=== PATIENT | female | born 1950 | race Caucasian/White ===

== ENCOUNTER 2018-10-15 16:51 | Emergency (ER) | payer MEDICARE, OTHER ==
[2018-10-15] MEDS ORDERED: ONDANSETRON *ODT* 4 MG TABLET SL ONE (17:08)
--- NOTE | 2018-10-15 17:08 | PDOC ---
Rapid Medical Evaluation Chief Complaint: Cold Symptoms Time Seen by Provider: 10/15/18 17:06 Medical Evaluation: 10/15/18 17:07 I have performed a brief in-person evaluation of this patient. The patient presents with a chief complaint of:nausea, vomiting, fever Pertinent physical exam findings:NAD I have ordered the following:Belly labs, zofran The patient will proceed to the ED for further evaluation. Discharge Disposition - Diagnosis Vomiting - Referrals - Patient Instructions - Post Discharge Activity
[2018-10-15 17:10] VITALS: TEMP 97.9; BMI 34.5
[2018-10-15] MEDS ORDERED: ONDANSETRON *ODT* 4 MG TABLET ONE (17:10)
--- NOTE | 2018-10-15 17:22 | PDOC ---
History of Present Illness - General Chief Complaint: Cold Symptoms Stated Complaint: FEVER/COLD SYMPTOMS Time Seen by Provider: 10/15/18 17:06 - History of Present Illness Initial Comments: 68 yo F with PMH of HTN, HLD, DM, asthma presenting with chest pain. Patient states the chest discomfort is rated 4/10 and described as a "pressure." Endorses diaphoresis, nausea, and vomiting too many times to count which is the main reason she decided to come to the ED. Patient is a lifetime nonsmoker. She denies personal history of AR. Father had an AR at age 65 and her sister had one at age 70. Patient has seen a technical applications scientist in the past but is unsure if she has ever had a stress test or ECHO. Endorses chills. Denies shortness of breath or abdominal pain. Past History - Past Medical History Allergies/Adverse Reactions: Allergies Allergy/AdvReac Type Severity Reaction Status Date / Time No Known Allergies Allergy Verified 10/15/18 17:07 Home Medications: Ambulatory Orders Albuterol Sulfate Inhaler - [Ventolin Hfa Inhaler -] 2 inh PO Q6H 10/15/18 Aspirin 81 mg PO DAILY 10/15/18 Atorvastatin Calcium 40 mg PO DAILY 10/15/18 Chlorthalidone 25 mg PO DAILY 10/15/18 Fenofibrate Nanocrystallized [Fenofibrate] 145 mg PO DAILY 10/15/18 Glipizide Xl [Glucotrol Xl -] 10 mg PO DAILY 10/15/18 Lisinopril [Prinivil -] 40 mg PO DAILY 10/15/18 Montelukast Sodium [Singulair] 10 mg PO DAILY 10/15/18 Sitagliptin Phos/Metformin HCl [Janumet 50-1,000 mg Tablet] 1 each PO BID COPD: No Diabetes: Yes (NIDM) HTN: Yes Hypercholesterolemia: Yes - Immunization History Immunization Up to Date: Yes - Suicide/Smoking/Psychosocial Hx Smoking History: Never smoked Hx Alcohol Use: No Drug/Substance Use Hx: No Review of Systems - Review of Systems Comments:: Constitutional: no fever, +chills HEENT: no throat pain, no dysphagia Cardiovascular: +chest pain, no palpitations Respiratory: no cough, no shortness of breath Gastrointestinal: +nausea, +vomiting Genitourinary: no dysuria, no frequency Musculoskeletal: no myalgia, no arthralgia Skin: no rash, no itching Neurologic: +lethargy, no dizziness *Physical Exam - Vital Signs Last Vital Signs Temp Pulse Resp BP Pulse Ox 97.9 F 81 18 115/59 L 96 10/15/18 17:07 10/15/18 17:07 10/15/18 17:07 10/15/18 17:07 10/15/18 17:07 - Physical Exam Comments: General: Awake, alert, and fully oriented, with mild lethargy Head: No signs of trauma Eyes: EOMI, sclera anicteric ENT: Moist mucus membranes Neck: Normal ROM, supple Lungs: Lungs clear, Normal breath sounds Cardio: Regular rhythm, S1 and S2 present Abdomen: Soft, nontender. No guarding, no rebound, no masses Extremities: Normal range of motion, Distal pulses present SKIN: Warm, Dry, normal turgor Neurologic: Cranial nerves II through XII grossly intact. Normal speech Moderate Sedation - Procedure Monitoring Vital Signs: Procedure Monitoring Vital Signs Temperature 97.9 F 10/15/18 17:07 Pulse Rate 81 10/15/18 17:07 Respiratory Rate 18 10/15/18 17:07 Blood Pressure 115/59 L 10/15/18 17:07 O2 Sat by Pulse Oximetry (%) 96 10/15/18 17:07 ED Treatment Course - LABORATORY CBC & Chemistry Diagram: 10/15/18 17:10 10/15/18 17:22 - Medications Given in the ED: ED Medications Discontinued Medications Generic Name Dose Route Start Last Admin Trade Name Freq PRN Reason Stop Dose Admin Ondansetron HCl 4 mg 10/15/18 17:08 10/15/18 17:12 Zofran Odt - SL 10/15/18 17:09 4 mg ONCE ONE Administration Medical Decision Making - Medical Decision Making 68 yo F with PMH of HTN, HLD, DM, asthma presenting with chest pain. VSS EKG: rate 83, QTc 493, NSR, ST elevations in anterolateral distribution Labs drawn 162mg chewable ASA given Discussed case with [facility] cardiac fellow who recommended a total of 325 ASA , 180 Ticagrelor, 4000 units Heparin Accepted patient for transfer under Dr. Dillon Delgado Meds ordered 10/15/18 17:55 Meds given Patient transferred 10/15/18 18:09 *DC/Admit/Observation/Transfer Diagnosis at time of Disposition: Vomiting, STEMI (ST elevation myocardial infarction) - Discharge Dispostion Disposition: TRANSFER ACUTE CARE/OTHER HOSP Condition at time of disposition: Critical - Referrals - Patient Instructions - Post Discharge Activity
[2018-10-15] MEDS ORDERED: ASPIRIN 81 MG CHEWABLE TABLETS PO ONE ×2 (17:31→17:51)
[2018-10-15] MEDS ORDERED: ASPIRIN 81 MG CHEWABLE TABLETS ONE ×2 (17:34→17:56)
[2018-10-15 17:49] VITALS: BP 135/79
[2018-10-15] MEDS ORDERED: TICAGRELOR 90 MG TABLET PO ONE ×2 (17:50→17:56)
[2018-10-15 17:53] LABS: BASO % 0.7 % (0-2.0); EOS % 0.1 % (0-4.5); HEMATOCRIT 33.9 % (32.4-45.2); HEMOGLOBIN 11.2 GM/dL (10.7-15.3); LYMPH % 10.5 % (8-40); MCH 24.4 pg (25.7-33.7); MCHC 33.1 g/dl (32.0-36.0); MEAN CELL VOLUME 73.6 fl (80-96); MEAN PLT VOLUME 7.2 fl (7.5-11.1); MONO % 1.4 % (3.8-10.2); NEUT % 87.3 % (42.8-82.8); PLATELET COUNT 362 K/MM3 (134-434); RBC 4.61 M/mm3 (3.60-5.2); RDW 15.2 % (11.6-15.6); WHITE BLOOD COUNT 9.7 K/mm3 (4.0-10.0)
[2018-10-15] MEDS ORDERED: HEPARIN NA (PORCINE) 5,000 UNITS/ML 1ML VIAL IVPUSH PRN (17:53)
[2018-10-15] MEDS ORDERED: HEPARIN NA (PORCINE) 5,000 UNITS/ML 1ML VIAL ONE (17:58)
--- NOTE | 2018-10-15 18:04 | PDOC ---
Attending Attestation - Resident Resident Name: Rosaura Ceballos - ED Attending Attestation I have performed the following: I have examined & evaluated the patient, The case was reviewed & discussed with the resident, I agree w/resident's findings & plan - HPI HPI: 10/15/18 18:05 The patient is a 68 year old female, with a significant past medical history of DM, HTN, and HLD, who presents to the emergency department with, nausea, vomiting, and chest discomfort. She describes her chest discomfort as a 4/10 pressure. She denies recent fevers, chills, headache or dizziness. She denies recent diarrhea or constipation. She denies recent dysuria, frequency, urgency or hematuria. Allergies: NKDA Primary Care Physician: Dr. Edwin Sagastume - Physicial Exam PE: 10/15/18 18:05 +GENERAL: Mildly discomfort. Awake, alert, and fully oriented HEAD: No signs of trauma NECK: Normal ROM, supple, no lymphadenopathy, JVD, or masses LUNGS: Breath sounds equal, clear to auscultation bilaterally. No wheezes, and no crackles HEART: Regular rate and rhythm, normal S1 and S2, no murmurs, rubs or gallops ABDOMEN: Soft, nontender, normoactive bowel sounds. No guarding, no rebound. No masses NEUROLOGICAL: ANO x3. Cranial nerves II through XII grossly intact. Normal speech. SKIN: Warm, Dry, normal turgor, no rashes or lesions noted. - Medical Decision Making 10/15/18 Call placed to [facility] for STEMI code red transfer. Resident Dr. Kelli Ceballos discussed case with Dr. Delgado, case was accepted. Transfer team arrival: 5:56PM. <Toan Lentz - Last Filed: 10/15/18 18:05> - Critical Care Time Total Critical Care Time: 30 Critical Care Statement: The care of this patient involved high complexity decision making to prevent further life threatening deterioration of the patient 's condition and/or to evaluate & treat vital organ system(s) failure or risk of failure. - Medical Decision Making 10/17/18 00:57 Pt presents to the ED complaining of substernal chest pain. EKG shows STEMI. Call placed to [facility]--patient accepted for transfer. GIven ASA, brillanta, and heparin. Will transfer to [facility] for STEMI. <Leticia Garcia - Last Filed: 10/17/18 01:00> Attestations - Attestations 10/15/18 18:08 Documentation prepared by Toan Lentz, acting as neuropsychology medical consultant for Leticia Garcia MD. <Toan Lentz - Last Filed: 10/15/18 18:05>
[2018-10-15 18:07] LABS: INR 1.03 (0.83-1.09); PROTHROMBIN TIME (PATIENT) 12.1 SEC (9.7-13.0)
[2018-10-15 18:13] VITALS: PULSE 78
[2018-10-15 18:33] LABS: ALBUMIN 3.8 g/dl (3.4-5.0); ALK PHOS 57 U/L (45-117); ANION GAP 10 MMOL/L (8-16); BILIRUBIN,TOTAL 0.4 mg/dL (0.2-1); BLOOD UREA NITROGEN 34 mg/dL (7-18); CALCIUM 9.3 mg/dL (8.5-10.1); CHLORIDE 100 mmol/L (98-107); CO2 25 mmol/L (21-32); CREATININE 1.3 mg/dL (0.55-1.3); GLUCOSE,RANDOM 292 mg/dL (74-106); LIPASE 49 U/L (73-393); POTASSIUM 5.6 mmol/L (3.5-5.1); SGOT/AST 192 U/L (15-37); SGPT/ALT 38 U/L (13-61); SODIUM 135 mmol/L (136-145); TOT PROT 8.2 g/dl (6.4-8.2)
--- NOTE | 2018-10-18 11:01 | EKG ---
Test Reason : Blood Pressure : / mmHG Vent. Rate : 083 BPM Atrial Rate : 083 BPM P-R Int : 168 ms QRS Dur : 080 ms QT Int : 420 ms P-R-T Axes : 053 024 029 degrees QTc Int : 493 ms NORMAL SINUS RHYTHM ANTERIOR INFARCT (CITED ON OR BEFORE 16-JUL-2011) LATERAL INJURY PATTERN ACUTE LA / STEMI ABNORMAL ECG WHEN COMPARED WITH ECG OF 16-JUL-2011 11:14, ST ELEVATION NOW PRESENT IN ANTEROLATERAL LEADS Confirmed by KAITLYNN GRACIA MD ([id number]) on 10/18/2018 11:01:20 AM Referred By: Confirmed By:KAITLYNN GRACIA MD
== END 2018-10-15 18:14 | disposition short-term general hospital (02) ==
LOC: JER 16:51
PROC: 3E033GC Introduction of Other Therapeutic Substance into Peripheral Vein, Percutaneous Approach (ICD-10-PCS; principal; 2018-10-15)
DX: I21.3 ST elevation (STEMI) myocardial infarction of unspecified site (principal); I10 Essential (primary) hypertension; E78.00 Pure hypercholesterolemia, unspecified; E11.9 Type 2 diabetes mellitus without complications; Z79.84 Long term (current) use of oral hypoglycemic drugs
CPT/HCPCS: 36415; 80053; 82550; 82553; 83690; 84484; 85025; 85610; 85730; 93005; 93010; 99285-25; J1644; Q0162

== ENCOUNTER 2018-11-08 00:37 | Inpatient (IN) | payer OTHER ==
[2018-11-08] MEDS ORDERED: ASPIRIN 81 MG CHEWABLE TABLETS PO ONE ×2 (01:28→01:29)
[2018-11-08] MEDS ORDERED: ASPIRIN 81 MG CHEWABLE TABLETS ONE (01:32)
--- NOTE | 2018-11-08 01:34 | PDOC ---
Attending Attestation - Resident Resident Name: Lalo Briceño - ED Attending Attestation I have performed the following: I have examined & evaluated the patient, The case was reviewed & discussed with the resident, I agree w/resident's findings & plan, Exceptions are as noted - HPI HPI: 11/08/18 02:58 The patient is a 68 year old female, with a significant past medical history of recent cardiac stenting 10/20 at [facility] after STEMI, DM, HTN, HLD, CHF (echo EF 35% on 10/20) who presents to the emergency department with chest pain and shortness of breath. As per patients son at bedside, patient has been experiencing chest pain and shortness of breath with movement since her stent which has since worsened over the past 2 days with associated weakness. He describes her chest pain as epigastric with the sensation that she would like to vomit. He notes given the patient her Singulair, without relief prompting their arrival to the ED. Patient was recently evaluated in the ED 10/15 at which time she was transferred to [facility] for a STEMI and had a cardiac catherization on 10/20. Son reports she has been very weak since the stent and barely able to get around at home. History was obtained via son at bedside and discharge paperwork secondary to patients clinical condition. Allergies: NKDA Past surgical history: Cardiac stenting (10/20/2018). Primary Care Physician: Dr. Edwin Sagastume [place] Caller: Dr. Jackson Power [phone] - Physicial Exam PE: 11/08/18 03:01 agree with resident exam - Medical Decision Making 11/08/18 03:01 68yo F with recent STEMI s/p stent, reduced EF 35% presents to the ED with progressive weakness, CP, SOB. Vitals with borderline hypotension Pt is lethargic, pale appearing DDx includes CHF + hypoperfusion vs anemia vs infection vs metabolic disarray EKG with no EZEQUIEL Labs with CHF [id number], mildly elevated trop 0.2, likely demand in stting of reduced EF Case discussed with Dr. Woods (cards), recommends IV lasix and admission Hospitalist paged for admission 11/08/18 04:[address] Kilpatrick Case discussed in detail with admitting physician including history, physical exam and ancillary studies. Admitting physician has assumed care for the patient, will follow all pending diagnostics and will complete the evaluation and treatment.
[2018-11-08 01:44] LABS: EOS % 2.1 % (0-4.5); HEMATOCRIT 26.5 % (32.4-45.2); HEMOGLOBIN 8.9 GM/dL (10.7-15.3); LYMPH % 18.6 % (8-40); MCH 24.5 pg (25.7-33.7); MCHC 33.6 g/dl (32.0-36.0); MEAN CELL VOLUME 73.1 fl (80-96); MEAN PLT VOLUME 7.2 fl (7.5-11.1); MONO % 5.7 % (3.8-10.2); NEUT % 72.6 % (42.8-82.8); PLATELET COUNT 424 K/MM3 (134-434); RBC 3.63 M/mm3 (3.60-5.2); RDW 15.4 % (11.6-15.6); WHITE BLOOD COUNT 7.5 K/mm3 (4.0-10.0)
[2018-11-08 01:56] LABS: INR 1.17 (0.83-1.09); PROTHROMBIN TIME (PATIENT) 13.8 SEC (9.7-13.0)
[2018-11-08 01:58] LABS: ACTIVATED PTT 34.5 SECONDS (25.2-36.5)
--- NOTE | 2018-11-08 02:00 | PDOC ---
History of Present Illness - General Chief Complaint: Chest Pain Stated Complaint: CHEST PAIN Time Seen by Provider: 11/08/18 01:03 - History of Present Illness Initial Comments: 11/08/18 02:23 68 yo F with a hx of HTN, HLD, DM, CHF (per 10/20 echo; 35% EF), and STEMI on (s/p 1x stent [facility] 10/20/2018 LAD occlusion) current on brillanta presents to the emergency department with chest pain and SOB accompanied by her son. Per the patient, she has been having chest pain that has been ongoing since the STEMI with [facility]. However, she had marked increased in SOB over the past 2 days with worsening weakness. The patient feels they are unable to move as well because of her profound weakness. Endorses the following : nausea. Pain is described as following: epigastric, non radiating, sharp, without improvement with the use of singulair, and no aggravating factors. She is followed by Dr. Power for cardiology. Per the son, she has been compliant with her medications and is on brilinta. Shx: PCI Allergies: NKDA Social: Denies tobacco, alcohol, and substance abuse. Past History - Past Medical History Allergies/Adverse Reactions: Allergies Allergy/AdvReac Type Severity Reaction Status Date / Time No Known Allergies Allergy Verified 11/08/18 02:01 Home Medications: Ambulatory Orders Aspirin 81 mg PO DAILY 10/15/18 Montelukast Sodium [Singulair] 10 mg PO HS 10/15/18 Atorvastatin Ca [Lipitor] 80 mg PO HS 11/08/18 Sitagliptin Phos/Metformin HCl [Janumet 50-1,000 mg Tablet] 1 each PO BID Clopidogrel Bisulfate [Plavix -] 75 mg PO DAILY 30 Days #30 tablet 11/11/18 Ferrous Sulfate [Feosol] 325 mg PO DAILY 30 Days #30 ud 11/11/18 Furosemide [Lasix] 40 mg PO BID 30 Days #60 tablet 11/11/18 Lisinopril [Prinivil] 10 mg PO DAILY 30 Days #30 tablet 11/11/18 Metoprolol Succinate [Toprol XL -] 50 mg PO DAILY 30 Days #30 tab.sr.24h COPD: No Diabetes: Yes (NIDM) HTN: Yes Hypercholesterolemia: Yes - Immunization History Immunization Up to Date: Yes - Suicide/Smoking/Psychosocial Hx Smoking History: Never smoked Hx Alcohol Use: No Drug/Substance Use Hx: No Review of Systems - Review of Systems Able to Perform ROS?: Yes Is the patient limited Italian proficient: No Constitutional: Yes: Weakness. No: Chills, Diaphoresis, Fever HEENTM: No: Eye Pain, Recent change in vision, Ear Pain, Nose Pain, Throat Pain , Mouth Pain Respiratory: Yes: Shortness of Breath, SOB with Exertion, SOB at Rest. No: Cough, Hemoptysis Cardiac (ROS): Yes: Chest Pain. No: Lightheadedness, Palpitations, Syncope ABD/GI: Yes: Nausea, Poor Appetite, Poor Fluid Intake. No: Constipated, Diarrhea, Rectal Bleeding, Vomiting, Tarry Stools : No: Burning, Dysuria, Hematuria, Urgency Musculoskeletal: No: Back Pain, Joint Pain, Neck Pain Integumentary: No: Bruising, Erythema, Rash Neurological: No: Headache, Numbness, Tingling, Tremors, Ataxia Psychiatric: No: Change in Appetite Endocrine: No: Unexplained Weight Gain *Physical Exam - Physical Exam General Appearance: Yes: Nourished, Appropriately Dressed, Obese, Other ( patient looks uncomfortable). No: Apparent Distress, Intoxicated HEENT: positive: EOMI, JEANETTE, Normal Voice, Symmetrical, Pharynx Normal, Hearing Grossly Normal. negative: Pale Conjunctivae, Scleral Icterus (R), Scleral Icterus (L), Muffled/Hoarse voice, Pharyngeal Erythema, Tonsillar Exudate, Tonsillar Erythema, Nasal Congestion, Rhinorrhea, Excessive drooling Neck: positive: Trachea midline, Supple. negative: Tender, Lymphadenopathy (R) , Lymphadenopathy (L), Tender lateral, Tender midline Respiratory/Chest: positive: Decreased Breath Sounds. negative: Chest Tender, Lungs Clear, Normal Breath Sounds, Respiratory Distress, Accessory Muscle Use Cardiovascular: positive: Regular Rhythm, Regular Rate, S1, S2. negative: Systolic Murmur Gastrointestinal/Abdominal: positive: Normal Bowel Sounds, Flat, Soft. negative : Tender, Distended, Guarding, Rebound Lymphatic: negative: Adenopathy Musculoskeletal: positive: Normal Inspection. negative: CVA Tenderness, Vertebral Tenderness Extremity: positive: Normal Capillary Refill, Normal Range of Motion, Swelling ( bilaterally LE mild). negative: Normal Inspection, Tender Integumentary: positive: Normal Color, Dry, Warm. negative: Swelling, Ecchymosis Neurologic: positive: pigs feet finisher II-XII NML intact, Fully Oriented, Alert, Normal Mood/ Affect, Normal Response, Motor Strength 5/5 Heart Score/ECG Review - History History: Slightly suspicious - Electrocardiogram EKG: Non specific repolarization disturbance - Age Age: >/= 65 - Risk Factors Risk Factors Heart Score: Yes Hx Hypercholesterolemia, Yes Hx Hypertension, Yes Hx Diabetes Based on the list above the patient has:: >/=3 risk factors or Hx atherosclerotic disease - Troponin Troponin: 1-3x normal limit - Score Heart Score - Total: 6 - ECG Intrepretation Comment:: ventricular rate: 103 bpm, NC is 160 ms, QRS is 80 ms, QTc is 487 ms. sinus tachycardia without ST elevations or depressions ED Treatment Course - LABORATORY CBC & Chemistry Diagram: 11/12/18 06:00 11/12/18 06:00 - ADDITIONAL ORDERS Additional order review: Laboratory Results 11/08/18 01:38 PT with INR 13.80 H INR 1.17 H PTT (Actin FS) 34.5 11/08/18 01:38 RBC 3.63 MCV 73.1 L MCHC 33.6 RDW 15.4 MPV 7.2 L Neutrophils % 72.6 Lymphocytes % 18.6 D Monocytes % 5.7 D Eosinophils % 2.1 D Basophils % 1.0 - RADIOLOGY Radiology Studies Ordered: Category Date Time Status CHEST X-RAY PORTABLE* [RAD] Stat Radiology 11/08/18 01:29 Ordered - Medications Given in the ED: ED Medications Discontinued Medications Generic Name Dose Route Start Last Admin Trade Name Freq PRN Reason Stop Dose Admin Aspirin 162 mg 11/08/18 01:28 11/08/18 01:37 Asa - PO 11/08/18 01:29 Not Given ONCE ONE Aspirin 324 mg 11/08/18 01:29 11/08/18 01:37 Asa - PO 11/08/18 01:30 324 mg ONCE ONE Administration Medical Decision Making - Medical Decision Making 68 yo F with a hx of HTN, HLD, DM, CHF (per 10/20 echo; 35% EF), and STEMI on (s/p 1x stent [facility] 10/20/2018 LAD occlusion) current on brillanta presents to the emergency department with chest pain and SOB accompanied by her son. Initial vitals: Initial Vital Signs Temp Pulse Resp BP Pulse Ox 98.8 F 99 H 19 105/70 96 11/08/18 00:37 11/08/18 00:37 11/08/18 00:37 11/08/18 00:37 11/08/18 00:37 Work up: ddx: ACS vs ela syndrome vs pericarditis vs PNA vs CHF exacerbation vs pleuritis vs influenza vs URI vs UTI Laboratory Tests 11/08/18 11/08/18 11/08/18 01:38 01:38 01:38 WBC 7.5 RBC 3.63 Hgb 8.9 L Hct 26.5 L D MCV 73.1 L MCH 24.5 L MCHC 33.6 RDW 15.4 Plt Count 424 MPV 7.2 L Absolute Neuts (auto) 5.5 Neutrophils % 72.6 Lymphocytes % 18.6 D Monocytes % 5.7 D Eosinophils % 2.1 D Basophils % 1.0 Nucleated RBC % 0 PT with INR 13.80 H INR 1.17 H PTT (Actin FS) 34.5 Sodium 132 L Potassium 5.2 H Chloride 104 Carbon Dioxide 22 Anion Gap 7 L BUN 35 H Creatinine 0.9 Creat Clearance w eGFR 62.27 Random Glucose 148 H Calcium 8.4 L Total Bilirubin 0.4 AST 18 ALT 19 Alkaline Phosphatase 86 Creatine Kinase 68 Troponin I 0.21 H B-Natriuretic Peptide 37294.2 H Total Protein 6.9 Albumin 2.8 L TSH 2.45 Free T4 1.17 Urine Color Urine Appearance Urine pH Ur Specific [place] Urine Protein Urine Glucose (UA) Urine Ketones Urine Blood Urine Nitrite Urine Bilirubin Urine Urobilinogen Ur Leukocyte Esterase Urine WBC (Auto) Urine RBC (Auto) Urine Casts (Auto) U Pathogenic Cast Auto U Epithel Cells (Auto) Urine Bacteria (Auto) 11/08/18 01:50 WBC RBC Hgb Hct MCV MCH MCHC RDW Plt Count MPV Absolute Neuts (auto) Neutrophils % Lymphocytes % Monocytes % Eosinophils % Basophils % Nucleated RBC % PT with INR INR PTT (Actin FS) Sodium Potassium Chloride Carbon Dioxide Anion Gap BUN Creatinine Creat Clearance w eGFR Random Glucose Calcium Total Bilirubin AST ALT Alkaline Phosphatase Creatine Kinase Troponin I B-Natriuretic Peptide Total Protein Albumin TSH Free T4 Urine Color Yellow Urine Appearance Clear Urine pH 5.0 Ur Specific [place] 1.021 Urine Protein Negative Urine Glucose (UA) Negative Urine Ketones Trace H Urine Blood Negative Urine Nitrite Negative Urine Bilirubin Negative Urine Urobilinogen 1.0 Ur Leukocyte Esterase 2+ Urine WBC (Auto) 16 Urine RBC (Auto) 1 Urine Casts (Auto) 15.81 U Pathogenic Cast Auto No Result Required. U Epithel Cells (Auto) 8.2 Urine Bacteria (Auto) 355.176 Per the patient's records obtained from the son, her echo showed large region of apical akinesis with anterior wall akinesis and anteroseptal hypokinesis with an EF of 35%. She obtained a PCI in the mid LAD after a 99% stenosis was found and has been prescribed brilinta since. Per the patient's son, he has seen a rapid worsening of her weakness and dyspnea over the course of 2 days. Labs show the following: troponin 0.21 (likely downtrending given it was markedly elevated on 10/15 with CK within normal limits), B[place] 26144, potassium 5.2 and UA showing 2+ leuk esterase with 16 WBC with CXR showing congestive changes. On physical exam, she had decreased breath sounds bilaterally with mild edema in her legs bilaterally. Her EKG did not show new ST elevations or depressions. will admit for further ACS rule out. given aspirin. spoke to cardiology and was recommended to give 40 mg of lasix. Dispo: Admit *DC/Admit/Observation/Transfer Diagnosis at time of Disposition: Acute exacerbation of CHF (congestive heart failure) Qualifiers: Heart failure type: systolic Qualified Code(s): I50.23 - Acute on chronic systolic (congestive) heart failure - Discharge Dispostion Disposition: VNS/HOME HEALTH CARE - Referrals - Patient Instructions - Post Discharge Activity
[2018-11-08 02:20] LABS: ALBUMIN 2.8 g/dl (3.4-5.0); ALK PHOS 86 U/L (45-117); ANION GAP 7 MMOL/L (8-16); BILIRUBIN,TOTAL 0.4 mg/dL (0.2-1); BLOOD UREA NITROGEN 35 mg/dL (7-18); CALCIUM 8.4 mg/dL (8.5-10.1); CHLORIDE 104 mmol/L (98-107); CO2 22 mmol/L (21-32); CREATININE 0.9 mg/dL (0.55-1.3); GLUCOSE,RANDOM 148 mg/dL (74-106); N-TERMINAL BNP 13649.2 pg/ml (5-125); POTASSIUM 5.2 mmol/L (3.5-5.1); SGOT/AST 18 U/L (15-37); SGPT/ALT 19 U/L (13-61); SODIUM 132 mmol/L (136-145); TOT PROT 6.9 g/dl (6.4-8.2)
[2018-11-08] MEDS ORDERED: FUROSEMIDE 40 MG/4 ML INJECTABLE VIAL IVPUSH ONE (02:49)
[2018-11-08] MEDS ORDERED: FUROSEMIDE 40 MG/4 ML INJECTABLE VIAL ONE (03:07)
[2018-11-08 05:11] LABS: EPI CELLS 8.2 /HPF (0-5); URINE APPEARANCE CLEAR; URINE BACTERIA 355.176 /hpf (NEGATIVE); URINE BILIRUBIN NEGATIVE (<2.0 mg/dL); URINE COLOR YELLOW; URINE GLUCOSE (UA) NEGATIVE (NEGATIVE); URINE KETONE TRACE (NEGATIVE); URINE LEUK ESTERASE 2+ (NEGATIVE); URINE NITRITE NEGATIVE (NEGATIVE); URINE PROTEIN NEGATIVE (NEGATIVE); URINE RBC 1 /hpf (0-4); URINE WBC 16 /hpf (0-5)
--- NOTE | 2018-11-08 06:08 | HP ---
<Victor HugoÓscar - Last Filed: 11/08/18 07:31> CHIEF COMPLAINT: Shortness of Breath PCP: Dr. Edwin Sagastume HISTORY OF PRESENT ILLNESS: Pt. is a 68 y.o. F presents for shortness of breath that has been worsening since stent placement. Pt. states that she has associated chest pain/tightness and increased lethargy. Pt. endorses increased leg swelling for the last 2 days. Pt. endorses chronic numbness/tingling in feet. Pt. states that she has decreased frequency of urination over the last 3 days. Pt. denies any fevers, chills, nausea, vomiting, diarrhea, constipation, blood in stool or urine. ER course was notable for: (1)EKG, BNP, labs, CXR (2)IV Lasix, ASA (3)Discussed w. Dr Woods Recent Travel: No PAST MEDICAL HISTORY: HTN, HLD, DM, STEMI( s/p PCI x1 stent @ [facility] 10/20/18) PAST SURGICAL HISTORY: Denies Social History: Smoking:Denies Alcohol: Denies Drugs: Denies Family History: Non-contributory Allergies No Known Allergies Allergy (Verified 11/08/18 02:01) HOME MEDICATIONS: Home Medications Medication Instructions Recorded Aspirin 81 mg PO DAILY 10/15/18 Atorvastatin Calcium 40 mg PO DAILY 10/15/18 Montelukast Sodium [Singulair] 10 mg PO DAILY 10/15/18 Metoprolol Tartrate 25 mg PO DAILY 11/08/18 Spironolactone [Aldactone] 25 mg PO DAILY 11/08/18 Ticagrelor [Brilinta] 90 mg PO BID 11/08/18 REVIEW OF SYSTEMS CONSTITUTIONAL: Absent: fever, chills, diaphoresis, generalized weakness, malaise, loss of appetite, weight change HEENT: Absent: rhinorrhea, nasal congestion, throat pain, throat swelling, difficulty swallowing, mouth swelling, ear pain, eye pain, visual changes CARDIOVASCULAR: Absent: chest pain, syncope, palpitations, irregular heart rate, lightheadedness , peripheral edema RESPIRATORY: Absent: cough, shortness of breath, dyspnea with exertion, orthopnea, wheezing, stridor, hemoptysis GASTROINTESTINAL: Absent: abdominal pain, abdominal distension, nausea, vomiting, diarrhea, constipation, melena, hematochezia GENITOURINARY: Absent: dysuria, frequency, urgency, hesitancy, hematuria, flank pain, genital pain MUSCULOSKELETAL: Absent: myalgia, arthralgia, joint swelling, back pain, neck pain SKIN: Absent: rash, itching, pallor HEMATOLOGIC/IMMUNOLOGIC: Absent: easy bleeding, easy bruising, lymphadenopathy, frequent infections ENDOCRINE: Absent: unexplained weight gain, unexplained weight loss, heat intolerance, cold intolerance NEUROLOGIC: Absent: headache, focal weakness or paresthesias, dizziness, unsteady gait, seizure, mental status changes, bladder or bowel incontinence PSYCHIATRIC: Absent: anxiety, depression, suicidal or homicidal ideation, hallucinations. PHYSICAL EXAMINATION Vital Signs - 24 hr 11/08/18 00:37 Temperature 98.8 F Pulse Rate 99 H Respiratory 19 Rate Blood Pressure 105/70 O2 Sat by Pulse 96 Oximetry (%) GENERAL: Awake, alert, and fully oriented, in no acute distress. HEAD: Normal with no signs of trauma. EYES: Pupils equal, round and reactive to light, extraocular movements intact, sclera anicteric, conjunctiva clear. EARS, NOSE, THROAT: Ears normal, nares patent, oropharynx clear without exudates. Moist mucous membranes. NECK: Normal range of motion, supple without lymphadenopathy, JVD, or masses. LUNGS: decreased BS, bibasilar ronchi, No wheezes, and no crackles. No accessory muscle use. HEART: Tachycardic, regular rate and rhythm, normal S1 and S2 without murmur ABDOMEN: Soft, nontender, not distended, normoactive bowel sounds, no guarding, no rebound, no masses. MUSCULOSKELETAL: Normal range of motion at all joints. No bony deformities or tenderness. No CVA tenderness. UPPER EXTREMITIES: 2+ radial pulses, warm, well-perfused. No cyanosis. No clubbing. LOWER EXTREMITIES: 2+ dorsal pedal pulses, warm, well-perfused. No calf tenderness but diffuse tenderness to palpation in lower extremities. 2+ edema. NEUROLOGICAL: Normal speech. PSYCHIATRIC: Cooperative. Good eye contact. Appropriate mood and affect. SKIN: Warm, dry, normal turgor, no rashes or lesions noted, normal capillary refill. Laboratory Results - last 24 hr 11/08/18 11/08/18 11/08/18 01:38 01:38 01:38 WBC 7.5 RBC 3.63 Hgb 8.9 L Hct 26.5 L D MCV 73.1 L MCH 24.5 L MCHC 33.6 RDW 15.4 Plt Count 424 MPV 7.2 L Absolute Neuts (auto) 5.5 Neutrophils % 72.6 Lymphocytes % 18.6 D Monocytes % 5.7 D Eosinophils % 2.1 D Basophils % 1.0 Nucleated RBC % 0 PT with INR 13.80 H INR 1.17 H PTT (Actin FS) 34.5 Sodium 132 L Potassium 5.2 H Chloride 104 Carbon Dioxide 22 Anion Gap 7 L BUN 35 H Creatinine 0.9 Creat Clearance w eGFR 62.27 Random Glucose 148 H Calcium 8.4 L Total Bilirubin 0.4 AST 18 ALT 19 Alkaline Phosphatase 86 Creatine Kinase 68 Troponin I 0.21 H B-Natriuretic Peptide 48172.2 H Total Protein 6.9 Albumin 2.8 L TSH 2.45 Free T4 1.17 Urine Color Urine Appearance Urine pH Ur Specific [place] Urine Protein Urine Glucose (UA) Urine Ketones Urine Blood Urine Nitrite Urine Bilirubin Urine Urobilinogen Ur Leukocyte Esterase Urine WBC (Auto) Urine RBC (Auto) U Epithel Cells (Auto) Urine Bacteria (Auto) 11/08/18 01:50 WBC RBC Hgb Hct MCV MCH MCHC RDW Plt Count MPV Absolute Neuts (auto) Neutrophils % Lymphocytes % Monocytes % Eosinophils % Basophils % Nucleated RBC % PT with INR INR PTT (Actin FS) Sodium Potassium Chloride Carbon Dioxide Anion Gap BUN Creatinine Creat Clearance w eGFR Random Glucose Calcium Total Bilirubin AST ALT Alkaline Phosphatase Creatine Kinase Troponin I B-Natriuretic Peptide Total Protein Albumin TSH Free T4 Urine Color Yellow Urine Appearance Clear Urine pH 5.0 Ur Specific [place] 1.021 Urine Protein Negative Urine Glucose (UA) Negative Urine Ketones Trace H Urine Blood Negative Urine Nitrite Negative Urine Bilirubin Negative Urine Urobilinogen 1.0 Ur Leukocyte Esterase 2+ Urine WBC (Auto) 16 Urine RBC (Auto) 1 U Epithel Cells (Auto) 8.2 Urine Bacteria (Auto) 355.176 ASSESSMENT/PLAN: Pt. is a 68 y.o. F w/ PMHx. of HTN, HLD, DM, STEMI (s/p PCI x1 stent @ [facility] 10/20/18) presents for shortness of breath that has been worsening since stent placement. #Acute on chronic CHF exacerbation Given 40mg IV Lasix in ED c/w IV Lasix BNP: 13,000+ c/w Aldactone and Metoprolol consider Cardiology consult CXR: fluid overload, cephalization Last Echo showed reduced EF: 35% and apical hypokinesis, f/u report from [facility] where it was done this month. #HTN c/w Aldoactone and Metoprolol #HLD c/w Atorvastatin #DM ISS TIDAC BGM TIDAC f/u HgA1c #FEN no IVF, encourage PO intake monitor electrolytes and replete as needed encourage PO intake, Na/diabetic diet #DVT Ppx. C/w ASA and Brillinta consider stopping ASA and staring Hep SQ while inpatient Visit type - Emergency Visit Emergency Visit: Yes ED Registration Date: 11/08/18 Care time: The patient presented to the Emergency Department on the above date and was hospitalized for further evaluation of their emergent condition. - New Patient This patient is new to me today: Yes Date on this admission: 11/08/18 - Critical Care Critical Care patient: No <Lalo Kilpatrick - Last Filed: 12/06/18 21:55> Seen and examined; agree with above aside from what is supplemented in my own documentation. Repeated all lizarraga parts of exam, supervised all vital parts of patient care.
--- NOTE | 2018-11-08 06:27 | PN ---
Teaching Attending Note Name of Resident: Óscar Gay ATTENDING PHYSICIAN STATEMENT I saw and evaluated the patient. I reviewed the resident's note and discussed the case with the resident. I agree with the resident's findings and plan as documented. SUBJECTIVE: Seen and examined; please refer to resident note for further historical information. Briefly, this is a 68 y/o female presenting with shortness of breath and chest pain. She has had the SOB for several days but noticible since the time she had the stent in; the chest pain since yesterday and is waxing and waning, nonradiating. She was recently at [facility] on 10/15 and had stent placement for a STEMI for LAD occlusion (Dr. Power). She tells us that she has had increased tiredness, etc. since then. She was also having chest pain. ER spoke with Dr. Coffman and were told to continue IV lasix and to place the patient on telemetry. Says she was told to DC the monteleukast and has been using albuterol often (she tells me that she was diagnsed with new-onset asthma at [facility]; doesn't appear to have any tx for this on board other than singulair which has already been DCd). Hemodynamics stable. 10 sys ROS done and negative aside from HPI PMH (HTN, HLD, DM, CAD s/p recent PCI), PSH, Family hx, Social hx reviewed Medication list reviewed Home Medications Medication Instructions Recorded Aspirin 81 mg PO DAILY 10/15/18 Atorvastatin Calcium 40 mg PO DAILY 10/15/18 Montelukast Sodium [Singulair] 10 mg PO DAILY 10/15/18 Metoprolol Tartrate 25 mg PO DAILY 11/08/18 Spironolactone [Aldactone] 25 mg PO DAILY 11/08/18 Ticagrelor [Brilinta] 90 mg PO BID 11/08/18 OBJECTIVE: VS, labs, imaging reviewed NAD on RA, AAO, resting comfortably in bed NC AT EOMI PERRLA RRR s1/2 no mgr, sym b/l LE edema NT ND +BS CN2-12 wnl, no fnd Normal mood, appropriate behavior Recent echo at [facility] stated to be reduced at 35% with some apical akinesis EKG reviewed ASSESSMENT AND PLAN: Patient presents to the ER with shortness of breath and chest pain in the setting of recent STEMI 1) Chest Pain with recent STEMI -ER spoke with CV; appreciate expert opinion. We will place the patient on tele and trend troponin. Obtainold records from [facility]. -Gave her PM dose of brilinta down in ER; states she hasn't missed any doses. Q waves evident in expected leads. Continue ASA, Statin, Brilinta, BB. 2) Acute systolic CHF -Continue Lasix 40 IV daily; echo done at OSH noted. -Consider changing BB to Metoprolol succinate and adding on SURAJ/ARB if renal function tolerates (HYPERK noted) but will defer to CV -Monitor strict is and os, QD weights, place on low salt diet. Incentive spirometry. Symptoms sound like they have been developing since she has had the cath. She is not on home lasix but was taking 25 aldactone. 3) Acute Cystitis -1g Ceftriaxone IV daily and followup on culture; DC if negative 4) HTN -Holding aldactone given hyper K; resume if improved in AM. Continue MT. Control with PRNs while inpt. 5) HLD -Continue statin 6) DM -?Dx; cover with SSI if needed. A1c as outpatient FENA -2L fluid restriction -Optimize Mg at 2 and K at 4 -Low sodium -As tolerated
[2018-11-08] MEDS ORDERED: CEFTRIAXONE 1 GM in DEXTROSE 5%-WATER - 50 ML IVPB ONE (06:30)
[2018-11-08] MEDS ORDERED: CEFTRIAXONE 1 GM/50 ML BAG ONE (06:38)
[2018-11-08 08:42] LABS: HYALINE CASTS 15.81 /hpf (0-8)
--- NOTE | 2018-11-08 10:10 | EKG ---
Test Reason : Blood Pressure : / mmHG Vent. Rate : 103 BPM Atrial Rate : 103 BPM P-R Int : 160 ms QRS Dur : 080 ms QT Int : 372 ms P-R-T Axes : 045 035 226 degrees QTc Int : 487 ms SINUS TACHYCARDIA LOW VOLTAGE QRS ANTEROLATERAL INFARCT, EVOLVING ABNORMAL ECG WHEN COMPARED WITH ECG OF 15-OCT-2018 17:20, EVOLVING MYOCARDIAL INFARCTION VENT. RATE HAS INCREASED Confirmed by KAITLYNN GRACIA MD ([id number]) on 11/08/2018 10:09:54 AM Referred By: Confirmed By:KAITLYNN GRACIA MD
[2018-11-08] MEDS ORDERED: ACETAMINOPHEN 325 MG TABLET (FP) PO PRN (11:54)
[2018-11-08] MEDS ORDERED: SPIRONOLACTONE 25 MG TABLET (FP) PO SCH (12:00)
[2018-11-08] MEDS ORDERED: TICAGRELOR 90 MG TABLET PO SCH (12:00)
[2018-11-08] MEDS ORDERED: METOPROLOL TARTRATE 25 MG TABLET (FP) PO SCH (12:00)
[2018-11-08] MEDS: ASPIRIN 81 MG CHEWABLE TABLETS PO SCH (12:23)
--- NOTE | 2018-11-08 14:14 | CON.CARD ---
Consult Consult Specialty:: Cardiology Referred by:: Dr. Kilpatrick Reason for Consultation:: Chest pain with history of CAD and recent stenting - History of Present Illness Chief Complaint: Chest pain and SOB History of Present Illness: 68 year old woman with a PMHx of HTN, DM-II, HLD, asthma, CAD, lateral STEMI, s /p PCI with LOUIS on mid LAD on 10/15/2018, systolic CHF secondary to ICM with EF 35 % from echo on 10/20/2018 presents to ED with chest pain and shortness of breath. The patient was transferred from [facility] to [facility] on 10/15/2018 for lateral STEMI. He underwent urgent cardiac cath on 10/15/2018 which showed 99% stenosis of mid LAD and EF of 20-25% with elevated LVEDP. PCI of mLAD done, but no signs of reflow noted to treated with intracoronary vasodilators. An IABP was placed with improvement in coronary blood flow. She was observed in CCU. Echocardiogram on 10/20/2018 showed LVEF 35%. He was discharge with aspirin, Brilinta/Atorvastatin on 10/22/2018. The patient has been experiencing SOB and chest pain on deep inspiration since her discharge from [facility] on 10/22/2018. Her SOB worsened over the past 2 days with associated weakness. He describes her chest pain as epigastric with the sensation that she would like to vomit. She has been very weak and barely able to get around at home. ECG 11/08/2018 showed: Sinus tachycardia with VPCs. Low voltage. Anterolateral infarct, evolving. Troponin is mildly elevated, likely trending down from recent SC (Troponin was 7.4 on 10/19/2018), BNP is severely elevated. Cardiac tests: Echocardiogram 10/20/2018: Normal left ventricular size. Large region of apical akinesis. Anterior wall akinesis. Severe anteroseptal hypokinesis. Severe anterolateral wall hypokinesis. Other miranda contract normally. Severely decreased left ventricular ejection fraction. LVEF = 35%. Normal RV. Normal LA and RA. No significangt valvular abnormalities. Cardiac cath: Mid LAD (99% stenosis). LCx with mild luminal irregularities. Dominant RCA (proximal 60%), distally with mild to moderate luminal irregularities. LV gram: LVEF 20-25% with severe hypokinesis of the anterior, anterolateral and infero-apical segments. LVEDP 33 mmHg. Intervention: Successful PCI of mid LAD with placement of 1 LOUIS. Course complicated by no reflow, treated with intra-coronary vasodilators. - History Source History Provided By: Patient, Medical Record Limitations to Obtaining History: No Limitations - Past Medical History Cardio/Vascular: Yes: CAD, CHF, HTN, Hyperlipdemia, SC Pulmonary: Yes: Asthma - Alcohol/Substance Use Hx Alcohol Use: No - Smoking History Smoking history: Never smoked Have you smoked in the past 12 months: No Home Medications - Allergies Allergies/Adverse Reactions: Allergies Allergy/AdvReac Type Severity Reaction Status Date / Time No Known Allergies Allergy Verified 11/08/18 02:01 - Home Medications Home Medications: Ambulatory Orders Aspirin 81 mg PO DAILY 10/15/18 Atorvastatin Calcium 40 mg PO DAILY 10/15/18 Montelukast Sodium [Singulair] 10 mg PO HS 10/15/18 Atorvastatin Ca [Lipitor] 80 mg PO HS 11/08/18 Clopidogrel Bisulfate [Plavix] 75 mg PO DAILY 11/08/18 Lisinopril [Prinivil -] 40 mg PO DAILY 11/08/18 Metoprolol Tartrate 25 mg PO DAILY 11/08/18 Sitagliptin Phos/Metformin HCl [Janumet 50-1,000 mg Tablet] 1 each PO BID Spironolactone [Aldactone] 25 mg PO DAILY 11/08/18 Ticagrelor [Brilinta] 90 mg PO BID 11/08/18 Review of Systems - Review of Systems Constitutional: reports: Malaise, Weakness Eyes: reports: No Symptoms HENT: reports: No Symptoms Neck: reports: No Symptoms Cardiovascular: reports: Chest Pain, Edema, Shortness of Breath Respiratory: reports: Exercise Intolerance, SOB, SOB on Exertion Gastrointestinal: reports: Abdominal Pain Genitourinary: reports: No Symptoms Musculoskeletal: reports: No Symptoms Integumentary: reports: No Symptoms Neurological: reports: No Symptoms Endocrine: reports: No Symptoms Hematology/Lymphatic: reports: No Symptoms Psychiatric: reports: No Symptoms Vital Signs: Vital Signs Temperature 98.5 F 11/08/18 07:16 Pulse Rate 88 11/08/18 07:16 Respiratory Rate 19 11/08/18 07:16 Blood Pressure 110/87 11/08/18 07:16 O2 Sat by Pulse Oximetry (%) 98 11/08/18 07:16 General: Well developed. Chronic ill. No acute distress. Head: Normocephalic. Atraumatic, Eyes: PERRLA, EOMI. Sclerae anicteric. Conjunctivae clear. Neck: Supple. No JVD. No bruits. Heart: Normal S1, S2: Regular rhythm and rate. No murmur. No gallop or rub. Lungs: Symmetrical poor air entry with prolonged expiration. Bibasilar crackles. No wheezing or rhonchi. Abdomen: Soft. Bowel sound positive. Non tender. No masses. Extremities: 1+ edema. No clubbing or cyanosis. PD 2+, equal bilaterally. Neuro: Intact, no focal findings. AAO X3. - Other Data Labs, Other Data: CBC, BMP 11/08/18 01:38 11/08/18 01:38 INR, PTT INR 1.17 (0.83-1.09) H 11/08/18 01:38 Troponin, BNP 11/08/18 01:38 Troponin I 0.21 H B-Natriuretic Peptide 31645.2 H Troponin, BNP 11/08/18 01:38 Troponin I 0.21 H B-Natriuretic Peptide 61976.2 H Assessment/Plan 68 year old woman with a PMHx of HTN, DM-II, HLD, asthma, CAD, lateral STEMI, s/ p PCI with LOUIS on mid LAD on 10/15/2018, systolic CHF secondary to ICM with EF 35 % from echo on 10/20/2018 presents to ED with chest pain and shortness of breath. The patient was transferred from [facility] to [facility] on 10/15/2018 for lateral STEMI. He underwent urgent cardiac cath on 10/15/2018 which showed 99% stenosis of mid LAD and EF of 20-25% with elevated LVEDP. PCI of mLAD done, but no signs of reflow noted to treated with intracoronary vasodilators. An IABP was placed with improvement in coronary blood flow. She was observed in CCU. Echocardiogram on 10/20/2018 showed LVEF 35%. He was discharge with aspirin, Brilinta/Atorvastatin on 10/22/2018. The patient has been experiencing SOB, weakness and atypical chest pain since discharge from [facility] on 10/22/2018. ECG 11/08/2018 showed: Sinus tachycardia with VPCs. Low voltage. Anterolateral infarct, evolving. Troponin is mildly elevated, likely trending down from recent SC (Troponin was 7.4 on 10/19/2018), BNP is severely elevated. Cardiac tests: Echocardiogram 10/20/2018: Normal left ventricular size. Large region of apical akinesis. Anterior wall akinesis. Severe anteroseptal hypokinesis. Severe anterolateral wall hypokinesis. Other miranda contract normally. Severely decreased left ventricular ejection fraction. LVEF = 35%. Normal RV. Normal LA and RA. No significangt valvular abnormalities. Cardiac cath: Mid LAD (99% stenosis). LCx with mild luminal irregularities. Dominant RCA (proximal 60%), distally with mild to moderate luminal irregularities. LV gram: LVEF 20-25% with severe hypokinesis of the anterior, anterolateral and infero-apical segments. LVEDP 33 mmHg. Intervention: Successful PCI of mid LAD with placement of 1 LOUIS. Course complicated by no reflow, treated with intra-coronary vasodilators. 1) Systolic CHF secondary to ICM with physical signs of fluid overload. The side effect of Brilita may also contribute to her dyspnea. Start IV Lasix 40 mg BID to keep Os> Is. Monitor daily weight, Is, Os, eletrolytes and renal function. Change and increase metoprolol tartrate to metoprolol succinate 50 mg daily. Decrease Lisinopril to 20 mg daily. Change Brilita to Plavix. Continue Aldactone. 2) Chest pain: recently PCI/LOUIS to mid LAD. Chest pain is atypical, likely non-cardiac. Not ACS. Continue aspirin, plavix, metoprolol and atorvastatin. We will follow.
[2018-11-08] MEDS: FUROSEMIDE 40 MG/4 ML INJECTABLE VIAL IVPUSH SCH (14:34)
[2018-11-08] MEDS ORDERED: ALBUTEROL SO4 2.5/IPRATROPIUM 0.5 INH SOL 3 ML VIAL.NEB. NEB ONE ×2 (18:21→18:27)
--- NOTE | 2018-11-08 18:33 | PN ---
Teaching Attending Note Name of Resident: Norma Smart ATTENDING PHYSICIAN STATEMENT I saw and evaluated the patient. I reviewed the resident's note and discussed the case with the resident. I agree with the resident's findings and plan as documented. SUBJECTIVE: Ms Silverman says she is feeling better currently. Says her breathing is much improved. No cp, sob, n/v. OBJECTIVE: Last Vital Signs Temp Pulse Resp BP Pulse Ox 36.9 C 78 17 97/64 100 11/08/18 07:16 11/08/18 14:15 11/08/18 14:15 11/08/18 14:15 11/08/18 14:15 Gen: nad, obese Pulm: ctab w/o w/r/r CV: rrr w/o m/r/g Abd: +bs, s/nt/nd Ext: no c/c/e CBC, BMP 11/08/18 01:38 11/08/18 01:38 ASSESSMENT AND PLAN: Problem List - Problems (1) Acute exacerbation of CHF (congestive heart failure) Assessment/Plan: -appreciate cardiology assistance -diurese with IV lasix -monitor for improvement Code(s): I50.9 - HEART FAILURE, UNSPECIFIED Qualifiers: Heart failure type: systolic Qualified Code(s): I50.23 - Acute on chronic systolic (congestive) heart failure (2) CAD (coronary artery disease) Assessment/Plan: -change brilinta to plavix -continue lisinopril but decrease to 20mg -continue toprol xl, asa, and lipitor Code(s): I25.10 - ATHSCL HEART DISEASE OF [place] CORONARY ARTERY W/O ANG PCTRS (3) HTN (hypertension) Assessment/Plan: -continue toprol xl and lisinopril Code(s): I10 - ESSENTIAL (PRIMARY) HYPERTENSION (4) HLD (hyperlipidemia) Assessment/Plan: -continue lipitor Code(s): E78.5 - HYPERLIPIDEMIA, UNSPECIFIED
--- NOTE | 2018-11-08 18:57 | PN ---
Physical Exam: SUBJECTIVE: Patient seen and examined; chest pain improved; OBJECTIVE: Vital Signs Period Temp Pulse Resp BP Sys/Rae Pulse Ox Last 24 Hr 98.5 F-98.8 F 78-99 17-19 97-110/64-87 96-100 GENERAL: The patient is awake, alert, and fully oriented, in no acute distress. LUNGS: Breath sounds equal, clear to auscultation bilaterally, no wheezes, no crackles, no accessory muscle use. HEART: Regular rate and rhythm, S1, S2 without murmur, rub or gallop. ABDOMEN: Soft, nontender, nondistended, normoactive bowel sounds, no guarding, no rebound, no hepatosplenomegaly, no masses. EXTREMITIES: 2+ pulses, warm, well-perfused, +edema b/l NEUROLOGICAL: Cranial nerves II through XII grossly intact. Normal speech, gait not observed. PSYCH: Normal mood, normal affect. SKIN: Warm, dry, normal turgor, no rashes or lesions noted Laboratory Results - last 24 hr 11/08/18 11/08/18 11/08/18 01:38 01:38 01:38 WBC 7.5 RBC 3.63 Hgb 8.9 L Hct 26.5 L D MCV 73.1 L MCH 24.5 L MCHC 33.6 RDW 15.4 Plt Count 424 MPV 7.2 L Absolute Neuts (auto) 5.5 Neutrophils % 72.6 Lymphocytes % 18.6 D Monocytes % 5.7 D Eosinophils % 2.1 D Basophils % 1.0 Nucleated RBC % 0 PT with INR 13.80 H INR 1.17 H PTT (Actin FS) 34.5 Sodium 132 L Potassium 5.2 H Chloride 104 Carbon Dioxide 22 Anion Gap 7 L BUN 35 H Creatinine 0.9 Creat Clearance w eGFR 62.27 POC Glucometer Random Glucose 148 H Calcium 8.4 L Total Bilirubin 0.4 AST 18 ALT 19 Alkaline Phosphatase 86 Creatine Kinase 68 Troponin I 0.21 H B-Natriuretic Peptide 06844.2 H Total Protein 6.9 Albumin 2.8 L TSH 2.45 Free T4 1.17 Urine Color Urine Appearance Urine pH Ur Specific [place] Urine Protein Urine Glucose (UA) Urine Ketones Urine Blood Urine Nitrite Urine Bilirubin Urine Urobilinogen Ur Leukocyte Esterase Urine WBC (Auto) Urine RBC (Auto) Urine Casts (Auto) U Pathogenic Cast Auto U Epithel Cells (Auto) Urine Bacteria (Auto) 11/08/18 11/08/18 11/08/18 01:50 07:38 13:51 WBC RBC Hgb Hct MCV MCH MCHC RDW Plt Count MPV Absolute Neuts (auto) Neutrophils % Lymphocytes % Monocytes % Eosinophils % Basophils % Nucleated RBC % PT with INR INR PTT (Actin FS) Sodium Potassium Chloride Carbon Dioxide Anion Gap BUN Creatinine Creat Clearance w eGFR POC Glucometer 111 103 Random Glucose Calcium Total Bilirubin AST ALT Alkaline Phosphatase Creatine Kinase Troponin I B-Natriuretic Peptide Total Protein Albumin TSH Free T4 Urine Color Yellow Urine Appearance Clear Urine pH 5.0 Ur Specific [place] 1.021 Urine Protein Negative Urine Glucose (UA) Negative Urine Ketones Trace H Urine Blood Negative Urine Nitrite Negative Urine Bilirubin Negative Urine Urobilinogen 1.0 Ur Leukocyte Esterase 2+ Urine WBC (Auto) 16 Urine RBC (Auto) 1 Urine Casts (Auto) 15.81 U Pathogenic Cast Auto No Result Required. U Epithel Cells (Auto) 8.2 Urine Bacteria (Auto) 355.176 11/08/18 14:32 WBC RBC Hgb Hct MCV MCH MCHC RDW Plt Count MPV Absolute Neuts (auto) Neutrophils % Lymphocytes % Monocytes % Eosinophils % Basophils % Nucleated RBC % PT with INR INR PTT (Actin FS) Sodium Potassium Chloride Carbon Dioxide Anion Gap BUN Creatinine Creat Clearance w eGFR POC Glucometer Random Glucose Calcium Total Bilirubin AST ALT Alkaline Phosphatase Creatine Kinase 60 Troponin I 0.26 H B-Natriuretic Peptide Total Protein Albumin TSH Free T4 Urine Color Urine Appearance Urine pH Ur Specific [place] Urine Protein Urine Glucose (UA) Urine Ketones Urine Blood Urine Nitrite Urine Bilirubin Urine Urobilinogen Ur Leukocyte Esterase Urine WBC (Auto) Urine RBC (Auto) Urine Casts (Auto) U Pathogenic Cast Auto U Epithel Cells (Auto) Urine Bacteria (Auto) Active Medications Generic Name Dose Route Start Last Admin Trade Name Freq PRN Reason Stop Dose Admin Acetaminophen 650 mg 11/08/18 11:54 Tylenol - PO Q4H PRN FEVER Aspirin 81 mg 11/08/18 12:00 11/08/18 12:23 Asa - PO 81 mg DAILY KEYSHA Administration Atorvastatin Calcium 80 mg 11/08/18 22:00 Lipitor - PO HS KEYSHA Clopidogrel Bisulfate 75 mg 11/09/18 10:00 Plavix - PO DAILY KEYSHA Furosemide 40 mg 11/08/18 14:00 11/08/18 14:34 Lasix Injection - IVPUSH Not Given BID@0600,1400 [facility] Lisinopril 20 mg 11/09/18 10:00 Prinivil PO DAILY [facility] Metoprolol Succinate 50 mg 11/09/18 10:00 Toprol Xl - PO DAILY [facility] Montelukast Sodium 10 mg 11/09/18 10:00 Singulair - PO DAILY [facility] ASSESSMENT/PLAN: 68 year old woman with a PMHx of HTN, DM-II, HLD, asthma, CAD, lateral STEMI, s /p PCI with LOUIS on mid LAD on 10/15/2018, systolic CHF secondary to ICM with EF 35 % from echo on 10/20/2018 presents with chest pain and shortness of breath. #chest pain; r/o acs; s/p stent placment LAD 10/15/18 -o acute ecg finding s -trend trop -carmelo cardio recs; -> metoprolol suc 50mg po daily; decrease lisinopril to 20po daily, d/c brillinata; switch to plavix and asa; #acute on chronic exacerbation of systolic heart failure -BB, SURAJ, lasix 40mg bid IV -carmelo cardio #HTN; controlled #CAD VTE: heparinsq Disposition: tele Visit type - Emergency Visit Emergency Visit: Yes ED Registration Date: 11/08/18 Care time: The patient presented to the Emergency Department on the above date and was hospitalized for further evaluation of their emergent condition. - New Patient This patient is new to me today: Yes Date on this admission: 11/08/18 - Critical Care Critical Care patient: No
[2018-11-08] MEDS ORDERED: ATORVASTATIN CA 40 MG TABLET (FP) PO SCH (22:00)
[2018-11-08] MEDS ORDERED: HEPARIN NA (PORCINE) 5,000 UNITS/ML 1ML VIAL ONE (23:02)
[2018-11-08] MEDS: HEPARIN NA (PORCINE) 5,000 UNITS/ML 1ML VIAL SQ SCH (23:30)
[2018-11-08] MEDS: ATORVASTATIN CA 80 MG TABLET (FP) PO SCH (23:30)
[2018-11-09] MEDS ORDERED: HEPARIN NA (PORCINE) 5,000 UNITS/ML 1ML VIAL ONE (04:54)
[2018-11-09] MEDS ORDERED: FUROSEMIDE 40 MG/4 ML INJECTABLE VIAL ONE (04:54)
[2018-11-09] MEDS: FUROSEMIDE 40 MG/4 ML INJECTABLE VIAL IVPUSH SCH ×2 (06:45→14:57)
[2018-11-09] MEDS: HEPARIN NA (PORCINE) 5,000 UNITS/ML 1ML VIAL SQ SCH ×3 (06:45→21:13)
[2018-11-09 06:52] LABS: BASO % 1.1 % (0-2.0); EOS % 2.6 % (0-4.5); HEMATOCRIT 23.3 % (32.4-45.2); HEMOGLOBIN 7.9 GM/dL (10.7-15.3); LYMPH % 24.5 % (8-40); MCH 24.3 pg (25.7-33.7); MCHC 33.8 g/dl (32.0-36.0); MONO % 6.4 % (3.8-10.2); NEUT % 65.4 % (42.8-82.8); PLATELET COUNT 364 K/MM3 (134-434); RBC 3.24 M/mm3 (3.60-5.2); RDW 15.3 % (11.6-15.6); WHITE BLOOD COUNT 7.3 K/mm3 (4.0-10.0)
[2018-11-09 07:28] LABS: ANION GAP 7 MMOL/L (8-16); BLOOD UREA NITROGEN 31 mg/dL (7-18); CALCIUM 8.3 mg/dL (8.5-10.1); CHLORIDE 107 mmol/L (98-107); CO2 23 mmol/L (21-32); CREATININE 0.9 mg/dL (0.55-1.3); GLUCOSE,RANDOM 112 mg/dL (74-106); MAGNESIUM 1.6 mg/dL (1.8-2.4); PHOSPHOROUS 4.4 mg/dL (2.5-4.9); POTASSIUM 4.9 mmol/L (3.5-5.1); SODIUM 136 mmol/L (136-145)
[2018-11-09] MEDS ORDERED: MAGNESIUM OXIDE 400 MG TABLET (FP) PO ONE (08:30)
[2018-11-09] MEDS ORDERED: LISINOPRIL 20 MG TABLET (FP) ONE (09:37)
[2018-11-09] MEDS: ASPIRIN 81 MG CHEWABLE TABLETS PO SCH (09:45)
[2018-11-09] MEDS: LISINOPRIL 20 MG TABLET (FP) PO SCH (09:45)
[2018-11-09] MEDS: MONTELUKAST NA 10 MG TABLET PO SCH (09:45)
[2018-11-09] MEDS: CLOPIDOGREL BISULFATE 75 MG TABLET (FP) PO SCH (09:45)
[2018-11-09] MEDS ORDERED: LISINOPRIL 20 MG TABLET (FP) PO SCH (10:00)
--- NOTE | 2018-11-09 11:29 | PN ---
Progress Note, Physician History of Present Illness: seen and examined today in nad. daughter in law at bedside. pt states she is feeling better today, sob improving. - Current Medication List Current Medications: Active Medications Acetaminophen (Tylenol -) 650 mg PO Q4H PRN PRN Reason: FEVER Aspirin (Asa -) 81 mg PO DAILY [facility] Last Admin: 11/09/18 09:45 Dose: 81 mg Atorvastatin Calcium (Lipitor -) 80 mg PO HS [facility] Last Admin: 11/08/18 23:30 Dose: 80 mg Clopidogrel Bisulfate (Plavix -) 75 mg PO DAILY [facility] Last Admin: 11/09/18 09:45 Dose: 75 mg Furosemide (Lasix Injection -) 40 mg IVPUSH BID@0600,1400 [facility] Last Admin: 11/09/18 06:45 Dose: 40 mg Heparin Sodium (Porcine) (Heparin -) 5,000 unit SQ TID [facility] Last Admin: 11/09/18 06:45 Dose: 5,000 unit Lisinopril (Prinivil) 20 mg PO DAILY [facility] Last Admin: 11/09/18 09:45 Dose: 20 mg Metoprolol Succinate (Toprol Xl -) 50 mg PO DAILY [facility] Last Admin: 11/09/18 09:45 Dose: 50 mg Montelukast Sodium (Singulair -) 10 mg PO DAILY [facility] Last Admin: 11/09/18 09:45 Dose: 10 mg - Objective Vital Signs: Vital Signs Temperature 97.6 F 11/09/18 08:29 Pulse Rate 99 H 11/09/18 08:29 Respiratory Rate 22 H 11/09/18 08:29 Blood Pressure 117/73 11/09/18 08:29 O2 Sat by Pulse Oximetry (%) 100 11/09/18 08:29 Constitutional: Yes: No Distress, Calm Eyes: Yes: Conjunctiva Clear, EOM Intact HENT: Yes: Atraumatic, Normocephalic Neck: Yes: Supple, Trachea Midline Cardiovascular: Yes: Regular Rate and Rhythm, S1, S2. No: Bradycardia, Tachycardia, Pulse Irregular, Bruit, JVD, Gallop, Murmur, Rub, S3, S4, Varicosities Respiratory: Yes: Regular, Diminished, On Nasal O2, Rales. No: Rhonchi, SOB, Wheezes Gastrointestinal: Yes: Normal Bowel Sounds, Soft. No: Distention, Tenderness Musculoskeletal: Yes: WNL Extremities: Yes: WNL Edema: Yes Edema: LLE: 1+, RLE: 1+ Peripheral Pulses WNL: Yes Peripheral Pulses: Left Doralis Pedis: 2+, Right Dorsalis Pedis: 2+ Neurological: Yes: Alert, Oriented Psychiatric: Yes: Alert, Oriented Labs: CBC, BMP 11/09/18 06:10 11/09/18 06:10 INR, PTT INR 1.17 (0.83-1.09) H 11/08/18 01:38 - ....Imaging Chest X-ray: Report Reviewed, Image Reviewed EKG: Report Reviewed, Image Reviewed Other: Report Reviewed, Image Reviewed Assessment/Plan 68 year old woman with a PMHx of HTN, DM-II, HLD, asthma, CAD, lateral STEMI, s/ p PCI with LOUIS on mid LAD on 10/15/2018, systolic CHF secondary to ICM with EF 35 % from echo on 10/20/2018 presents to ED with chest pain and shortness of breath. The patient was transferred from [facility] to [facility] on 10/15/2018 for lateral STEMI. He underwent urgent cardiac cath on 10/15/2018 which showed 99% stenosis of mid LAD and EF of 20-25% with elevated LVEDP. PCI of mLAD done, but no signs of reflow noted to treated with intracoronary vasodilators. An IABP was placed with improvement in coronary blood flow. She was observed in CCU. Echocardiogram on 10/20/2018 showed LVEF 35%. He was discharge with aspirin, Brilinta/Atorvastatin on 10/22/2018. The patient has been experiencing SOB, weakness and atypical chest pain since discharge from [facility] on 10/22/2018. ECG 11/08/2018 showed: Sinus tachycardia with VPCs. Low voltage. Anterolateral infarct, evolving. Troponin is mildly elevated, likely trending down from recent NC (Troponin was 7.4 on 10/19/2018), BNP is severely elevated. Cardiac tests: Echocardiogram 10/20/2018: Normal left ventricular size. Large region of apical akinesis. Anterior wall akinesis. Severe anteroseptal hypokinesis. Severe anterolateral wall hypokinesis. Other miranda contract normally. Severely decreased left ventricular ejection fraction. LVEF = 35%. Normal RV. Normal LA and RA. No significangt valvular abnormalities. Cardiac cath: Mid LAD (99% stenosis). LCx with mild luminal irregularities. Dominant RCA (proximal 60%), distally with mild to moderate luminal irregularities. LV gram: LVEF 20-25% with severe hypokinesis of the anterior, anterolateral and infero-apical segments. LVEDP 33 mmHg. Intervention: Successful PCI of mid LAD with placement of 1 LOUIS. Course complicated by no reflow, treated with intra-coronary vasodilators. 1) Acute on chronic Systolic CHF secondary to ICM with physical signs of fluid overload. The side effect of Brilinta may also contribute to her dyspnea. -symptoms and volume status improving -Con IV Lasix 40 mg BID to keep Os> Is. -Monitor daily weight, Is, Os, eletrolytes and renal function. -cont metoprolol succinate 50 mg daily. -cont Lisinopril 20 mg daily. -Changed Brilita to Plavix. -Continue Aldactone. 2) Chest pain: recently PCI/LOUIS to mid LAD. -Chest pain unlikelly ACS. -Continue aspirin, plavix, metoprolol and atorvastatin and diuresis plan We will follow.
[2018-11-09 14:54] VITALS: BMI 35.6
--- NOTE | 2018-11-09 15:09 | PN ---
Teaching Attending Note Name of Resident: Norma Smart ATTENDING PHYSICIAN STATEMENT I saw and evaluated the patient. I reviewed the resident's note and discussed the case with the resident. I agree with the resident's findings and plan as documented. SUBJECTIVE: Ms Silverman says she is feeling better today. Still with some shortness of breath but feels better. Denies cp, sob, n/v. OBJECTIVE: Last Vital Signs Temp Pulse Resp BP Pulse Ox 36.6 C 102 H 18 108/85 100 11/09/18 13:35 11/09/18 13:35 11/09/18 13:35 11/09/18 13:35 11/09/18 08:29 Gen: nad Pulm: diffuse ronchi bilaterally, on oxygen. No wheezes or rales CV:tachycardic w/o m/r/g Abd: +bs, s/nt/nd Ext: 1+ BLE edema CBC, BMP 11/09/18 06:10 ASSESSMENT AND PLAN: (1) Acute exacerbation of CHF (congestive heart failure) Assessment/Plan: -improving but still with acute hypoxic respiratory failure requiring oxygen supplementation -cardiology following -continue telemetry -continue IV lasix -continue toprol xl and lisinopril Code(s): I50.9 - HEART FAILURE, UNSPECIFIED Qualifiers: Heart failure type: systolic Qualified Code(s): I50.23 - Acute on chronic systolic (congestive) heart failure (2) CAD (coronary artery disease) Assessment/Plan: -brilinta changed to plavix this admission -lisinopril decreased to 20mg -continue toprol xl, asa, and lipitor Code(s): I25.10 - ATHSCL HEART DISEASE OF [place] CORONARY ARTERY W/O ANG PCTRS (3) HTN (hypertension) Assessment/Plan: -continue toprol xl and lisinopril Code(s): I10 - ESSENTIAL (PRIMARY) HYPERTENSION (4) HLD (hyperlipidemia) Assessment/Plan: -continue lipitor Code(s): E78.5 - HYPERLIPIDEMIA, UNSPECIFIED Problem List - Problems (1) Acute exacerbation of CHF (congestive heart failure) Code(s): I50.9 - HEART FAILURE, UNSPECIFIED Qualifiers: Heart failure type: systolic Qualified Code(s): I50.23 - Acute on chronic systolic (congestive) heart failure (2) Acute respiratory failure with hypoxia Code(s): J96.01 - ACUTE RESPIRATORY FAILURE WITH HYPOXIA (3) CAD (coronary artery disease) Code(s): I25.10 - ATHSCL HEART DISEASE OF [place] CORONARY ARTERY W/O ANG PCTRS (4) HTN (hypertension) Code(s): I10 - ESSENTIAL (PRIMARY) HYPERTENSION (5) HLD (hyperlipidemia) Code(s): E78.5 - HYPERLIPIDEMIA, UNSPECIFIED
--- NOTE | 2018-11-09 17:26 | PN ---
Physical Exam: SUBJECTIVE: Patient seen and examined; sitting up with NC ; work of breathing increased with talking; denies chest pain OBJECTIVE: Vital Signs Period Temp Pulse Resp BP Sys/Rae Pulse Ox Last 24 Hr 97.6 F-98.4 F 92-102 18-22 100-141/54-127 99-100 GENERAL: The patient is awake, alert, and fully oriented, in no acute distress. LUNGS: bilateral crackles; HEART: tachy rate and rhythm, S1, S2 without murmur, rub or gallop. ABDOMEN: Soft, nontender, nondistended, normoactive bowel sounds, no guarding, no rebound, no hepatosplenomegaly, no masses. EXTREMITIES: 2+ pulses, warm, well-perfused, + edema. NEUROLOGICAL: Cranial nerves II through XII grossly intact. Normal speech, gait not observed. PSYCH: Normal mood, normal affect. SKIN: Warm, dry, normal turgor, no rashes or lesions noted Laboratory Results - last 24 hr 11/09/18 11/09/18 11/09/18 06:10 06:10 13:45 WBC 7.3 RBC 3.24 L Hgb 7.9 L Hct 23.3 L MCV 72.0 L MCH 24.3 L MCHC 33.8 RDW 15.3 Plt Count 364 MPV 7.0 L Absolute Neuts (auto) 4.8 Neutrophils % 65.4 Lymphocytes % 24.5 D Monocytes % 6.4 Eosinophils % 2.6 Basophils % 1.1 Nucleated RBC % 0 Sodium 136 Potassium 4.9 Chloride 107 Carbon Dioxide 23 Anion Gap 7 L BUN 31 H Creatinine 0.9 Creat Clearance w eGFR 62.27 Random Glucose 112 H Calcium 8.3 L Phosphorus 4.4 Magnesium 1.6 L Ferritin Cancelled 234.6 Troponin I 0.19 H Vitamin B12 Cancelled 544 Active Medications Generic Name Dose Route Start Last Admin Trade Name Freq PRN Reason Stop Dose Admin Acetaminophen 650 mg 11/08/18 11:54 Tylenol - PO Q4H PRN FEVER Aspirin 81 mg 11/08/18 12:00 11/09/18 09:45 Asa - PO 81 mg DAILY KEYSHA Administration Atorvastatin Calcium 80 mg 11/08/18 22:00 11/08/18 23:30 Lipitor - PO 80 mg HS KEYSHA Administration Clopidogrel Bisulfate 75 mg 11/09/18 10:00 11/09/18 09:45 Plavix - PO 75 mg DAILY KEYSHA Administration Furosemide 40 mg 11/08/18 14:00 11/09/18 14:57 Lasix Injection - IVPUSH 40 mg BID@0600,1400 KEYSHA Administration Heparin Sodium (Porcine) 5,000 unit 11/08/18 22:00 11/09/18 14:57 Heparin - SQ 5,000 unit TID KEYSHA Administration Lisinopril 20 mg 11/09/18 10:00 11/09/18 09:45 Prinivil PO 20 mg DAILY KEYSHA Administration Metoprolol Succinate 50 mg 11/09/18 10:00 11/09/18 09:45 Toprol Xl - PO 50 mg DAILY KEYSHA Administration Montelukast Sodium 10 mg 11/09/18 10:00 11/09/18 09:45 Singulair - PO 10 mg DAILY KEYSHA Administration ASSESSMENT/PLAN: 68 year old woman with a PMHx of HTN, DM-II, HLD, asthma, CAD, lateral STEMI, s/ p PCI with LOUIS on mid LAD on 10/15/2018, systolic CHF secondary to ICM with EF 35 % from echo on 10/20/2018 presents with chest pain and shortness of breath. #chest pain; r/o acs; s/p stent placment LAD 10/15/18 -no acute ecg finding s -trend trop; flattened -carmelo cardio recs; -> metoprolol suc 50mg po daily; decrease lisinopril to 20po daily, d/c brillinata; switch to plavix and asa; #acute on chronic exacerbation of systolic heart failure -BB, SURAJ, lasix 40mg bid IV -carmelo cardio #microcytic anemia; -r/o acute vs chronic bleed; iron def; -iron studies, b12, folate, tsh, stool for occult blood -monitor h/h -due to recent overload; will hold off on PRBC; if falls below 7 will transfuse with lasix #hypomagnesemia; replace #HTN; controlled #CAD VTE: heparinsq Disposition: tele Visit type - Emergency Visit Emergency Visit: Yes ED Registration Date: 11/08/18 Care time: The patient presented to the Emergency Department on the above date and was hospitalized for further evaluation of their emergent condition. - New Patient This patient is new to me today: No - Critical Care Critical Care patient: No
[2018-11-09] MEDS ORDERED: PNEUMOC 13-VAL CONJ-DIP CRM/PF 0.5 ML DISP.SYRIN IM ONE (19:15)
[2018-11-09] MEDS: ATORVASTATIN CA 80 MG TABLET (FP) PO SCH (21:13)
[2018-11-10] MEDS: HEPARIN NA (PORCINE) 5,000 UNITS/ML 1ML VIAL SQ SCH ×3 (05:35→21:12)
[2018-11-10] MEDS: FUROSEMIDE 40 MG/4 ML INJECTABLE VIAL IVPUSH SCH ×3 (05:35→14:10)
[2018-11-10 06:24] LABS: BASO % 1.2 % (0-2.0); EOS % 3.8 % (0-4.5); HEMATOCRIT 22.9 % (32.4-45.2); HEMOGLOBIN 7.7 GM/dL (10.7-15.3); LYMPH % 27.4 % (8-40); MCHC 33.4 g/dl (32.0-36.0); MEAN CELL VOLUME 71.9 fl (80-96); MEAN PLT VOLUME 7.1 fl (7.5-11.1); MONO % 6.9 % (3.8-10.2); NEUT % 60.7 % (42.8-82.8); PLATELET COUNT 349 K/MM3 (134-434); RBC 3.19 M/mm3 (3.60-5.2); RDW 15.1 % (11.6-15.6); WHITE BLOOD COUNT 6.4 K/mm3 (4.0-10.0)
[2018-11-10 06:45] LABS: ANION GAP 5 MMOL/L (8-16); BLOOD UREA NITROGEN 37 mg/dL (7-18); CALCIUM 8.2 mg/dL (8.5-10.1); CHLORIDE 106 mmol/L (98-107); CO2 25 mmol/L (21-32); GLUCOSE,RANDOM 140 mg/dL (74-106); MAGNESIUM 1.9 mg/dL (1.8-2.4); PHOSPHOROUS 4.9 mg/dL (2.5-4.9); SODIUM 137 mmol/L (136-145)
[2018-11-10] MEDS: ASPIRIN 81 MG CHEWABLE TABLETS PO SCH (09:29)
[2018-11-10] MEDS: MONTELUKAST NA 10 MG TABLET PO SCH (09:29)
[2018-11-10] MEDS: CLOPIDOGREL BISULFATE 75 MG TABLET (FP) PO SCH (09:29)
--- NOTE | 2018-11-10 12:11 | PN ---
Teaching Attending Note Name of Resident: Norma Smart ATTENDING PHYSICIAN STATEMENT I saw and evaluated the patient. I reviewed the resident's note and discussed the case with the resident. I agree with the resident's findings and plan as documented with exceptions below. SUBJECTIVE: Patient seen and examined. Breathing improved. Denies any chest pain or dizziness. OBJECTIVE: Vital Signs Period Temp Pulse Resp BP Sys/Rae Pulse Ox Last 24 Hr 97.8 F-99.3 F 86-102 18-20 89-108/51-85 97 Intake & Output 11/07/18 11/08/18 11/09/18 11/10/18 23:59 23:59 23:59 23:59 Intake Total 500 370 Balance 500 370 Weight 195 lb 195 lb General: mildly tachypneic in bed, able to speak in full sentences Neck: limited given habitus, neck vein distention Chest: good air entry, no rales or wheezing appreciated Abdomen:Soft, obese, NT Extremities:1+ pitting pedal edema Home Medications Medication Instructions Recorded Aspirin 81 mg PO DAILY 10/15/18 Atorvastatin Calcium 40 mg PO DAILY 10/15/18 Montelukast Sodium [Singulair] 10 mg PO HS 10/15/18 Atorvastatin Ca [Lipitor] 80 mg PO HS 11/08/18 Clopidogrel Bisulfate [Plavix] 75 mg PO DAILY 11/08/18 Lisinopril [Prinivil -] 40 mg PO DAILY 11/08/18 Metoprolol Tartrate 25 mg PO DAILY 11/08/18 Sitagliptin Phos/Metformin HCl 1 each PO BID 11/08/18 [Janumet 50-1,000 mg Tablet] Spironolactone [Aldactone] 25 mg PO DAILY 11/08/18 Ticagrelor [Brilinta] 90 mg PO BID 11/08/18 Active Medications Acetaminophen (Tylenol -) 650 mg PO Q4H PRN PRN Reason: FEVER Aspirin (Asa -) 81 mg PO DAILY [facility] Last Admin: 11/10/18 09:29 Dose: 81 mg Atorvastatin Calcium (Lipitor -) 80 mg PO HS [facility] Last Admin: 11/09/18 21:13 Dose: 80 mg Clopidogrel Bisulfate (Plavix -) 75 mg PO DAILY [facility] Last Admin: 11/10/18 09:29 Dose: 75 mg Furosemide (Lasix Injection -) 40 mg IVPUSH BID@0600,1400 [facility] Last Admin: 11/10/18 09:29 Dose: 40 mg Furosemide (Lasix Injection -) 40 mg IVPUSH ASDIR ONE Stop: 11/10/18 15:01 Heparin Sodium (Porcine) (Heparin -) 5,000 unit SQ TID [facility] Last Admin: 11/10/18 05:35 Dose: 5,000 unit Lisinopril (Prinivil) 20 mg PO DAILY [facility] Last Admin: 11/09/18 09:45 Dose: 20 mg Metoprolol Succinate (Toprol Xl -) 50 mg PO DAILY [facility] Last Admin: 11/09/18 09:45 Dose: 50 mg Montelukast Sodium (Singulair -) 10 mg PO DAILY [facility] Last Admin: 11/10/18 09:29 Dose: 10 mg Laboratory Results - last 24 hr 11/09/18 11/09/18 11/09/18 06:10 13:45 13:45 WBC RBC Hgb Hct MCV MCH MCHC RDW Plt Count MPV Absolute Neuts (auto) Neutrophils % Lymphocytes % Monocytes % Eosinophils % Basophils % Nucleated RBC % Sodium 136 Potassium 4.9 Chloride 107 Carbon Dioxide 23 Anion Gap 7 L BUN 31 H Creatinine 0.9 Creat Clearance w eGFR 62.27 Random Glucose 112 H Calcium 8.3 L Phosphorus 4.4 Magnesium 1.6 L Iron 29 TIBC 271 Iron Saturation 11 L Ferritin Cancelled 234.6 Troponin I 0.19 H Vitamin B12 Cancelled 544 11/10/18 11/10/18 06:00 06:00 WBC 6.4 RBC 3.19 L Hgb 7.7 L Hct 22.9 L MCV 71.9 L MCH 24.0 L MCHC 33.4 RDW 15.1 Plt Count 349 MPV 7.1 L Absolute Neuts (auto) 3.9 Neutrophils % 60.7 Lymphocytes % 27.4 Monocytes % 6.9 Eosinophils % 3.8 Basophils % 1.2 Nucleated RBC % 0 Sodium 137 Potassium 5.0 Chloride 106 Carbon Dioxide 25 Anion Gap 5 L BUN 37 H Creatinine 1.0 Creat Clearance w eGFR 55.14 Random Glucose 140 H Calcium 8.2 L Phosphorus 4.9 Magnesium 1.9 Iron TIBC Iron Saturation Ferritin Troponin I Vitamin B12 ASSESSMENT AND PLAN: 68 yof with PMHx of HTN, DM-II, HLD, asthma, CAD, lateral STEMI, s/p PCI with LOUIS on mid LAD on 10/15/2018, systolic CHF secondary to ICM with EF 35% from echo on 10/20/2018 presents to ED with chest pain and shortness of breath. -Acute on chronic systolic heart failure exacerbation secondary to ischemic cardiomyopathy (Last EF 35% on 10/20/2018) -Lateral STEMI 10/15/2018 s/p mid LAD LOUIS PCI -Asymptomaic Hypotension, suspect multifactorial from diuresis/low EF -Acute on chronic iron deficiency anemia, ?etiology (r/o occult bleed given recently stated on anti-platelets) -Elevated troponin, suspect from recent CO rather than ACS -NIDDM -HTN -Asthma Plan: Continue lasix IV BID (To be held for SBP <85-90 or if symptomatic hypotension) Continue ASA/plavix/statin. Metoprolol/ACEi as BP tolerate Worsening anemia this admission, will transfuse 1 unit PRBC with additional lasix 40 mg IV x1 (Discussed with Dr. Boogie) Iron panel noted, start PO Fe suppl. FOllow up FOBT. Will need additional w/u for anemia once volume status improves and acute concerns resolve Start ISS and BGM. Diabetic diet. DVTPPX heparin with monitoring of anemia DIspo pending clinical improvement. Plan discussed with patient and family at bedside and nursing in detail, all questions answered.
[2018-11-10] MEDS: FERROUS SO4 325 MG TABLET (FP) PO SCH (13:56)
[2018-11-10] MEDS: LISINOPRIL 20 MG TABLET (FP) PO SCH (14:10)
[2018-11-10] MEDS ORDERED: FUROSEMIDE 40 MG/4 ML INJECTABLE VIAL IVPUSH ONE (15:00)
--- NOTE | 2018-11-10 15:00 | PN ---
Progress Note, Physician Chief Complaint: Patient feels better with much improved SOB. She has no chest pain or SOB. Tele shows sinus rhyth in mid 90s with rare VPCs. History of Present Illness: 68 year old woman with a PMHx of HTN, DM-II, HLD, asthma, CAD, lateral STEMI, s /p PCI with LOUIS on mid LAD on 10/15/2018, systolic CHF secondary to ICM with EF 35 % from echo on 10/20/2018 presents to ED with chest pain and shortness of breath. The patient was transferred from [facility] to [facility] on 10/15/2018 for lateral STEMI. He underwent urgent cardiac cath on 10/15/2018 which showed 99% stenosis of mid LAD and EF of 20-25% with elevated LVEDP. PCI of mLAD done, but no signs of reflow noted to treated with intracoronary vasodilators. An IABP was placed with improvement in coronary blood flow. She was observed in CCU. Echocardiogram on 10/20/2018 showed LVEF 35%. He was discharge with aspirin, Brilinta/Atorvastatin on 10/22/2018. ECG 11/08/2018 showed: Sinus tachycardia with VPCs. Low voltage. Anterolateral infarct, evolving. Troponin is mildly elevated, likely trending down from recent [place] (Troponin was 7.4 on 10/19/2018), BNP is severely elevated. Cardiac tests: Echocardiogram 10/20/2018: Normal left ventricular size. Large region of apical akinesis. Anterior wall akinesis. Severe anteroseptal hypokinesis. Severe anterolateral wall hypokinesis. Other miranda contract normally. Severely decreased left ventricular ejection fraction. LVEF = 35%. Normal RV. Normal LA and RA. No significangt valvular abnormalities. Cardiac cath: Mid LAD (99% stenosis). LCx with mild luminal irregularities. Dominant RCA (proximal 60%), distally with mild to moderate luminal irregularities. LV gram: LVEF 20-25% with severe hypokinesis of the anterior, anterolateral and infero-apical segments. LVEDP 33 mmHg. Intervention: Successful PCI of mid LAD with placement of 1 LOUIS. Course complicated by no reflow, treated with intra-coronary vasodilators. - Current Medication List Current Medications: Active Medications Acetaminophen (Tylenol -) 650 mg PO Q4H PRN PRN Reason: FEVER Aspirin (Asa -) 81 mg PO DAILY KEYSHA Last Admin: 03/27/19 09:29 Dose: 81 mg Atorvastatin Calcium (Lipitor -) 80 mg PO HS [facility] Last Admin: 11/09/18 21:13 Dose: 80 mg Clopidogrel Bisulfate (Plavix -) 75 mg PO DAILY [facility] Last Admin: 11/10/18 09:29 Dose: 75 mg Ferrous Sulfate (Feosol -) 325 mg PO DAILY [facility] Last Admin: 11/10/18 13:56 Dose: 325 mg Furosemide (Lasix Injection -) 40 mg IVPUSH BID@0600,1400 [facility] Last Admin: 11/10/18 14:10 Dose: Not Given Furosemide (Lasix Injection -) 40 mg IVPUSH ASDIR ONE Stop: 11/10/18 15:01 Heparin Sodium (Porcine) (Heparin -) 5,000 unit SQ TID [facility] Last Admin: 11/10/18 13:56 Dose: 5,000 unit Insulin Aspart (Novolog Vial Sliding Scale -) 1 vial SQ ACHS [facility]; Protocol Lisinopril (Prinivil) 20 mg PO DAILY [facility] Last Admin: 11/10/18 14:10 Dose: 20 mg Metoprolol Succinate (Toprol Xl -) 50 mg PO DAILY [facility] Last Admin: 11/10/18 14:09 Dose: 50 mg Montelukast Sodium (Singulair -) 10 mg PO DAILY [facility] Last Admin: 11/10/18 09:29 Dose: 10 mg - Objective Vital Signs: Vital Signs Temperature 98.2 F 11/10/18 12:18 Pulse Rate 94 H 11/10/18 12:18 Respiratory Rate 18 11/10/18 12:18 Blood Pressure 95/70 11/10/18 12:18 O2 Sat by Pulse Oximetry (%) 97 11/09/18 21:00 General: Well developed. Well nourished. No acute distress. Head: Normocephalic. Atraumatic, Eyes: PERRLA, EOMI. Sclerae anicteric. Conjunctivae clear. Neck: Supple. No JVD. No bruits. Heart: Normal S1, S2: Regular rhythm and rate. No murmur. No gallop or rub. Lungs: Symmetrical air entry. Minimal bibasilar crackles. No wheezing or rhonchi. Abdomen: Soft. Bowel sound positive. Non tender. No masses. Extremities: Trace edema. No clubbing or cyanosis. PD 2+, equal bilaterally. Neuro: Intact, no focal findings. AAO X3. Labs: CBC, BMP 11/10/18 06:00 11/10/18 06:00 INR, PTT INR 1.17 (0.83-1.09) H 11/08/18 01:38 Assessment/Plan 68 year old woman with a PMHx of HTN, DM-II, HLD, asthma, CAD, lateral STEMI, s/ p PCI with LOUIS on mid LAD on 10/15/2018, systolic CHF secondary to ICM with EF 35 % from echo on 10/20/2018 presents to ED with chest pain and shortness of breath. The patient was transferred from [facility] to [facility] on 10/15/2018 for lateral STEMI. He underwent urgent cardiac cath on 10/15/2018 which showed 99% stenosis of mid LAD and EF of 20-25% with elevated LVEDP. PCI of mLAD done, but no signs of reflow noted to treated with intracoronary vasodilators. An IABP was placed with improvement in coronary blood flow. She was observed in CCU. Echocardiogram on 10/20/2018 showed LVEF 35%. He was discharge with aspirin, Brilinta/Atorvastatin on 10/22/2018. The patient has been experiencing SOB, weakness and atypical chest pain since discharge from [facility] on 10/22/2018. ECG 11/08/2018 showed: Sinus tachycardia with VPCs. Low voltage. Anterolateral infarct, evolving. Troponin is mildly elevated, likely trending down from recent [place] (Troponin was 7.4 on 10/19/2018), BNP is severely elevated. Cardiac tests: Echocardiogram 10/20/2018: Normal left ventricular size. Large region of apical akinesis. Anterior wall akinesis. Severe anteroseptal hypokinesis. Severe anterolateral wall hypokinesis. Other miranda contract normally. Severely decreased left ventricular ejection fraction. LVEF = 35%. Normal RV. Normal LA and RA. No significangt valvular abnormalities. Cardiac cath: Mid LAD (99% stenosis). LCx with mild luminal irregularities. Dominant RCA (proximal 60%), distally with mild to moderate luminal irregularities. LV gram: LVEF 20-25% with severe hypokinesis of the anterior, anterolateral and infero-apical segments. LVEDP 33 mmHg. Intervention: Successful PCI of mid LAD with placement of 1 LOUIS. Course complicated by no reflow, treated with intra-coronary vasodilators. 1) Acute on chronic systolic CHF secondary to ICM with physical signs of fluid overload. The side effect of Brilinta may also contribute to her dyspnea. -symptoms and volume status improving -Change IV Lasix to PO 40 mg BID. -Continue metoprolol succinate 50 mg daily. Metoprolol was on hold due to low BP. Please do not hold metoprolol. -Decrease Lisinopril to 10 mg daily. -Continue aspirin and Plavix. -Continue Aldactone. 2) Chest pain: recently PCI/LOUIS to mid LAD. -Chest pain unlikelly ACS. -Continue aspirin, plavix, metoprolol and atorvastatin and diuresis plan We will follow.
--- NOTE | 2018-11-10 17:03 | PN ---
Physical Exam: SUBJECTIVE: Patient seen and examined; doing well no complaints; still on NC; still with IRAHETA; edema improved. OBJECTIVE: Vital Signs Period Temp Pulse Resp BP Sys/Rae Pulse Ox Last 24 Hr 97.8 F-99.3 F 86-98 16-20 89-100/51-70 97 GENERAL: The patient is awake, alert, and fully oriented, in no acute distress. LUNGS:bilateral crackles HEART: Regular rate and rhythm, S1, S2 without murmur, rub or gallop. ABDOMEN: Soft, nontender, nondistended, normoactive bowel sounds, no guarding, no rebound, no hepatosplenomegaly, no masses. EXTREMITIES: 2+ pulses, warm, well-perfused, trace edema. tenderness to legs b/l NEUROLOGICAL: Cranial nerves II through XII grossly intact. Normal speech, gait not observed. PSYCH: Normal mood, normal affect. SKIN: Warm, dry, normal turgor, no rashes or lesions noted Laboratory Results - last 24 hr 11/09/18 11/10/18 11/10/18 13:45 06:00 06:00 WBC 6.4 RBC 3.19 L Hgb 7.7 L Hct 22.9 L MCV 71.9 L MCH 24.0 L MCHC 33.4 RDW 15.1 Plt Count 349 MPV 7.1 L Absolute Neuts (auto) 3.9 Neutrophils % 60.7 Lymphocytes % 27.4 Monocytes % 6.9 Eosinophils % 3.8 Basophils % 1.2 Nucleated RBC % 0 Sodium 137 Potassium 5.0 Chloride 106 Carbon Dioxide 25 Anion Gap 5 L BUN 37 H Creatinine 1.0 Creat Clearance w eGFR 55.14 Random Glucose 140 H Calcium 8.2 L Phosphorus 4.9 Magnesium 1.9 Iron 29 TIBC 271 Iron Saturation 11 L Blood Type Antibody Screen Crossmatch 11/10/18 11/10/18 06:00 12:00 WBC RBC Hgb Hct MCV MCH MCHC RDW Plt Count MPV Absolute Neuts (auto) Neutrophils % Lymphocytes % Monocytes % Eosinophils % Basophils % Nucleated RBC % Sodium Potassium Chloride Carbon Dioxide Anion Gap BUN Creatinine Creat Clearance w eGFR Random Glucose Calcium Phosphorus Magnesium Iron TIBC Iron Saturation Blood Type O POSITIVE O POSITIVE Antibody Screen Negative Crossmatch See Detail Active Medications Generic Name Dose Route Start Last Admin Trade Name Freq PRN Reason Stop Dose Admin Acetaminophen 650 mg 11/08/18 11:54 Tylenol - PO Q4H PRN FEVER Aspirin 81 mg 11/08/18 12:00 11/10/18 09:29 Asa - PO 81 mg DAILY KEYSHA Administration Atorvastatin Calcium 80 mg 11/08/18 22:00 11/09/18 21:13 Lipitor - PO 80 mg HS KEYSHA Administration Clopidogrel Bisulfate 75 mg 11/09/18 10:00 11/10/18 09:29 Plavix - PO 75 mg DAILY KEYSHA Administration Ferrous Sulfate 325 mg 11/10/18 12:30 11/10/18 13:56 Feosol - PO 325 mg DAILY KEYSHA Administration Furosemide 40 mg 11/11/18 06:00 Lasix - PO BID@0600,1400 [facility] Heparin Sodium (Porcine) 5,000 unit 11/08/18 22:00 11/10/18 13:56 Heparin - SQ 5,000 unit TID KEYSHA Administration Insulin Aspart 1 vial 11/10/18 16:30 Novolog Vial Sliding Scale - SQ ACHS [facility] Protocol Lisinopril 10 mg 11/10/18 15:24 Prinivil PO DAILY [facility] Metoprolol Succinate 50 mg 11/09/18 10:00 11/10/18 14:09 Toprol Xl - PO 50 mg DAILY [facility] Administration Montelukast Sodium 10 mg 11/09/18 10:00 11/10/18 09:29 Singulair - PO 10 mg DAILY [facility] Administration ASSESSMENT/PLAN: 68 year old woman with a PMHx of HTN, DM-II, HLD, asthma, CAD, lateral STEMI, s/ p PCI with LOUIS on mid LAD on 10/15/2018, systolic CHF secondary to ICM with EF 35 % from echo on 10/20/2018 presents with chest pain and shortness of breath. #chest pain;s/p stent placment LAD 10/15/18 -no acute ecg finding s -trend trop; flattened -cardio recs -> metoprolol suc 50mg po daily; decrease lisinopril to 10po daily, d/c brillinata; switch to plavix and asa; #acute on chronic exacerbation of systolic heart failure -BB, SURAJ, lasix 40mg bid po -carmelo cardio #microcytic anemia; -r/o acute vs chronic bleed; iron def; -ordered 1UPRBC -monitor H/H -need to check stool for occult blood #hypomagnesemia; replace #HTN; controlled #CAD VTE: heparinsq Disposition: tele Visit type - Emergency Visit Emergency Visit: Yes ED Registration Date: 11/08/18 Care time: The patient presented to the Emergency Department on the above date and was hospitalized for further evaluation of their emergent condition. - New Patient This patient is new to me today: No - Critical Care Critical Care patient: No
[2018-11-10] MEDS: INSULIN SLIDING SCALE (NOVOLOG) 1 VIAL SQ SCH ×2 (17:17→21:13)
[2018-11-10] MEDS: ATORVASTATIN CA 80 MG TABLET (FP) PO SCH (21:13)
[2018-11-11] MEDS: INSULIN SLIDING SCALE (NOVOLOG) 1 VIAL SQ SCH ×4 (06:08→21:16)
[2018-11-11] MEDS: HEPARIN NA (PORCINE) 5,000 UNITS/ML 1ML VIAL SQ SCH ×3 (06:20→21:15)
[2018-11-11] MEDS: FUROSEMIDE 40 MG TABLET (FP) PO SCH ×2 (06:20→13:56)
[2018-11-11 07:02] LABS: BASO % 1.2 % (0-2.0); EOS % 3.2 % (0-4.5); HEMATOCRIT 26.1 % (32.4-45.2); HEMOGLOBIN 8.5 GM/dL (10.7-15.3); LYMPH % 24.1 % (8-40); MCH 24.2 pg (25.7-33.7); MCHC 32.6 g/dl (32.0-36.0); MEAN CELL VOLUME 74.3 fl (80-96); MEAN PLT VOLUME 7.4 fl (7.5-11.1); MONO % 7.4 % (3.8-10.2); NEUT % 64.1 % (42.8-82.8); PLATELET COUNT 349 K/MM3 (134-434); RBC 3.51 M/mm3 (3.60-5.2); RDW 16.5 % (11.6-15.6); WHITE BLOOD COUNT 7.2 K/mm3 (4.0-10.0)
[2018-11-11 07:21] LABS: ANION GAP 8 MMOL/L (8-16); BLOOD UREA NITROGEN 38 mg/dL (7-18); CALCIUM 8.3 mg/dL (8.5-10.1); CHLORIDE 103 mmol/L (98-107); CO2 25 mmol/L (21-32); CREATININE 1.1 mg/dL (0.55-1.3); GLUCOSE,RANDOM 140 mg/dL (74-106); MAGNESIUM 1.7 mg/dL (1.8-2.4); POTASSIUM 4.7 mmol/L (3.5-5.1); SODIUM 136 mmol/L (136-145)
[2018-11-11] MEDS ORDERED: MAGNESIUM OXIDE 400 MG TABLET (FP) PO ONE (07:54)
--- NOTE | 2018-11-11 07:56 | PN ---
Physical Exam: SUBJECTIVE: Patient seen and examined; feeling the same as per patient; legs less tender; still on NC @L OBJECTIVE: Vital Signs Period Temp Pulse Resp BP Sys/Rae Pulse Ox Last 24 Hr 97.4 F-99.3 F 86-98 16-20 90-111/51-76 97-97 GENERAL: The patient is awake, alert, and fully oriented, in no acute distress. LUNGS: bilateral crackles throughout lung pérez; but improved HEART: Regular rate and rhythm, S1, S2 without murmur, rub or gallop. ABDOMEN: Soft, nontender, nondistended, normoactive bowel sounds, no guarding, no rebound, no hepatosplenomegaly, no masses. EXTREMITIES: 2+ pulses, warm, well-perfused, no edema. NEUROLOGICAL: Cranial nerves II through XII grossly intact. Normal speech, gait not observed. PSYCH: Normal mood, normal affect. SKIN: Warm, dry, normal turgor, no rashes or lesions noted Laboratory Results - last 24 hr 11/09/18 11/10/18 11/10/18 13:45 06:00 12:00 WBC RBC Hgb Hct 26.0 L MCV MCH MCHC RDW Plt Count MPV Absolute Neuts (auto) Neutrophils % Lymphocytes % Monocytes % Eosinophils % Basophils % Nucleated RBC % Sodium Potassium Chloride Carbon Dioxide Anion Gap BUN Creatinine Creat Clearance w eGFR POC Glucometer Random Glucose Calcium Magnesium Folate 1522 Folate Hemolysate 395.6 Blood Type O POSITIVE O POSITIVE Antibody Screen Negative Crossmatch See Detail 11/10/18 11/10/18 11/11/18 17:09 20:30 05:45 WBC RBC Hgb Hct MCV MCH MCHC RDW Plt Count MPV Absolute Neuts (auto) Neutrophils % Lymphocytes % Monocytes % Eosinophils % Basophils % Nucleated RBC % Sodium Potassium Chloride Carbon Dioxide Anion Gap BUN Creatinine Creat Clearance w eGFR POC Glucometer 144 193 147 Random Glucose Calcium Magnesium Folate Folate Hemolysate Blood Type Antibody Screen Crossmatch 11/11/18 11/11/18 06:00 06:00 WBC 7.2 RBC 3.51 L Hgb 8.5 L Hct 26.1 L MCV 74.3 L MCH 24.2 L MCHC 32.6 RDW 16.5 H Plt Count 349 MPV 7.4 L Absolute Neuts (auto) 4.6 Neutrophils % 64.1 Lymphocytes % 24.1 Monocytes % 7.4 Eosinophils % 3.2 Basophils % 1.2 Nucleated RBC % 0 Sodium 136 Potassium 4.7 Chloride 103 Carbon Dioxide 25 Anion Gap 8 BUN 38 H Creatinine 1.1 Creat Clearance w eGFR 49.39 POC Glucometer Random Glucose 140 H Calcium 8.3 L Magnesium 1.7 L Folate Folate Hemolysate Blood Type Antibody Screen Crossmatch Active Medications Generic Name Dose Route Start Last Admin Trade Name Freq PRN Reason Stop Dose Admin Acetaminophen 650 mg 11/08/18 11:54 Tylenol - PO Q4H PRN FEVER Aspirin 81 mg 11/08/18 12:00 11/10/18 09:29 Asa - PO 81 mg DAILY KEYSHA Administration Atorvastatin Calcium 80 mg 11/08/18 22:00 11/10/18 21:13 Lipitor - PO 80 mg HS KEYSHA Administration Clopidogrel Bisulfate 75 mg 11/09/18 10:00 11/10/18 09:29 Plavix - PO 75 mg DAILY KEYSHA Administration Ferrous Sulfate 325 mg 11/10/18 12:30 11/10/18 13:56 Feosol - PO 325 mg DAILY [facility] Administration Furosemide 40 mg 11/11/18 06:00 11/11/18 06:20 Lasix - PO 40 mg BID@0600,1400 KEYSHA Administration Heparin Sodium (Porcine) 5,000 unit 11/08/18 22:00 11/11/18 06:20 Heparin - SQ 5,000 unit TID [facility] Administration Insulin Aspart 1 vial 11/10/18 16:30 11/11/18 06:08 Novolog Vial Sliding Scale - SQ Not Given ACHS [facility] Protocol Lisinopril 10 mg 11/10/18 15:24 Prinivil PO DAILY [facility] Magnesium Oxide 800 mg 11/11/18 07:54 Mag-Ox - PO 11/11/18 07:55 ONCE ONE Metoprolol Succinate 50 mg 11/09/18 10:00 11/10/18 14:09 Toprol Xl - PO 50 mg DAILY [facility] Administration Montelukast Sodium 10 mg 11/09/18 10:00 11/10/18 09:29 Singulair - PO 10 mg DAILY [facility] Administration ASSESSMENT/PLAN: 68 year old woman with a PMHx of HTN, DM-II, HLD, asthma, CAD, lateral STEMI, s/ p PCI with LOUIS on mid LAD on 10/15/2018, systolic CHF secondary to ICM with EF 35 % from echo on 10/20/2018 presents with chest pain and shortness of breath. #chest pain;s/p stent placment LAD 10/15/18; -no acute ecg finding s -trend trop; flattened -appcardio recs: -> metoprolol suc 50mg po daily; decrease lisinopril to 10po daily, d/c brillinata; switch to plavix and asa; #acute on chronic exacerbation of systolic heart failure -BB, SURAJ, lasix 40mg bid po -strict I/O -daily weights -carmelo cardio #microcytic anemia;; s/p 1U PRBC -r/o acute vs chronic bleed; iron def; -adequate rise -monitor H/H -iron supplementation -need to check stool for occult blood #hypomagnesemia; replace #HTN; controlled #CAD VTE: heparinsq Incentive spirometer PRe and post oxygen today Disposition: tele Visit type - Emergency Visit Emergency Visit: Yes ED Registration Date: 11/08/18 Care time: The patient presented to the Emergency Department on the above date and was hospitalized for further evaluation of their emergent condition. - New Patient This patient is new to me today: No - Critical Care Critical Care patient: No
[2018-11-11] MEDS ORDERED: SPIRONOLACTONE 25 MG TABLET (FP) PO SCH (10:00)
[2018-11-11] MEDS: FERROUS SO4 325 MG TABLET (FP) PO SCH (10:25)
[2018-11-11] MEDS: ASPIRIN 81 MG CHEWABLE TABLETS PO SCH (10:25)
[2018-11-11] MEDS: CLOPIDOGREL BISULFATE 75 MG TABLET (FP) PO SCH (10:25)
[2018-11-11] MEDS: MONTELUKAST NA 10 MG TABLET PO SCH (10:25)
[2018-11-11] MEDS: LISINOPRIL 10 MG TABLET (FP) PO SCH (10:30)
--- NOTE | 2018-11-11 11:33 | PN ---
Teaching Attending Note Name of Resident: Norma Smart ATTENDING PHYSICIAN STATEMENT I saw and evaluated the patient. I reviewed the resident's note and discussed the case with the resident. I agree with the resident's findings and plan as documented with exceptions below. SUBJECTIVE: Patient seen and examined. Breathing improved, no dizziness or complaints, otherwise. OBJECTIVE: Vital Signs Period Temp Pulse Resp BP Sys/Rae Pulse Ox Last 24 Hr 97.4 F-99.2 F 86-112 16-20 90-111/51-76 95-97 Intake & Output 11/08/18 11/09/18 11/10/18 11/11/18 23:59 23:59 23:59 23:59 Intake Total 500 1190 Balance 500 1190 Weight 195 lb 195 lb 195 lb 190 lb General: sitting in chair in no acute distress Chest: improved air entry, decreased breath sounds at bases Abdomen;Soft, obese, NT Extremities: improved pedal edema Home Medications Medication Instructions Recorded Aspirin 81 mg PO DAILY 10/15/18 Atorvastatin Calcium 40 mg PO DAILY 10/15/18 Montelukast Sodium [Singulair] 10 mg PO HS 10/15/18 Atorvastatin Ca [Lipitor] 80 mg PO HS 11/08/18 Clopidogrel Bisulfate [Plavix] 75 mg PO DAILY 11/08/18 Lisinopril [Prinivil -] 40 mg PO DAILY 11/08/18 Metoprolol Tartrate 25 mg PO DAILY 11/08/18 Sitagliptin Phos/Metformin HCl 1 each PO BID 11/08/18 [Janumet 50-1,000 mg Tablet] Spironolactone [Aldactone] 25 mg PO DAILY 11/08/18 Ticagrelor [Brilinta] 90 mg PO BID 11/08/18 Active Medications Acetaminophen (Tylenol -) 650 mg PO Q4H PRN PRN Reason: FEVER Aspirin (Asa -) 81 mg PO DAILY [facility] Last Admin: 11/11/18 10:25 Dose: 81 mg Atorvastatin Calcium (Lipitor -) 80 mg PO HS [facility] Last Admin: 11/10/18 21:13 Dose: 80 mg Clopidogrel Bisulfate (Plavix -) 75 mg PO DAILY [facility] Last Admin: 11/11/18 10:25 Dose: 75 mg Ferrous Sulfate (Feosol -) 325 mg PO DAILY [facility] Last Admin: 11/11/18 10:25 Dose: 325 mg Furosemide (Lasix -) 40 mg PO BID@0600,1400 [facility] Last Admin: 11/11/18 06:20 Dose: 40 mg Heparin Sodium (Porcine) (Heparin -) 5,000 unit SQ TID [facility] Last Admin: 11/11/18 06:20 Dose: 5,000 unit Insulin Aspart (Novolog Vial Sliding Scale -) 1 vial SQ ACHS [facility]; Protocol Last Admin: 11/11/18 06:08 Dose: Not Given Lisinopril (Prinivil) 10 mg PO DAILY [facility] Last Admin: 11/11/18 10:30 Dose: Not Given Metoprolol Succinate (Toprol Xl -) 50 mg PO DAILY [facility] Last Admin: 11/11/18 10:30 Dose: Not Given Montelukast Sodium (Singulair -) 10 mg PO DAILY [facility] Last Admin: 11/11/18 10:25 Dose: 10 mg Laboratory Results - last 24 hr 11/09/18 11/10/18 11/10/18 13:45 06:00 12:00 WBC RBC Hgb Hct 26.0 L MCV MCH MCHC RDW Plt Count MPV Absolute Neuts (auto) Neutrophils % Lymphocytes % Monocytes % Eosinophils % Basophils % Nucleated RBC % Sodium Potassium Chloride Carbon Dioxide Anion Gap BUN Creatinine Creat Clearance w eGFR POC Glucometer Random Glucose Calcium Magnesium Folate 1522 Folate Hemolysate 395.6 Blood Type O POSITIVE O POSITIVE Antibody Screen Negative Crossmatch See Detail 11/10/18 11/10/18 11/11/18 17:09 20:30 05:45 WBC RBC Hgb Hct MCV MCH MCHC RDW Plt Count MPV Absolute Neuts (auto) Neutrophils % Lymphocytes % Monocytes % Eosinophils % Basophils % Nucleated RBC % Sodium Potassium Chloride Carbon Dioxide Anion Gap BUN Creatinine Creat Clearance w eGFR POC Glucometer 144 193 147 Random Glucose Calcium Magnesium Folate Folate Hemolysate Blood Type Antibody Screen Crossmatch 11/11/18 11/11/18 11/11/18 06:00 06:00 11:17 WBC 7.2 RBC 3.51 L Hgb 8.5 L Hct 26.1 L MCV 74.3 L MCH 24.2 L MCHC 32.6 RDW 16.5 H Plt Count 349 MPV 7.4 L Absolute Neuts (auto) 4.6 Neutrophils % 64.1 Lymphocytes % 24.1 Monocytes % 7.4 Eosinophils % 3.2 Basophils % 1.2 Nucleated RBC % 0 Sodium 136 Potassium 4.7 Chloride 103 Carbon Dioxide 25 Anion Gap 8 BUN 38 H Creatinine 1.1 Creat Clearance w eGFR 49.39 POC Glucometer 215 Random Glucose 140 H Calcium 8.3 L Magnesium 1.7 L Folate Folate Hemolysate Blood Type Antibody Screen Crossmatch ASSESSMENT AND PLAN: 68 yof with PMHx of HTN, DM-II, HLD, asthma, CAD, lateral STEMI, s/p PCI with LOUIS on mid LAD on 10/15/2018, systolic CHF secondary to ICM with EF 35% from echo on 10/20/2018 presents to ED with chest pain and shortness of breath. -Acute on chronic systolic heart failure exacerbation secondary to ischemic cardiomyopathy (Last EF 35% on 10/20/2018) -Lateral STEMI 10/15/2018 s/p mid LAD LOUIS PCI -Asymptomaic Hypotension, suspect multifactorial from diuresis/low EF -Acute on chronic iron deficiency anemia, ?etiology (r/o occult bleed given recently stated on anti-platelets) -Elevated troponin, suspect from recent [place] rather than ACS -NIDDM -HTN -Asthma Plan: Doing well, no home oxygen needs. Volume status improved. Discussed with Dr. Krishnamurthy, will change to lasix 40 mg daily. Given asymptomatic hypotension, likely from low EF. Lisinopril decreased to 10 mg daily. toprol [address]iscuss[address] with Dr. Krishnamurthy, hold aldactone on dc. Continue ASA/plavix/statin Appropriate response to PRBC. PO Fe suppl, outpatient anemia monitoring and GI work up. no gross evidence of bleed or hemodynamic instability. Resume oral DM meds on dc. Dispo PT eval. Plan for d/c home +/- services today pending PT eval Plan discussed with patient nursing, care co-ordinated with cardiology.
--- NOTE | 2018-11-11 15:34 | PN ---
Progress Note, Physician Chief Complaint: Patient feels better with much improved SOB. She has no chest pain or SOB. Tele shows sinus rhyth in mid 80-90s with rare VPCs. History of Present Illness: 68 year old woman with a PMHx of HTN, DM-II, HLD, asthma, CAD, lateral STEMI, s /p PCI with LOUIS on mid LAD on 10/15/2018, systolic CHF secondary to ICM with EF 35 % from echo on 10/20/2018 presents to ED with chest pain and shortness of breath. The patient was transferred from [facility] to [facility] on 10/15/2018 for lateral STEMI. He underwent urgent cardiac cath on 10/15/2018 which showed 99% stenosis of mid LAD and EF of 20-25% with elevated LVEDP. PCI of mLAD done, but no signs of reflow noted to treated with intracoronary vasodilators. An IABP was placed with improvement in coronary blood flow. She was observed in CCU. Echocardiogram on 10/20/2018 showed LVEF 35%. He was discharge with aspirin, Brilinta/Atorvastatin on 10/22/2018. ECG 11/08/2018 showed: Sinus tachycardia with VPCs. Low voltage. Anterolateral infarct, evolving. Troponin is mildly elevated, likely trending down from recent PA (Troponin was 7.4 on 10/19/2018), BNP is severely elevated. Cardiac tests: Echocardiogram 10/20/2018: Normal left ventricular size. Large region of apical akinesis. Anterior wall akinesis. Severe anteroseptal hypokinesis. Severe anterolateral wall hypokinesis. Other miranda contract normally. Severely decreased left ventricular ejection fraction. LVEF = 35%. Normal RV. Normal LA and RA. No significangt valvular abnormalities. Cardiac cath: Mid LAD (99% stenosis). LCx with mild luminal irregularities. Dominant RCA (proximal 60%), distally with mild to moderate luminal irregularities. LV gram: LVEF 20-25% with severe hypokinesis of the anterior, anterolateral and infero-apical segments. LVEDP 33 mmHg. Intervention: Successful PCI of mid LAD with placement of 1 LOUIS. Course complicated by no reflow, treated with intra-coronary vasodilators. - Current Medication List Current Medications: Active Medications Acetaminophen (Tylenol -) 650 mg PO Q4H PRN PRN Reason: FEVER Aspirin (Asa -) 81 mg PO DAILY [facility] Last Admin: 11/11/18 10:25 Dose: 81 mg Atorvastatin Calcium (Lipitor -) 80 mg PO HS [facility] Last Admin: 11/10/18 21:13 Dose: 80 mg Clopidogrel Bisulfate (Plavix -) 75 mg PO DAILY [facility] Last Admin: 11/11/18 10:25 Dose: 75 mg Ferrous Sulfate (Feosol -) 325 mg PO DAILY [facility] Last Admin: 11/11/18 10:25 Dose: 325 mg Furosemide (Lasix -) 40 mg PO BID@0600,1400 [facility] Last Admin: 11/11/18 13:56 Dose: 40 mg Heparin Sodium (Porcine) (Heparin -) 5,000 unit SQ TID [facility] Last Admin: 11/11/18 13:56 Dose: 5,000 unit Insulin Aspart (Novolog Vial Sliding Scale -) 1 vial SQ ACHS [facility]; Protocol Last Admin: 11/11/18 11:37 Dose: 4 units Lisinopril (Prinivil) 10 mg PO DAILY [facility] Last Admin: 11/11/18 10:30 Dose: Not Given Metoprolol Succinate (Toprol Xl -) 50 mg PO DAILY [facility] Last Admin: 11/11/18 10:30 Dose: Not Given Montelukast Sodium (Singulair -) 10 mg PO DAILY [facility] Last Admin: 11/11/18 10:25 Dose: 10 mg - Objective Vital Signs: Vital Signs Temperature 98.3 F 11/11/18 13:38 Pulse Rate 94 H 11/11/18 13:38 Respiratory Rate 16 11/11/18 13:38 Blood Pressure 95/53 L 11/11/18 13:38 O2 Sat by Pulse Oximetry (%) 95 11/11/18 09:41 General: Well developed. Well nourished. No acute distress. Head: Normocephalic. Atraumatic, Eyes: PERRLA, EOMI. Sclerae anicteric. Conjunctivae clear. Neck: Supple. No JVD. No bruits. Heart: Normal S1, S2: Regular rhythm and rate. No murmur. No gallop or rub. Lungs: Symmetrical air entry. Minimal bibasilar crackles. No wheezing or rhonchi. Abdomen: Soft. Bowel sound positive. Non tender. No masses. Extremities: No edema. No clubbing or cyanosis. PD 2+, equal bilaterally. Neuro: Intact, no focal findings. AAO X3. Labs: Labs: CBC, BMP 11/11/18 06:00 11/11/18 06:00 INR, PTT INR 1.17 (0.83-1.09) H 11/08/18 01:38 Assessment/Plan 68 year old woman with a PMHx of HTN, DM-II, HLD, asthma, CAD, lateral STEMI, s/ p PCI with LOUIS on mid LAD on 10/15/2018, systolic CHF secondary to ICM with EF 35 % from echo on 10/20/2018 presents to ED with chest pain and shortness of breath. The patient was transferred from [facility] to [facility] on 10/15/2018 for lateral STEMI. He underwent urgent cardiac cath on 10/15/2018 which showed 99% stenosis of mid LAD and EF of 20-25% with elevated LVEDP. PCI of mLAD done, but no signs of reflow noted to treated with intracoronary vasodilators. An IABP was placed with improvement in coronary blood flow. She was observed in CCU. Echocardiogram on 10/20/2018 showed LVEF 35%. He was discharge with aspirin, Brilinta/Atorvastatin on 10/22/2018. The patient has been experiencing SOB, weakness and atypical chest pain since discharge from [facility] on 10/22/2018. ECG 11/08/2018 showed: Sinus tachycardia with VPCs. Low voltage. Anterolateral infarct, evolving. Troponin is mildly elevated, likely trending down from recent PA (Troponin was 7.4 on 10/19/2018), BNP is severely elevated. Cardiac tests: Echocardiogram 10/20/2018: Normal left ventricular size. Large region of apical akinesis. Anterior wall akinesis. Severe anteroseptal hypokinesis. Severe anterolateral wall hypokinesis. Other miranda contract normally. Severely decreased left ventricular ejection fraction. LVEF = 35%. Normal RV. Normal LA and RA. No significangt valvular abnormalities. Cardiac cath: Mid LAD (99% stenosis). LCx with mild luminal irregularities. Dominant RCA (proximal 60%), distally with mild to moderate luminal irregularities. LV gram: LVEF 20-25% with severe hypokinesis of the anterior, anterolateral and infero-apical segments. LVEDP 33 mmHg. Intervention: Successful PCI of mid LAD with placement of 1 LOUIS. Course complicated by no reflow, treated with intra-coronary vasodilators. 1) Acute on chronic systolic CHF secondary to ICM with improved physical signs of fluid overload. The side effect of Brilinta may also contribute to her dyspnea. -symptoms and volume status improving -Continue Lasix PO 40 mg BID on discharge. -Continue metoprolol succinate 50 mg daily. -Continue Lisinopril to 10 mg daily. -Continue aspirin and Plavix. -Resume Aldactone as out patient with close potassium monitor. 2) Chest pain: recently PCI/LOUIS to mid LAD. -Chest pain unlikelly ACS. -Continue aspirin, plavix, metoprolol and atorvastatin and diuresis plan The patient can be discharged with out-pt cardiac follow up with Dr. Power. Please call us for reconsult as needed.
[2018-11-11] MEDS: ATORVASTATIN CA 80 MG TABLET (FP) PO SCH (21:16)
[2018-11-12] MEDS: HEPARIN NA (PORCINE) 5,000 UNITS/ML 1ML VIAL SQ SCH ×2 (05:40→13:38)
[2018-11-12] MEDS: FUROSEMIDE 40 MG TABLET (FP) PO SCH ×2 (05:40→13:37)
[2018-11-12] MEDS: INSULIN SLIDING SCALE (NOVOLOG) 1 VIAL SQ SCH ×2 (06:24→11:27)
[2018-11-12 07:04] LABS: BASO % 0.9 % (0-2.0); EOS % 2.9 % (0-4.5); HEMATOCRIT 27.5 % (32.4-45.2); LYMPH % 24.9 % (8-40); MCHC 32.7 g/dl (32.0-36.0); MEAN CELL VOLUME 73.2 fl (80-96); MEAN PLT VOLUME 7.2 fl (7.5-11.1); MONO % 6.3 % (3.8-10.2); PLATELET COUNT 331 K/MM3 (134-434); RBC 3.75 M/mm3 (3.60-5.2); RDW 16.4 % (11.6-15.6); WHITE BLOOD COUNT 6.3 K/mm3 (4.0-10.0)
[2018-11-12 07:29] LABS: ANION GAP 9 MMOL/L (8-16); BLOOD UREA NITROGEN 38 mg/dL (7-18); CALCIUM 8.2 mg/dL (8.5-10.1); CHLORIDE 102 mmol/L (98-107); CO2 24 mmol/L (21-32); CREATININE 0.9 mg/dL (0.55-1.3); GLUCOSE,RANDOM 152 mg/dL (74-106); MAGNESIUM 1.9 mg/dL (1.8-2.4); POTASSIUM 4.5 mmol/L (3.5-5.1); SODIUM 136 mmol/L (136-145)
[2018-11-12] MEDS: ASPIRIN 81 MG CHEWABLE TABLETS PO SCH (09:41)
[2018-11-12] MEDS: MONTELUKAST NA 10 MG TABLET PO SCH (09:41)
[2018-11-12] MEDS: FERROUS SO4 325 MG TABLET (FP) PO SCH (09:41)
[2018-11-12] MEDS: CLOPIDOGREL BISULFATE 75 MG TABLET (FP) PO SCH (09:41)
[2018-11-12] MEDS: LISINOPRIL 10 MG TABLET (FP) PO SCH (09:41)
--- NOTE | 2018-11-12 10:10 | DS ---
Physical Exam: SUBJECTIVE: Patient seen and examined; states she is feeling better and ready to go home. Shortness of breath greatly improved. Rod chest pain OBJECTIVE: Vital Signs Period Temp Pulse Resp BP Sys/Rae Pulse Ox Last 24 Hr 98.1 F-98.9 F 94-104 16-20 95-110/53-68 95 PHYSICAL EXAM GENERAL: The patient is awake, alert, and fully oriented, in no acute distress. HEAD: Normal with no signs of trauma. LUNGS: very mild crackle at bases HEART: Regular rate and rhythm, S1, S2 without murmur, rub or gallop. ABDOMEN: Soft, nontender, nondistended, normoactive bowel sounds, no guarding, no rebound, no hepatosplenomegaly, no masses. EXTREMITIES: 2+ pulses, warm, well-perfused, no edema. NEUROLOGICAL: Cranial nerves II through XII grossly intact. Normal speech, gait not observed. LABS Laboratory Results - last 24 hr 11/11/18 11/11/18 11/11/18 11:17 16:43 21:02 WBC RBC Hgb Hct MCV MCH MCHC RDW Plt Count MPV Absolute Neuts (auto) Neutrophils % Lymphocytes % Monocytes % Eosinophils % Basophils % Nucleated RBC % Sodium Potassium Chloride Carbon Dioxide Anion Gap BUN Creatinine Creat Clearance w eGFR POC Glucometer 215 148 167 Random Glucose Calcium Magnesium 11/12/18 11/12/18 11/12/18 05:37 06:00 06:00 WBC 6.3 RBC 3.75 Hgb 9.0 L Hct 27.5 L MCV 73.2 L MCH 24.0 L MCHC 32.7 RDW 16.4 H Plt Count 331 MPV 7.2 L Absolute Neuts (auto) 4.1 Neutrophils % 65.0 Lymphocytes % 24.9 Monocytes % 6.3 Eosinophils % 2.9 Basophils % 0.9 Nucleated RBC % 0 Sodium 136 Potassium 4.5 Chloride 102 Carbon Dioxide 24 Anion Gap 9 BUN 38 H Creatinine 0.9 Creat Clearance w eGFR 62.27 POC Glucometer 152 Random Glucose 152 H Calcium 8.2 L Magnesium 1.9 Previous history: The patient was transferred from [facility] to [facility] on 10/15/2018 for lateral STEMI. He underwent urgent cardiac cath on 10/15/2018 which showed 99% stenosis of mid LAD and EF of 20-25% with elevated LVEDP. PCI of mLAD done, but no signs of reflow noted to treated with intracoronary vasodilators. An IABP was placed with improvement in coronary blood flow. She was observed in CCU. Echocardiogram on 10/20/2018 showed LVEF 35%. He was discharge with aspirin, Brilinta/Atorvastatin on 10/22/2018. ECG 11/08/2018 showed: Sinus tachycardia with VPCs. Low voltage. Anterolateral infarct, evolving. ous hospitalization: HOSPITAL COURSE: Date of Admission:11/08/18 Date of Discharge: 11/12/18 68 year old woman with a PMHx of HTN, DM-II, HLD, asthma, CAD, lateral STEMI, s/ p PCI with LOUIS on mid LAD on 10/15/2018, systolic CHF secondary to ICM with EF 35 % presents with chest pain and shortness of breath, found to be in acute exacerbation of congestive heart failure. Patient evaluated by cardiology. She was started on lasix 40mg bid. Her Brillinta was dc/d and she was started on aspirin and plavix. Metoprolol succinate 50mg po daily and lisinopril decreased to 10mg daily. Patient was also found to be anemic, she was given 1 UPRBC. Heme work up indicated iron deficiency anemia. She was started on iron supplement and advised to get evaluated by gastroenterology. Stool for occult blood was negative. Minutes to complete discharge: 40 Discharge Summary Reason For Visit: HEART FAILURE Current Active Problems Acute exacerbation of CHF (congestive heart failure) (Acute) Acute respiratory failure with hypoxia (Acute) CAD (coronary artery disease) (Acute) HLD (hyperlipidemia) (Acute) HTN (hypertension) (Acute) Condition: Stable - Instructions Diet, Activity, Other Instructions: MEDICATIONS: Start below new medications: Lasix 40 mg twice daily Plavix 75 mg daily Lisinopril 10 mg daily (dose has been decreased from 40 mg) Toprol XL 50 mg daily. (dose has been increased) Ferrous Sulphate 325 mg daily STOP these medications: Brillinta Lisinopril 40 mg strength Spironolactone Metoprolol tartarate 25 mg strength Continue home diabetes medications Weigh yourself daily and notify doctor if weight gain > 3lbs in 2 days. You are started on oral iron supplementation, it can cause stomach upset and constipation. Please maintain good bowel regimen and notify your doctor if stomach upset noted. Your blood counts (CBC) showed low hemoglobin. You received 1 unit of blood However you will need to have your blood counts closely monitored with your doctor and discuss to see outpatient milk truck driver for EGD, colonoscopy and additional testing as indicated. FOLLOW UP: with PCP in 1 week With rip and groove machine operator in 1 week Blood count CBC (Complete Blood count) in 1 week with your doctor Outpatient Dental Technology Advisor referral If you notice any new chest pain or pressure, trouble breathing, dizziness, dark or bloody stools or any new concerns, please call 911 or come to the ED. Referrals: Edwin Sagastume MD [Primary Care Provider] - Juvenal Boogie MD [Staff Physician] - Disposition: VNS/HOME HEALTH CARE - Home Medications Comprehensive Discharge Medication List: Ambulatory Orders Aspirin 81 mg PO DAILY 10/15/18 Montelukast Sodium [Singulair] 10 mg PO HS 10/15/18 Atorvastatin Ca [Lipitor] 80 mg PO HS 11/08/18 Sitagliptin Phos/Metformin HCl [Janumet 50-1,000 mg Tablet] 1 each PO BID Clopidogrel Bisulfate [Plavix -] 75 mg PO DAILY 30 Days #30 tablet 11/11/18 Ferrous Sulfate [Feosol] 325 mg PO DAILY 30 Days #30 ud 11/11/18 Furosemide [Lasix] 40 mg PO BID 30 Days #60 tablet 11/11/18 Lisinopril [Prinivil] 10 mg PO DAILY 30 Days #30 tablet 11/11/18 Metoprolol Succinate [Toprol XL -] 50 mg PO DAILY 30 Days #30 tab.sr.24h This patient is new to me today: Yes Date on this admission: 11/12/18 Emergency Visit: Yes ED Registration Date: 11/08/18 Care time: The patient presented to the Emergency Department on the above date and was hospitalized for further evaluation of their emergent condition. Critical Care patient: No - Discharge Referral Referred to [facility] No
--- NOTE | 2018-11-12 10:49 | PN ---
Teaching Attending Note Name of Resident: Norma Smart ATTENDING PHYSICIAN STATEMENT I saw and evaluated the patient. I reviewed the resident's note and discussed the case with the resident. I agree with the resident's findings and plan as documented with exceptions below. SUBJECTIVE: Patient seen and examined, no dyspnea or chest pain. Feels well, agrees to dc OBJECTIVE: Vital Signs Period Temp Pulse Resp BP Sys/Rae Pulse Ox Last 24 Hr 98.1 F-98.9 F 94-104 16-20 95-110/53-68 95 Intake & Output 11/09/18 11/10/18 11/11/18 11/12/18 23:59 23:59 23:59 23:59 Intake Total 500 1190 950 170 Balance 500 1190 950 170 Weight 195 lb 195 lb 190 lb 193 lb general: sitting in bed in no acute distress Neck: soft, supple, no JVD Abdomen:Soft, obese, NT Chest: CTAB, no rales or wheezing Extremities: trace pedal edema Home Medications Medication Instructions Recorded Aspirin 81 mg PO DAILY 10/15/18 Montelukast Sodium [Singulair] 10 mg PO HS 10/15/18 Atorvastatin Ca [Lipitor] 80 mg PO HS 11/08/18 Sitagliptin Phos/Metformin HCl 1 each PO BID 11/08/18 [Janumet 50-1,000 mg Tablet] Clopidogrel Bisulfate [Plavix -] 75 mg PO DAILY 30 Days #30 tablet 11/11/18 Ferrous Sulfate [Feosol] 325 mg PO DAILY 30 Days #30 ud 11/11/18 Furosemide [Lasix] 40 mg PO BID 30 Days #60 tablet 11/11/18 Lisinopril [Prinivil] 10 mg PO DAILY 30 Days #30 tablet 11/11/18 Metoprolol Succinate [Toprol XL -] 50 mg PO DAILY 30 Days #30 11/11/18 tab.sr.24h Laboratory Results - last 24 hr 11/11/18 11/11/18 11/11/18 11:17 16:43 21:02 WBC RBC Hgb Hct MCV MCH MCHC RDW Plt Count MPV Absolute Neuts (auto) Neutrophils % Lymphocytes % Monocytes % Eosinophils % Basophils % Nucleated RBC % Sodium Potassium Chloride Carbon Dioxide Anion Gap BUN Creatinine Creat Clearance w eGFR POC Glucometer 215 148 167 Random Glucose Calcium Magnesium 11/12/18 11/12/18 11/12/18 05:37 06:00 06:00 WBC 6.3 RBC 3.75 Hgb 9.0 L Hct 27.5 L MCV 73.2 L MCH 24.0 L MCHC 32.7 RDW 16.4 H Plt Count 331 MPV 7.2 L Absolute Neuts (auto) 4.1 Neutrophils % 65.0 Lymphocytes % 24.9 Monocytes % 6.3 Eosinophils % 2.9 Basophils % 0.9 Nucleated RBC % 0 Sodium 136 Potassium 4.5 Chloride 102 Carbon Dioxide 24 Anion Gap 9 BUN 38 H Creatinine 0.9 Creat Clearance w eGFR 62.27 POC Glucometer 152 Random Glucose 152 H Calcium 8.2 L Magnesium 1.9 ASSESSMENT AND PLAN: 68 yof with PMHx of HTN, DM-II, HLD, asthma, CAD, lateral STEMI, s/p PCI with LOUIS on mid LAD on 10/15/2018, systolic CHF secondary to ICM with EF 35% from echo on 10/20/2018 presents to ED with chest pain and shortness of breath. -Acute on chronic systolic heart failure exacerbation secondary to ischemic cardiomyopathy (Last EF 35% on 10/20/2018) -Lateral STEMI 10/15/2018 s/p mid LAD LOUIS PCI -Asymptomaic Hypotension, suspect multifactorial from diuresis/low EF -Acute on chronic iron deficiency anemia, ?etiology (r/o occult bleed given recently stated on anti-platelets) -Elevated troponin, suspect from recent SD rather than ACS -NIDDM -HTN -Asthma Plan: Doing well, no home oxygen needs. Volume status improved. Discussed with Dr. Krishnamurthy, will change to lasix 40 mg BID. Asymptomatic hypotension, likely from low EF and aggressive diuresis, resolved now. Lisinopril decreased to 10 mg daily. toprol 50 mg daily. Discuss[address] with Dr. Krishnamurthy, hold aldactone on dc. Continue ASA/plavix/statin Appropriate response to PRBC. PO Fe suppl, outpatient anemia monitoring and GI work up. no gross evidence of bleed or hemodynamic instability. Resume oral DM meds on dc. Dispo PT eval noted Plan for d/c home with services today Plan discussed with patient and nursing, all questions answered.
[2018-11-12 11:20] VITALS: BP 109/68; PULSE 96; TEMP 98.1
== END 2018-11-12 16:26 | disposition home health service (06) | DRG 280 ==
LOC: JER 00:37 → JERBED 02:57 → J4S 11-09 13:05
PROVIDERS: ADMIT Internal Medicine; ATTEND Hospitalist
PROC: 30233N1 Transfusion of Nonautologous Red Blood Cells into Peripheral Vein, Percutaneous Approach (ICD-10-PCS; principal; 2018-11-09)
DX: I25.5 Ischemic cardiomyopathy (principal); I50.23 Acute on chronic systolic (congestive) heart failure; I21.29 ST elevation (STEMI) myocardial infarction involving other sites; J96.01 Acute respiratory failure with hypoxia; N30.00 Acute cystitis without hematuria; E83.42 Hypomagnesemia; I11.0 Hypertensive heart disease with heart failure; I95.9 Hypotension, unspecified; D50.9 Iron deficiency anemia, unspecified; E11.9 Type 2 diabetes mellitus without complications; R07.89 Other chest pain; I25.10 Atherosclerotic heart disease of native coronary artery without angina pectoris; Z95.5 Presence of coronary angioplasty implant and graft; E78.5 Hyperlipidemia, unspecified; J45.909 Unspecified asthma, uncomplicated; Z79.84 Long term (current) use of oral hypoglycemic drugs
CPT/HCPCS: 36415; 36430; 71045-TC-FY; 80048; 80053; 81003; 82550; 82607; 82728; 82747; 82962; 83540; 83550; 83735; 83880; 84100; 84439; 84443; 84484; 85014; 85025; 85610; 85730; 86850; 86900; 86901; 86922; 87086; 90670; 93005; 93010; 94010; 94761; 97116-GP; 97161-GP; 99285-25; J1644; P9038; P9058

== ENCOUNTER 2018-12-24 19:36 | Inpatient (IN) | payer OTHER ==
--- NOTE | 2018-12-24 20:03 | PDOC ---
Rapid Medical Evaluation Medical Evaluation: Allergies Allergy/AdvReac Type Severity Reaction Status Date / Time No Known Allergies Allergy Verified 11/08/18 02:01 I have performed a brief in-person evaluation of this patient. The patient presents with a chief complaint of: Hx of [place] 1.5 months ago; saw appliance sales associate and told to come to ED as her potassium was high; denies CP; is on Lasix which she took today Pertinent physical exam findings: In NAD I have ordered the following: EKG, labs The patient will proceed to the ED for further evaluation. 12/24/18 20:01 Discharge Disposition - Referrals Referrals: Edwin Sagastume MD [Primary Care Provider] - - Patient Instructions - Post Discharge Activity
--- NOTE | 2018-12-24 20:30 | PDOC ---
History of Present Illness - General Chief Complaint: Abnormal Lab Results (Outside) Stated Complaint: REF. BY DOCTORS Time Seen by Provider: 12/24/18 20:04 History Source: Patient, Family Exam Limitations: No Limitations - History of Present Illness Initial Comments: 12/24/18 20:27 68 year old female with PMH HTN, HLD, IDDM, [place] x1.5 months ago s/p stent on Plavix sent to ED by Condominium Manager for elevated potassium. Pt stated she had a check up appointment today, then was called later in the day and told to come to the ED for evaluation of elevated potassium Pt denied recent medication changes, hx CKD, or any symptoms including chest pain, shortness of breath, lightheadedness. Allergies: NKDA Past History - Past Medical History Allergies/Adverse Reactions: Allergies Allergy/AdvReac Type Severity Reaction Status Date / Time No Known Allergies Allergy Verified 12/24/18 20:05 Home Medications: Ambulatory Orders Aspirin 81 mg PO DAILY 10/15/18 Atorvastatin Ca [Lipitor] 80 mg PO HS 11/08/18 Sitagliptin Phos/Metformin HCl [Janumet 50-1,000 mg Tablet] 1 each PO BID Clopidogrel Bisulfate [Plavix -] 75 mg PO DAILY 30 Days #30 tablet 11/11/18 Ferrous Sulfate [Feosol] 325 mg PO DAILY 30 Days #30 ud 11/11/18 Furosemide [Lasix] 40 mg PO BID 30 Days #60 tablet 11/11/18 Lisinopril [Prinivil] 10 mg PO DAILY 30 Days #30 tablet 11/11/18 Metoprolol Succinate [Toprol XL -] 50 mg PO DAILY 30 Days #30 tab.sr.24h Spironolactone 25 mg PO DAILY 12/24/18 Anemia: No Asthma: Yes Cancer: No Cardiac Disorders: Yes (SOB/ Heart attack 3 weeks ago) CVA: No COPD: No CHF: Yes Dementia: No Diabetes: Yes GI Disorders: No Disorders: No HTN: Yes Hypercholesterolemia: Yes Liver Disease: No Seizures: No Thyroid Disease: No - Surgical History Abdominal Surgery: No Appendectomy: No Cardiac Surgery: No Cholecystectomy: No Lung Surgery: No Neurologic Surgery: No Orthopedic Surgery: No - Immunization History Immunization Up to Date: Yes - Suicide/Smoking/Psychosocial Hx Smoking History: Never smoked Have you smoked in the past 12 months: No Information on smoking cessation initiated: No Hx Alcohol Use: No Drug/Substance Use Hx: No Hx Substance Use Treatment: No Review of Systems - Review of Systems Able to Perform ROS?: Yes Comments:: 12/24/18 20:28 General: denied fever, chills, generalized weakness. HEENT: denied sore throat, rhinorrhea, ear pain. Heart: denied chest pain, palpitations, syncope, diaphoresis. Respiratory: denied shortness of breath, cough, sputum production, hemoptysis. Abdomen: denied abdominal pain, nausea, vomiting, diarrhea, constipation, blood in stool. : denied dysuria, increased urinary frequency, hematuria, urinary incontinence , flank pain. Back: denied back pain. Musculoskeletal: denied joint pain, muscle pain, joint swelling. Neurological: denied headache, dizziness, numbness, tingling, weakness. Skin: denied rash, laceration, abrasion. *Physical Exam - Vital Signs Last Vital Signs Temp Pulse Resp BP Pulse Ox 98.4 F 86 18 90/48 L 98 12/24/18 20:03 12/24/18 20:03 12/24/18 20:03 12/24/18 20:03 12/24/18 20:03 - Physical Exam Comments: 12/24/18 20:28 Constitutional: Well-nourished, Well-developed, appearing stated age. HEENT: head is normocephalic, atraumatic. EOMI. PERRLA. Neck: supple. Full ROM. Heart: regular rhythm. no murmurs, rubs or gallops. Lungs: clear to auscultation bilaterally. no crackles, rhonchi or wheezing. no stridor. Abdomen: soft, nontender. normal bowel sounds. no rebound, guarding, masses. Extremities: peripheral pulses intact. no lower extremity edema. Neurological: CN 2-12 grossly intact. moves all four extremities. Psych: awake, alert, oriented x3. follows commands. answers questions appropriately. ED Treatment Course - LABORATORY CBC & Chemistry Diagram: 12/26/18 05:30 12/27/18 05:30 Medical Decision Making - Medical Decision Making 12/24/18 20:28 68 year old female with above PMH sent to ED by parking assistant for elevated potassium. Pt is on Spironolactone, Lisinopril. Initial Vital Signs Temp Pulse Resp BP Pulse Ox 98.4 F 86 18 90/48 L 98 12/24/18 20:03 12/24/18 20:03 12/24/18 20:03 12/24/18 20:03 12/24/18 20:03 Afebrile. No tachycardia. No tachypnea. Hypotensive. No hypoxia on room air. Labs ordered: CBC, CMP, Mag Imaging ordered: none Medications ordered: normal saline 500 cc bolus EKG performed at 2024: rate 79, regular rhythm, left axis, normal intervals, flipped T in V4/V5/V6/I/aVL. No peaked T waves. Similar to prior EKG comparison 11/08/18 12/24/18 20:48 CBC WBC 8.0 K/mm3 (4.0-10.0) 12/24/18 20: RBC 4.29 M/mm3 (3.60-5.2) 12/24/18 20: Hgb 10.0 GM/dL (10.7-15.3) L 12/24/18 20: Hct 31.3 % (32.4-45.2) L 12/24/18 20:19 MCV 72.9 fl (80-96) L 12/24/18 20: MCH 23.2 pg (25.7-33.7) L 12/24/18 20: MCHC 31.9 g/dl (32.0-36.0) L 12/24/18 20:19 RDW 16.8 % (11.6-15.6) H 12/24/18 20: Plt Count 301 K/MM3 (134-434) 12/24/18 20: MPV 7.6 fl (7.5-11.1) 12/24/18 20: Absolute Neuts (auto) 4.7 K/mm3 (1.5-8.0) 12/24/18 20: Neutrophils % 58.9 % (42.8-82.8) 12/24/18 20: Lymphocytes % 30.5 % (8-40) D 12/24/18 20: Monocytes % 6.6 % (3.8-10.2) 12/24/18 20: Eosinophils % 3.7 % (0-4.5) 12/24/18 20:19 Basophils % 0.3 % (0-2.0) 12/24/18 20:19 Nucleated RBC % 0 % (0-0) 12/24/18 20:19 No leukocytosis. Microcytic anemia. -Higher than baseline per prior lab values 12/24/18 21:20 CMP Sodium 133 mmol/L (136-145) L 12/24/18 20:24 Potassium 5.7 mmol/L (3.5-5.1) H 12/24/18 20:24 Chloride 99 mmol/L (98-107) 12/24/18 20:24 Carbon Dioxide 27 mmol/L (21-32) 12/24/18 20:24 Anion Gap 8 MMOL/L (8-16) 12/24/18 20:24 BUN 55 mg/dL (7-18) H 12/24/18 20:24 Creatinine 1.8 mg/dL (0.55-1.3) H 12/24/18 20:24 Est GFR (CKD-EPI)AfAm 32.94 12/24/18 20:24 Est GFR (CKD-EPI)NonAf 28.42 12/24/18 20:24 Random Glucose 141 mg/dL (74-106) H 12/24/18 20:24 Calcium 9.4 mg/dL (8.5-10.1) 12/24/18 20:24 Magnesium 1.8 mg/dL (1.8-2.4) 12/24/18 20:24 Total Bilirubin 0.6 mg/dL (0.2-1) 12/24/18 20:24 AST 23 U/L (15-37) 12/24/18 20:24 ALT 27 U/L (13-61) 12/24/18 20:24 Alkaline Phosphatase 75 U/L (45-117) 12/24/18 20:24 Total Protein 7.9 g/dl (6.4-8.2) 12/24/18 20:24 Albumin 3.6 g/dl (3.4-5.0) 12/24/18 20:24 Hyponatremia. Hyperkalemia. MARCELLA. -Baseline Cr 1.0 No transaminitis. Mediations ordered: Regular Insulin 10 units, 1 amp D50 Labs ordered: UA, urine sodium No EKG changes - no calcium or bicarb given. Urine Test Results Urine Color Yellow 12/24/18 21: Urine Appearance Clear 12/24/18: Urine pH 5.0 (5.0-8.0) 12/24/18: Ur Specific [place] 1.011 (1.010-1.035) 12/24/18 21: Urine Protein Negative (NEGATIVE) 12/24/18 21: Urine Glucose (UA) Trace (NEGATIVE) 12/24/18: Urine Ketones Negative (NEGATIVE) 12/24/18: Urine Blood Negative (NEGATIVE) 12/24/18 21: Urine Nitrite Negative (NEGATIVE) 12/24/18 21: Urine Bilirubin Negative (NEGATIVE) 12/24/18: Ur Leukocyte Esterase Trace (NEGATIVE) 12/24/18: Urine sodium within normal limits. WBC<5 No UTI. Disposition: Admission for MARCELLA, hyperkalemia. *DC/Admit/Observation/Transfer Diagnosis at time of Disposition: MARCELLA (acute kidney injury), Hyperkalemia, Hyponatremia - Discharge Dispostion Condition at time of disposition: Stable Decision to Admit order: Yes - Referrals - Patient Instructions - Post Discharge Activity
[2018-12-24] MEDS ORDERED: SODIUM CHLORIDE 500 ML IV STA (20:31)
[2018-12-24 20:38] LABS: BASO % 0.3 % (0-2.0); EOS % 3.7 % (0-4.5); HEMATOCRIT 31.3 % (32.4-45.2); LYMPH % 30.5 % (8-40); MCH 23.2 pg (25.7-33.7); MCHC 31.9 g/dl (32.0-36.0); MEAN CELL VOLUME 72.9 fl (80-96); MEAN PLT VOLUME 7.6 fl (7.5-11.1); MONO % 6.6 % (3.8-10.2); NEUT % 58.9 % (42.8-82.8); PLATELET COUNT 301 K/MM3 (134-434); RBC 4.29 M/mm3 (3.60-5.2); RDW 16.8 % (11.6-15.6)
[2018-12-24 21:16] LABS: ALBUMIN 3.6 g/dl (3.4-5.0); BILIRUBIN,TOTAL 0.6 mg/dL (0.2-1); CALCIUM 9.4 mg/dL (8.5-10.1); CREATININE 1.8 mg/dL (0.55-1.3); MAGNESIUM 1.8 mg/dL (1.8-2.4); POTASSIUM 5.7 mmol/L (3.5-5.1); TOT PROT 7.9 g/dl (6.4-8.2)
[2018-12-24] MEDS ORDERED: DEXTROSE 50%-WATER - 25 GM/50 ML VIAL IVPUSH ONE (21:20)
[2018-12-24] MEDS ORDERED: INSULIN REGULAR HUMAN 100 UNITS/ML *VIAL IVPUSH ONE (21:20)
[2018-12-24] MEDS ORDERED: DEXTROSE 50%-WATER 25 GM/50 ML DISP.SYRIN ONE (21:28)
[2018-12-24] MEDS ORDERED: INSULIN REGULAR HUMAN 100 UNITS/ML *VIAL ONE (21:29)
--- NOTE | 2018-12-24 22:04 | PN ---
Teaching Attending Note Name of Resident: Serge Fam ATTENDING PHYSICIAN STATEMENT I saw and evaluated the patient. I reviewed the resident's note and discussed the case with the resident. I agree with the resident's findings and plan as documented. SUBJECTIVE: Patient is a 68 year old woman with a PMH of HTN, HLD, NIDDM, [place] x1.5 months ago s/p stent on Plavix sent to ER by Commercial Fisherman for elevated potassium. Patient stated she had a check up appointment today, then was called later in the day and told to come to the ER for evaluation of elevated potassium. Patient denies recent medication changes, history of CKD, or any symptoms including chest pain, shortness of breath or lightheadedness. OBJECTIVE: Alert and not orthostatic Vital Signs Period Temp Pulse Resp BP Sys/Rae Pulse Ox Last 24 Hr 98.4 F 86 18 90/48 98 HEENT: No Jaundice, eye redness or discharge, PERRLA, EOMI. Normocephalic, atraumatic. External ears are normal and hearing is grossly intact. No nasal discharge. Neck: Supple, nontender. No palpable adenopathy or thyromegaly. No JVD Chest: Good effort. Clear to auscultation and percussion. Heart: Regular. No S3, rub or murmur Abdomen: Not distended, soft, nontender and no HSM. No rebound or guarding. Normal bowel sounds. Ext: Peripheral pulses intact. No leg edema. Skin: Warm and dry. No petechiae, rash or ecchymosis. Neuro: Alert. Oriented x3. CN 2-12 grossly intact. Sensation grossly intact in all four extremities and DTR are symmetric. Psych: Appropriate mood and affect. Good insight. Home Medications Medication Instructions Recorded Aspirin 81 mg PO DAILY 10/15/18 Atorvastatin Ca [Lipitor] 80 mg PO HS 11/08/18 Sitagliptin Phos/Metformin HCl 1 each PO BID 11/08/18 [Janumet 50-1,000 mg Tablet] Clopidogrel Bisulfate [Plavix -] 75 mg PO DAILY 30 Days #30 tablet 11/11/18 Ferrous Sulfate [Feosol] 325 mg PO DAILY 30 Days #30 ud 11/11/18 Furosemide [Lasix] 40 mg PO BID 30 Days #60 tablet 11/11/18 Lisinopril [Prinivil] 10 mg PO DAILY 30 Days #30 tablet 11/11/18 Metoprolol Succinate [Toprol XL -] 50 mg PO DAILY 30 Days #30 11/11/18 tab.sr.24h Spironolactone 25 mg PO DAILY 12/24/18 Abnormal Lab Results 12/24/18 12/24/18 20:19 20:24 Hgb 10.0 L Hct 31.3 L MCV 72.9 L MCH 23.2 L MCHC 31.9 L RDW 16.8 H Sodium 133 L Potassium 5.7 H BUN 55 H Creatinine 1.8 H Random Glucose 141 H ASSESSMENT AND PLAN: 1. 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 Patient got 500 ml of IV NS in the ER. ECHO from 10/20/18 showed EF of 35% - will hold diuretics and encourage liberal oral fluid intake to correct dehydration. Got insulin and D50W in the ER to treat hyperkalemia. Repeat K pending - if still high will give kayexalate. Will get kidney sonogram, monitor urine output, consult nephrology and avoid nephrotoxic agents such as NSAIDS, aminoglycosides , contrast dyes and certain Alternative medicine products. CXR shows cardiomegaly and increased interstitial markings. EKG is NSR with diffuse T wave inversions, low voltage QRS and prolonged QTc. Will repeat EKG and get ECHO to rule out pericardial effusion. 2. DM For now, we will hold the home diabetes drugs and implement sliding scale insulin regimen. Provide comprehensive diabetes care with patient teaching and counseling about the importance of adherence to prescribed diabetes regimen, euglycemia, eye care and foot care. 3. Low MCV Anemia - Do basic anemia work up including serial stool guaiacs, reticulocyte count and iron studies. Would benefit from IV iron therapy if iron deficiency is confirmed. 4. Obesity Counseled on the risks associated with obesity. Will provide patient all the necessary assistance, counseling and positive reinforcement to facilitate weight loss. Consult due diligence coordinator. 5. Hypertension - Restart outpatient antihypertensive drugs when clinically appropriate. Nonpharmacologic measures to control hypertension like weight loss , salt restriction and exercise discussed. 6. DVT prophylaxis - Heparin 5000u sq tid. 7. Advance directives - Full code
[2018-12-24 22:11] LABS: EPI CELLS 1.7 /HPF (0-5/HPF); URINE APPEARANCE CLEAR; URINE BACTERIA 5.6 /hpf (NEGATIVE); URINE BILIRUBIN NEGATIVE (NEGATIVE); URINE CASTS 15 /lpf (0-8); URINE COLOR YELLOW; URINE GLUCOSE (UA) TRACE (NEGATIVE); URINE KETONE NEGATIVE (NEGATIVE); URINE LEUK ESTERASE TRACE (NEGATIVE); URINE NITRITE NEGATIVE (NEGATIVE); URINE PROTEIN NEGATIVE (NEGATIVE); URINE RBC 1 /hpf (0-4); URINE UROBILINOGEN 0.2 mg/dL (0.2-1.0); URINE WBC 3 /hpf (0-5)
--- NOTE | 2018-12-24 23:00 | PDOC ---
Documentation entered by Erin Cavazos SCRIBE, acting as scribe for Leticia Garcia MD. Leticia Garcia MD: This documentation has been prepared by the Dirk manley Adrianna, SCRIBE, under my direction and personally reviewed by me in its entirety. I confirm that the documentation accurately reflects all work, treatment, procedures, and medical decision making performed by me. Attending Attestation - Resident Resident Name: Cierra Jeffers - [facility] HPI: The patient is a 68 year old female, with a significant PMH of hypertension, hyperlipidemia, insulin-dependent diabetes, and myocardial infarction (1.5 month ago, s/p stent & on Plavix), who presents to the emergency department for elevated potassium. Patient had a routine appointment with her Shroud Line Tier today, who informed her later in the day that she had elevated potassium and advised she go to the ED for treatment. She denies any changes in medication, and is asymptomatic while in the ED. The patient denies chest pain, shortness of breath, headache and dizziness. Denies fever, chills, nausea, vomit, diarrhea and constipation. Denies dysuria, frequency, urgency and hematuria. Allergies: NKA Past surgical history: None reported Social history: No reported PCP: Dr. Edwin Sagastume 12/24/18 22:11 - Physicial Exam PE: GENERAL: Awake, alert, and fully oriented, in no acute distress HEAD: No signs of trauma EYES: PERRLA, EOMI, sclera anicteric, conjunctiva clear ENT: Auricles normal inspection, hearing grossly normal, nares patent, oropharynx clear without exudates. Moist mucosa NECK: Normal ROM, supple, no lymphadenopathy, JVD, or masses LUNGS: Breath sounds equal, clear to auscultation bilaterally. No wheezes, and no crackles HEART: Regular rate and rhythm, normal S1 and S2, no murmurs, rubs or gallops ABDOMEN: Soft, nontender, normoactive bowel sounds. No guarding, no rebound. No masses EXTREMITIES: Normal range of motion, no edema. No clubbing or cyanosis. No cords, erythema, or tenderness NEUROLOGICAL: Cranial nerves II through XII grossly intact. Normal speech, normal gait SKIN: Warm, Dry, normal turgor, no rashes or lesions noted. 12/24/18 22:40 - Medical Decision Making EXAM#: TYPE/EXAM: RESULT: [id number] RAD/CHEST X-RAY PORTABLE* Evaluate for weakness Impression: Moderate enlargement of the cardiac silhouette for which further evaluation is needed to rule out pericardial effusion. No acute lung disease is present Reported By: Mecca Barreto MD 12/24/18 23:33 12/24/18 22:46 Pt presents to the ED after sent in by PMD for elevated K and elevated Cr. Denies complaints. No EKG changes. BUN is also elevated, so may be dehydration. Will to IV hydration and admit to medicine for acute renal failure.
--- NOTE | 2018-12-24 23:48 | HP ---
CHIEF COMPLAINT: sent by cw operator for High potassium PCP: Dr. Edwin Sagastume HISTORY OF PRESENT ILLNESS: 68 yo female with PMH VT 6 weeks ago s/p PCI with stent placement (on plavix), NIDDM, HTN, HLD, Systolic CHF with recent EF 35 % presented after being sent by her cw operator who noted her potassium to be elevated. She denies any complaints and states that she had told him as well that she was feeling very well and felt much better. She was recently admitted for acute systolic CHF exacerbation of which she states has completely resolved. She denies any chest pain, SOB, dizziness, fevers, chills, abdominal pain, urinary complaints, peripheral edema or pain. ER course was notable for: (1) BUN/Cr 55/1.8 elevated from baseline 0.8 (2) K 5.7, given Insulin and D50 (3) UA pending Recent Travel: denies PAST MEDICAL HISTORY: [place] 6 weeks ago s/p PCI with stent placement (on plavix), NIDDM, HTN, HLD, Systolic CHF with recent EF 35 % PAST SURGICAL HISTORY: PCI with stent 6 wks ago Social History: Smoking: denies Alcohol: denies Drugs: denies Family History: Allergies No Known Allergies Allergy (Verified 12/24/18 20:05) HOME MEDICATIONS: Home Medications Medication Instructions Recorded Aspirin 81 mg PO DAILY 10/15/18 Atorvastatin Ca [Lipitor] 80 mg PO HS 11/08/18 Sitagliptin Phos/Metformin HCl 1 each PO BID 11/08/18 [Janumet 50-1,000 mg Tablet] Clopidogrel Bisulfate [Plavix -] 75 mg PO DAILY 30 Days #30 tablet 11/11/18 Ferrous Sulfate [Feosol] 325 mg PO DAILY 30 Days #30 ud 11/11/18 Furosemide [Lasix] 40 mg PO BID 30 Days #60 tablet 11/11/18 Lisinopril [Prinivil] 10 mg PO DAILY 30 Days #30 tablet 11/11/18 Metoprolol Succinate [Toprol XL -] 50 mg PO DAILY 30 Days #30 11/11/18 tab.sr.24h Spironolactone 25 mg PO DAILY 12/24/18 REVIEW OF SYSTEMS CONSTITUTIONAL: Absent: fever, chills, diaphoresis, generalized weakness, malaise, loss of appetite, weight change HEENT: Absent: rhinorrhea, nasal congestion, throat pain, throat swelling, difficulty swallowing, mouth swelling, ear pain, eye pain, visual changes CARDIOVASCULAR: Absent: chest pain, syncope, palpitations, irregular heart rate, lightheadedness , peripheral edema RESPIRATORY: Absent: cough, shortness of breath, dyspnea with exertion, orthopnea, wheezing, stridor, hemoptysis GASTROINTESTINAL: Absent: abdominal pain, abdominal distension, nausea, vomiting, diarrhea, constipation, melena, hematochezia GENITOURINARY: Absent: dysuria, frequency, urgency, hesitancy, hematuria, flank pain, genital pain MUSCULOSKELETAL: Absent: myalgia, arthralgia, joint swelling, back pain, neck pain SKIN: Absent: rash, itching, pallor HEMATOLOGIC/IMMUNOLOGIC: Absent: easy bleeding, easy bruising, lymphadenopathy, frequent infections ENDOCRINE: Absent: unexplained weight gain, unexplained weight loss, heat intolerance, cold intolerance NEUROLOGIC: Absent: headache, focal weakness or paresthesias, dizziness, unsteady gait, seizure, mental status changes, bladder or bowel incontinence PSYCHIATRIC: Absent: anxiety, depression, suicidal or homicidal ideation, hallucinations. PHYSICAL EXAMINATION Vital Signs - 24 hr 12/24/18 12/24/18 12/24/18 20:03 22:24 22:49 Temperature 98.4 F Pulse Rate 86 Pulse Rate [ 80 Apical] Respiratory 18 16 Rate Blood Pressure 90/48 L Blood Pressure 90/61 [Left Arm] O2 Sat by Pulse 98 99 99 Oximetry (%) 12/24/18 22:54 Temperature Pulse Rate Pulse Rate [ 79 Apical] Respiratory 23 H Rate Blood Pressure Blood Pressure 91/56 L [Left Arm] O2 Sat by Pulse 100 Oximetry (%) GEN: A&O X3, No acute distress, obese female HEENT: PERRL, EOMI, Moist mucus membranes HEART: RRR, no murmurs noted LUNGS: CTA b/l, no wheezes or rhonchi noted ABDOMEN: Soft, minimal diffuse tenderness to palpation worst in the upper abdomen, normoactive bowel sounds, no guarding EXTREMITIES: no peripheral edema or calf tenderness NEURO: CN II-XII in tact, no gross deficits, 5/5 strength throughout, no sensation deficits Laboratory Results - last 24 hr 12/24/18 12/24/18 12/24/18 20:19 20:24 21:31 WBC 8.0 RBC 4.29 Hgb 10.0 L Hct 31.3 L MCV 72.9 L MCH 23.2 L MCHC 31.9 L RDW 16.8 H Plt Count 301 MPV 7.6 Absolute Neuts (auto) 4.7 Neutrophils % 58.9 Lymphocytes % 30.5 D Monocytes % 6.6 Eosinophils % 3.7 Basophils % 0.3 Nucleated RBC % 0 Sodium 133 L Potassium 5.7 H Chloride 99 Carbon Dioxide 27 Anion Gap 8 BUN 55 H Creatinine 1.8 H Est GFR (CKD-EPI)AfAm 32.94 Est GFR (CKD-EPI)NonAf 28.42 POC Glucometer Random Glucose 141 H Calcium 9.4 Magnesium 1.8 Total Bilirubin 0.6 AST 23 ALT 27 Alkaline Phosphatase 75 Total Protein 7.9 Albumin 3.6 Urine Color Yellow Urine Appearance Clear Urine pH 5.0 Ur Specific [place] 1.011 Urine Protein Negative Urine Glucose (UA) Trace Urine Ketones Negative Urine Blood Negative Urine Nitrite Negative Urine Bilirubin Negative Urine Urobilinogen 0.2 Ur Leukocyte Esterase Trace Urine WBC (Auto) 3 Urine RBC (Auto) 1 Urine Casts (Auto) 15 U Pathogenic Cast Auto None U Epithel Cells (Auto) 1.7 Urine Bacteria (Auto) 5.6 12/24/18 22:25 WBC RBC Hgb Hct MCV MCH MCHC RDW Plt Count MPV Absolute Neuts (auto) Neutrophils % Lymphocytes % Monocytes % Eosinophils % Basophils % Nucleated RBC % Sodium Potassium Chloride Carbon Dioxide Anion Gap BUN Creatinine Est GFR (CKD-EPI)AfAm Est GFR (CKD-EPI)NonAf POC Glucometer 139 Random Glucose Calcium Magnesium Total Bilirubin AST ALT Alkaline Phosphatase Total Protein Albumin Urine Color Urine Appearance Urine pH Ur Specific [place] Urine Protein Urine Glucose (UA) Urine Ketones Urine Blood Urine Nitrite Urine Bilirubin Urine Urobilinogen Ur Leukocyte Esterase Urine WBC (Auto) Urine RBC (Auto) Urine Casts (Auto) U Pathogenic Cast Auto U Epithel Cells (Auto) Urine Bacteria (Auto) ASSESSMENT/PLAN: 68 yo female with PMH VT 6 weeks ago s/p PCI with stent placement (on plavix), NIDDM, HTN, HLD, Systolic CHF with recent EF 35 % presented after being sent by her cw operator who noted her potassium to be elevated, found to be in MARCELLA in ED. HyperKalemia -Likely induced by spironolactone and Lisinopril with inadequate lasix dose to counteract K retention -EKG without any concerning changes, repeat EKG pending -Insulin and D50 given in ED along with 500 cc bolus -Repeat BMP stat and reassess -Trend and replete as needed -Hold diuretics, hold lisinopril MARCELLA -Very likely prerenal in nature due to overdiuresis, however must consider possibility of obstruction or diabetic nephropathy -Hold Diuretics for now -Avoid Nephrotoxins -500 cc bolus given in ED, hold fluids for now with CHF hx, encourage PO intake and trend BMP -Renal US pending -FeUrea pending UA results NIDDM -Hold hold Sitagliptin/Metformin combination pill -BGMs ACHS -ISS for glycemic control Chronic Systolic Heart Failure -Currently euvolemic with no signs of fluid overload -Diuretics/Lisinopril held for MARCELLA/HyperKalemia -Continue Toprol XL 50 mg Daily as HR and BP allow CAD s/p Stent -currently stable without any chest pain -ASA 81 mg PO Daily -Plavix 75 mg PO Daily Iron Deficiency Anemia -H/H improved from prior admission -Continue daily Feosol supplementation FEN -hold, encourage PO intake though -HyperKalemia as above, otherwise monitor and replete -Diabetic/Na controlled diet, encourage PO fluid intake for MARCELLA DVT Prophylaxis -Heparin 5000 units SQ TID Disposition Telemetry monitoring until resolution of MARCELLA, especially considering recent cardiac hx and CHF Visit type - Emergency Visit Emergency Visit: Yes ED Registration Date: 12/24/18 Care time: The patient presented to the Emergency Department on the above date and was hospitalized for further evaluation of their emergent condition. - New Patient This patient is new to me today: Yes Date on this admission: 12/24/18 - Critical Care Critical Care patient: No
[2018-12-25 01:21] LABS: CALCIUM 8.9 mg/dL (8.5-10.1); CREATININE 1.4 mg/dL (0.55-1.3); POTASSIUM 5.2 mmol/L (3.5-5.1)
[2018-12-25 04:02] VITALS: BMI 29.9
[2018-12-25] MEDS: INSULIN SLIDING SCALE (NOVOLOG) 1 VIAL SQ SCH ×4 (06:32→21:47)
[2018-12-25] MEDS: HEPARIN NA (PORCINE) 5,000 UNITS/ML 1ML VIAL SQ SCH ×3 (06:58→21:42)
[2018-12-25 07:51] LABS: HEMATOCRIT 29.3 % (32.4-45.2); HEMOGLOBIN 9.4 GM/dL (10.7-15.3); MCH 23.5 pg (25.7-33.7); MEAN CELL VOLUME 73.3 fl (80-96); MEAN PLT VOLUME 7.6 fl (7.5-11.1); PLATELET COUNT 267 K/MM3 (134-434); RBC 3.99 M/mm3 (3.60-5.2); RDW 16.8 % (11.6-15.6); WHITE BLOOD COUNT 7.6 K/mm3 (4.0-10.0)
[2018-12-25 08:25] LABS: CALCIUM 8.8 mg/dL (8.5-10.1); CREATININE 1.2 mg/dL (0.55-1.3); PHOSPHOROUS 4.4 mg/dL (2.5-4.9); POTASSIUM 5.5 mmol/L (3.5-5.1)
[2018-12-25] MEDS: ASPIRIN 81 MG CHEWABLE TABLETS PO SCH (09:25)
[2018-12-25] MEDS: CLOPIDOGREL BISULFATE 75 MG TABLET (FP) PO SCH (09:25)
[2018-12-25] MEDS: FERROUS SO4 325 MG TABLET (FP) PO SCH (09:25)
[2018-12-25] MEDS ORDERED: metoPROLOL SUCCINATE 25 MG TAB.SR.24H (FP) PO SCH (10:00)
[2018-12-25] MEDS ORDERED: SODIUM POLYSTYRENE SULFONATE 15 GM/60 ML BOTTLE PO ONE ×2 (10:37→17:08)
--- NOTE | 2018-12-25 11:02 | PN ---
Teaching Attending Note Name of Resident: Marry Paul ATTENDING PHYSICIAN STATEMENT I saw and evaluated the patient. I reviewed the resident's note and discussed the case with the resident. I agree with the resident's findings and plan as documented. SUBJECTIVE: OBJECTIVE: AAOX3 no edema s1 and s2 rrr lungs CTA good air entry abdomen soft non-tender PERRAL ASSESSMENT AND PLAN: 68 yo female with PMH [place] 6 weeks ago s/p PCI with stent placement (on clopidogrel), NIDDM, HTN, HLD, Systolic CHF with recent EF 35 % admitted for hyperkalemia with MARCELLA HyperKalemia 2/2 spironolactone and lisinopril with an MARCELLA - will d/c spironolactone - will hold the lisinopril - give stat kayexylate - decrease the dose of lisinipril or change to enalapril 2.5mg daily or ramipril 1.25mg daily, patient with an acute LA s/p stent might benefit from being on an SURAJ or ARB to prevent remodeling - cardiology evaluation for optimization of medical therapy MARCELLA - 2/2 diuretics - will d/c diuretics and monitor NIDDM -Hold Sitagliptin/Metformin combination pill -BGMs ACHS -ISS for glycemic control Chronic Systolic Heart Failure -Currently euvolemic with no signs of fluid overload -Diuretics/Lisinopril held for MARCELLA/HyperKalemia - will restart ACI after the patient recovers - cardiology evaluation -increase metoprolol succinate to 75mg Daily as HR and BP allow CAD s/p Stent -currently stable without any chest pain -ASA 81 mg PO Daily -clopidogrel 75 mg PO Daily - metoprolol succinate xl 75mg daily Iron Deficiency Anemia -H/H improved from prior admission -Continue daily Feosol supplementation FEN -hold, encourage PO intake though -HyperKalemia as above, otherwise monitor and replete -Diabetic/Na controlled diet, encourage PO fluid intake for MARCELLA DVT Prophylaxis -Heparin 5000 units SQ TID
[2018-12-25] MEDS ORDERED: ACETAMINOPHEN 500 MG TABLET (FP) PO ONE (11:32)
--- NOTE | 2018-12-25 11:40 | EKG ---
Test Reason : Blood Pressure : / mmHG Vent. Rate : 079 BPM Atrial Rate : 079 BPM P-R Int : 184 ms QRS Dur : 088 ms QT Int : 422 ms P-R-T Axes : 044 -24 115 degrees QTc Int : 483 ms NORMAL SINUS RHYTHM POSSIBLE LEFT ATRIAL ENLARGEMENT LOW VOLTAGE QRS POSSIBLE ANTEROLATERAL INFARCT (CITED ON OR BEFORE 24-DEC-2018) ABNORMAL ECG WHEN COMPARED WITH ECG OF 24-DEC-2018 20:25, NO SIGNIFICANT CHANGE WAS FOUND Confirmed by VERONICA RAMOS MD ([id number]) on 12/25/2018 11:40:32 AM Referred By: Confirmed By:VERONICA RAMOS MD
--- NOTE | 2018-12-25 11:43 | EKG ---
Test Reason : Blood Pressure : / mmHG Vent. Rate : 084 BPM Atrial Rate : 084 BPM P-R Int : 178 ms QRS Dur : 084 ms QT Int : 384 ms P-R-T Axes : 058 -38 120 degrees QTc Int : 453 ms NORMAL SINUS RHYTHM POSSIBLE LEFT ATRIAL ENLARGEMENT LEFT AXIS DEVIATION ANTEROLATERAL INFARCT (CITED ON OR BEFORE 24-DEC-2018) ABNORMAL ECG WHEN COMPARED WITH ECG OF 08-NOV-2018 00:59, QRS AXIS SHIFTED LEFT SERIAL CHANGES OF ANTERIOR INFARCT PRESENT Confirmed by VERONICA RAMOS MD ([id number]) on 12/25/2018 11:42:43 AM Referred By: Confirmed By:VERONICA RAMOS MD
--- NOTE | 2018-12-25 12:07 | PN ---
Physical Exam: SUBJECTIVE: Patient seen and examined at bedside. Resting comfortably. Without complaint. OBJECTIVE: Vital Signs Period Temp Pulse Resp BP Sys/Rae Pulse Ox Last 24 Hr 98.0 F-98.4 F 74-86 16-23 90-94/48-63 98-100 GENERAL: The patient is awake, alert, and fully oriented, in no acute distress. HEAD: Normal with no signs of trauma. EYES: PERRL, extraocular movements intact, sclera anicteric, conjunctiva clear. No ptosis. ENT: Ears normal, nares patent, oropharynx clear without exudates, moist mucous membranes. NECK: Trachea midline, supple. LUNGS: Breath sounds equal, clear to auscultation bilaterally, no wheezes, no crackles, no accessory muscle use. HEART: Regular rate and rhythm, S1, S2 without murmur, rub or gallop. ABDOMEN: Soft, obese, nontender, nondistended, normoactive bowel sounds, no guarding, no rebound EXTREMITIES: 2+ pt pulses, warm, well-perfused, no edema. +diffusely TTP ( chronic) NEUROLOGICAL: Cranial nerves II through XII grossly intact. Normal speech. 5/5 motor strength UE, LE. PSYCH: Normal mood, normal affect. SKIN: Warm, dry, normal turgor Laboratory Tests 12/25/18 12/25/18 12/25/18 05:49 06:00 06:00 WBC 7.6 Hgb 9.4 L Hct 29.3 L Plt Count 267 Sodium 133 L Potassium 5.5 H Chloride 100 Carbon Dioxide 26 BUN 48 H Creatinine 1.2 POC Glucometer 102 Active Medications Generic Name Dose Route Start Last Admin Trade Name Raulq PRN Reason Stop Dose Admin Aspirin 81 mg 12/25/18 10:00 12/25/18 09:25 Asa - PO 81 mg DAILY KEYSHA Administration Atorvastatin Calcium 80 mg 12/25/18 22:00 Lipitor - PO HS KEYSHA Clopidogrel Bisulfate 75 mg 12/25/18 10:00 12/25/18 09:25 Plavix - PO 75 mg DAILY KEYSHA Administration Ferrous Sulfate 325 mg 12/25/18 10:00 12/25/18 09:25 Feosol - PO 325 mg DAILY KEYSHA Administration Heparin Sodium (Porcine) 5,000 unit 12/25/18 06:00 12/25/18 06:58 Heparin - SQ 5,000 unit TID KEYSHA Administration Insulin Aspart 1 vial 12/25/18 07:00 12/25/18 11:27 Novolog Vial Sliding Scale - SQ Not Given ACHS [facility] Protocol Metoprolol Succinate 75 mg 12/25/18 10:00 12/25/18 09:25 Toprol Xl - PO 75 mg DAILY KEYSHA Administration ASSESSMENT/PLAN: 68 y/o F with PMH RI 6 weeks ago s/p PCI with stent placement (on plavix), NIDDM , HTN, HLD, Systolic CHF with recent EF 35 % presented after being sent by her digital media sales consultant who noted her potassium to be elevated, found to be in MARCELLA in ED. #Hyperkalemia -likely induced by spirinolactone, lisinopril. cont to hold meds until MARCELLA resolves -will give kayexelate x 1 . f/u repeat BMP to check K -tele monitoring #MARCELLA likely 2/2 diuretics, hypoperfusion -cont to follow; has been improving #systolic CHF w/ recent EF 35% -appears euvolemic, no sign overload -cont to hold spirinolactone, lisinopril for now -c/w metoprolol. dose has been changed to 75mg to optimize will need to decrease dose of lisinopril when it is restarted. -expect low BP as with low EF -Cardio consult : Dr. Monroy. for med optimization #HTN -c/w metoprolol #NIDDM -hold oral agents -ISS, BGM ACHS #CAD s/p stent -c/w asa, plavix #F/E/N encourage PO intake cont to follow K diabetic/na controlled diet #PPX hep 5k TID #Dispo cont to follow on tele Visit type - Emergency Visit Emergency Visit: Yes ED Registration Date: 12/24/18 Care time: The patient presented to the Emergency Department on the above date and was hospitalized for further evaluation of their emergent condition. - New Patient This patient is new to me today: Yes Date on this admission: 12/25/18 - Critical Care Critical Care patient: No
--- NOTE | 2018-12-25 13:16 | CON.CARD ---
Consult Consult Specialty:: cardiology Reason for Consultation:: hyperkalemia; HTN; peroids of low BP - History of Present Illness Chief Complaint: No chest pain or palpitations; had a headache earler that has been relieved now with Tylenol History of Present Illness: The patient is a 68 year old female, with a significant PMH of [place] 10/2018--> coronary stent, hypertension, hyperlipidemia, diabetes, who presents to the emergency department for elevated potassium. Patient had a routine appointment with her industry consultant today, (?Dr. Velazquez), who informed her later in the day that she had elevated potassium and advised she go to the ED for treatment. She denies any changes in medication, and is asymptomatic while in the ED. - History Source History Provided By: Patient, Medical Record Limitations to Obtaining History: No Limitations - Past Medical History Cardio/Vascular: Yes: CAD, CHF, HTN, Hyperlipdemia, [place], Other (DM) Pulmonary: Yes: Asthma Reproductive: Yes: Postmenopausal ...: No Heme/Onc: Yes: Anemia Psych: No: Addictions - Past Surgical History Past Surgical History: Yes: Stent (coronary) - Alcohol/Substance Use Hx Alcohol Use: No - Smoking History Smoking history: Never smoked Have you smoked in the past 12 months: No Home Medications - Allergies Allergies/Adverse Reactions: Allergies Allergy/AdvReac Type Severity Reaction Status Date / Time No Known Allergies Allergy Verified 12/24/18 20:05 - Home Medications Home Medications: Ambulatory Orders Aspirin 81 mg PO DAILY 10/15/18 Atorvastatin Ca [Lipitor] 80 mg PO HS 11/08/18 Sitagliptin Phos/Metformin HCl [Janumet 50-1,000 mg Tablet] 1 each PO BID Clopidogrel Bisulfate [Plavix -] 75 mg PO DAILY 30 Days #30 tablet 11/11/18 Ferrous Sulfate [Feosol] 325 mg PO DAILY 30 Days #30 ud 11/11/18 Furosemide [Lasix] 40 mg PO BID 30 Days #60 tablet 11/11/18 Lisinopril [Prinivil] 10 mg PO DAILY 30 Days #30 tablet 11/11/18 Metoprolol Succinate [Toprol XL -] 50 mg PO DAILY 30 Days #30 tab.sr.24h Spironolactone 25 mg PO DAILY 12/24/18 Family Disease History - Family Disease History Family History: Denies Review of Systems - Review of Systems Constitutional: reports: No Symptoms Eyes: reports: No Symptoms HENT: reports: No Symptoms Neck: reports: No Symptoms Cardiovascular: reports: No Symptoms Respiratory: reports: No Symptoms Gastrointestinal: reports: No Symptoms Genitourinary: reports: No Symptoms Breasts: reports: No Symptoms Reported Musculoskeletal: reports: No Symptoms Integumentary: reports: No Symptoms Neurological: reports: No Symptoms Endocrine: reports: No Symptoms Hematology/Lymphatic: reports: No Symptoms Psychiatric: reports: No Symptoms - Risk Factors Known Risk Factors: Yes: Age, Diabetes Mellitus, Hypercholesterolemia, Hypertension, Physical Inactivity, Prior [place] /Emb Stroke Vital Signs: Vital Signs Temperature 98.2 F 12/25/18 11:00 Pulse Rate 78 12/25/18 11:00 Respiratory Rate 16 12/25/18 11:00 Blood Pressure 90/59 L 12/25/18 11:00 O2 Sat by Pulse Oximetry (%) 98 12/25/18 08:22 Constitutional: Yes: Well Nourished Eyes: Yes: WNL HENT: Yes: WNL Neck: Yes: WNL Respiratory: Yes: WNL Gastrointestinal: Yes: WNL Renal/: Yes: WNL Cardiovascular: Yes: WNL JVD: No Carotid Bruit: No PMI: Non-Displaced Heart Sounds: Yes: S1, S2 Musculoskeletal: Yes: WNL Extremities: Yes: WNL Edema: No Peripheral Pulses WNL: Yes Integumentary: Yes: WNL Neurological: Yes: WNL ...Motor Strength: WNL Psychiatric: Yes: WNL - Other Data Labs, Other Data: CBC, BMP 12/25/18 06:00 12/25/18 06:00 Abnormal Lab Results 12/27/18 05:30 Sodium 135 L Anion Gap 5 L BUN 35 H Random Glucose 141 H Calcium 8.3 L Albumin 2.9 L Imaging - Results Chest X-ray: Image Reviewed EKG: Image Reviewed (NSR; possible old anterolateral infarct; LAD) Problem List - Problems (1) Status post myocardial infarction Assessment/Plan: 10/2018 [place]-->coronary stentat [facility]. Obtain records. On Plavix and ASA. Decresae dose of metoprolol E to 25 mg and f/u BP and HR. Pt was on lisinopril; stopped after OK. Code(s): I25.2 - OLD MYOCARDIAL INFARCTION (2) MARCELLA (acute kidney injury) Assessment/Plan: Stop furosemide (last dose yesterday at home). F/u BUn/Cr. F?u electolytes. Code(s): N17.9 - ACUTE KIDNEY FAILURE, UNSPECIFIED (3) Hyperkalemia Assessment/Plan: ?etiology : pt was on lisinopril, but reportedly stopped after [place]. Was on furosemide untili yesterday. EKG: V pacin; no acute STT changes. Code(s): E87.5 - HYPERKALEMIA (4) CAD (coronary artery disease) Code(s): I25.10 - ATHSCL HEART DISEASE OF [place] CORONARY ARTERY W/O ANG PCTRS (5) HLD (hyperlipidemia) Assessment/Plan: on atorvastatin; keep LDL cholesterol < 70 mg/dl. Code(s): E78.5 - HYPERLIPIDEMIA, UNSPECIFIED (6) HTN (hypertension) Assessment/Plan: BP is presently on the low side. Will decrease metoprolol ER to 25 mg daily; f/u HR and BP. F/u ECHo for LVEF, wall motion. Code(s): I10 - ESSENTIAL (PRIMARY) HYPERTENSION
[2018-12-25 16:35] LABS: CALCIUM 8.9 mg/dL (8.5-10.1); CREATININE 1.2 mg/dL (0.55-1.3); POTASSIUM 5.5 mmol/L (3.5-5.1)
[2018-12-25] MEDS ORDERED: INSULIN REGULAR HUMAN 100 UNITS/ML *VIAL IVPUSH ONE (16:44)
[2018-12-25] MEDS ORDERED: DEXTROSE 50%-WATER - 25 GM/50 ML VIAL IVPUSH ONE (16:45)
[2018-12-25] MEDS: ALBUTEROL SO4 0.083% IH SOL 2.5 MG/3 ML VIAL.NEB. NEB SCH ×8 (16:45→21:22)
[2018-12-25] MEDS: ATORVASTATIN CA 80 MG TABLET (FP) PO SCH (21:42)
[2018-12-25 23:05] LABS: CALCIUM 8.8 mg/dL (8.5-10.1); CREATININE 1.4 mg/dL (0.55-1.3); POTASSIUM 4.4 mmol/L (3.5-5.1)
[2018-12-26] MEDS: HEPARIN NA (PORCINE) 5,000 UNITS/ML 1ML VIAL SQ SCH ×3 (06:01→22:03)
[2018-12-26] MEDS: INSULIN SLIDING SCALE (NOVOLOG) 1 VIAL SQ SCH ×4 (06:01→22:03)
[2018-12-26] MEDS ORDERED: PT OWN MED DRAWER 7, Y5N ONE (06:31)
[2018-12-26 07:33] LABS: BASO % 1.2 % (0-2.0); EOS % 2.4 % (0-4.5); HEMOGLOBIN 8.8 GM/dL (10.7-15.3); LYMPH % 32.4 % (8-40); MCH 23.6 pg (25.7-33.7); MCHC 32.6 g/dl (32.0-36.0); MEAN CELL VOLUME 72.4 fl (80-96); MEAN PLT VOLUME 7.7 fl (7.5-11.1); MONO % 8.1 % (3.8-10.2); NEUT % 55.9 % (42.8-82.8); PLATELET COUNT 252 K/MM3 (134-434); RBC 3.73 M/mm3 (3.60-5.2); RDW 16.7 % (11.6-15.6)
--- NOTE | 2018-12-26 07:41 | PN ---
Progress Note, Physician - Current Medication List Current Medications: Active Medications Aspirin (Asa -) 81 mg PO DAILY [facility] Last Admin: 12/25/18 09:25 Dose: 81 mg Atorvastatin Calcium (Lipitor -) 80 mg PO HS [facility] Last Admin: 12/25/18 21:42 Dose: 80 mg Clopidogrel Bisulfate (Plavix -) 75 mg PO DAILY [facility] Last Admin: 12/25/18 09:25 Dose: 75 mg Ferrous Sulfate (Feosol -) 325 mg PO DAILY [facility] Last Admin: 12/25/18 09:25 Dose: 325 mg Heparin Sodium (Porcine) (Heparin -) 5,000 unit SQ TID [facility] Last Admin: 12/26/18 06:01 Dose: 5,000 unit Insulin Aspart (Novolog Vial Sliding Scale -) 1 vial SQ ACHS [facility]; Protocol Last Admin: 12/26/18 06:01 Dose: Not Given Metoprolol Succinate (Toprol Xl -) 25 mg PO DAILY [facility] - Objective Vital Signs: Vital Signs Temperature 97.6 F 12/26/18 06:00 Pulse Rate 90 12/26/18 06:00 Respiratory Rate 17 12/26/18 06:00 Blood Pressure 105/62 12/26/18 06:00 O2 Sat by Pulse Oximetry (%) 98 12/25/18 21:00 Constitutional: Yes: Well Nourished, No Distress, Calm Eyes: Yes: WNL, Conjunctiva Clear, EOM Intact HENT: Yes: WNL, Atraumatic, Normocephalic Neck: Yes: WNL, Supple, Trachea Midline Cardiovascular: Yes: WNL, Regular Rate and Rhythm Respiratory: Yes: WNL, Regular, CTA Bilaterally Gastrointestinal: Yes: WNL, Normal Bowel Sounds, Soft Musculoskeletal: Yes: WNL Extremities: Yes: WNL Edema: No Peripheral Pulses WNL: Yes Integumentary: Yes: WNL Neurological: Yes: WNL, Alert, Oriented ...Motor Strength: WNL Psychiatric: Yes: WNL, Alert, Oriented Problem List - Problems (1) MARCELLA (acute kidney injury) Code(s): N17.9 - ACUTE KIDNEY FAILURE, UNSPECIFIED (2) Hyperkalemia Code(s): E87.5 - HYPERKALEMIA (3) Status post myocardial infarction Code(s): I25.2 - OLD MYOCARDIAL INFARCTION (4) HLD (hyperlipidemia) Code(s): E78.5 - HYPERLIPIDEMIA, UNSPECIFIED Assessment/Plan 68 yo female with PMH CO 6 weeks ago s/p PCI with stent placement (on clopidogrel), NIDDM, HTN, HLD, Systolic CHF with recent EF 35 % admitted for hyperkalemia with MARCELLA HyperKalemia 2/2 spironolactone and lisinopril with an MARCELLA - will d/c spironolactone - will hold the lisinopril - give stat kayexylate - decrease the dose of lisinipril or change to enalapril 2.5mg daily or ramipril 1.25mg daily, patient with an acute CO s/p stent might benefit from being on an SURAJ or ARB to prevent remodeling - cardiology evaluation for optimization of medical therapy MARCELLA - 2/2 diuretics - will d/c diuretics and monitor NIDDM -Hold Sitagliptin/Metformin combination pill -BGMs ACHS -ISS for glycemic control Chronic Systolic Heart Failure -Currently euvolemic with no signs of fluid overload -Diuretics/Lisinopril held for MARCELLA/HyperKalemia - will restart ACI after the patient recovers - cardiology evaluation - Cardiology recommended to decrease the dose of metoprolol succinate to 25mg Daily CAD s/p Stent -currently stable without any chest pain -ASA 81 mg PO Daily -clopidogrel 75 mg PO Daily - metoprolol succinate xl 75mg daily Iron Deficiency Anemia -H/H improved from prior admission -Continue daily Feosol supplementation FEN -hold, encourage PO intake though -HyperKalemia as above, otherwise monitor and replete -Diabetic/Na controlled diet, encourage PO fluid intake for MARCELLA DVT Prophylaxis -Heparin 5000 units SQ TID
[2018-12-26 07:46] LABS: CALCIUM 8.3 mg/dL (8.5-10.1); CREATININE 1.2 mg/dL (0.55-1.3); MAGNESIUM 1.8 mg/dL (1.8-2.4); PHOSPHOROUS 4.4 mg/dL (2.5-4.9); POTASSIUM 4.2 mmol/L (3.5-5.1)
[2018-12-26] MEDS: metoPROLOL SUCCINATE 25 MG TAB.SR.24H (FP) PO SCH (09:57)
[2018-12-26] MEDS: FERROUS SO4 325 MG TABLET (FP) PO SCH (09:57)
[2018-12-26] MEDS: ASPIRIN 81 MG CHEWABLE TABLETS PO SCH (09:57)
[2018-12-26] MEDS: CLOPIDOGREL BISULFATE 75 MG TABLET (FP) PO SCH (09:57)
--- NOTE | 2018-12-26 12:51 | PN ---
Progress Note, Physician Chief Complaint: Pt A&Ox3; sitting up at bedside; no compaints. History of Present Illness: The patient is a 68 year old female, with a significant PMH of [place] 10/2018--> coronary stent, hypertension, hyperlipidemia, diabetes, who presents to the emergency department for elevated potassium. Patient had a routine appointment with her Ad Clerk today, who informed her later in the day that she had elevated potassium and advised she go to the ED for treatment. She denies any changes in medication, and is asymptomatic while in the ED. - Current Medication List Current Medications: Active Medications Aspirin (Asa -) 81 mg PO DAILY [facility] Last Admin: 12/26/18 09:57 Dose: 81 mg Atorvastatin Calcium (Lipitor -) 80 mg PO HS [facility] Last Admin: 12/25/18 21:42 Dose: 80 mg Clopidogrel Bisulfate (Plavix -) 75 mg PO DAILY [facility] Last Admin: 12/26/18 09:57 Dose: 75 mg Ferrous Sulfate (Feosol -) 325 mg PO DAILY [facility] Last Admin: 12/26/18 09:57 Dose: 325 mg Heparin Sodium (Porcine) (Heparin -) 5,000 unit SQ TID [facility] Last Admin: 12/26/18 06:01 Dose: 5,000 unit Insulin Aspart (Novolog Vial Sliding Scale -) 1 vial SQ ACHS [facility]; Protocol Last Admin: 12/26/18 12:23 Dose: Not Given Metoprolol Succinate (Toprol Xl -) 25 mg PO DAILY [facility] Last Admin: 12/26/18 09:57 Dose: 25 mg - Objective Vital Signs: Vital Signs Temperature 98.6 F 12/26/18 08:53 Pulse Rate 86 12/26/18 08:53 Respiratory Rate 17 12/26/18 08:53 Blood Pressure 99/54 L 12/26/18 08:53 O2 Sat by Pulse Oximetry (%) 99 12/26/18 08:52 Constitutional: Yes: No Distress Eyes: Yes: WNL HENT: Yes: WNL Neck: Yes: WNL Cardiovascular: Yes: WNL, S1, S2 Respiratory: Yes: WNL Gastrointestinal: Yes: WNL ...Rectal Exam: Yes: WNL Genitourinary: No: Anuria Breast(s): Yes: WNL Musculoskeletal: Yes: WNL Extremities: Yes: WNL Edema: No Peripheral Pulses WNL: Yes Integumentary: Yes: WNL Neurological: Yes: WNL Psychiatric: Yes: WNL Labs: CBC, BMP 12/26/18 05:30 12/26/18 05:30 Abnormal Lab Results 12/27/18 05:30 Sodium 135 L Anion Gap 5 L BUN 35 H Random Glucose 141 H Calcium 8.3 L Albumin 2.9 L - ....Imaging Other: Image Reviewed (telemtry: NSR; no arrhythmias or STT changes) Problem List - Problems (1) Status post myocardial infarction Assessment/Plan: 10/2018 [place]-->coronary stent at [facility]. Obtain records. On Plavix and ASA. Decresaed dose of metoprolol E to 25 mg; stable BP and HR. Pt was on lisinopril; stopped after MN.Consider restarting , once BP and renal function are stable. (This, however, would require close monitoring of K+, as Aldactone was the likely reason for development of hyperekalemia now). Code(s): I25.2 - OLD MYOCARDIAL INFARCTION (2) MARCELLA (acute kidney injury) Assessment/Plan: Stopped furosemide. F/u BUn/Cr. F/u electolytes. Code(s): N17.9 - ACUTE KIDNEY FAILURE, UNSPECIFIED (3) Hyperkalemia Assessment/Plan: K+ now 4.2 after 2 doses of Kayexalate yesterday. Apparently , pt was on spironolactone. Code(s): E87.5 - HYPERKALEMIA (4) CAD (coronary artery disease) Code(s): I25.10 - ATHSCL HEART DISEASE OF [place] CORONARY ARTERY W/O ANG PCTRS (5) HLD (hyperlipidemia) Assessment/Plan: on atorvastatin; keep LDL cholesterol < 70 mg/dl.F/u lipid panel. Code(s): E78.5 - HYPERLIPIDEMIA, UNSPECIFIED (6) HTN (hypertension) Assessment/Plan: BP is presently on the low side. Decreased metoprolol ER to 25 mg daily; f/u HR and BP. F/u ECHo for LVEF, wall motion. Code(s): I10 - ESSENTIAL (PRIMARY) HYPERTENSION
[2018-12-26] MEDS: ATORVASTATIN CA 80 MG TABLET (FP) PO SCH (22:03)
[2018-12-27] MEDS: INSULIN SLIDING SCALE (NOVOLOG) 1 VIAL SQ SCH ×3 (06:16→16:32)
[2018-12-27] MEDS: HEPARIN NA (PORCINE) 5,000 UNITS/ML 1ML VIAL SQ SCH ×2 (06:16→14:17)
[2018-12-27 07:26] LABS: ALBUMIN 2.9 g/dl (3.4-5.0); BILIRUBIN,TOTAL 0.6 mg/dL (0.2-1); CALCIUM 8.3 mg/dL (8.5-10.1); POTASSIUM 4.3 mmol/L (3.5-5.1); TOT PROT 6.4 g/dl (6.4-8.2)
--- NOTE | 2018-12-27 08:02 | PN ---
Teaching Attending Note Name of Resident: Isabel Bond ATTENDING PHYSICIAN STATEMENT I saw and evaluated the patient. I reviewed the resident's note and discussed the case with the resident. I agree with the resident's findings and plan as documented. 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:AOX3 non focal CBC, BMP 12/26/18 05:30 12/27/18 05:30 ASSESSMENT AND PLAN:68 year old woman with a PMH of HTN, HLD, T2DM, CAD s/p OH underwent PCI on Plavix HFrEF on aldactone and ACEI sent to ER by [employer] for elevated potassium, admitted with MARCELLA and Hyperkaemia, improved now Problem List - Problems (1) MARCELLA (acute kidney injury) Assessment/Plan: Patient was put on PO Lasix 60 mg and Aldactone 3 wks ago after PCI as she developed volume overload after [place] at present patient is Euvolum[employer] no c/o PND or orthopnea, preset with MARCELLA that improve Creat 1.0 today,, most likely volume depletion Hold Lasix resume Lisinopril Hold Aldactone, aldactone need to be resume as out patient and patient cardiology can evaluate if patient needs Lasix at present patient is Euvolumic,Director [employer] discussed with PMD recommended Hold aldactone Dc on Lasix 40 mg daily and Lisinopril home dose and F/U with Him in a wk. Code(s): N17.9 - ACUTE KIDNEY FAILURE, UNSPECIFIED (2) Hyperkalemia Assessment/Plan: Due MARCELLA on aldactone resolved educate low Na Diet now resume Lisinopril hold aldactone and Lasix Code(s): E87.5 - HYPERKALEMIA (3) CAD (coronary artery disease) Assessment/Plan: S/P PCI 3 WKS ago at [facility] please call PMD to get more information, cont ASA and Plavix Code(s): I25.10 - ATHSCL HEART DISEASE OF [place] CORONARY ARTERY W/O ANG PCTRS (4) HTN (hypertension) Assessment/Plan: Well controlled cont current meds Code(s): I10 - ESSENTIAL (PRIMARY) HYPERTENSION (5) Systolic heart failure Assessment/Plan: Ischemic at present compensated, Director [employer] discussed with PMD recommended Hold aldactone Dc on Lasix 40 mg daily and Lisinopril home dose and F/U with Him in a wk. Code(s): I50.20 - UNSPECIFIED SYSTOLIC (CONGESTIVE) HEART FAILURE
--- NOTE | 2018-12-27 08:20 | PN ---
Physical Exam: SUBJECTIVE: Patient seen and examined at bedside- no acute events overnight; patient states that she is feeling well; she denies any CP/SOB/N/V fevers or chills OBJECTIVE: Vital Signs Period Temp Pulse Resp BP Sys/Rae Pulse Ox Last 24 Hr 98.5 F-99 F 80-86 17-20 90-99/50-60 99-99 GENERAL: The patient is awake, alert, and fully oriented, in no acute distress. EYES: PEERLA: EOMI no scleral icterus NECK: no JVD; no lymphadenoapthy LUNGS: CTA B/L; no rales, rhonchi or wheezing HEART: Regular rate and rhythm, S1, S2 without murmur, rub or gallop. ABDOMEN: Soft, nontender, nondistended, normoactive bowel sounds, no guarding, no rebound, no hepatosplenomegaly, no masses. EXTREMITIES: 2+ pulses, warm, well-perfused, no edema. PSYCH: Normal mood, normal affect. SKIN: Warm, dry, normal turgor, no rashes or lesions noted Laboratory Results - last 24 hr 12/25/18 12/26/18 12/26/18 15:35 12:13 16:24 Sodium Potassium Chloride Carbon Dioxide Anion Gap BUN Creatinine Est GFR (CKD-EPI)AfAm Est GFR (CKD-EPI)NonAf POC Glucometer 172 204 Random Glucose Hemoglobin A1c % 7.9 H Calcium Total Bilirubin AST ALT Alkaline Phosphatase Total Protein Albumin 12/26/18 12/27/18 12/27/18 22:01 05:30 06:12 Sodium 135 L Potassium 4.3 Chloride 103 Carbon Dioxide 27 Anion Gap 5 L BUN 35 H Creatinine 1.0 Est GFR (CKD-EPI)AfAm 67.04 Est GFR (CKD-EPI)NonAf 57.84 POC Glucometer 131 148 Random Glucose 141 H Hemoglobin A1c % Calcium 8.3 L Total Bilirubin 0.6 AST 17 ALT 17 Alkaline Phosphatase 60 Total Protein 6.4 Albumin 2.9 L Active Medications Generic Name Dose Route Start Last Admin Trade Name Freq PRN Reason Stop Dose Admin Aspirin 81 mg 12/25/18 10:00 12/26/18 09:57 Asa - PO 81 mg DAILY KEYSHA Administration Atorvastatin Calcium 80 mg 12/25/18 22:00 12/26/18 22:03 Lipitor - PO 80 mg HS KEYSHA Administration Clopidogrel Bisulfate 75 mg 12/25/18 10:00 12/26/18 09:57 Plavix - PO 75 mg DAILY KEYSHA Administration Ferrous Sulfate 325 mg 12/25/18 10:00 12/26/18 09:57 Feosol - PO 325 mg DAILY KEYSHA Administration Heparin Sodium (Porcine) 5,000 unit 12/25/18 06:00 12/27/18 06:16 Heparin - SQ 5,000 unit TID KEYSHA Administration Insulin Aspart 1 vial 12/25/18 07:00 12/27/18 06:16 Novolog Vial Sliding Scale - SQ Not Given ACHS [facility] Protocol Metoprolol Succinate 25 mg 12/26/18 10:00 12/26/18 09:57 Toprol Xl - PO 25 mg DAILY KEYSHA Administration ASSESSMENT/PLAN: #Hyperkalemia -likely induced by spirinolactone, lisinopril. cont to hold meds until MARCELLA resolves -will give kayexelate x 1 . f/u repeat BMP to check K -tele monitoring #MARCELLA likely 2/2 diuretics, hypoperfusion -cont to follow; has been improving #systolic CHF w/ recent EF 35% -appears euvolemic, no sign overload -cont to hold spirinolactone, lisinopril for now -c/w metoprolol. dose has been changed to 75mg to optimize will need to decrease dose of lisinopril when it is restarted. -expect low BP as with low EF -Cardio consult : Dr. Monroy. for med optimization #HTN -c/w metoprolol #NIDDM -hold oral agents -ISS, BGM ACHS #CAD s/p stent -c/w asa, plavix #F/E/N encourage PO intake cont to follow K diabetic/na controlled diet #PPX hep 5k TID #Dispo cont to follow on tele
[2018-12-27] MEDS ORDERED: NAPH,MB-DB/K PH,MBDB POWDER PACKET PO ONE (08:35)
[2018-12-27] MEDS: ASPIRIN 81 MG CHEWABLE TABLETS PO SCH (10:49)
[2018-12-27] MEDS: metoPROLOL SUCCINATE 25 MG TAB.SR.24H (FP) PO SCH (10:49)
[2018-12-27] MEDS: CLOPIDOGREL BISULFATE 75 MG TABLET (FP) PO SCH (10:49)
[2018-12-27] MEDS: FERROUS SO4 325 MG TABLET (FP) PO SCH (10:49)
--- NOTE | 2018-12-27 11:00 | ECHO ---
Name: LETHA WRIGHT Exam:Adult Echocardiogram Study Date: 12/27/2018 08:52 AM Age: 68 yrs Reason For Study: Evaluation for CHF Height: 65 in Weight: 184 lb BSA: 1.9 m2 MMode/2D Measurements & Calculations IVSd: 0.96 cm LA dimension: 3.5 cm LVIDd: 4.7 cm ACS: 2.0 cm LVIDs: 3.4 cm LVPWd: 1.2 cm EDV(Teich): 102.1 ml LVOT diam: 2.0 cm ESV(Teich): 45.9 ml RV S Edmond: 13.4 cm/sec Doppler Measurements & Calculations MV E max edmond: 88.2 cm/sec Ao V2 max: 118.2 cm/sec MV A max edmond: 104.3 cm/sec Ao max P.6 mmHg MV E/A: 0.85 Ao V2 mean: 79.3 cm/sec Ao mean P.9 mmHg Ao V2 VTI: 23.2 cm GRACE(I,D): 1.9 cm2 GRACE(V,D): 1.8 cm2 LV V1 max P.7 mmHg MR max edmond: 416.8 cm/sec LV V1 mean P.84 mmHg MR max P.5 mmHg LV V1 max: 65.8 cm/sec LV V1 mean: 43.2 cm/sec LV V1 VTI: 14.3 cm SV(LVOT): 45.1 ml TV V2 max: 322.4 cm/sec TV max P.1 mmHg TV V2 mean: 259.1 cm/sec TV mean P.8 mmHg TV V2 VTI: 120.4 cm TR max edmond: 251.9 cm/sec PI end-d edmond: 154.7 cm/sec TR max P.4 mmHg Lat Peak E' Edmond: 8.2 cm/sec Lat E/e': 10.7 Procedure A complete two-dimensional transthoracic echocardiogram was performed (2D, M-mode, Doppler and color flow Doppler). Left Ventricle The left ventricle is normal in size. Left ventricular systolic function is severely reduced. Ejectio n Fraction = 30-35%. There is severe global hypokinesis of the left ventricle. Right Ventricle The right ventricle is normal size. The right ventricular systolic function is normal. RV systolic TD I is 13 cm/s. Atria The left atrial size is normal. Right atrial size is normal. Mitral Valve The mitral valve is normal in structure and function. There is mild to moderate mitral regurgitation. Tricuspid Valve The tricuspid valve is normal in structure and function. There is mild to moderate tricuspid regurgit ation. Pulmonary artery systolic pressure is at least 51 mmHg if RA pressure is assumed 3 mmHg. Aortic Valve There is mild aortic sclerosis.;. Mild aortic regurgitation. Pulmonic Valve The pulmonic valve is not well visualized. Mild pulmonic valvular regurgitation. Great Vessels The aortic root is normal size. Pericardium/Pleura Moderate pericardial effusion (1-2 cm). Interpretation Summary The left ventricle is normal in size. Left ventricular systolic function is severely reduced. There is severe global hypokinesis of the left ventricle. Ejection Fraction = 30-35%. The right ventricular systolic function is normal. The left atrial size is normal. Right atrial size is normal. There is mild to moderate mitral regurgitation. There is mild to moderate tricuspid regurgitation. Pulmonary artery systolic pressure is at least 51 mmHg if RA pressure is assumed 3 mmHg There is mild aortic sclerosis. Mild aortic regurgitation. Mild pulmonic valvular regurgitation. Moderate pericardial effusion (1-2 cm) Previous study is not available for comparison Simon Davis MD 12/27/2018 10:59 AM
--- NOTE | 2018-12-27 13:04 | PN ---
Progress Note, Physician History of Present Illness: The patient is a 68 year old female, with a significant PMH of [place] 10/2018--> coronary stent, hypertension, hyperlipidemia, diabetes, who presents to the emergency department for elevated potassium. Patient had a routine appointment with her campus chaplain today, (?Dr. Velazquez), who informed her later in the day that she had elevated potassium and advised she go to the ED for treatment. She denies any changes in medication, and is asymptomatic while in the ED. - Current Medication List Current Medications: Active Medications Aspirin (Asa -) 81 mg PO DAILY [facility] Last Admin: 12/27/18 10:49 Dose: 81 mg Atorvastatin Calcium (Lipitor -) 80 mg PO HS [facility] Last Admin: 12/26/18 22:03 Dose: 80 mg Clopidogrel Bisulfate (Plavix -) 75 mg PO DAILY [facility] Last Admin: 12/27/18 10:49 Dose: 75 mg Ferrous Sulfate (Feosol -) 325 mg PO DAILY [facility] Last Admin: 12/27/18 10:49 Dose: 325 mg Heparin Sodium (Porcine) (Heparin -) 5,000 unit SQ TID [facility] Last Admin: 12/27/18 06:16 Dose: 5,000 unit Insulin Aspart (Novolog Vial Sliding Scale -) 1 vial SQ ACHS [facility]; Protocol Last Admin: 12/27/18 11:34 Dose: Not Given Metoprolol Succinate (Toprol Xl -) 25 mg PO DAILY [facility] Last Admin: 12/27/18 10:49 Dose: 25 mg - Objective Vital Signs: Vital Signs Temperature 98.1 F 12/27/18 09:09 Pulse Rate 92 H 12/27/18 09:09 Respiratory Rate 18 12/27/18 09:09 Blood Pressure 102/54 L 12/27/18 09:09 O2 Sat by Pulse Oximetry (%) 99 12/26/18 21:00 Labs: CBC, BMP 12/26/18 05:30 12/27/18 05:30 Assessment/Plan - Problems (1) Status post myocardial infarction Assessment/Plan: 10/2018 [place]-->coronary stent at [facility]. Obtain records. On Plavix and ASA. Decresaed dose of metoprolol E to 25 mg; stable BP and HR. Pt was on lisinopril; stopped after [place].Consider restarting , once BP and renal function are stable. (This, however, would require close monitoring of K+, as Aldactone was the likely reason for development of hyperekalemia now). Code(s): I25.2 - OLD MYOCARDIAL INFARCTION (2) MARCELLA (acute kidney injury) Assessment/Plan: Stopped furosemide. F/u BUn/Cr. F/u electolytes. Code(s): N17.9 - ACUTE KIDNEY FAILURE, UNSPECIFIED (3) Hyperkalemia Assessment/Plan: K+ now 4.2 after 2 doses of Kayexalate yesterday. Apparently , pt was on spironolactone. Code(s): E87.5 - HYPERKALEMIA (4) CAD (coronary artery disease) Code(s): I25.10 - ATHSCL HEART DISEASE OF [place] CORONARY ARTERY W/O ANG PCTRS (5) HLD (hyperlipidemia) Assessment/Plan: on atorvastatin; keep LDL cholesterol < 70 mg/dl.F/u lipid panel. Code(s): E78.5 - HYPERLIPIDEMIA, UNSPECIFIED (6) HTN (hypertension) Assessment/Plan: BP is presently on the low side. Decreased metoprolol ER to 25 mg daily; f/u HR and BP. F/u ECHo for LVEF, wall motion. Code(s): I10 - ESSENTIAL (PRIMARY) HYPERTENSION
--- NOTE | 2018-12-27 15:11 | DS ---
Physical Exam: SUBJECTIVE:Patient seen and examined at bedside- no acute events overnight; patient states that she is feeling well; she denies any CP/SOB/N/V fevers or chills OBJECTIVE: Vital Signs Period Temp Pulse Resp BP Sys/Rae Pulse Ox Last 24 Hr 98.1 F-98.6 F 80-92 18-20 90-102/50-55 99-99 PHYSICAL EXAM GENERAL: The patient is awake, alert, and fully oriented, in no acute distress. EYES: PEERLA: EOMI no scleral icterus NECK: no JVD; no lymphadenoapthy LUNGS: CTA B/L; no rales, rhonchi or wheezing HEART: Regular rate and rhythm, S1, S2 without murmur, rub or gallop. ABDOMEN: Soft, nontender, nondistended, normoactive bowel sounds, no guarding, no rebound, no hepatosplenomegaly, no masses. EXTREMITIES: 2+ pulses, warm, well-perfused, no edema. PSYCH: Normal mood, normal affect. SKIN: Warm, dry, normal turgor, no rashes or lesions noted LABS Laboratory Results - last 24 hr 12/26/18 12/26/18 12/27/18 16:24 22:01 05:30 Sodium 135 L Potassium 4.3 Chloride 103 Carbon Dioxide 27 Anion Gap 5 L BUN 35 H Creatinine 1.0 Est GFR (CKD-EPI)AfAm 67.04 Est GFR (CKD-EPI)NonAf 57.84 POC Glucometer 204 131 Random Glucose 141 H Calcium 8.3 L Total Bilirubin 0.6 AST 17 ALT 17 Alkaline Phosphatase 60 Total Protein 6.4 Albumin 2.9 L Triglycerides 98 Cholesterol 99 Total LDL Cholesterol 31 HDL Cholesterol 57 12/27/18 12/27/18 06:12 11:34 Sodium Potassium Chloride Carbon Dioxide Anion Gap BUN Creatinine Est GFR (CKD-EPI)AfAm Est GFR (CKD-EPI)NonAf POC Glucometer 148 161 Random Glucose Calcium Total Bilirubin AST ALT Alkaline Phosphatase Total Protein Albumin Triglycerides Cholesterol Total LDL Cholesterol HDL Cholesterol HOSPITAL COURSE: Date of Admission:12/24/18 68 yo female with PMH IA 6 weeks ago s/p PCI with stent placement (on plavix), NIDDM, HTN, HLD, Systolic CHF with recent EF 35 % presented after being sent by her director of customer service who noted her potassium to be elevated. She denies any complaints and states that she had told him as well that she was feeling very well and felt much better. She was recently admitted for acute systolic CHF exacerbation of which she states has completely resolved. She denies any chest pain, SOB, dizziness, fevers, chills, abdominal pain, urinary complaints, peripheral edema or pain. ER course was notable for: (1) BUN/Cr 55/1.8 elevated from baseline 0.8 (2) K 5.7, given Insulin and D50 all potassium increasing medications were held (held lasix, lisinopril and aldactone) patients potassium normalized. patient odalis had MARCELLA due to hypovolemia so her lasxi was held as well. in addition, her pressures were on the lower side while she was here, so her metoprolol was decreased from 75 to 25. her MARCELLA reoslved; her Cr went back to baseline of 1 and her potassium normalized. Spoke to her director of customer service, Dr. maya before discharge who suggested holding the spironolactone, but to restart her lisinopril and to lower her lasix dosing to 40mg daily. she will be getting a repeat BMP on thursday to check her potassium and will be following up with her cardiolgist and PCP next week Date of Discharge: 12/27/18 Minutes to complete discharge: 35 Discharge Summary Reason For Visit: ACUTE KIDNEY INJURY,HYPONATREMIA,HYPERKALEMIA Current Active Problems MARCELLA (acute kidney injury) (Acute) Hyperkalemia (Acute) Hyponatremia (Acute) Status post myocardial infarction (Acute) Systolic heart failure (Acute) Condition: Stable - Instructions Diet, Activity, Other Instructions: You came to the emergency room from your director of customer service due to your potassium being high. In addition, when you came to the hospital, your kidney numbers were elevated likely secondary to your water pill and decreased volume status. We held a few of your medications, hydrated you and your numbers improved. You were stable to be discharged home. We made some changes to your medications: We decreased your Metoprolol to 25mg daily as your blood pressure was on the lower side Please continue taking your Lisinopril 10mg We decreased your Lasix to 40mg daily Please continue taking your Aspirin and PLavix Please DO NOT continue taking Aldactone Please follow up with Dr. Maya, your director of customer service, within one week Please follow up with Dr Sagastume, your primary care physician within one week Please have your potassium level checked on Thursday, and have the result sent to Dr Sagastume please follow a low sodium and low potassium diet *if you begin to experience worsening chest pains, shortness of breath, nausea/ vomiting please return to the emergency room immediately Referrals: [facility] Power [Other] Edwin Sagastume MD [Primary Care Provider] - Disposition: HOME - Home Medications Comprehensive Discharge Medication List: Ambulatory Orders Aspirin 81 mg PO DAILY 10/15/18 Atorvastatin Ca [Lipitor] 80 mg PO HS 11/08/18 Sitagliptin Phos/Metformin HCl [Janumet 50-1,000 mg Tablet] 1 each PO BID Clopidogrel Bisulfate [Plavix -] 75 mg PO DAILY 30 Days #30 tablet 11/11/18 Ferrous Sulfate [Feosol] 325 mg PO DAILY 30 Days #30 ud 11/11/18 Lisinopril [Prinivil] 10 mg PO DAILY 30 Days #30 tablet 11/11/18 Metoprolol Succinate [Toprol XL -] 50 mg PO DAILY 30 Days #30 tab.sr.24h Furosemide [Lasix] 40 mg PO DAILY #30 tablet 12/27/18 Metoprolol Succinate [Toprol XL -] 25 mg PO DAILY #30 tab.sr.24h 12/27/18 Problem List - Problems (1) MARCELLA (acute kidney injury) Code(s): N17.9 - ACUTE KIDNEY FAILURE, UNSPECIFIED (2) Hyperkalemia Code(s): E87.5 - HYPERKALEMIA (3) Systolic heart failure Code(s): I50.20 - UNSPECIFIED SYSTOLIC (CONGESTIVE) HEART FAILURE (4) CAD (coronary artery disease) Code(s): I25.10 - ATHSCL HEART DISEASE OF [place] CORONARY ARTERY W/O ANG PCTRS This patient is new to me today: Yes Date on this admission: 12/27/18 Emergency Visit: Yes ED Registration Date: 12/24/18 Care time: The patient presented to the Emergency Department on the above date and was hospitalized for further evaluation of their emergent condition. Critical Care patient: No - Discharge Referral Referred to [facility] No
[2018-12-27 15:51] VITALS: BP 99/56; PULSE 96; TEMP 98.4
== END 2018-12-27 18:20 | disposition home or self-care (01) | DRG 683 ==
LOC: JER 19:36 → JERBED 21:34 → J5S 23:58 → J4W 12-25 01:21
PROVIDERS: ADMIT Internal Medicine; ATTEND Internal Medicine
DX: N17.9 Acute kidney failure, unspecified (principal); I50.22 Chronic systolic (congestive) heart failure; E87.1 Hypo-osmolality and hyponatremia; E87.5 Hyperkalemia; E11.9 Type 2 diabetes mellitus without complications; I25.2 Old myocardial infarction; E78.5 Hyperlipidemia, unspecified; D64.9 Anemia, unspecified; E66.9 Obesity, unspecified; Z98.61 Coronary angioplasty status; I11.0 Hypertensive heart disease with heart failure; I25.10 Atherosclerotic heart disease of native coronary artery without angina pectoris; D50.9 Iron deficiency anemia, unspecified; Z79.84 Long term (current) use of oral hypoglycemic drugs; Z68.30 Body mass index [BMI] 30.0-30.9, adult
CPT/HCPCS: 36415; 71045-TC-FY; 76775-TC; 80048; 80053; 80061; 81003; 82565; 82962; 83036; 83721; 83735; 84100; 84300; 84540; 85025; 85027; 93005; 93010; 93306-TC; 94640; 99284-25; J1644; J7030

== ENCOUNTER 2019-03-11 16:23 | Inpatient (IN) | payer OTHER ==
--- NOTE | 2019-03-11 18:38 | PDOC ---
History of Present Illness <Deidra Juares - Last Filed: 03/11/19 21:53> - General History Source: Patient Exam Limitations: No Limitations - History of Present Illness Initial Comments: 03/11/19 18:38 69 yo F pmh MA (10/2018 s/p PCI-stent), DM, HTN, HLD p/w 2-3 days of nonextertional orthopnic SOB. States sx resolved with being upright. Endorses decreased exercise tolerance (use to climb one flight, now has to stop to catch breath). Endorses dry cough w/ SOB episodes, swelling of the b/l LE. Denies F/C , chest pain, palpitations, headache/lighthead/dizzy, and cough/rhinorrhea/sore throat. No h/o VTE. PMH: as above per patient, systolic HF Meds: see chart Note: pt takes home BP measurements regularly 90-100s systolic. <Óscar Ratliff - Last Filed: 03/11/19 22:31> - General Chief Complaint: Shortness of Breath Stated Complaint: SOB Time Seen by Provider: 03/11/19 18:13 Past History <Deidra Juares - Last Filed: 03/11/19 21:53> - Past Medical History Anemia: No Asthma: Yes Cancer: No Cardiac Disorders: Yes (SOB/ Heart attack 3 weeks ago) CVA: No COPD: No CHF: Yes Dementia: No Diabetes: Yes GI Disorders: No Disorders: No HTN: Yes Hypercholesterolemia: Yes Liver Disease: No Seizures: No Thyroid Disease: No - Surgical History Abdominal Surgery: No Appendectomy: No Cardiac Surgery: No Cholecystectomy: No Lung Surgery: No Neurologic Surgery: No Orthopedic Surgery: No - Immunization History Immunization Up to Date: Yes - Suicide/Smoking/Psychosocial Hx Smoking History: Never smoked Have you smoked in the past 12 months: No Hx Alcohol Use: No Drug/Substance Use Hx: No Hx Substance Use Treatment: No <Óscar Ratliff - Last Filed: 03/11/19 22:31> - Past Medical History Allergies/Adverse Reactions: Allergies Allergy/AdvReac Type Severity Reaction Status Date / Time No Known Allergies Allergy Verified 03/11/19 16:28 Home Medications: Ambulatory Orders Aspirin 81 mg PO DAILY 10/15/18 Atorvastatin Ca [Lipitor] 80 mg PO HS 11/08/18 Clopidogrel Bisulfate [Plavix -] 75 mg PO DAILY 30 Days #30 tablet 11/11/18 Ferrous Sulfate [Feosol] 325 mg PO DAILY 30 Days #30 ud 11/11/18 Lisinopril [Prinivil] 10 mg PO DAILY 30 Days #30 tablet 11/11/18 Furosemide [Lasix] 40 mg PO DAILY #30 tablet 12/27/18 Metoprolol Succinate [Toprol XL -] 25 mg PO DAILY #30 tab.sr.24h 12/27/18 Metformin HCl [Glucophage] 1,000 mg PO BID 03/11/19 Review of Systems - Review of Systems Able to Perform ROS?: Yes Is the patient limited [place] proficient: No Constitutional: No: Symptoms Reported, See HPI, Chills, Diaphoresis, Fever, Loss of Appetite, Malaise, Night Sweats, Weakness, Weight Stable, Unintentional Wgt. Loss, Unexplained wgt Loss, Other HEENTM: No: Symptoms Reported, See HPI, Eye Pain, Blurred Vision, Tearing, Recent change in vision, Double Vision, Cataracts, Ear Pain, Ocular Prothesis, Ear Discharge, Nose Pain, Nose Congestion, Tinnitus, Nose Bleeding, Hearing Loss , Throat Pain, Throat Swelling, Mouth Pain, Dental Problems, Difficulty Swallowing, Mouth Swelling, Other Respiratory: Yes: Symptoms reported, See HPI, Cough (dry, nonproductive, w/ SOB) , Orthopnea, Shortness of Breath. No: Wheezing, Productive cough Cardiac (ROS): No: Symptoms Reported, See HPI, Chest Pain, Edema, Irregular Heart Rate, Lightheadedness, Palpitations, Syncope, Chest Tightness, Other ABD/GI: No: Symptoms Reported, See HPI, Abdominal Distended, Abd. Pain w/ defecation, Blood Streaked Bowels, Constipated, Diarrhea, Difficulty Swallowing , Nausea, Poor Appetite, Poor Fluid Intake, Rectal Bleeding, Vomiting, Indigestion, Abdominal cramping, Tarry Stools, Other : No: Symptoms Reported, See HPI, Burning, Dysuria, Discharge, Frequency, Flank Pain, Hematuria, Incontinence, Pain, Urgency, Testicular Mass, Testicular Swelling, Lesions, Testicular Pain, Other Musculoskeletal: No: Symptoms Reported, See HPI, Back Pain, Gout, Joint Pain, Joint Swelling, Muscle Pain, Muscle Weakness, Neck Pain, Joint Stiffness, Other Neurological: No: Symptoms reported, See HPI, Headache, Numbness, Paresthesia, Pre-Existing Deficit, Seizure, Tingling, Tremors, Weakness, Unsteady Gait, Ataxia, Dizziness, Other Psychiatric: No: Anxiety, Depression, Frequent Crying, Stressors, Sleep Pattern Change, Emotional Problems, Mood Swings, Change in Appetite, Other Endocrine: No: Symptoms Reported, See HPI, Excessive Sweating, Flushing, Intolerance to Cold, Intolerance to Heat, Increased Hunger, Increased Thirst, Increased Urine, Unexplained Weight Gain, Unexplained Weight Loss, Change in Weight, Other Hematologic/Lymphatic: No: Symptoms Reported, See HPI, Anemia, Blood Clots, Easy Bleeding, Easy Bruising, Bleeding Diathesis, Lymph Node Abnormalities, Swollen Glands, Other All Other Systems: Reviewed and Negative <Óscar Ratliff - Last Filed: 03/11/19 22:31> *Physical Exam - Vital Signs Last Vital Signs Temp Pulse Resp BP Pulse Ox 98.3 F 99 H 18 97/59 L 99 03/11/19 16:26 03/11/19 16:03/11/19 16:03/11/19 16:03/11/19 18:09 <Deidra Juares - Last Filed: 03/11/19 21:53> - Vital Signs Last Vital Signs Temp Pulse Resp BP Pulse Ox 98.3 F 99 H 18 97/59 L 99 03/11/19 16:26 03/11/19 16:26 03/11/19 16:26 03/11/19 16:26 03/11/19 18:09 - Physical Exam Comments: 03/11/19 18:46 GEN: Resting comfortably in bed, NAD. HEENT: NC/AT, EOMI, PERRLA, CN II-XII intact. Moist mucous membranes. CV: S1/S2, RRR, no m/r/g LUNG: Normal respiratory effort, (+) orthopnea, crackles on the right base. No wheezes. GI: soft, ndnt, +BS EXTREMITIES: trace pitting edema of the B/L LE up to mid-best NEURO: AAOx3, conversing appropriately, moving all extremities. <Óscar Ratliff - Last Filed: 03/11/19 22:31> ED Treatment Course - LABORATORY CBC & Chemistry Diagram: 03/11/19 18:36 03/11/19 18:36 - ADDITIONAL ORDERS Additional order review: Laboratory Results 03/11/19 03/11/19 03/11/19 18:36 18:36 18:36 PT with INR 15.10 H INR 1.28 H Sodium 137 Potassium 4.8 Chloride 103 Carbon Dioxide 27 Anion Gap 7 L BUN 36.9 H Creatinine 1.2 Est GFR (CKD-EPI)AfAm 53.40 Est GFR (CKD-EPI)NonAf 46.07 Random Glucose 93 Calcium 9.0 Total Bilirubin 0.8 AST 17 ALT 17 Alkaline Phosphatase 77 Creatine Kinase 50 Troponin I 0.04 B-Natriuretic Peptide 16717.6 H Total Protein 7.2 Albumin 3.4 03/11/19 18:36 RBC 3.92 MCV 72.8 L MCHC 31.8 L RDW 18.1 H MPV 7.9 Neutrophils % 61.3 Lymphocytes % 28.6 Monocytes % 7.5 Eosinophils % 2.2 Basophils % 0.4 - Medications Given in the ED: ED Medications Discontinued Medications Generic Name Dose Route Start Last Admin Trade Name Freq PRN Reason Stop Dose Admin Furosemide 40 mg 03/11/19 20:17 03/11/19 21:13 Lasix Injection - IVPUSH 03/11/19 20:18 40 mg ONCE ONE Administration <Deidra Juares - Last Filed: 03/11/19 21:53> - LABORATORY CBC & Chemistry Diagram: 03/11/19 18:36 03/11/19 18:36 - RADIOLOGY Radiology Studies Ordered: Category Date Time Status CHEST X-RAY PORTABLE* [RAD] Stat Radiology 03/11/19 18:34 Ordered <Óscar Ratliff - Last Filed: 03/11/19 22:31> Medical Decision Making - Medical Decision Making 03/11/19 18:44 69 yo F pmh MA 10/2018, HTN, HLD, DM presenting with 2-3 days of orthopnea and [place]. Afebrile w/o productive cough, fevers, chills, rhinorrhea, or sore throat. Exam significant for crackles on the right lower lung pérez and trace pitting edema up to mid-shins of the b/l LE. DDx - CHF exacerbation, ACS, PNA, anemia; unlikely PE, PTX SOB: likely CHF exacerbation - 12/2018 ECHO demonstrates LVEF of 30-35% - CBC, CMP, BNP, COAG, CARDIAC - EKG, CXR - Consider lasix after CXR 03/11/19 19:41 Labs reviewed - high BNP - H/H anemic but around baseline for pt will give lasix 03/11/19 21:11 POCUS heart and lungs completed. Dispo: admit telemetry 03/11/19 21:38 Patient endorsed to DROP BOARD WORKER Martin - admit to telemetry under Dr. Nicholson <Óscar Ratliff - Last Filed: 03/11/19 22:31> *DC/Admit/Observation/Transfer - Discharge Dispostion Decision to Admit order: Yes <Deidra Juares - Last Filed: 03/11/19 21:53> <Óscar Ratliff - Last Filed: 03/11/19 22:31> Diagnosis at time of Disposition: Acute exacerbation of CHF (congestive heart failure) Qualifiers: Heart failure type: unspecified Qualified Code(s): I50.9 - Heart failure, unspecified
[2019-03-11 18:59] LABS: BASO % 0.4 % (0-2.0); EOS % 2.2 % (0-4.5); HEMATOCRIT 28.6 % (32.4-45.2); HEMOGLOBIN 9.1 GM/dL (10.7-15.3); LYMPH % 28.6 % (8-40); MCH 23.2 pg (25.7-33.7); MCHC 31.8 g/dl (32.0-36.0); MEAN CELL VOLUME 72.8 fl (80-96); MEAN PLT VOLUME 7.9 fl (7.5-11.1); MONO % 7.5 % (3.8-10.2); NEUT % 61.3 % (42.8-82.8); PLATELET COUNT 284 K/MM3 (134-434); RBC 3.92 M/mm3 (3.60-5.2); RDW 18.1 % (11.6-15.6); WHITE BLOOD COUNT 6.6 K/mm3 (4.0-10.0)
[2019-03-11 19:08] LABS: INR 1.28 (0.83-1.09); PROTHROMBIN TIME (PATIENT) 15.1 SEC (9.7-13.0)
[2019-03-11 19:18] LABS: ALBUMIN 3.4 g/dl (3.4-5.0); BILIRUBIN,TOTAL 0.8 mg/dL (0.2-1); BLOOD UREA NITROGEN 36.9 mg/dL (7-18); CREATININE 1.2 mg/dL (0.55-1.3); N-TERMINAL BNP 15933.6 pg/ml (5-125); POTASSIUM 4.8 mmol/L (3.5-5.1); TOT PROT 7.2 g/dl (6.4-8.2)
--- NOTE | 2019-03-11 19:33 | PDOC ---
Documentation entered by Liz Courtney SCRIBE, acting as scribe for Deidra Juares MD. Deidra Juares MD: This documentation has been prepared by the robertaibeSherwin Lincy, SCRIBE, under my direction and personally reviewed by me in its entirety. I confirm that the documentation accurately reflects all work, treatment, procedures, and medical decision making performed by me. Attending Attestation - Resident Resident Name: GaudencioÓscar - ED Attending Attestation I have performed the following: I have examined & evaluated the patient, The case was reviewed & discussed with the resident, I agree w/resident's findings & plan, Exceptions are as noted - HPI HPI: 03/11/19 19:35 The patient is a 69-year-old female with a past medical history significant for CAD, HTN, HLD, DM and [place] (October 2018, transferred to [facility]) presented to the emergency department with shortness of breath, orthopnea, and bilateral lower extremity edema. The patient presents with 2-3 days of exertional shortness of breath and orthopnea, associated with a dry cough, bilateral lower extremity edema, and intermittent substernal chest tightness. The patient reports having a stress test done several years ago. Denies hx of PE. Denies fever, chills, productive cough. Allergies: NKDA PCP: Dr. All Sotomayor Cash Checker: Dr. Velazquez - Physicial Exam PE: 03/11/19 19:30 awake alert lungs clear bilat heart reg rate no mrg abd soft nt nd ext bilat pitting edema. 2+. nuero alert oriented x 3. skin warm and dry. - Medical Decision Making 03/11/19 19:31 69 yo F with h/o DM HTN HLD, cad ( stents on plavix ) recent [place] 11/02 here with exertional sob, orthopnea. worsening leg swelling and chest pain intermittently. 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 plan ekg cxr labs bnp. pt cxr with mild pulm vasc congestion. bpn elevated. trop negative. will admit for diuresis. ekg 03/11/19 21:51 focused ED TTE performed. pt with severely reduced contractility. small pericardial effusion noted. no tamponade no RV strain pattern. impression: small pericardial effusion, severely reduced contractility lung ultrasound with few b lines bilat lung pérez. b lines laterally and at bilat bases. bilat small plueral effusion. air bronchograms noted at bases. atelectasis vs. infiltrate. impressionL pulm edema. with bilat plueral effusions.; will admit for diuresis.
[2019-03-11] MEDS ORDERED: FUROSEMIDE 40 MG/4 ML INJECTABLE VIAL IVPUSH ONE (20:17)
[2019-03-11] MEDS ORDERED: FUROSEMIDE 40 MG/4 ML INJECTABLE VIAL ONE (20:56)
--- NOTE | 2019-03-11 22:38 | HP ---
CHIEF COMPLAINT: Dry cough, Sob at night PCP: Dr. Sotomayor HISTORY OF PRESENT ILLNESS: 69 year old female with PMHX of recent [place] ( 10/2018 s /p PCI-stent at [facility]), CAD, HTN/HLD, DM arrived to ED with complain of dry cough, B/l LE edema, SOB (at rest) at night for 2-3 days, also at times with sob in morning when walking. Denies CP, palpitations, dizziness, heartburn, N/V. ER course was notable for: (1) cxr: mild vascular congestion (2) lasix 40 IV push Recent Travel: NO PAST MEDICAL HISTORY: CAD, h/o [place], HTN, HLD, DM PAST SURGICAL HISTORY: s/p PCI/stent 10/2018 Social History: Smoking:NO Alcohol:NO Drugs: NO Allergies: No Known Allergies Allergy (Verified 03/11/19 16:28) HOME MEDICATIONS: Home Medications Medication Instructions Recorded Aspirin 81 mg PO DAILY 10/15/18 Atorvastatin Ca [Lipitor] 80 mg PO HS 11/08/18 Sitagliptin Phos/Metformin HCl 1 each PO BID 11/08/18 [Janumet 50-1,000 mg Tablet] Clopidogrel Bisulfate [Plavix -] 75 mg PO DAILY 30 Days #30 tablet 11/11/18 Ferrous Sulfate [Feosol] 325 mg PO DAILY 30 Days #30 ud 11/11/18 Lisinopril [Prinivil] 10 mg PO DAILY 30 Days #30 tablet 11/11/18 Metoprolol Succinate [Toprol XL -] 50 mg PO DAILY 30 Days #30 11/11/18 tab.sr.24h Furosemide [Lasix] 40 mg PO DAILY #30 tablet 12/27/18 Metoprolol Succinate [Toprol XL -] 25 mg PO DAILY #30 tab.sr.24h 12/27/18 REVIEW OF SYSTEMS CONSTITUTIONAL: Absent: fever, chills, diaphoresis, generalized weakness, malaise, loss of appetite, weight change HEENT: Absent: rhinorrhea, nasal congestion, throat pain, throat swelling, difficulty swallowing, mouth swelling, ear pain, eye pain, visual changes CARDIOVASCULAR: Absent: chest pain, syncope, palpitations, irregular heart rate , lightheadedness, peripheral edema RESPIRATORY: present: cough, shortness of breath GASTROINTESTINAL:Absent: abdominal pain, abdominal distension, nausea, vomiting , diarrhea, constipation, melena, hematochezia GENITOURINARY: Absent: dysuria, frequency, urgency, hesitancy, hematuria, flank pain, genital pain MUSCULOSKELETAL: Absent: myalgia, arthralgia, joint swelling, back pain, neck pain SKIN: Absent: rash, itching, pallor NEUROLOGIC: Absent: headache, focal weakness or paresthesias, dizziness, unsteady gait, seizure, mental status changes, bladder or bowel incontinence PSYCHIATRIC: Absent: anxiety, depression, suicidal or homicidal ideation, hallucinations. PHYSICAL EXAMINATION Vital Signs - 24 hr 03/11/19 03/11/19 16:26 18:09 Temperature 98.3 F Pulse Rate 99 H Respiratory 18 Rate Blood Pressure 97/59 L O2 Sat by Pulse 99 99 Oximetry (%) GENERAL: Awake, alert, and fully oriented HEENT: NC/AT, EOMI, PERRLA, NO JVD LUNGS: Breath sounds equal, clear to auscultation bilaterally. + crackles right lower lobe HEART: Regular rate and rhythm, normal S1 and S2 without murmur, rub or gallop. ABDOMEN: Soft, nontender, not distended, normoactive bowel sounds, no guarding, no rebound, no masses. MUSCULOSKELETAL: Normal range of motion at all joints. No bony deformities or tenderness. No CVA tenderness. Extremity: +2/3 edema b/l LE NEUROLOGICAL: Cranial nerves II-XII intact. Normal speech. Normal gait. SKIN: Warm, dry Laboratory Results - last 24 hr 03/11/19 03/11/19 03/11/19 18:36 18:36 18:36 WBC 6.6 RBC 3.92 Hgb 9.1 L Hct 28.6 L MCV 72.8 L MCH 23.2 L MCHC 31.8 L RDW 18.1 H Plt Count 284 MPV 7.9 Absolute Neuts (auto) 4.0 Neutrophils % 61.3 Lymphocytes % 28.6 Monocytes % 7.5 Eosinophils % 2.2 Basophils % 0.4 Nucleated RBC % 0 PT with INR 15.10 H INR 1.28 H Sodium 137 Potassium 4.8 Chloride 103 Carbon Dioxide 27 Anion Gap 7 L BUN 36.9 H Creatinine 1.2 Est GFR (CKD-EPI)AfAm 53.40 Est GFR (CKD-EPI)NonAf 46.07 Random Glucose 93 Calcium 9.0 Total Bilirubin 0.8 AST 17 ALT 17 Alkaline Phosphatase 77 Creatine Kinase Troponin I B-Natriuretic Peptide Total Protein 7.2 Albumin 3.4 03/11/19 18:36 WBC RBC Hgb Hct MCV MCH MCHC RDW Plt Count MPV Absolute Neuts (auto) Neutrophils % Lymphocytes % Monocytes % Eosinophils % Basophils % Nucleated RBC % PT with INR INR Sodium Potassium Chloride Carbon Dioxide Anion Gap BUN Creatinine Est GFR (CKD-EPI)AfAm Est GFR (CKD-EPI)NonAf Random Glucose Calcium Total Bilirubin AST ALT Alkaline Phosphatase Creatine Kinase 50 Troponin I 0.04 B-Natriuretic Peptide 11625.6 H Total Protein Albumin ASSESSMENT/PLAN: 69 year old female with PMHX of recent [place] ( 10/2018 s/p PCI-stent at [facility]) , CAD, HTN/HLD, DM arrived to ED with complain of dry cough, B/l LE edema, SOB ( at rest) at night for 2-3 days, also at times with sob in morning when walking. CHF exacerbation BNp: 77587.6 CXR: mild pulmonary congestion US Lungs: b/l pleural effusion, pulmonary edema - lasix given x1 - will continue with Lasix IV push 40 mg daily - cardiology follow up HTN - Continue with Toprol XL - Continue with lisinopril - Monitor BP closely CAD - Continue with ASA - Continue with plavix HLD - Continue with lipitor DM - monitor hgA1c, FSBS - Continue with Glucophage Anemia - Continue with Feso4 Problem List - Problem (1) Acute exacerbation of CHF (congestive heart failure) Code(s): I50.9 - HEART FAILURE, UNSPECIFIED Qualifiers: Heart failure type: unspecified Qualified Code(s): I50.9 - Heart failure, unspecified (2) HTN (hypertension) Code(s): I10 - ESSENTIAL (PRIMARY) HYPERTENSION (3) CAD (coronary artery disease) Code(s): I25.10 - ATHSCL HEART DISEASE OF [place] CORONARY ARTERY W/O ANG PCTRS (4) Diabetes Code(s): E11.9 - TYPE 2 DIABETES MELLITUS WITHOUT COMPLICATIONS (5) Anemia Code(s): D64.9 - ANEMIA, UNSPECIFIED (6) HLD (hyperlipidemia) Code(s): E78.5 - HYPERLIPIDEMIA, UNSPECIFIED Visit type - Emergency Visit Emergency Visit: Yes Care time: The patient presented to the Emergency Department on the above date and was hospitalized for further evaluation of their emergent condition. - New Patient This patient is new to me today: Yes Date on this admission: 03/11/19 - Critical Care Critical Care patient: No
[2019-03-11 23:10] LABS: URINE APPEARANCE CLEAR; URINE BILIRUBIN NEGATIVE (NEGATIVE); URINE COLOR YELLOW; URINE GLUCOSE (UA) NEGATIVE (NEGATIVE); URINE KETONE NEGATIVE (NEGATIVE); URINE LEUK ESTERASE NEGATIVE (NEGATIVE); URINE NITRITE NEGATIVE (NEGATIVE); URINE PROTEIN NEGATIVE (NEGATIVE); URINE UROBILINOGEN 0.2 mg/dL (0.2-1.0)
[2019-03-12 03:26] VITALS: BMI 30.9
[2019-03-12] MEDS: metFORMIN HCL 500 MG TABLET (FP) PO SCH ×2 (06:51→17:59)
[2019-03-12 06:53] LABS: HEMATOCRIT 26.2 % (32.4-45.2); HEMOGLOBIN 8.5 GM/dL (10.7-15.3); MCH 23.2 pg (25.7-33.7); MCHC 32.4 g/dl (32.0-36.0); MEAN CELL VOLUME 71.8 fl (80-96); PLATELET COUNT 265 K/MM3 (134-434); RBC 3.64 M/mm3 (3.60-5.2); RDW 17.7 % (11.6-15.6); WHITE BLOOD COUNT 6.8 K/mm3 (4.0-10.0)
[2019-03-12 07:26] LABS: CALCIUM 8.8 mg/dL (8.5-10.1); CREATININE 1.3 mg/dL (0.55-1.3); POTASSIUM 4.6 mmol/L (3.5-5.1)
--- NOTE | 2019-03-12 09:34 | PN ---
Progress Note (short form) - Note Progress Note: Pt of [facility] cardiology ([facility]). With prior cath for CA at [facility]. seen by Nahum as service case here 11/02. d/w'd dr richards--andrew mejia roundrussell today and they will see pt for continuity of care purposes. consult placed
[2019-03-12] MEDS ORDERED: FUROSEMIDE 40 MG/4 ML INJECTABLE VIAL IVPUSH SCH (10:00)
[2019-03-12] MEDS ORDERED: PATIENT'S OWN MEDICATION (NON-FORMULARY) (Metformin Hcl [Glucophage] 1,000 MG) PO SCH (10:00)
[2019-03-12] MEDS: metoPROLOL SUCCINATE 25 MG TAB.SR.24H (FP) PO SCH (11:00)
[2019-03-12] MEDS: ASPIRIN 81 MG CHEWABLE TABLETS PO SCH (11:00)
[2019-03-12] MEDS: FERROUS SO4 325 MG TABLET (FP) PO SCH (11:00)
[2019-03-12] MEDS: HEPARIN NA (PORCINE) 5,000 UNITS/ML 1ML VIAL SQ SCH ×2 (11:00→22:22)
[2019-03-12] MEDS: CLOPIDOGREL BISULFATE 75 MG TABLET (FP) PO SCH (11:00)
[2019-03-12] MEDS: LISINOPRIL 10 MG TABLET (FP) PO SCH (11:00)
--- NOTE | 2019-03-12 12:48 | PN ---
Physical Exam: SUBJECTIVE: Patient seen and examined OBJECTIVE: Vital Signs Period Temp Pulse Resp BP Sys/Rae Pulse Ox Last 24 Hr 97.8 F-98.8 F 81-99 18-20 97-106/59-68 99-100 GENERAL: The patient is awake, alert, and fully oriented, in no acute distress. HEAD: Normal with no signs of trauma. EYES: PERRL, extraocular movements intact, sclera anicteric, conjunctiva clear. No ptosis. ENT: Ears normal, nares patent, oropharynx clear without exudates, moist mucous membranes. NECK: Trachea midline, full range of motion, supple. LUNGS: Breath sounds equal, clear to auscultation bilaterally, no wheezes, no crackles, no accessory muscle use. HEART: Regular rate and rhythm, S1, S2 without murmur, rub or gallop. ABDOMEN: Soft, nontender, nondistended, normoactive bowel sounds, no guarding, no rebound, no hepatosplenomegaly, no masses. EXTREMITIES: 2+ pulses, warm, well-perfused, no edema. NEUROLOGICAL: Cranial nerves II through XII grossly intact. Normal speech, gait not observed. PSYCH: Normal mood, normal affect. SKIN: Warm, dry, normal turgor, no rashes or lesions noted Laboratory Results - last 24 hr 03/11/19 03/11/19 03/11/19 18:36 18:36 18:36 WBC 6.6 RBC 3.92 Hgb 9.1 L Hct 28.6 L MCV 72.8 L MCH 23.2 L MCHC 31.8 L RDW 18.1 H Plt Count 284 MPV 7.9 Absolute Neuts (auto) 4.0 Neutrophils % 61.3 Lymphocytes % 28.6 Monocytes % 7.5 Eosinophils % 2.2 Basophils % 0.4 Nucleated RBC % 0 PT with INR 15.10 H INR 1.28 H Sodium 137 Potassium 4.8 Chloride 103 Carbon Dioxide 27 Anion Gap 7 L BUN 36.9 H Creatinine 1.2 Est GFR (CKD-EPI)AfAm 53.40 Est GFR (CKD-EPI)NonAf 46.07 POC Glucometer Random Glucose 93 Hemoglobin A1c % Calcium 9.0 Total Bilirubin 0.8 AST 17 ALT 17 Alkaline Phosphatase 77 Creatine Kinase Troponin I B-Natriuretic Peptide Total Protein 7.2 Albumin 3.4 Triglycerides Cholesterol Total LDL Cholesterol HDL Cholesterol Urine Color Urine Appearance Urine pH Ur Specific [place] Urine Protein Urine Glucose (UA) Urine Ketones Urine Blood Urine Nitrite Urine Bilirubin Urine Urobilinogen Ur Leukocyte Esterase 03/11/19 03/11/19 03/12/19 18:36 22:45 05:58 WBC 6.8 RBC 3.64 Hgb 8.5 L Hct 26.2 L MCV 71.8 L MCH 23.2 L MCHC 32.4 RDW 17.7 H Plt Count 265 MPV 8.0 Absolute Neuts (auto) Neutrophils % Lymphocytes % Monocytes % Eosinophils % Basophils % Nucleated RBC % PT with INR INR Sodium Potassium Chloride Carbon Dioxide Anion Gap BUN Creatinine Est GFR (CKD-EPI)AfAm Est GFR (CKD-EPI)NonAf POC Glucometer Random Glucose Hemoglobin A1c % Calcium Total Bilirubin AST ALT Alkaline Phosphatase Creatine Kinase 50 Troponin I 0.04 B-Natriuretic Peptide 26560.6 H Total Protein Albumin Triglycerides Cholesterol Total LDL Cholesterol HDL Cholesterol Urine Color Yellow Urine Appearance Clear Urine pH 5.0 Ur Specific [place] 1.008 L Urine Protein Negative Urine Glucose (UA) Negative Urine Ketones Negative Urine Blood Negative Urine Nitrite Negative Urine Bilirubin Negative Urine Urobilinogen 0.2 Ur Leukocyte Esterase Negative 03/12/19 03/12/19 03/12/19 05:58 05:58 06:50 WBC RBC Hgb Hct MCV MCH MCHC RDW Plt Count MPV Absolute Neuts (auto) Neutrophils % Lymphocytes % Monocytes % Eosinophils % Basophils % Nucleated RBC % PT with INR INR Sodium 137 Potassium 4.6 Chloride 103 Carbon Dioxide 27 Anion Gap 8 BUN 38.0 H Creatinine 1.3 Est GFR (CKD-EPI)AfAm 48.47 Est GFR (CKD-EPI)NonAf 41.82 POC Glucometer 127 Random Glucose 117 H Hemoglobin A1c % 7.2 H Calcium 8.8 Total Bilirubin AST ALT Alkaline Phosphatase Creatine Kinase Troponin I B-Natriuretic Peptide Total Protein Albumin Triglycerides 91 Cholesterol 85 Total LDL Cholesterol 36 HDL Cholesterol 49 Urine Color Urine Appearance Urine pH Ur Specific [place] Urine Protein Urine Glucose (UA) Urine Ketones Urine Blood Urine Nitrite Urine Bilirubin Urine Urobilinogen Ur Leukocyte Esterase Active Medications Generic Name Dose Route Start Last Admin Trade Name Freq PRN Reason Stop Dose Admin Aspirin 81 mg 03/12/19 10:00 03/12/19 11:00 Asa - PO 81 mg DAILY KEYSHA Administration Atorvastatin Calcium 80 mg 03/12/19 22:00 Lipitor - PO HS KEYSHA Clopidogrel Bisulfate 75 mg 03/12/19 10:00 03/12/19 11:00 Plavix - PO 75 mg DAILY KEYSHA Administration Ferrous Sulfate 325 mg 03/12/19 10:00 03/12/19 11:00 Feosol - PO 325 mg DAILY KEYSHA Administration Furosemide 40 mg 03/12/19 14:00 Lasix Injection - IVPUSH BID@0600,1400 [facility] Heparin Sodium (Porcine) 5,000 unit 03/12/19 10:00 03/12/19 11:00 Heparin - SQ 5,000 unit BID KEYSHA Administration Lisinopril 10 mg 03/12/19 10:00 03/12/19 11:00 Prinivil PO 10 mg DAILY KEYSHA Administration Metformin HCl 1,000 mg 03/12/19 07:00 03/12/19 06:51 Glucophage - PO 1,000 mg BID@0700,1630 KEYSHA Administration Metoprolol Succinate 25 mg 03/12/19 10:00 03/12/19 11:00 Toprol Xl - PO 25 mg DAILY KEYSHA Administration ASSESSMENT/PLAN: 69 year old female with PMHX of recent [place] ( 10/2018 s/p PCI[facility]stent at [facility]) , CAD, HTN/HLD, DM arrived to ED with complain of dry cough, B/l LE edema, SOB ( at rest) at night for 2-3 days, also at times with sob in morning when walking. Admitting Diagnosis CHF exacerbation Chronic Problems CAD HTN DM Anemia A/P: #CHF exacerbation -BNP: 88527.6 on admission -CXR: mild pulmonary congestion -US Lungs: b/l pleural effusion, pulmonary edema -increased lasix IV to 40mg BID -daily weights, strict I/O - will continue with Lasix IV push 40 mg daily - cardiology consult -echo #HTN - c/w toprol xl, lisinopril - Monitor BP closely #CAD - Continue with ASA - Continue with plavix #HLD - Continue with lipitor #DM - A1c 7.2 - FSBS - Continue with Glucophage #Anemia,chronic -hg9.1 --> 8.5 today - Continue with Feso4 -trend hg -anemia work up if cont to trend down Dispo: requires inpatient treatment Visit type - Emergency Visit Emergency Visit: Yes ED Registration Date: 03/11/19 Care time: The patient presented to the Emergency Department on the above date and was hospitalized for further evaluation of their emergent condition. - New Patient This patient is new to me today: Yes Date on this admission: 03/12/19 - Critical Care Critical Care patient: No
[2019-03-12] MEDS: FUROSEMIDE 40 MG/4 ML INJECTABLE VIAL IVPUSH SCH (14:38)
--- NOTE | 2019-03-12 17:16 | CON.CARD ---
Consult Consult Specialty:: Cardiology Reason for Consultation:: SOB - History of Present Illness Chief Complaint: Shortness of breath History of Present Illness: This is a 69 year old female with a PMH of CAD, HTN, HLD, DM, and and Mi in october of 2018. Cardiac cath at [facility] on 10/15/18 showed a 99% stenosis of the mid LAD and an EF of 25%. A PCI of the LAD was performed. EF improved to 35% . She now presents with 2 - 3 days of shortness of breath, orthopnea, and bilateral lower extremity edema. BNP is 15,933 EKG shows NSR at 92 BPM with normal intervals, now QRS voltage, and PRWP across the anterior precordial leads. - Past Medical History Cardio/Vascular: Yes: CAD, CHF, HTN, Hyperlipdemia, [place], Other (DM) Pulmonary: Yes: Asthma - Past Surgical History Past Surgical History: Yes: Stent (coronary) - Alcohol/Substance Use Hx Alcohol Use: No - Smoking History Smoking history: Never smoked Have you smoked in the past 12 months: No Home Medications - Allergies Allergies/Adverse Reactions: Allergies Allergy/AdvReac Type Severity Reaction Status Date / Time No Known Allergies Allergy Verified 03/11/19 16:28 - Home Medications Home Medications: Ambulatory Orders Aspirin 81 mg PO DAILY 10/15/18 Atorvastatin Ca [Lipitor] 80 mg PO HS 11/08/18 Clopidogrel Bisulfate [Plavix -] 75 mg PO DAILY 30 Days #30 tablet 11/11/18 Ferrous Sulfate [Feosol] 325 mg PO DAILY 30 Days #30 ud 11/11/18 Lisinopril [Prinivil] 10 mg PO DAILY 30 Days #30 tablet 11/11/18 Furosemide [Lasix] 40 mg PO DAILY #30 tablet 12/27/18 Metoprolol Succinate [Toprol XL -] 25 mg PO DAILY #30 tab.sr.24h 12/27/18 Metformin HCl [Glucophage] 1,000 mg PO BID 03/11/19 Vital Signs: Vital Signs Temperature 98.8 F 03/12/19 14:00 Pulse Rate 83 03/12/19 14:00 Respiratory Rate 20 03/12/19 14:00 Blood Pressure 99/66 03/12/19 14:00 O2 Sat by Pulse Oximetry (%) 100 03/12/19 09:00 Constitutional: Yes: No Distress Eyes: Yes: WNL HENT: Yes: WNL Neck: Yes: WNL Respiratory: Yes: CTA Bilaterally Gastrointestinal: Yes: Soft Cardiovascular: Yes: Regular Rate and Rhythm Heart Sounds: Yes: S1, S2 Edema: No Neurological: Yes: Alert, Oriented - Other Data Labs, Other Data: CBC, BMP 03/12/19 05:58 03/12/19 05:58 INR, PTT INR 1.28 (0.83-1.09) H 03/11/19 18:36 Troponin, BNP 03/11/19 18:36 Troponin I 0.04 B-Natriuretic Peptide 84853.6 H Troponin, BNP 03/11/19 18:36 Troponin I 0.04 B-Natriuretic Peptide 72833.6 H Assessment/Plan 69 year old female with a PMH of CAD, HTN, HLD, DM, and and Mi in october of 2018. Cardiac cath at [facility] on 10/15/18 showed a 99% stenosis of the mid LAD and an EF of 25%. A PCI of the LAD was performed. EF improved to 35%. She now presents with 2 - 3 days of shortness of breath, orthopnea, and bilateral lower extremity edema. BNP is 15,933 EKG shows NSR at 92 BPM with normal intervals, now QRS voltage, and PRWP across the anterior precordial leads. CHF Acute on chronic systolic CHF Lasix 40 mg IVSS BID Daily Wt's/Lytes/I's/O's Continue Toprol XL 25 mg PO daily CAD Continue aspirin 81 mg po daily Continue Lipitor 80- mg PO daily
[2019-03-12] MEDS: ATORVASTATIN CA 80 MG TABLET (FP) PO SCH (22:22)
[2019-03-13] MEDS: FUROSEMIDE 40 MG/4 ML INJECTABLE VIAL IVPUSH SCH ×2 (06:41→14:00)
[2019-03-13] MEDS: metFORMIN HCL 500 MG TABLET (FP) PO SCH ×2 (06:41→17:42)
[2019-03-13 06:56] LABS: BASO % 1.1 % (0-2.0); EOS % 3.3 % (0-4.5); HEMATOCRIT 26.8 % (32.4-45.2); HEMOGLOBIN 8.8 GM/dL (10.7-15.3); LYMPH % 25.3 % (8-40); MCH 23.6 pg (25.7-33.7); MEAN CELL VOLUME 71.5 fl (80-96); MEAN PLT VOLUME 8.2 fl (7.5-11.1); MONO % 5.6 % (3.8-10.2); NEUT % 64.7 % (42.8-82.8); PLATELET COUNT 271 K/MM3 (134-434); RBC 3.75 M/mm3 (3.60-5.2); RDW 17.7 % (11.6-15.6); WHITE BLOOD COUNT 6.5 K/mm3 (4.0-10.0)
[2019-03-13 07:12] LABS: ALBUMIN 3.1 g/dl (3.4-5.0); BILIRUBIN,TOTAL 1.1 mg/dL (0.2-1); BLOOD UREA NITROGEN 41.1 mg/dL (7-18); CALCIUM 8.8 mg/dL (8.5-10.1); CREATININE 1.1 mg/dL (0.55-1.3); N-TERMINAL BNP 12551.5 pg/ml (5-125); POTASSIUM 4.4 mmol/L (3.5-5.1); TOT PROT 6.6 g/dl (6.4-8.2)
[2019-03-13] MEDS: ASPIRIN 81 MG CHEWABLE TABLETS PO SCH (10:20)
[2019-03-13] MEDS: FERROUS SO4 325 MG TABLET (FP) PO SCH (10:20)
[2019-03-13] MEDS: metoPROLOL SUCCINATE 25 MG TAB.SR.24H (FP) PO SCH ×2 (10:20→10:23)
[2019-03-13] MEDS: HEPARIN NA (PORCINE) 5,000 UNITS/ML 1ML VIAL SQ SCH ×2 (10:20→21:16)
[2019-03-13] MEDS: CLOPIDOGREL BISULFATE 75 MG TABLET (FP) PO SCH (10:20)
[2019-03-13] MEDS: LISINOPRIL 10 MG TABLET (FP) PO SCH (10:21)
--- NOTE | 2019-03-13 10:46 | EKG ---
Test Reason : Blood Pressure : / mmHG Vent. Rate : 092 BPM Atrial Rate : 092 BPM P-R Int : 174 ms QRS Dur : 088 ms QT Int : 400 ms P-R-T Axes : 050 -19 071 degrees QTc Int : 494 ms NORMAL SINUS RHYTHM POSSIBLE LEFT ATRIAL ENLARGEMENT LOW VOLTAGE QRS POSSIBLE ANTEROLATERAL INFARCT (CITED ON OR BEFORE 24-DEC-2018) NONSPECIFIC T WAVE ABNORMALITY ABNORMAL ECG WHEN COMPARED WITH ECG OF 25-DEC-2018 00:39, COMPARED TO EKG NO SIGNIFICANT CHANGE IS FOUND Confirmed by SABIHA CALLOWAY MD ([id number]) on 03/13/2019 10:45:55 AM Referred By: Confirmed By:SBAIHA CALLOWAY MD
--- NOTE | 2019-03-13 13:34 | PN ---
Progress Note, Physician Chief Complaint: Presently comfortable History of Present Illness: This is a 69 year old female with a PMH of CAD, HTN, HLD, DM, and and Mi in october of 2018. Cardiac cath at [facility] on 10/15/18 showed a 99% stenosis of the mid LAD and an EF of 25%. A PCI of the LAD was performed. EF improved to 35% . She now presents with 2 - 3 days of shortness of breath, orthopnea, and bilateral lower extremity edema. BNP is 15,933 EKG shows NSR at 92 BPM with normal intervals, now QRS voltage, and PRWP across the anterior precordial leads. 03/13/19 Appears comfortable. - Current Medication List Current Medications: Active Medications Aspirin (Asa -) 81 mg PO DAILY [facility] Last Admin: 03/13/19 10:20 Dose: 81 mg Atorvastatin Calcium (Lipitor -) 80 mg PO HS [facility] Last Admin: 03/12/19 22:22 Dose: 80 mg Clopidogrel Bisulfate (Plavix -) 75 mg PO DAILY [facility] Last Admin: 03/13/19 10:20 Dose: 75 mg Ferrous Sulfate (Feosol -) 325 mg PO DAILY [facility] Last Admin: 03/13/19 10:20 Dose: 325 mg Furosemide (Lasix Injection -) 40 mg IVPUSH BID@0600,1400 [facility] Last Admin: 03/13/19 06:41 Dose: 40 mg Heparin Sodium (Porcine) (Heparin -) 5,000 unit SQ BID [facility] Last Admin: 03/13/19 10:20 Dose: 5,000 unit Lisinopril (Prinivil) 10 mg PO DAILY [facility] Last Admin: 03/13/19 10:21 Dose: Not Given Metformin HCl (Glucophage -) 1,000 mg PO BID@0700,1630 [facility] Last Admin: 03/13/19 06:41 Dose: 1,000 mg Metoprolol Succinate (Toprol Xl -) 25 mg PO DAILY [facility] Last Admin: 03/13/19 10:23 Dose: Not Given - Objective Vital Signs: Vital Signs Temperature 98.7 F 03/13/19 10:00 Pulse Rate 83 03/13/19 10:00 Respiratory Rate 16 03/13/19 10:00 Blood Pressure 95/61 03/13/19 10:00 O2 Sat by Pulse Oximetry (%) 97 03/13/19 09:00 Constitutional: Yes: No Distress Eyes: Yes: WNL HENT: Yes: WNL Neck: Yes: WNL Cardiovascular: Yes: Regular Rate and Rhythm, S1, S2 Respiratory: Yes: CTA Bilaterally Gastrointestinal: Yes: Soft Edema: LLE: Trace, RLE: Trace Neurological: Yes: Alert, Oriented Labs: CBC, BMP 03/13/19 05:50 03/13/19 05:50 INR, PTT INR 1.28 (0.83-1.09) H 03/11/19 18:36 Assessment/Plan 69 year old female with a PMH of CAD, HTN, HLD, DM, and and Mi in october of 2018. Cardiac cath at [facility] on 10/15/18 showed a 99% stenosis of the mid LAD and an EF of 25%. A PCI of the LAD was performed. EF improved to 35%. She now presents with 2 - 3 days of shortness of breath, orthopnea, and bilateral lower extremity edema. BNP is 15,933 EKG shows NSR at 92 BPM with normal intervals, now QRS voltage, and PRWP across the anterior precordial leads. CHF Acute on chronic systolic CHF Lasix 40 mg IVSS BID Daily Wt's/Lytes/I's/O's Continue Toprol XL 25 mg PO daily Would change to Lasix 40 mg PO daily tomorrow HCT 26%, may be contributing to "high output" CHF, consider transfusing if the anemia gets more significant CAD Continue aspirin 81 mg po daily Continue Lipitor 80- mg PO daily
--- NOTE | 2019-03-13 13:42 | PN ---
Progress Note, Physician Chief Complaint: shortness of breath improving History of Present Illness: Patient is a 69 year old female with PMHX of recent [place] ( 10/2018 s/p PCI-stent at [facility]), CAD, HTN/HLD, DM arrived to ED with complain of dry cough, B/l LE edema, SOB (at rest) at night for 2-3 days, also at times with sob in morning when walking. She is being admitted for CHF exacerbation. - Current Medication List Current Medications: Active Medications Aspirin (Asa -) 81 mg PO DAILY [facility] Last Admin: 03/13/19 10:20 Dose: 81 mg Atorvastatin Calcium (Lipitor -) 80 mg PO HS [facility] Last Admin: 03/12/19 22:22 Dose: 80 mg Clopidogrel Bisulfate (Plavix -) 75 mg PO DAILY [facility] Last Admin: 03/13/19 10:20 Dose: 75 mg Ferrous Sulfate (Feosol -) 325 mg PO DAILY [facility] Last Admin: 03/13/19 10:20 Dose: 325 mg Furosemide (Lasix Injection -) 40 mg IVPUSH BID@0600,1400 [facility] Last Admin: 03/13/19 06:41 Dose: 40 mg Heparin Sodium (Porcine) (Heparin -) 5,000 unit SQ BID [facility] Last Admin: 03/13/19 10:20 Dose: 5,000 unit Lisinopril (Prinivil) 10 mg PO DAILY [facility] Last Admin: 03/13/19 10:21 Dose: Not Given Metformin HCl (Glucophage -) 1,000 mg PO BID@0700,1630 [facility] Last Admin: 03/13/19 06:41 Dose: 1,000 mg Metoprolol Succinate (Toprol Xl -) 25 mg PO DAILY [facility] Last Admin: 03/13/19 10:23 Dose: Not Given - Objective Vital Signs: Vital Signs Temperature 98.7 F 03/13/19 10:00 Pulse Rate 83 03/13/19 10:00 Respiratory Rate 16 03/13/19 10:00 Blood Pressure 95/61 03/13/19 10:00 O2 Sat by Pulse Oximetry (%) 97 03/13/19 09:00 Constitutional: Yes: Well Nourished, No Distress, Calm Eyes: Yes: WNL HENT: Yes: WNL, Atraumatic Neck: Yes: Supple Cardiovascular: Yes: Regular Rate and Rhythm Respiratory: Yes: Regular, CTA Bilaterally Gastrointestinal: Yes: Normal Bowel Sounds ...Rectal Exam: Yes: WNL Edema: No Labs: CBC, BMP 03/13/19 05:50 03/13/19 05:50 INR, PTT INR 1.28 (0.83-1.09) H 03/11/19 18:36 Problem List - Problems (1) Acute exacerbation of CHF (congestive heart failure) Assessment/Plan: elevated bnk 15K on admission. chest xray with mild pulmonary congestion. bilateral pleural effusion and pulmonary edema on imaging lasix 40mg IV BID daily weights, strict intake and output pre and post prior to d/c cardiology following echo pending Code(s): I50.9 - HEART FAILURE, UNSPECIFIED Qualifiers: Heart failure type: unspecified Qualified Code(s): I50.9 - Heart failure, unspecified (2) Diabetes Assessment/Plan: on metformin monitor bgms a1c 7.2. Code(s): E11.9 - TYPE 2 DIABETES MELLITUS WITHOUT COMPLICATIONS (3) MARCELLA (acute kidney injury) Assessment/Plan: - Code(s): N17.9 - ACUTE KIDNEY FAILURE, UNSPECIFIED (4) HLD (hyperlipidemia) Assessment/Plan: on lipitor Code(s): E78.5 - HYPERLIPIDEMIA, UNSPECIFIED (5) HTN (hypertension) Assessment/Plan: monitor, hypotensive today Code(s): I10 - ESSENTIAL (PRIMARY) HYPERTENSION Visit type - Emergency Visit Emergency Visit: Yes ED Registration Date: 03/11/19 Care time: The patient presented to the Emergency Department on the above date and was hospitalized for further evaluation of their emergent condition. - New Patient This patient is new to me today: No - Critical Care Critical Care patient: No - Discharge Referral Referred to [facility] No
[2019-03-13] MEDS: ATORVASTATIN CA 80 MG TABLET (FP) PO SCH (21:16)
[2019-03-14] MEDS: metFORMIN HCL 500 MG TABLET (FP) PO SCH (06:20)
[2019-03-14] MEDS: FUROSEMIDE 40 MG/4 ML INJECTABLE VIAL IVPUSH SCH (06:20)
[2019-03-14] MEDS: ASPIRIN 81 MG CHEWABLE TABLETS PO SCH (09:28)
[2019-03-14] MEDS: FERROUS SO4 325 MG TABLET (FP) PO SCH (09:28)
[2019-03-14] MEDS: HEPARIN NA (PORCINE) 5,000 UNITS/ML 1ML VIAL SQ SCH (09:28)
[2019-03-14] MEDS: CLOPIDOGREL BISULFATE 75 MG TABLET (FP) PO SCH (09:28)
[2019-03-14] MEDS: LISINOPRIL 10 MG TABLET (FP) PO SCH (09:28)
[2019-03-14] MEDS: metoPROLOL SUCCINATE 25 MG TAB.SR.24H (FP) PO SCH (09:29)
--- NOTE | 2019-03-14 13:24 | DS ---
Physical Exam: SUBJECTIVE: Patient seen and examined at the bedside. for d/c home today. OBJECTIVE: Vital Signs Period Temp Pulse Resp BP Sys/Rae Pulse Ox Last 24 Hr 97.9 F-98.5 F 81-103 16-20 94-112/62-71 97-98 PHYSICAL EXAM GENERAL: The patient is awake, alert, and fully oriented, in no acute distress. HEAD: Normal with no signs of trauma. EYES: PERRL, extraocular movements intact, sclera anicteric, conjunctiva clear. ENT: Ears normal, nares patent, oropharynx clear without exudates, moist mucous membranes. NECK: Trachea midline, full range of motion, supple. LUNGS: Breath sounds equal, clear to auscultation bilaterally, no wheezes, no crackles, no accessory muscle use. HEART: Regular rate and rhythm, S1, S2 without murmur, rub or gallop. ABDOMEN: Soft, nontender, nondistended, normoactive bowel sounds, no guarding, no rebound, no hepatosplenomegaly, no masses. EXTREMITIES: 2+ pulses, warm, well-perfused, no edema. NEUROLOGICAL: Normal speech, gait not observed. LABS Laboratory Results - last 24 hr 03/13/19 03/14/19 18:22 05:44 POC Glucometer 192 107 HOSPITAL COURSE: Date of Admission:03/11/19 Date of Discharge: 03/14/19 Patient is a 69 year old female with PMHX of recent [place] ( 10/2018 s/p PCI-stent at [facility]), CAD, HTN/HLD, DM arrived to ED with complain of dry cough, B/l LE edema, SOB (at rest) at night for 2-3 days, also at times with sob in morning when walking. She was admitted for CHF exacerbation and has improved with lasix IV BId. She will be discharged home with lasix 40mg once daily and cardiology follow up. Minutes to complete discharge: 60 Discharge Summary Reason For Visit: CONGESTIVE HEART FAILURE Current Active Problems Acute exacerbation of CHF (congestive heart failure) (Acute) Anemia (Acute) Diabetes (Acute) Condition: Improved - Instructions Diet, Activity, Other Instructions: Mrs Silverman: You were admitted for shortness of breath and you were given Lasix IV. We have tested your oxygen and your oxygen is stable. Please see your medical record administrator by making an appointment for follow up. Continue Lasix 40mg ONCE per day. Please have your blood work repeated within 3-5 days to assure that your blood work remains stable. Thank you for allowing us to care for you. Referrals: Edwin Sagastume MD [Non Staff, Medical] - Disposition: HOME - Home Medications Comprehensive Discharge Medication List: Ambulatory Orders Aspirin 81 mg PO DAILY 10/15/18 Atorvastatin Ca [Lipitor] 80 mg PO HS 11/08/18 Clopidogrel Bisulfate [Plavix -] 75 mg PO DAILY 30 Days #30 tablet 11/11/18 Ferrous Sulfate [Feosol] 325 mg PO DAILY 30 Days #30 ud 11/11/18 Lisinopril [Prinivil] 10 mg PO DAILY 30 Days #30 tablet 11/11/18 Furosemide [Lasix] 40 mg PO DAILY #30 tablet 12/27/18 Metoprolol Succinate [Toprol XL -] 25 mg PO DAILY #30 tab.sr.24h 12/27/18 Metformin HCl [Glucophage] 1,000 mg PO BID 03/11/19 Furosemide [Lasix] 40 mg PO DAILY #30 tablet 03/14/19 Furosemide [Lasix] 40 mg PO DAILY #30 tablet 03/14/19 Problem List - Problems (1) Acute exacerbation of CHF (congestive heart failure) Assessment/Plan: elevated bnk 15K on admission. chest xray with mild pulmonary congestion. bilateral pleural effusion and pulmonary edema on imaging Continue Toprol XL 25 mg PO daily Lasix 40 mg PO Code(s): I50.9 - HEART FAILURE, UNSPECIFIED Qualifiers: Heart failure type: unspecified Qualified Code(s): I50.9 - Heart failure, unspecified (2) Diabetes Assessment/Plan: controlled. on metformin Code(s): E11.9 - TYPE 2 DIABETES MELLITUS WITHOUT COMPLICATIONS (3) HLD (hyperlipidemia) Assessment/Plan: on lipitor Code(s): E78.5 - HYPERLIPIDEMIA, UNSPECIFIED (4) HTN (hypertension) Assessment/Plan: stable Code(s): I10 - ESSENTIAL (PRIMARY) HYPERTENSION This patient is new to me today: No Emergency Visit: Yes ED Registration Date: 03/11/19 Care time: The patient presented to the Emergency Department on the above date and was hospitalized for further evaluation of their emergent condition. Critical Care patient: No - Discharge Referral Referred to [facility] No
[2019-03-14 14:01] LABS: BASO % 1.2 % (0-2.0); EOS % 2.5 % (0-4.5); HEMATOCRIT 28.9 % (32.4-45.2); HEMOGLOBIN 9.5 GM/dL (10.7-15.3); LYMPH % 25.1 % (8-40); MCH 23.5 pg (25.7-33.7); MCHC 32.7 g/dl (32.0-36.0); MEAN PLT VOLUME 7.8 fl (7.5-11.1); MONO % 5.7 % (3.8-10.2); NEUT % 65.5 % (42.8-82.8); PLATELET COUNT 328 K/MM3 (134-434); RBC 4.02 M/mm3 (3.60-5.2); RDW 17.9 % (11.6-15.6); WHITE BLOOD COUNT 6.8 K/mm3 (4.0-10.0)
--- NOTE | 2019-03-14 14:28 | ECHO ---
Name: LETHA WRIGHT Exam:Adult Echocardiogram Study Date: 03/14/2019 10:27 AM Age: 69 yrs Reason For Study: chf exacerbation Height: 65 in Weight: 185 lb BSA: 1.9 m2 MMode/2D Measurements & Calculations IVSd: 0.94 cm Ao root diam: 3.1 cm LVIDd: 6.0 cm LA dimension: 4.5 cm LVIDs: 5.3 cm ACS: 1.4 cm LVPWd: 1.2 cm IVSs: 0.85 cm LVPWs: 1.1 cm EDV(Teich): 178.9 ml ESV(Teich): 135.6 ml Doppler Measurements & Calculations MV E max edmond: 87.9 cm/sec Ao V2 max: 91.1 cm/sec MV A max edmond: 71.6 cm/sec Ao max P.3 mmHg MV E/A: 1.2 MR max edmond: 378.6 cm/sec TR max edmond: 296.7 cm/sec MR max P.4 mmHg TR max P.2 mmHg PI end-d edmond: 162.9 cm/sec Med Peak E' Edmond: 2.5 cm/sec Med E/e': 34.8 Lat Peak E' Edmond: 5.6 cm/sec Lat E/e': 15.7 Procedure A complete two-dimensional transthoracic echocardiogram was performed (2D, M-mode, Doppler and color flow Doppler). Left Ventricle The left ventricle is mildly dilated. Left ventricular systolic function is severely reduced. Ejectio n Fraction = 25-30%. Diastolic dysfunction, Grade II (pseudonormalization pattern). There is severe venita bal hypokinesis of the left ventricle. Right Ventricle The right ventricle is normal size. The right ventricular systolic function is mildly reduced. Atria The left atrium is mildly dilated. The right atrium is mildly dilated. Mitral Valve There is mild mitral valve thickening. There is moderate mitral regurgitation. Tricuspid Valve The tricuspid valve is normal in structure and function. There is mild to moderate tricuspid regurgit ation. Pulmonary artery systolic pressure is at least 41 mmHg assuming RA pressure of 3 mmHg. Aortic Valve There is mild aortic sclerosis.;. Trace to mild aortic regurgitation. Pulmonic Valve The pulmonic valve is not well visualized. Mild pulmonic valvular regurgitation. Great Vessels The aortic root is normal size. Pericardium/Pleura Moderate pericardial effusion (1-2 cm). Interpretation Summary The left ventricle is mildly dilated. Left ventricular systolic function is severely reduced. There is severe global hypokinesis of the left ventricle. Ejection Fraction = 25-30%. Diastolic dysfunction, Grade II (pseudonormalization pattern). The right ventricular systolic function is mildly reduced. The left atrium is mildly dilated. The right atrium is mildly dilated. There is mild mitral valve thickening. There is moderate mitral regurgitation. There is mild to moderate tricuspid regurgitation. Pulmonary artery systolic pressure is at least 41 mmHg assuming RA pressure of 3 mmHg There is mild aortic sclerosis. Trace to mild aortic regurgitation. Mild pulmonic valvular regurgitation. Moderate pericardial effusion (1-2 cm) Simon Davis MD 03/14/2019 02:28 PM
[2019-03-14 14:33] LABS: ALBUMIN 3.4 g/dl (3.4-5.0); BILIRUBIN,TOTAL 1.1 mg/dL (0.2-1); BLOOD UREA NITROGEN 34.9 mg/dL (7-18); CALCIUM 9.1 mg/dL (8.5-10.1); CREATININE 1.2 mg/dL (0.55-1.3); MAGNESIUM 1.9 mg/dL (1.8-2.4); POTASSIUM 4.4 mmol/L (3.5-5.1); TOT PROT 7.3 g/dl (6.4-8.2)
[2019-03-14 15:48] VITALS: BP 92/55; PULSE 82; TEMP 98.4
== END 2019-03-14 16:43 | disposition home or self-care (01) | DRG 292 ==
LOC: JER 16:23 → JERBED 21:53 → J4W 03-12 01:56
PROVIDERS: ADMIT Internal Medicine; ATTEND Nurse Practitioner Family
DX: I11.0 Hypertensive heart disease with heart failure (principal); I31.3 Pericardial effusion (noninflammatory); J98.11 Atelectasis; J81.1 Chronic pulmonary edema; J90 Pleural effusion, not elsewhere classified; N17.9 Acute kidney failure, unspecified; I50.23 Acute on chronic systolic (congestive) heart failure; E11.9 Type 2 diabetes mellitus without complications; E78.5 Hyperlipidemia, unspecified; I25.10 Atherosclerotic heart disease of native coronary artery without angina pectoris; I25.2 Old myocardial infarction; D64.9 Anemia, unspecified; Z95.5 Presence of coronary angioplasty implant and graft
CPT/HCPCS: 36415; 71045-TC-FY; 76604; 80048; 80053; 80061; 81003; 82550; 82962; 83036; 83721; 83735; 83880; 84484; 85025; 85027; 85610; 93005; 93010; 93306-TC; 93308; 94761; 99284-25; J1644

== ENCOUNTER 2019-03-21 07:52 | Inpatient (IN) | payer OTHER ==
[2019-03-21 07:59] VITALS: BMI 29.9
--- NOTE | 2019-03-21 08:33 | PDOC ---
History of Present Illness - General Chief Complaint: Shortness of Breath Stated Complaint: DIFF BREATHING Time Seen by Provider: 03/21/19 08:00 History Source: Patient Exam Limitations: No Limitations - History of Present Illness Initial Comments: 03/21/19 08:35 69 yo F pmh [place] (s/p stent 10/2018), CHF, HTN, HLD, DM presenting with one day of nausea, decreased appetite, chest tightness, and shortness of breath. Symptoms started with nausea and decreased appetite, no vomiting, f/c. SOB started last night and did not resolve this AM. Pt woke up with chest tightness this AM; denies chest pain, palpitations. Endorses generalized weakness. No sick contacts. Patient was recently admitted and discharged, has been taking home meds until today, has not had PCP f/u since ms. PMH: as above Meds: reviewed, see chart NKDA Past History - Past Medical History Allergies/Adverse Reactions: Allergies Allergy/AdvReac Type Severity Reaction Status Date / Time No Known Allergies Allergy Verified 03/21/19 08:16 Home Medications: Ambulatory Orders Aspirin 81 mg PO DAILY 10/15/18 Atorvastatin Ca [Lipitor] 80 mg PO HS 11/08/18 Clopidogrel Bisulfate [Plavix -] 75 mg PO DAILY 30 Days #30 tablet 11/11/18 Ferrous Sulfate [Feosol] 325 mg PO DAILY 30 Days #30 ud 11/11/18 Lisinopril [Prinivil] 10 mg PO DAILY 30 Days #30 tablet 11/11/18 Furosemide [Lasix] 40 mg PO DAILY #30 tablet 12/27/18 Metoprolol Succinate [Toprol XL -] 25 mg PO DAILY #30 tab.sr.24h 12/27/18 Metformin HCl [Glucophage] 1,000 mg PO BID 03/11/19 Furosemide [Lasix] 40 mg PO DAILY #30 tablet 03/14/19 Furosemide [Lasix] 40 mg PO DAILY #30 tablet 03/14/19 Anemia: No Asthma: Yes Cancer: No Cardiac Disorders: Yes (SOB/ Heart attack in October) CVA: No COPD: No CHF: Yes Dementia: No Diabetes: Yes GI Disorders: No Disorders: No HTN: Yes Hypercholesterolemia: Yes Liver Disease: No Seizures: No Thyroid Disease: No - Surgical History Abdominal Surgery: No Appendectomy: No Cardiac Surgery: No Cholecystectomy: No Lung Surgery: No Neurologic Surgery: No Orthopedic Surgery: No - Immunization History Immunization Up to Date: Yes - Suicide/Smoking/Psychosocial Hx Smoking History: Never smoked Have you smoked in the past 12 months: No Information on smoking cessation initiated: No Hx Alcohol Use: No Drug/Substance Use Hx: No Hx Substance Use Treatment: No Review of Systems - Review of Systems Able to Perform ROS?: Yes Is the patient limited [place] proficient: No Constitutional: Yes: See HPI, Loss of Appetite. No: Chills, Diaphoresis, Fever HEENTM: No: Symptoms Reported, See HPI, Eye Pain, Blurred Vision, Tearing, Recent change in vision, Double Vision, Cataracts, Ear Pain, Ocular Prothesis, Ear Discharge, Nose Pain, Nose Congestion, Tinnitus, Nose Bleeding, Hearing Loss , Throat Pain, Throat Swelling, Mouth Pain, Dental Problems, Difficulty Swallowing, Mouth Swelling, Other Respiratory: Yes: See HPI, Cough (nonproductive ), Orthopnea, Shortness of Breath. No: Wheezing, Productive cough Cardiac (ROS): Yes: Chest Tightness. No: Chest Pain, Irregular Heart Rate, Palpitations, Syncope ABD/GI: Yes: See HPI, Nausea, Poor Appetite, Poor Fluid Intake. No: Abdominal Distended, Abd. Pain w/ defecation, Constipated, Diarrhea, Difficulty Swallowing , Vomiting, Abdominal cramping : No: Burning, Dysuria, Discharge, Frequency, Hematuria, Incontinence, Pain, Urgency Musculoskeletal: No: Symptoms Reported, See HPI, Back Pain, Gout, Joint Pain, Joint Swelling, Muscle Pain, Muscle Weakness, Neck Pain, Joint Stiffness, Other Integumentary: Yes: Bruising Neurological: Yes: Weakness. No: Symptoms reported, See HPI, Headache, Numbness , Paresthesia, Pre-Existing Deficit, Seizure, Tingling, Tremors, Unsteady Gait, Ataxia, Dizziness, Other Psychiatric: No: Anxiety, Depression, Frequent Crying, Stressors, Sleep Pattern Change, Emotional Problems, Mood Swings, Change in Appetite, Other Endocrine: No: Symptoms Reported, See HPI, Excessive Sweating, Flushing, Intolerance to Cold, Intolerance to Heat, Increased Hunger, Increased Thirst, Increased Urine, Unexplained Weight Gain, Unexplained Weight Loss, Change in Weight, Other Hematologic/Lymphatic: No: Symptoms Reported, See HPI, Anemia, Blood Clots, Easy Bleeding, Easy Bruising, Bleeding Diathesis, Lymph Node Abnormalities, Swollen Glands, Other All Other Systems: Reviewed and Negative *Physical Exam - Vital Signs Last Vital Signs Temp Pulse Resp BP Pulse Ox 97.7 F 88 19 99/62 100 03/21/19 07:54 03/21/19 07:54 03/21/19 07:54 03/21/19 07:54 03/21/19 08:09 - Physical Exam Comments: 03/21/19 08:39 GEN: Resting comfortably in bed, NAD. HEENT: NC/AT, EOMI, PERRLA, CN II-XII intact. Moist mucous membranes. CV: S1/S2, RRR, no m/r/g LUNG: Bibasilar crackles. Normal respiratory effort. GI: soft, ndnt, +BS. There is umbilical bruising attributed to AC injections of last ingestion EXTREMITIES: Trace pitting edema of b/l LE. No obvious deformities of all extremities. NEURO: AAOx3, conversing appropriately, moving all extremities. Heart Score/ECG Review - History History: Moderately suspicious - Age Age: >/= 65 - Risk Factors Risk Factors Heart Score: Yes Hx Hypercholesterolemia, Yes Hx Hypertension, Yes Hx Diabetes Based on the list above the patient has:: >/=3 risk factors or Hx atherosclerotic disease ED Treatment Course - LABORATORY CBC & Chemistry Diagram: 03/21/19 08:25 03/23/19 06:59 - RADIOLOGY Radiology Studies Ordered: Category Date Time Status CHEST X-RAY PORTABLE* [RAD] Stat Radiology 03/21/19 08:19 Ordered Medical Decision Making - Medical Decision Making 03/21/19 08:44 69 yo F pmh PA s/p stent 10/2018, HTN, HLD, CAD, CHF, DM presenting with SOB, chest tightness, nausea, and generalized weakness. No f/c/chest pain/sick contacts. Trace pitting b/l le edema on exam otherwise benign. Patient did not take home meds today. DDx - ACS, CHF exacerbation, Unlikely DKA/HHC, PE SOB, chest tightness, nausea - Cardiac, CBC, CMP, BNP - EKG, CXR - ASA, protonix - consider lasix - admit tele-obs 03/21/19 09:14 CXR shows no acute pathology EKG - NSR, poor progression, unchanged from previous EKG 03/21/19 09:22 Labs reviewed - initial trops neg - elevated BNP - lasix 03/21/19 10:[address] Sheldon (on-call), admit to obs-tele. - Will send D-dimer for r/o PE 03/21/19 10:22 Spoke to lab regarding add-on D-dimer 03/21/19 11:37 Elevated D-dimer -> CTA CTA neg for PE *DC/Admit/Observation/Transfer Diagnosis at time of Disposition: Shortness of breath - Discharge Dispostion Decision to Admit order: Yes - Referrals - Patient Instructions - Post Discharge Activity
[2019-03-21] MEDS ORDERED: PANTOPRAZOLE SODIUM 40 MG VIAL IVPUSH ONE (08:49)
[2019-03-21] MEDS ORDERED: ASPIRIN 81 MG CHEWABLE TABLETS PO ONE (08:49)
[2019-03-21] MEDS ORDERED: ASPIRIN 81 MG CHEWABLE TABLETS ONE (08:56)
[2019-03-21] MEDS ORDERED: PANTOPRAZOLE SODIUM 40 MG VIAL ONE (08:56)
[2019-03-21 08:57] LABS: BASO % 1.3 % (0-2.0); EOS % 0.6 % (0-4.5); HEMATOCRIT 27.5 % (32.4-45.2); HEMOGLOBIN 8.9 GM/dL (10.7-15.3); LYMPH % 21.7 % (8-40); MCH 23.4 pg (25.7-33.7); MCHC 32.5 g/dl (32.0-36.0); MEAN CELL VOLUME 71.8 fl (80-96); MEAN PLT VOLUME 8.2 fl (7.5-11.1); MONO % 6.9 % (3.8-10.2); NEUT % 69.5 % (42.8-82.8); PLATELET COUNT 332 K/MM3 (134-434); RBC 3.83 M/mm3 (3.60-5.2); RDW 17.9 % (11.6-15.6); WHITE BLOOD COUNT 6.3 K/mm3 (4.0-10.0)
[2019-03-21 09:21] LABS: ALBUMIN 3.3 g/dl (3.4-5.0); BILIRUBIN,TOTAL 1.1 mg/dL (0.2-1); BLOOD UREA NITROGEN 40.7 mg/dL (7-18); CALCIUM 8.8 mg/dL (8.5-10.1); CREATININE 1.3 mg/dL (0.55-1.3); MAGNESIUM 1.9 mg/dL (1.8-2.4)
[2019-03-21 09:30] LABS: INR 1.43 (0.83-1.09); PROTHROMBIN TIME (PATIENT) 16.9 SEC (9.7-13.0)
[2019-03-21] MEDS ORDERED: FUROSEMIDE 40 MG/4 ML INJECTABLE VIAL IVPUSH ONE (09:31)
[2019-03-21] MEDS ORDERED: FUROSEMIDE 40 MG/4 ML INJECTABLE VIAL ONE (09:36)
--- NOTE | 2019-03-21 09:37 | PDOC ---
Documentation entered by Zeina Yang SCRIBE, acting as scribe for Sachin Gunn MD. Sachin Gunn MD: This documentation has been prepared by the Trey manley Xhesika, SCRIBE, under my direction and personally reviewed by me in its entirety. I confirm that the documentation accurately reflects all work, treatment, procedures, and medical decision making performed by me. Attending Attestation - Resident Resident Name: Óscar Ratliff - ED Attending Attestation I have performed the following: I have examined & evaluated the patient, The case was reviewed & discussed with the resident, I agree w/resident's findings & plan - HPI HPI: 03/21/19 09:22 The patient is a 69 year old female with a significant PMH of [place] (s/p stent 2018), CHF, HTN, HLD, DM who presents to the emergency department with several days of generalized weakness, chest tightness and increased shortness of breath. Pt felt well upon discharge from [facility] last week, but over the last 3-4 days developed weakness with increased difficulty breathing. no cough/f/c. nausea and decreased appetite with early satiety, but no v/d/c. no urinary complaints. Patient notes she woke up this morning and her symptoms were persistent which prompted her arrival to the ED. The patient denies headache and dizziness. Denies fever, chills, cough, vomiting , diarrhea and constipation. Denies dysuria, frequency, urgency and hematuria. Allergies: NKDA PCP: Dr. All Sotomayor Multiple Pressure Riveter Operator: Dr. Velazquez - Physicial Exam PE: 03/21/19 09:33 Vital signs stable, afebrile No acute distress lying in stretcher, speaking full sentences No jaundice or pallor Heart is regular Bibasilar crackles, otherwise clear Abdomen soft/nontender/nondistended, no focal guarding or rebound One plus pitting edema bilaterally without calf tenderness - Medical Decision Making 03/21/19 09:33 69-year-old female with extensive cardiac history including recent [place] with LAD stent, recent admission for similar complaints, echo with low EF, pt on lasix. likely acute on chronic CHF with possible angina, will likely need additional medical optimization. labs, cxr ekg asa, lasix discuss with cardiology team, likely tele monitoring Heart Score/ECG Review #1 ECG reviewed & interpreted by me at: 08:00 General ECG Interpretation: Sinus Rhythm, Normal Rate (85), Normal Intervals ( qtc 466, LAFB), No acute ischemic changes (anterolateral infarct unchanged from 03/11/19)
--- NOTE | 2019-03-21 11:49 | EKG ---
Test Reason : Blood Pressure : / mmHG Vent. Rate : 085 BPM Atrial Rate : 085 BPM P-R Int : 166 ms QRS Dur : 092 ms QT Int : 392 ms P-R-T Axes : 041 -53 062 degrees QTc Int : 466 ms NORMAL SINUS RHYTHM LEFT ANTERIOR FASCICULAR BLOCK POOR R WAVE PROGRESSION ANTEROLATERAL INFARCT (CITED ON OR BEFORE 24-DEC-2018) ABNORMAL ECG WHEN COMPARED WITH ECG OF 11-MAR-2019 16:28, NO SIGNIFICANT CHANGE WAS FOUND Confirmed by KAITLYNN GRACIA MD ([id number]) on 03/21/2019 11:49:26 AM Referred By: Confirmed By:KAITLYNN GRACIA MD
--- NOTE | 2019-03-21 16:53 | HP ---
Admitting History and Physical - Primary Care Physician PCP: Mathew Sheldon - Admission History of Present Illness: 69 year old female with a significant PMH of [place] (s/p stent 10/2018), CHF, HTN, HLD, DM who presents to the emergency department with several days of generalized weakness, chest tightness and increased shortness of breath. Pt felt well upon discharge from [facility] last week, but over the last 3-4 days developed weakness with increased difficulty breathing. no cough/f/c. nausea and decreased appetite with early satiety, but no v/d/c. no urinary complaints. Patient notes she woke up this morning and her symptoms were persistent which prompted her arrival to the ED. - Past Medical History Cardiovascular: Yes: CAD, CHF, HTN, GA, Hyperlipdemia, Other Pulmonary: Yes: Asthma Heme/Onc: Yes: Anemia - Past Surgical History Past Surgical History: Yes: Stent (coronary) - Smoking History Smoking history: Never smoked Have you smoked in the past 12 months: No - Alcohol/Substance Use Hx Alcohol Use: No Home Medications - Allergies Allergies/Adverse Reactions: Allergies Allergy/AdvReac Type Severity Reaction Status Date / Time No Known Allergies Allergy Verified 03/21/19 08:16 - Home Medications Home Medications: Ambulatory Orders Aspirin 81 mg PO DAILY 10/15/18 Atorvastatin Ca [Lipitor] 80 mg PO HS 11/08/18 Clopidogrel Bisulfate [Plavix -] 75 mg PO DAILY 30 Days #30 tablet 11/11/18 Ferrous Sulfate [Feosol] 325 mg PO DAILY 30 Days #30 ud 11/11/18 Lisinopril [Prinivil] 10 mg PO DAILY 30 Days #30 tablet 11/11/18 Metoprolol Succinate [Toprol XL -] 25 mg PO DAILY #30 tab.sr.24h 12/27/18 Metformin HCl [Glucophage] 1,000 mg PO BID 03/11/19 Furosemide [Lasix] 40 mg PO BID #60 tablet 03/23/19 Physical Examination Vital Signs: Vital Signs Temperature 97.7 F 03/21/19 07:54 Pulse Rate 82 03/21/19 15:00 Respiratory Rate 17 03/21/19 15:00 Blood Pressure 108/78 03/21/19 15:00 O2 Sat by Pulse Oximetry (%) 98 03/21/19 15:19 Constitutional: Yes: No Distress HENT: Yes: Atraumatic Neck: Yes: Supple Cardiovascular: Yes: Regular Rate and Rhythm Respiratory: Yes: Rhonchi Gastrointestinal: Yes: Normal Bowel Sounds Extremities: Yes: WNL Edema: Yes Edema: LLE: Trace, RLE: Trace Peripheral Pulses WNL: Yes Neurological: Yes: Alert, Oriented Labs: CBC, BMP 03/21/19 08:25 03/21/19 08:25 Imaging - Results Cat Scan: Report Reviewed Problem List - Problems (1) Shortness of breath Code(s): R06.02 - SHORTNESS OF BREATH (2) Acute exacerbation of CHF (congestive heart failure) Assessment/Plan: on iv lasix monitor lytes cardiology consult Code(s): I50.9 - HEART FAILURE, UNSPECIFIED Qualifiers: (3) CAD (coronary artery disease) Code(s): I25.10 - ATHSCL HEART DISEASE OF [place] CORONARY ARTERY W/O ANG PCTRS (4) Diabetes Assessment/Plan: bgms insulin Code(s): E11.9 - TYPE 2 DIABETES MELLITUS WITHOUT COMPLICATIONS (5) HLD (hyperlipidemia) Assessment/Plan: on meds Code(s): E78.5 - HYPERLIPIDEMIA, UNSPECIFIED (6) HTN (hypertension) Assessment/Plan: on meds Code(s): I10 - ESSENTIAL (PRIMARY) HYPERTENSION Assessment/Plan Laboratory Tests 03/21/19 03/21/19 03/21/19 08:00 08:25 08:25 WBC 6.3 RBC 3.83 Hgb 8.9 L Hct 27.5 L MCV 71.8 L MCH 23.4 L MCHC 32.5 RDW 17.9 H Plt Count 332 MPV 8.2 Absolute Neuts (auto) 4.4 Neutrophils % 69.5 Lymphocytes % 21.7 Monocytes % 6.9 Eosinophils % 0.6 Basophils % 1.3 Nucleated RBC % 0 PT with INR INR Fibrinogen 388.0 D-Dimer Sodium 138 Potassium 5.0 Chloride 104 Carbon Dioxide 24 Anion Gap 10 BUN 40.7 H Creatinine 1.3 Est GFR (CKD-EPI)AfAm 48.47 Est GFR (CKD-EPI)NonAf 41.82 POC Glucometer Random Glucose 151 H Calcium 8.8 Magnesium 1.9 Total Bilirubin 1.1 H AST 84 H ALT 72 H Alkaline Phosphatase 70 Creatine Kinase 60 Troponin I 0.03 B-Natriuretic Peptide Total Protein 7.0 Albumin 3.3 L 08/05/19 08/05/19 08/05/19 08:25 08:25 10:20 WBC RBC Hgb Hct MCV MCH MCHC RDW Plt Count MPV Absolute Neuts (auto) Neutrophils % Lymphocytes % Monocytes % Eosinophils % Basophils % Nucleated RBC % PT with INR 16.90 H INR 1.43 H Fibrinogen D-Dimer 1335 H Sodium Potassium Chloride Carbon Dioxide Anion Gap BUN Creatinine Est GFR (CKD-EPI)AfAm Est GFR (CKD-EPI)NonAf POC Glucometer Random Glucose Calcium Magnesium Total Bilirubin AST ALT Alkaline Phosphatase Creatine Kinase Troponin I B-Natriuretic Peptide 63839.0 H Total Protein Albumin 03/21/19 03/21/19 11:33 16:38 WBC RBC Hgb Hct MCV MCH MCHC RDW Plt Count MPV Absolute Neuts (auto) Neutrophils % Lymphocytes % Monocytes % Eosinophils % Basophils % Nucleated RBC % PT with INR INR Fibrinogen D-Dimer Sodium Potassium Chloride Carbon Dioxide Anion Gap BUN Creatinine Est GFR (CKD-EPI)AfAm Est GFR (CKD-EPI)NonAf POC Glucometer 177 Random Glucose Calcium Magnesium Total Bilirubin AST ALT Alkaline Phosphatase Creatine Kinase Troponin I 0.03 B-Natriuretic Peptide Total Protein Albumin Active Medications Generic Name Dose Route Start Last Admin Trade Name Freq PRN Reason Stop Dose Admin Aspirin 81 mg 03/22/19 10:00 03/22/19 11:06 Asa - PO 81 mg DAILY KEYSHA Administration Atorvastatin Calcium 80 mg 03/21/19 22:00 03/21/19 22:07 Lipitor - PO 80 mg HS KEYSHA Administration Clopidogrel Bisulfate 75 mg 03/22/19 10:00 03/22/19 11:08 Plavix - PO 75 mg DAILY KEYSHA Administration Ferrous Sulfate 325 mg 03/22/19 10:00 03/22/19 11:07 Feosol - PO 325 mg DAILY KEYSHA Administration Furosemide 40 mg 03/23/19 10:00 Lasix Injection - IVPUSH DAILY [facility] Heparin Sodium (Porcine) 5,000 unit 03/21/19 22:00 03/22/19 11:08 Heparin - SQ 5,000 unit BID KEYSHA Administration Insulin Aspart 1 vial 03/21/19 22:00 03/22/19 16:58 Novolog Vial Sliding Scale - SQ 2 units ACHS KEYSHA Administration Protocol Lisinopril 10 mg 03/22/19 10:00 03/22/19 11:08 Prinivil PO 10 mg DAILY KEYSHA Administration Metoprolol Succinate 25 mg 03/22/19 10:00 03/22/19 11:09 Toprol Xl - PO 25 mg DAILY KEYSHA Administration
[2019-03-21] MEDS: HEPARIN NA (PORCINE) 5,000 UNITS/ML 1ML VIAL SQ SCH (22:07)
[2019-03-21] MEDS: INSULIN SLIDING SCALE (NOVOLOG) 1 VIAL SQ SCH (22:07)
[2019-03-21] MEDS: ATORVASTATIN CA 80 MG TABLET (FP) PO SCH (22:07)
[2019-03-22] MEDS: INSULIN SLIDING SCALE (NOVOLOG) 1 VIAL SQ SCH ×4 (06:00→21:58)
[2019-03-22] MEDS ORDERED: FUROSEMIDE 40 MG TABLET (FP) PO SCH (10:00)
[2019-03-22] MEDS: ASPIRIN 81 MG CHEWABLE TABLETS PO SCH (11:06)
[2019-03-22] MEDS: FERROUS SO4 325 MG TABLET (FP) PO SCH (11:07)
[2019-03-22] MEDS: HEPARIN NA (PORCINE) 5,000 UNITS/ML 1ML VIAL SQ SCH ×2 (11:08→21:58)
[2019-03-22] MEDS: LISINOPRIL 10 MG TABLET (FP) PO SCH (11:08)
[2019-03-22] MEDS: CLOPIDOGREL BISULFATE 75 MG TABLET (FP) PO SCH (11:08)
[2019-03-22] MEDS: metoPROLOL SUCCINATE 25 MG TAB.SR.24H (FP) PO SCH (11:09)
--- NOTE | 2019-03-22 15:22 | CON.CARD ---
Consult Consult Specialty:: Cardiology Referred by:: Dr. Sheldon Reason for Consultation:: SOB - History of Present Illness Chief Complaint: SOB and PND History of Present Illness: This is a 69 year old female with a PMH of CAD, HTN, HLD, DM, and and Mi in october of 2018. Cardiac cath at [facility] on 10/15/18 showed a 99% stenosis of the mid LAD and an EF of 25%. A PCI of the LAD was performed. EF improved to 35% . She now presents with 2 - 3 days of shortness of breath, orthopnea, and bilateral lower extremity edema. EKG shows NSR , Poor R wave progression, no acute changes. She denies CP but does have SOB, PND sx and exertional dyspnea, similar to previous admission recently when she was seen by [facility] (Dr. Power is her primary personnel research psychologist) Recent Echo EF 25-30% Pericardial effusion 1-2 cm, no tamponade Moderate MR D dimer elevated this admission: CTA chest neg PE, + pericardial effusion, b/l pleural effusions. Hx was obtained in [place]ic. - History Source History Provided By: Patient - Past Medical History Cardio/Vascular: Yes: CAD, CHF, HTN, CT, Hyperlipdemia, Other Pulmonary: Yes: Asthma ...: No Infectious Disease: No: AIDS, C-Diff, Herpes Zoster, HIV, MRSA, STD's, Tuberculosis, VREF, Other Psych: No: Addictions, Anxiety, Bipolar, Depression, Panic, Psychosis, Schizophrenia, Other Musculoskeletal: No: Bursitis, Chronic low back pain, Hemiparesis, Hemiplegia, Osteoarthritis, Paraplegia, Other Rheumatology: No: Fibromyalgia, Gout, Lupus, Rheumatoid Arthritis, Sarcoidosis, Vasculitis, Other ENT: No: Allergic Rhinitis, Sinusitis, Other Endocrine: No: Winston's Disease, Janet's Disease, Diabetes Insipidus, Diabetes Mellitus, Hyperparathyroidism, Hyperthyroidism, Hypothyroidism, Osteopenia, SIADH, Other Dermatology: No: Basal Cell, Cellulitis, Eczema, Melanoma, Psoriasis, Squamous Cell, Other - Past Surgical History Past Surgical History: Yes: Stent (coronary) - Alcohol/Substance Use Hx Alcohol Use: No - Smoking History Smoking history: Never smoked Have you smoked in the past 12 months: No - Social History History of Recent Travel: No Home Medications - Allergies Allergies/Adverse Reactions: Allergies Allergy/AdvReac Type Severity Reaction Status Date / Time No Known Allergies Allergy Verified 03/21/19 08:16 - Home Medications Home Medications: Ambulatory Orders Aspirin 81 mg PO DAILY 10/15/18 Atorvastatin Ca [Lipitor] 80 mg PO HS 11/08/18 Clopidogrel Bisulfate [Plavix -] 75 mg PO DAILY 30 Days #30 tablet 11/11/18 Ferrous Sulfate [Feosol] 325 mg PO DAILY 30 Days #30 ud 11/11/18 Lisinopril [Prinivil] 10 mg PO DAILY 30 Days #30 tablet 11/11/18 Furosemide [Lasix] 40 mg PO DAILY #30 tablet 12/27/18 Metoprolol Succinate [Toprol XL -] 25 mg PO DAILY #30 tab.sr.24h 12/27/18 Metformin HCl [Glucophage] 1,000 mg PO BID 03/11/19 Furosemide [Lasix] 40 mg PO DAILY #30 tablet 03/14/19 Furosemide [Lasix] 40 mg PO DAILY #30 tablet 03/14/19 Family Disease History - Family Disease History Family History: Unremarkable (not pertinent to this presentation) Review of Systems - Review of Systems Constitutional: reports: No Symptoms Eyes: reports: No Symptoms HENT: reports: No Symptoms Neck: reports: Other (+ JVD) Cardiovascular: reports: Shortness of Breath Respiratory: reports: SOB, SOB on Exertion Gastrointestinal: reports: No Symptoms Genitourinary: reports: No Symptoms Breasts: reports: No Symptoms Reported Musculoskeletal: reports: No Symptoms Integumentary: reports: No Symptoms Neurological: reports: No Symptoms Endocrine: reports: No Symptoms Hematology/Lymphatic: reports: No Symptoms Psychiatric: reports: No Symptoms - Risk Factors Known Risk Factors: Yes: Hypertension, Other (Known CAD, CHF) Vital Signs: Vital Signs Temperature 98.2 F 03/22/19 14:00 Pulse Rate 84 03/22/19 14:00 Respiratory Rate 20 03/22/19 14:00 Blood Pressure 94/58 L 03/22/19 14:00 O2 Sat by Pulse Oximetry (%) 99 03/22/19 09:00 Constitutional: Yes: No Distress, Calm Eyes: Yes: Conjunctiva Clear Respiratory: Yes: Other (rales at bases b/l) Gastrointestinal: Yes: Soft Cardiovascular: Yes: Regular Rate and Rhythm JVD: Yes Carotid Bruit: No PMI: Non-Displaced Heart Sounds: Yes: S1, S2, S3 Edema: No Neurological: Yes: Alert, Oriented ...Motor Strength: WNL - Other Data Labs, Other Data: CBC, BMP 03/21/19 08:25 03/21/19 08:25 INR, PTT INR 1.43 (0.83-1.09) H 03/21/19 08:25 Fibrinogen 388.0 mg/dL (238-498) 03/21/19 08:00 Troponin, BNP 03/21/19 21:35 Troponin I 0.03 Troponin, BNP 03/21/19 21:35 Troponin I 0.03 nsr 85, lafb, poor r wave pr, cannot r/o old anterloateral CT Echo: Report Reviewed Imaging - Results Cat Scan: Report Reviewed EKG: Image Reviewed Assessment/Plan IMP: 1. Acute on chronic systolic CHF 2. CAD s/p PCI LAD 3. MR 4. Chronic PHTN REC: 1. Telemetry 2. IV Lasix: 40mg daily w/ daily BMP to follow renal fx and electrolytes 3. Daily weights 4. Cont ASA/Plavix, recent PCI 5. High intensity statin for LDL goal 70mg/dl 6. Cont current dose beta paul, SURAJ 7. Would consider ischemic eval when euvolemic. Starting 03/23, [facility] will follow.
[2019-03-22] MEDS ORDERED: INSULIN (NOVOLOG) ASPART 100 UNITS/ML 10ML VIAL ONE (17:03)
--- NOTE | 2019-03-22 18:10 | PN ---
Progress Note, Physician History of Present Illness: feeling good - Current Medication List Current Medications: Active Medications Aspirin (Asa -) 81 mg PO DAILY [facility] Last Admin: 03/22/19 11:06 Dose: 81 mg Atorvastatin Calcium (Lipitor -) 80 mg PO HS [facility] Last Admin: 03/21/19 22:07 Dose: 80 mg Clopidogrel Bisulfate (Plavix -) 75 mg PO DAILY [facility] Last Admin: 03/22/19 11:08 Dose: 75 mg Ferrous Sulfate (Feosol -) 325 mg PO DAILY [facility] Last Admin: 03/22/19 11:07 Dose: 325 mg Furosemide (Lasix Injection -) 40 mg IVPUSH DAILY [facility] Heparin Sodium (Porcine) (Heparin -) 5,000 unit SQ BID [facility] Last Admin: 03/22/19 11:08 Dose: 5,000 unit Insulin Aspart (Novolog Vial Sliding Scale -) 1 vial SQ ACHS [facility]; Protocol Last Admin: 03/22/19 16:58 Dose: 2 units Lisinopril (Prinivil) 10 mg PO DAILY [facility] Last Admin: 03/22/19 11:08 Dose: 10 mg Metoprolol Succinate (Toprol Xl -) 25 mg PO DAILY [facility] Last Admin: 03/22/19 11:09 Dose: 25 mg - Objective Vital Signs: Vital Signs Temperature 98.2 F 03/22/19 14:00 Pulse Rate 84 03/22/19 14:00 Respiratory Rate 20 03/22/19 14:00 Blood Pressure 94/58 L 03/22/19 14:00 O2 Sat by Pulse Oximetry (%) 99 03/22/19 09:00 Constitutional: Yes: No Distress HENT: Yes: Atraumatic Neck: Yes: Supple Cardiovascular: Yes: Regular Rate and Rhythm Respiratory: Yes: CTA Bilaterally Gastrointestinal: Yes: Normal Bowel Sounds Extremities: Yes: WNL Edema: No Peripheral Pulses WNL: Yes Neurological: Yes: Alert, Oriented Labs: CBC, BMP 03/21/19 08:25 03/21/19 08:25 INR, PTT INR 1.43 (0.83-1.09) H 03/21/19 08:25 Fibrinogen 388.0 mg/dL (238-498) 03/21/19 08:00 Problem List - Problems (1) Shortness of breath Code(s): R06.02 - SHORTNESS OF BREATH (2) Acute exacerbation of CHF (congestive heart failure) Assessment/Plan: on iv lasix monitor lytes cardiology consult Code(s): I50.9 - HEART FAILURE, UNSPECIFIED Qualifiers: (3) CAD (coronary artery disease) Code(s): I25.10 - ATHSCL HEART DISEASE OF [place] CORONARY ARTERY W/O ANG PCTRS (4) Diabetes Assessment/Plan: bgvt insulin Code(s): E11.9 - TYPE 2 DIABETES MELLITUS WITHOUT COMPLICATIONS (5) HLD (hyperlipidemia) Assessment/Plan: on meds Code(s): E78.5 - HYPERLIPIDEMIA, UNSPECIFIED (6) HTN (hypertension) Assessment/Plan: on meds Code(s): I10 - ESSENTIAL (PRIMARY) HYPERTENSION
[2019-03-22] MEDS: ATORVASTATIN CA 80 MG TABLET (FP) PO SCH (21:58)
[2019-03-23] MEDS: INSULIN SLIDING SCALE (NOVOLOG) 1 VIAL SQ SCH ×4 (06:07→22:47)
[2019-03-23 08:44] LABS: BLOOD UREA NITROGEN 34.3 mg/dL (7-18); CALCIUM 8.8 mg/dL (8.5-10.1); CREATININE 1.2 mg/dL (0.55-1.3); MAGNESIUM 2.2 mg/dL (1.8-2.4); POTASSIUM 4.6 mmol/L (3.5-5.1)
[2019-03-23] MEDS: LISINOPRIL 10 MG TABLET (FP) PO SCH (09:35)
[2019-03-23] MEDS: ASPIRIN 81 MG CHEWABLE TABLETS PO SCH (09:35)
[2019-03-23] MEDS: CLOPIDOGREL BISULFATE 75 MG TABLET (FP) PO SCH (09:35)
[2019-03-23] MEDS: FUROSEMIDE 40 MG/4 ML INJECTABLE VIAL IVPUSH SCH (09:35)
[2019-03-23] MEDS: HEPARIN NA (PORCINE) 5,000 UNITS/ML 1ML VIAL SQ SCH ×2 (09:35→22:47)
[2019-03-23] MEDS: FERROUS SO4 325 MG TABLET (FP) PO SCH (09:35)
[2019-03-23] MEDS: metoPROLOL SUCCINATE 25 MG TAB.SR.24H (FP) PO SCH (09:35)
--- NOTE | 2019-03-23 13:45 | PN ---
Progress Note, Physician Chief Complaint: Shortness of breath History of Present Illness: This is a 69 year old female with a PMH of CAD, HTN, HLD, DM, and and Mi in october of 2018. [facility] showed a 99% stenosis of the mid LAD and an EF of 25%. A PCI of the LAD was performed. EF improved to 35% . She now presents with 2 - 3 days of shortness of breath, orthopnea, and bilateral lower extremity edema. - Current Medication List Current Medications: Active Medications Aspirin (Asa -) 81 mg PO DAILY [facility] Last Admin: 03/23/19 09:35 Dose: 81 mg Atorvastatin Calcium (Lipitor -) 80 mg PO HS [facility] Last Admin: 03/22/19 21:58 Dose: 80 mg Clopidogrel Bisulfate (Plavix -) 75 mg PO DAILY [facility] Last Admin: 03/23/19 09:35 Dose: 75 mg Ferrous Sulfate (Feosol -) 325 mg PO DAILY [facility] Last Admin: 03/23/19 09:35 Dose: 325 mg Furosemide (Lasix Injection -) 40 mg IVPUSH DAILY [facility] Last Admin: 03/23/19 09:35 Dose: 40 mg Heparin Sodium (Porcine) (Heparin -) 5,000 unit SQ BID [facility] Last Admin: 03/23/19 09:35 Dose: 5,000 unit Insulin Aspart (Novolog Vial Sliding Scale -) 1 vial SQ ACHS [facility]; Protocol Last Admin: 03/23/19 12:20 Dose: 6 units Lisinopril (Prinivil) 10 mg PO DAILY [facility] Last Admin: 03/23/19 09:35 Dose: 10 mg Metoprolol Succinate (Toprol Xl -) 25 mg PO DAILY [facility] Last Admin: 03/23/19 09:35 Dose: 25 mg - Objective Vital Signs: Vital Signs Temperature 98.4 F 03/23/19 08:55 Pulse Rate 86 03/23/19 08:55 Respiratory Rate 20 03/23/19 09:00 Blood Pressure 107/72 03/23/19 08:55 O2 Sat by Pulse Oximetry (%) 99 03/23/19 09:00 Constitutional: Yes: Well Nourished, No Distress, Calm Eyes: Yes: WNL, Conjunctiva Clear, EOM Intact HENT: Yes: WNL, Atraumatic, Normocephalic Neck: Yes: WNL, Supple, Trachea Midline Cardiovascular: Yes: Regular Rate and Rhythm, S1, S2 Respiratory: Yes: Regular, Rales Gastrointestinal: Yes: WNL, Normal Bowel Sounds, Soft ...Rectal Exam: Yes: Deferred Genitourinary: Yes: WNL Edema: Yes Edema: LLE: Trace, RLE: Trace Peripheral Pulses: Left Radial: 2+, Right Radial: 2+, Left Doralis Pedis: 2+, Right Dorsalis Pedis: 2+, Left Femoral: 2+, Right Femoral: 2+ Neurological: Yes: WNL, Alert, Oriented ...Motor Strength: WNL Psychiatric: Yes: WNL, Alert, Oriented Labs: CBC, BMP 03/21/19 08:25 03/23/19 06:59 INR, PTT INR 1.43 (0.83-1.09) H 03/21/19 08:25 Fibrinogen 388.0 mg/dL (238-498) 03/21/19 08:00 Assessment/Plan This is a 69 year old female with a PMH of CAD, HTN, HLD, DM, and and Mi in october of 2018. [facility] showed a 99% stenosis of the mid LAD and an EF of 25%. A PCI of the LAD was performed. EF improved to 35% . She now presents with 2 - 3 days of shortness of breath, orthopnea, and bilateral lower extremity edema. The patient is clinically and symptomatically improved. Hemodynamically stable. No chest pains. Breathing better. Continue intravenous Lasix today. Switch to oral Lasix 40 mg twice daily tomorrow. Continue the other medications as currently. No need for further cardiac workup at this point. Please do not hesitate to call us PRN.
--- NOTE | 2019-03-23 17:44 | ECHO ---
Name: LETHA WRIGHT Exam:Adult Echocardiogram Study Date: 03/23/2019 08:33 AM Age: 69 yrs Reason For Study: CHECK PERICARDIAL EFFUSION Height: 65 in Weight: 183 lb BSA: 1.9 m2 MMode/2D Measurements & Calculations IVSd: 0.91 cm EDV(Teich): 178.3 ml LVIDd: 6.0 cm ESV(Teich): 123.8 ml LVIDs: 5.1 cm LVPWd: 0.89 cm Doppler Measurements & Calculations AI P1/2t: 419.2 msec AI max boo: 248.6 cm/sec AI max P.8 mmHg AI dec slope: 173.7 cm/sec2 MR max boo: 378.7 cm/sec TR max boo: 282.9 cm/sec MR max P.4 mmHg TR max P.4 mmHg PI end-d boo: 176.5 cm/sec Left Ventricle The left ventricle is severely dilated. 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 Left ventricular sy stolic function is severely reduced. Ejection Fraction = 25-30%. Diastolic dysfunction, Grade III, consisten t with marked congestive heart failure. There is septal akinesis. There is moderate to severe anterior wall hypokinesis. There is moderate to severe lateral wall hypokinesis. There is apical dyskinesis. Atria The left atrium is severely dilated. Mitral Valve There is severe mitral regurgitation. Tricuspid Valve There is moderate to severe tricuspid regurgitation. Right ventricular systolic pressure is elevated at 50- 60mmHg. There is severe pulmonary hypertension. Assuming the RA pressure is 15 mmHg. Aortic Valve There is moderate aortic valve thickening. Moderate aortic regurgitation. Pulmonic Valve Moderate pulmonic valvular regurgitation. Pericardium/Pleura Moderate pericardial effusion (1-2 cm). There are no echocardiographic indications of cardiac tampona de. There is no significant change in the amount of pericardial fluid noted compared to 03/16/19. Interpretation Summary Moderate pulmonic valvular regurgitation. The left ventricle is severely dilated. Left ventricular systolic function is severely reduced. Diastolic dysfunction, Grade III, consistent with marked congestive heart failure. There is septal akinesis. There is moderate to severe anterior wall hypokinesis. Moderate pericardial effusion (1-2 cm) There are no echocardiographic indications of cardiac tamponade. There is no significant change in the amount of pericardial fluid noted compared to 03/16/19. There is moderate to severe lateral wall hypokinesis. There is moderate aortic valve thickening. There is moderate to severe tricuspid regurgitation. The left atrium is severely dilated. Ejection Fraction = 25-30%. 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 Moderate aortic regurgitation. There is severe pulmonary hypertension. Assuming the RA pressure is 15 mmHg Servando Monroy MD 03/23/2019 05:43 PM
--- NOTE | 2019-03-23 18:41 | PN ---
Progress Note, Physician History of Present Illness: was sob today - Current Medication List Current Medications: Active Medications Aspirin (Asa -) 81 mg PO DAILY [facility] Last Admin: 03/23/19 09:35 Dose: 81 mg Atorvastatin Calcium (Lipitor -) 80 mg PO HS [facility] Last Admin: 03/22/19 21:58 Dose: 80 mg Clopidogrel Bisulfate (Plavix -) 75 mg PO DAILY [facility] Last Admin: 03/23/19 09:35 Dose: 75 mg Ferrous Sulfate (Feosol -) 325 mg PO DAILY [facility] Last Admin: 03/23/19 09:35 Dose: 325 mg Furosemide (Lasix Injection -) 40 mg IVPUSH DAILY [facility] Last Admin: 03/23/19 09:35 Dose: 40 mg Heparin Sodium (Porcine) (Heparin -) 5,000 unit SQ BID [facility] Last Admin: 03/23/19 09:35 Dose: 5,000 unit Insulin Aspart (Novolog Vial Sliding Scale -) 1 vial SQ ACHS [facility]; Protocol Last Admin: 03/23/19 17:41 Dose: 2 units Lisinopril (Prinivil) 10 mg PO DAILY [facility] Last Admin: 03/23/19 09:35 Dose: 10 mg Metoprolol Succinate (Toprol Xl -) 25 mg PO DAILY [facility] Last Admin: 03/23/19 09:35 Dose: 25 mg - Objective Vital Signs: Vital Signs Temperature 98.4 F 03/23/19 14:01 Pulse Rate 82 03/23/19 14:01 Respiratory Rate 20 03/23/19 09:00 Blood Pressure 91/69 03/23/19 14:01 O2 Sat by Pulse Oximetry (%) 99 03/23/19 09:00 Constitutional: Yes: No Distress HENT: Yes: Atraumatic Neck: Yes: Supple Cardiovascular: Yes: Regular Rate and Rhythm Respiratory: Yes: Rales (left base) Gastrointestinal: Yes: Normal Bowel Sounds Extremities: Yes: WNL Edema: No Edema: LLE: Trace, RLE: Trace Peripheral Pulses WNL: Yes Neurological: Yes: Alert, Oriented Labs: CBC, BMP 03/21/19 08:25 03/23/19 06:59 INR, PTT INR 1.43 (0.83-1.09) H 03/21/19 08:25 Fibrinogen 388.0 mg/dL (238-498) 03/21/19 08:00 Problem List - Problems (1) Shortness of breath Assessment/Plan: on i/v lasix continue Code(s): R06.02 - SHORTNESS OF BREATH (2) Acute exacerbation of CHF (congestive heart failure) Assessment/Plan: on iv lasix monitor lytes cardiology consult Code(s): I50.9 - HEART FAILURE, UNSPECIFIED Qualifiers: (3) CAD (coronary artery disease) Code(s): I25.10 - ATHSCL HEART DISEASE OF [place] CORONARY ARTERY W/O ANG PCTRS (4) Diabetes Assessment/Plan: bgms insulin Code(s): E11.9 - TYPE 2 DIABETES MELLITUS WITHOUT COMPLICATIONS (5) HLD (hyperlipidemia) Assessment/Plan: on meds Code(s): E78.5 - HYPERLIPIDEMIA, UNSPECIFIED (6) HTN (hypertension) Assessment/Plan: on meds Code(s): I10 - ESSENTIAL (PRIMARY) HYPERTENSION
[2019-03-23] MEDS: ATORVASTATIN CA 80 MG TABLET (FP) PO SCH (22:47)
[2019-03-24] MEDS: INSULIN SLIDING SCALE (NOVOLOG) 1 VIAL SQ SCH ×4 (06:11→22:23)
[2019-03-24 07:49] LABS: BASO % 0.8 % (0-2.0); EOS % 2.3 % (0-4.5); HEMATOCRIT 26.3 % (32.4-45.2); HEMOGLOBIN 8.7 GM/dL (10.7-15.3); LYMPH % 22.9 % (8-40); MCH 23.7 pg (25.7-33.7); MCHC 32.9 g/dl (32.0-36.0); MEAN CELL VOLUME 72.1 fl (80-96); MONO % 6.6 % (3.8-10.2); NEUT % 67.4 % (42.8-82.8); RBC 3.65 M/mm3 (3.60-5.2); RDW 18.1 % (11.6-15.6); WHITE BLOOD COUNT 7.2 K/mm3 (4.0-10.0)
[2019-03-24 08:11] LABS: PLATELET COUNT 297 K/MM3 (134-434)
[2019-03-24 08:20] LABS: ALBUMIN 3.1 g/dl (3.4-5.0); BILIRUBIN,TOTAL 1.1 mg/dL (0.2-1); BLOOD UREA NITROGEN 33.7 mg/dL (7-18); CALCIUM 8.5 mg/dL (8.5-10.1); CREATININE 1.1 mg/dL (0.55-1.3); POTASSIUM 4.4 mmol/L (3.5-5.1); TOT PROT 6.7 g/dl (6.4-8.2)
[2019-03-24] MEDS ORDERED: PT OWN MED DRAWER 7, Y5N ONE (09:51)
[2019-03-24] MEDS: HEPARIN NA (PORCINE) 5,000 UNITS/ML 1ML VIAL SQ SCH ×2 (10:12→22:21)
[2019-03-24] MEDS: CLOPIDOGREL BISULFATE 75 MG TABLET (FP) PO SCH (10:12)
[2019-03-24] MEDS: ASPIRIN 81 MG CHEWABLE TABLETS PO SCH (10:12)
[2019-03-24] MEDS: FUROSEMIDE 40 MG/4 ML INJECTABLE VIAL IVPUSH SCH (10:12)
[2019-03-24] MEDS: FERROUS SO4 325 MG TABLET (FP) PO SCH (10:12)
[2019-03-24] MEDS: metoPROLOL SUCCINATE 25 MG TAB.SR.24H (FP) PO SCH (10:12)
[2019-03-24] MEDS: LISINOPRIL 10 MG TABLET (FP) PO SCH (10:12)
--- NOTE | 2019-03-24 16:45 | PN ---
Progress Note, Physician History of Present Illness: feeling better today - Current Medication List Current Medications: Active Medications Aspirin (Asa -) 81 mg PO DAILY [facility] Last Admin: 03/24/19 10:12 Dose: 81 mg Atorvastatin Calcium (Lipitor -) 80 mg PO HS [facility] Last Admin: 03/23/19 22:47 Dose: 80 mg Clopidogrel Bisulfate (Plavix -) 75 mg PO DAILY [facility] Last Admin: 03/24/19 10:12 Dose: 75 mg Ferrous Sulfate (Feosol -) 325 mg PO DAILY [facility] Last Admin: 03/24/19 10:12 Dose: 325 mg Furosemide (Lasix Injection -) 40 mg IVPUSH DAILY [facility] Last Admin: 03/24/19 10:12 Dose: 40 mg Heparin Sodium (Porcine) (Heparin -) 5,000 unit SQ BID [facility] Last Admin: 03/24/19 10:12 Dose: 5,000 unit Insulin Aspart (Novolog Vial Sliding Scale -) 1 vial SQ ACHS [facility]; Protocol Last Admin: 03/24/19 12:40 Dose: 8 units Lisinopril (Prinivil) 10 mg PO DAILY [facility] Last Admin: 03/24/19 10:12 Dose: 10 mg Metoprolol Succinate (Toprol Xl -) 25 mg PO DAILY [facility] Last Admin: 03/24/19 10:12 Dose: 25 mg - Objective Vital Signs: Vital Signs Temperature 98.3 F 03/24/19 14:00 Pulse Rate 83 03/24/19 14:00 Respiratory Rate 20 03/24/19 09:00 Blood Pressure 99/66 03/24/19 14:00 O2 Sat by Pulse Oximetry (%) 99 03/24/19 11:37 Constitutional: Yes: No Distress HENT: Yes: Atraumatic Neck: Yes: Supple Cardiovascular: Yes: Regular Rate and Rhythm Respiratory: Yes: Rales (much better) Gastrointestinal: Yes: Normal Bowel Sounds Extremities: Yes: WNL Edema: No Peripheral Pulses WNL: Yes Neurological: Yes: Alert, Oriented Labs: CBC, BMP 03/24/19 06:53 03/24/19 06:53 INR, PTT INR 1.43 (0.83-1.09) H 03/21/19 08:25 Fibrinogen 388.0 mg/dL (238-498) 03/21/19 08:00 Problem List - Problems (1) Shortness of breath Assessment/Plan: on i/v lasix continue much improved Code(s): R06.02 - SHORTNESS OF BREATH (2) Acute exacerbation of CHF (congestive heart failure) Assessment/Plan: on iv lasix monitor lytes cardiology consult Code(s): I50.9 - HEART FAILURE, UNSPECIFIED Qualifiers: (3) CAD (coronary artery disease) Code(s): I25.10 - ATHSCL HEART DISEASE OF [place] CORONARY ARTERY W/O ANG PCTRS (4) Diabetes Code(s): E11.9 - TYPE 2 DIABETES MELLITUS WITHOUT COMPLICATIONS (5) HLD (hyperlipidemia) Assessment/Plan: on meds Code(s): E78.5 - HYPERLIPIDEMIA, UNSPECIFIED (6) HTN (hypertension) Assessment/Plan: on meds Code(s): I10 - ESSENTIAL (PRIMARY) HYPERTENSION
[2019-03-24] MEDS: ATORVASTATIN CA 80 MG TABLET (FP) PO SCH (22:22)
[2019-03-25] MEDS: INSULIN SLIDING SCALE (NOVOLOG) 1 VIAL SQ SCH ×2 (06:54→12:15)
[2019-03-25] MEDS: metoPROLOL SUCCINATE 25 MG TAB.SR.24H (FP) PO SCH (09:41)
[2019-03-25] MEDS: ASPIRIN 81 MG CHEWABLE TABLETS PO SCH (09:42)
[2019-03-25] MEDS: FUROSEMIDE 40 MG/4 ML INJECTABLE VIAL IVPUSH SCH (09:42)
[2019-03-25] MEDS: CLOPIDOGREL BISULFATE 75 MG TABLET (FP) PO SCH (09:42)
[2019-03-25] MEDS: LISINOPRIL 10 MG TABLET (FP) PO SCH (09:42)
[2019-03-25] MEDS: HEPARIN NA (PORCINE) 5,000 UNITS/ML 1ML VIAL SQ SCH (09:42)
[2019-03-25] MEDS: FERROUS SO4 325 MG TABLET (FP) PO SCH (09:42)
[2019-03-25 09:55] VITALS: BP 108/68; PULSE 84; TEMP 98
--- NOTE | 2019-03-25 11:50 | DS ---
Physical Examination Vital Signs: Vital Signs Temperature 98 F 03/25/19 09:00 Pulse Rate 84 03/25/19 09:00 Respiratory Rate 18 03/25/19 09:00 Blood Pressure 108/68 03/25/19 09:00 O2 Sat by Pulse Oximetry (%) 99 03/24/19 21:00 Labs: CBC, BMP 03/24/19 06:53 03/24/19 06:53 Discharge Summary Reason For Visit: SOB Current Active Problems Shortness of breath (Acute) - Instructions - Home Medications Comprehensive Discharge Medication List: Ambulatory Orders Aspirin 81 mg PO DAILY 10/15/18 Atorvastatin Ca [Lipitor] 80 mg PO HS 11/08/18 Clopidogrel Bisulfate [Plavix -] 75 mg PO DAILY 30 Days #30 tablet 11/11/18 Ferrous Sulfate [Feosol] 325 mg PO DAILY 30 Days #30 ud 11/11/18 Lisinopril [Prinivil] 10 mg PO DAILY 30 Days #30 tablet 11/11/18 Metoprolol Succinate [Toprol XL -] 25 mg PO DAILY #30 tab.sr.24h 12/27/18 Metformin HCl [Glucophage] 1,000 mg PO BID 03/11/19 Furosemide [Lasix] 40 mg PO BID #60 tablet 03/23/19
== END 2019-03-25 14:44 | disposition home or self-care (01) | DRG 292 ==
LOC: JER 07:52 → JERBED 08:32 → OBSVTOIN 16:53 → J4W 17:01
PROVIDERS: ADMIT Internal Medicine; ATTEND Internal Medicine
DX: I11.0 Hypertensive heart disease with heart failure (principal); I31.3 Pericardial effusion (noninflammatory); I50.23 Acute on chronic systolic (congestive) heart failure; E11.9 Type 2 diabetes mellitus without complications; I25.10 Atherosclerotic heart disease of native coronary artery without angina pectoris; E78.5 Hyperlipidemia, unspecified; I27.20 Pulmonary hypertension, unspecified; Z98.61 Coronary angioplasty status
CPT/HCPCS: 36415; 71045-TC-FY; 71275-TC; 80048; 80053; 82550; 82962; 83735; 83880; 84484; 85025; 85379; 85384; 85610; 93005; 93010; 93306-TC; 94761; 97116-GP; 97161-GP; 99285-25; G0378; J1644

== ENCOUNTER 2019-03-28 19:18 | Emergency (ER) | payer OTHER ==
[~2019-03-28 19:18] MED LIST: ONDANSETRON 4 MG/2 ML VIAL IVPUSH ONE
--- NOTE | 2019-03-28 19:39 | PDOC ---
Rapid Medical Evaluation Time Seen by Provider: 03/28/19 19:38 Medical Evaluation: Allergies Allergy/AdvReac Type Severity Reaction Status Date / Time No Known Allergies Allergy Verified 03/21/19 08:16 03/28/19 19:38 HPI:Vomiting and diarrhea since yesterday PE:No distress SOB at night ORDERS: Belly labs Discharge Disposition - Diagnosis Vomiting - Referrals - Patient Instructions - Post Discharge Activity
[2019-03-28 19:43] VITALS: BMI 27.8
[2019-03-28] MEDS ORDERED: ONDANSETRON 4 MG/2 ML VIAL IVPB ONE (21:48)
[2019-03-28] MEDS ORDERED: LACTATED RINGERS SOLUTION 1000 ML INFUS.BAG IV ONE (21:49)
[2019-03-28] MEDS ORDERED: FAMOTIDINE 20 MG/50 ML IVPB 20 MG/50 ML MG IVPB ONE ×2 (21:50→22:58)
--- NOTE | 2019-03-28 22:04 | PDOC ---
History of Present Illness - General Chief Complaint: Vomiting/Diarrhea Stated Complaint: VOMITING/DIARRHEA Time Seen by Provider: 03/28/19 19:38 History Source: Patient, Spouse ( at bedside.), Old Records Exam Limitations: No Limitations - History of Present Illness Initial Comments: HPI: 69 y/o female presenting to [facility] ER complaining of two days of nausea, vomiting , and diarrhea. Emesis described as nonbloody and with yellow material. Diarrhea described as watery and without blood. Denies abdominal pain, back pain , and chest pain. Endorses feeling like her breathing is low but not labored or difficult. Overall feels weak. Expressed concern the symptoms are secondary to her heart because of her recent ME. Was evaluated by her counselling psychologist in clinic this morning. Was prescribed Zofran, Omeprazole, and Ranitidine but was unable to keep the medication down. Denies sick contacts. Medical Hx: - CAD s/p ME at [facility] on 15 October 2018 w/ 99% stenosis of the mid LAD and an EF of 25%. A PCI of the LAD was performed. EF improved to 35%. - HTN - HLD - DM Review of Systems: In addition to that documented in the HPI above, the additional ROS was obtained : Constitutional: Denies fevers or chills Head: Denies vision changes ENMT: Denies sore throat CV: Denies chest pain, arm pain, back pain, or neck pain Resp: Denies productive cough or URI symptoms GI: Per HPI. : Denies painful urination MSK: Denies recent trauma Skin: Denies new rashes Neuro: Denies new numbness or tingling or weakness Endocrine: Denies polyuria Heme: Denies bleeding or bruising Physical Examination: Constitutional: Well-developed, well-nourished, nontoxic elderly adult female in no acute distress or obvious discomfort. Obese body habitus. Found semi- fowlers on hospital bed. Alert and oriented x4. Answered all questions appropriately and completely. Speech was non-labored, non-pressured. Head: Normocephalic. No obvious external signs of trauma. Eyes: Sclerae white. Conjunctiva moist and not injected. Ears: Hearing grossly intact. Nose: No nasal discharge. Throat: Oral cavity and pharynx normal. No inflammation, swelling, exudate, or lesions. Teeth and gingiva in good general condition. Moist mucosal membrane. Neck: Supple, trachea is midline. Cardiovascular / Chest: Regular rate and regular rhythm. No murmur, rubs, clicks , or gallops. Peripheral pulses: radial pulses full. 1+ pretibial edema bilaterally. Respiratory: Breathing unlabored. Equal chest rise and fall. Clear to auscultation bilaterally. No stridor, no wheezing, no rhonchi. Gastrointestinal: abdomen is soft, non-tender, non-distended. No pulsatile masses. Lower abdominal bruising. Neuro: Alert and oriented. Moving all four extremities spontaneously. Skin: [place], warm, and dry. Psych: Affect: appropriate. Mood: normal. MDM: *Reviewed vital signs, nursing notes, and prior visit documentation (if available). 69 y/o female presenting with N/V/D x2 days. Nonbloody and nonbilious. No recent abx usage. Afebrile. Vitals unremarkable for hypotension or tachycardia. Physical exam as described above. No acute abdominal signs. Abdominal bruising likely from subcutaneous injections during last hospitalization. Ordered Zofran , Famotidine, and LR IVFB for symptom relief. No indication for imaging without pain or concerning physical exam findings. CBC unremarkable for leukocytosis. Anemia is chronic according to previous [facility] records. Low suspicion for acute clinical relevance. CMP unremarkable for significant electrolyte derangement, LFT elevation, or impaired renal function. Lipase not elevated. Suspect likely acute gastroenteritis. Pt reasessed. Abdominal exam unchanged. No acute abdominal signs. Discussed imaging and laboratory results with pt. Answered all questions. Provided return precautions. Pt expressed verbal understanding and agreement with plan to discharge home with outpatient follow up. Borderline hypotensive on discharge vitals. Several similar measurements over the past several visits this year. Suspect this is a normal finding. Nithin Brooks M.D., PGY2 Emergency Medicine Resident Past History - Past Medical History Allergies/Adverse Reactions: Allergies Allergy/AdvReac Type Severity Reaction Status Date / Time No Known Allergies Allergy Verified 03/21/19 08:16 Home Medications: Ambulatory Orders Aspirin 81 mg PO DAILY 10/15/18 Atorvastatin Ca [Lipitor] 80 mg PO HS 11/08/18 Clopidogrel Bisulfate [Plavix -] 75 mg PO DAILY 30 Days #30 tablet 11/11/18 Ferrous Sulfate [Feosol] 325 mg PO DAILY 30 Days #30 ud 11/11/18 Lisinopril [Prinivil] 10 mg PO DAILY 30 Days #30 tablet 11/11/18 Metoprolol Succinate [Toprol XL -] 25 mg PO DAILY #30 tab.sr.24h 12/27/18 Metformin HCl [Glucophage] 1,000 mg PO BID 03/11/19 Furosemide [Lasix] 40 mg PO BID #60 tablet 03/23/19 Ondansetron [Zofran *Odt*] 8 mg SL TID PRN #15 od.tablet 03/29/19 Anemia: Yes Asthma: Yes Cancer: No Cardiac Disorders: Yes (ME) CVA: No COPD: No CHF: Yes Dementia: No Diabetes: Yes GI Disorders: No Disorders: No HTN: Yes Hypercholesterolemia: Yes Liver Disease: No Seizures: No Thyroid Disease: No - Surgical History Abdominal Surgery: No Appendectomy: No Cardiac Surgery: No Cholecystectomy: No Lung Surgery: No Neurologic Surgery: No Orthopedic Surgery: No - Immunization History Immunization Up to Date: Yes - Suicide/Smoking/Psychosocial Hx Smoking History: Never smoked Have you smoked in the past 12 months: No Hx Alcohol Use: No Drug/Substance Use Hx: No Substance Use Type: None Hx Substance Use Treatment: No *Physical Exam - Vital Signs Last Vital Signs Temp Pulse Resp BP Pulse Ox 97.9 F 92 H 20 100/64 97 03/28/19 19:38 03/28/19 19:38 03/28/19 19:38 03/28/19 19:38 03/28/19 19:38 Vital Signs - Vital Signs #1 Blood Pressure: 97/53 (@ 01:27) MAP: 67 BP Location: Left Arm Blood Pressure Position: Sitting Pulse Rate: 82 Respiratory Rate: 18 Temperature: 97.5 F Temperature Source: Oral O2 Sat by Pulse Oximetry (%): 99 Oxygen Delivery Method: Room Air ED Treatment Course - LABORATORY CBC & Chemistry Diagram: 03/28/19 22:40 03/28/19 22:40 *DC/Admit/Observation/Transfer Diagnosis at time of Disposition: Vomiting Qualifiers: Vomiting type: unspecified Vomiting Intractability: non-intractable Nausea presence: with nausea Qualified Code(s): R11.2 - Nausea with vomiting, unspecified Diarrhea Qualifiers: Diarrhea type: unspecified type Qualified Code(s): R19.7 - Diarrhea, unspecified - Discharge Dispostion Disposition: HOME Condition at time of disposition: Good Decision to Admit order: No - Prescriptions Prescriptions: Ondansetron [Zofran *Odt*] 8 mg SL TID PRN #15 od.tablet PRN Reason: Nausea/Vomiting - Referrals Referrals: Edwin Sagastume MD [Primary Care Provider] - - Patient Instructions Printed Discharge Instructions: DI for Diarrhea and Traveler's Diarrhea -- Adult, DI for Vomiting -- Adult Additional Instructions: You were seen today for vomiting and diarrhea for the past two days. Your blood work and EKG were normal today. Your symptoms are not likely to be related to your heart. You likely have a stomach virus and you will get better over the next few days. Please continue to drink fluids (water, Gatorade, etc) to stay hydrated. You can try and eat a small bland meal (crackers, etc) after you have stopped vomiting for 12 hours. I have sent a prescription for Zofran to your pharmacy. Take as directed on the package insert. Do not take more than the recommended dose. An informational leaflet about the medication is attached. Return to the emergency room if your vomiting becomes much worse and you are no longer able to keep fluids down, if you begin to feel dehydrated, if you develop a fever, pass out, become disoriented, begin vomiting blood, have bloody diarrhea, or you feel like you need additional emergency care. Follow up with your primary care doctor within the next 3-4 days. You will need to call to make an appointment. The number is included in this packet. A copy of todays results are attached to this packet. Take it to the appointment so your doctor can review them. Print Language: ISRAELI - Post Discharge Activity
[2019-03-28 22:57] LABS: BASO % 1.8 % (0-2.0); EOS % 0.1 % (0-4.5); HEMATOCRIT 27.2 % (32.4-45.2); HEMOGLOBIN 8.8 GM/dL (10.7-15.3); MCH 23.2 pg (25.7-33.7); MCHC 32.4 g/dl (32.0-36.0); MEAN CELL VOLUME 71.7 fl (80-96); MEAN PLT VOLUME 8.1 fl (7.5-11.1); MONO % 5.8 % (3.8-10.2); NEUT % 78.3 % (42.8-82.8); PLATELET COUNT 269 K/MM3 (134-434); RBC 3.79 M/mm3 (3.60-5.2); RDW 17.9 % (11.6-15.6); WHITE BLOOD COUNT 6.5 K/mm3 (4.0-10.0)
[2019-03-28] MEDS ORDERED: ONDANSETRON 4 MG/2 ML VIAL ONE (22:58)
[2019-03-28 23:30] LABS: ALBUMIN 3.3 g/dl (3.4-5.0); BLOOD UREA NITROGEN 43.3 mg/dL (7-18); CALCIUM 9.1 mg/dL (8.5-10.1); CREATININE 1.3 mg/dL (0.55-1.3); POTASSIUM 4.8 mmol/L (3.5-5.1); TOT PROT 7.3 g/dl (6.4-8.2)
--- NOTE | 2019-03-28 23:31 | PDOC ---
Documentation entered by Ariela Lugo SCRIBE, acting as scribe for Valente Thomas MD. Valente Thomas MD: This documentation has been prepared by the robertaibe, Ariela Lugo SCRIBE, under my direction and personally reviewed by me in its entirety. I confirm that the documentation accurately reflects all work, treatment, procedures, and medical decision making performed by me. Attending Attestation - Resident Resident Name: Nithin Brooks - ED Attending Attestation I have performed the following: I have examined & evaluated the patient, The case was reviewed & discussed with the resident, I agree w/resident's findings & plan, Exceptions are as noted - HPI HPI: 03/28/19 21:59 The patient is a 69-year-old female, with a past medical history of NC (s/p stent 10/2018), CHF, HTN, HLD, DM, s/p cath ([facility] in October 2018), who presents to the ED with 2 days of nausea, NB/NB vomiting, and diarrhea. Pt denies abdominal pain. Denies F/C. Denies CP/SOB. States that she had about 6 episodes of vomiting and diarrhea today. The patient saw her display and banner designer who prescribed the patient zofran, zantac, and omeprazole. She took the medications today but was not able to keep them down. Denies any chest pain, palpitations or shortness of breath. Denies any weakness , dizziness, or changes in strength or sensation. Allergies: NKA - Physicial Exam PE: 03/28/19 22:00 GENERAL: Awake, alert, and fully oriented, in no acute distress. HEAD: No signs of trauma EYES: PERRLA, EOMI, sclera anicteric, conjunctiva clear ENT: Auricles normal inspection, hearing grossly normal, nares patent, oropharynx clear without exudates. Moist mucosa NECK: Nontender, no stepoffs, Normal ROM, supple, no lymphadenopathy, JVD, or masses LUNGS: Breath sounds equal, clear to auscultation bilaterally. No wheezes, and no crackles HEART: Regular rate and rhythm, normal S1 and S2, no murmurs, rubs or gallops ABDOMEN: Soft, nontender, normoactive bowel sounds. No guarding, no rebound. No masses EXTREMITIES: Normal range of motion, no edema. No clubbing or cyanosis. No cords, erythema, or tenderness NEUROLOGICAL: Cranial nerves II through XII intact. 5/5 strength and sensation in all extremities, Normal speech, normal gait, normal cerebellar function SKIN: Warm, Dry, normal turgor, no rashes or lesions noted. - Medical Decision Making 03/28/19 23:32 69 F with N+V+D. Suspect gastroenteritis. Pt without any abdominal pain, benign abdominal exam. - Labs - IVF, zofran 03/29/19 01:33 Labs wnl Pt reassessed - tolerating PO after GI meds, abdomen continues to be benign. Pt is well appearing, with normal vitals. Clinically stable for DC at this time. I discussed the physical exam findings, ancillary test results and final diagnoses with the patient. I answered all of the patient's questions. The patient was satisfied with the care received and felt comfortable with the discharge plan and treatment plan. The patient agrees to follow up with the primary care physician within 24-72 hours.
[2019-03-28 23:32] LABS: EPI CELLS 2.7 /HPF (0-5/HPF); HYALINE CASTS 8 /lpf (0-8); URINE APPEARANCE CLEAR; URINE BACTERIA 11.2 /hpf (NEGATIVE); URINE BILIRUBIN NEGATIVE (NEGATIVE); URINE COLOR YELLOW; URINE GLUCOSE (UA) NEGATIVE (NEGATIVE); URINE KETONE NEGATIVE (NEGATIVE); URINE LEUK ESTERASE TRACE (NEGATIVE); URINE NITRITE NEGATIVE (NEGATIVE); URINE PROTEIN NEGATIVE (NEGATIVE); URINE RBC 0 /hpf (0-4); URINE UROBILINOGEN 0.2 mg/dL (0.2-1.0); URINE WBC 2 /hpf (0-5)
[2019-03-29 01:30] VITALS: BP 97/53; PULSE 82; TEMP 97.5
--- NOTE | 2019-03-29 11:25 | EKG ---
Test Reason : Blood Pressure : / mmHG Vent. Rate : 089 BPM Atrial Rate : 089 BPM P-R Int : 188 ms QRS Dur : 090 ms QT Int : 408 ms P-R-T Axes : 004 -38 024 degrees QTc Int : 496 ms NORMAL SINUS RHYTHM LEFT AXIS DEVIATION LOW VOLTAGE QRS POSSIBLE ANTEROLATERAL INFARCT (CITED ON OR BEFORE 24-DEC-2018) ABNORMAL ECG WHEN COMPARED WITH ECG OF 21-MAR-2019 08:00, NO SIGNIFICANT CHANGE WAS FOUND Confirmed by Candido Senior MD ([id number]) on 03/29/2019 11:25:29 AM Referred By: Confirmed By:Candido Senior MD
== END 2019-03-29 02:00 | disposition home or self-care (01) ==
LOC: JER 19:18
PROC: 3E033GC Introduction of Other Therapeutic Substance into Peripheral Vein, Percutaneous Approach (ICD-10-PCS; principal; 2019-03-28)
PROC: 3E0337Z Introduction of Electrolytic and Water Balance Substance into Peripheral Vein, Percutaneous Approach (ICD-10-PCS; 2019-03-28)
DX: R11.2 Nausea with vomiting, unspecified (principal); R19.7 Diarrhea, unspecified; I11.0 Hypertensive heart disease with heart failure; E78.5 Hyperlipidemia, unspecified; E11.9 Type 2 diabetes mellitus without complications; I25.2 Old myocardial infarction; Z95.5 Presence of coronary angioplasty implant and graft; I50.9 Heart failure, unspecified; Z79.82 Long term (current) use of aspirin; Z79.84 Long term (current) use of oral hypoglycemic drugs; D64.9 Anemia, unspecified; J45.909 Unspecified asthma, uncomplicated
CPT/HCPCS: 36415; 80053; 81003; 82550; 83605; 83690; 84484; 85025; 93005; 93010; 99282-25

== ENCOUNTER 2019-04-03 11:00 | Inpatient (IN) | payer OTHER ==
--- NOTE | 2019-04-03 11:21 | PDOC ---
History of Present Illness - General Chief Complaint: Edema Stated Complaint: RETAINING FLUIDS Time Seen by Provider: 04/03/19 11:19 - History of Present Illness Initial Comments: 04/03/19 11:21 69 yo F pmh IA (s/p stent 10/2018), CHF, HTN, HLD, DM presenting with worsening shortness of breath, and bilateral leg swelling and pain since yesterday morning. She often gets leg swelling from her chf but today was worse so she came to the ED. Because of GI upset on she didn't take any of her medication ( including metformin and lasix 40mg) and omitted the metformin the next day as well. Had grandson birthday constitution party 2 days ago in which she indulge in various unhealthy drinks and foods. Son made sure she took all her medications the next day and today. He reports that his mother doesn't really comply to diabetic and sodium-reduced diet. 04/03/19 12:13 - CAD s/p IA at [facility] on 15 October 2018 w/ 99% stenosis of the mid LAD and an EF of 25%. A PCI of the LAD was performed. EF improved to 35%. 04/03/19 13:16 PCP: Dr. All Sotomayor Barrel Loader And Cleaner: Dr. Velazquez Past History - Past Medical History Allergies/Adverse Reactions: Allergies Allergy/AdvReac Type Severity Reaction Status Date / Time No Known Allergies Allergy Verified 04/03/19 11:02 Home Medications: Ambulatory Orders Aspirin 81 mg PO DAILY 10/15/18 Atorvastatin Ca [Lipitor] 80 mg PO HS 11/08/18 Clopidogrel Bisulfate [Plavix -] 75 mg PO DAILY 30 Days #30 tablet 11/11/18 Ferrous Sulfate [Feosol] 325 mg PO DAILY 30 Days #30 ud 11/11/18 Lisinopril [Prinivil] 10 mg PO DAILY 30 Days #30 tablet 11/11/18 Metoprolol Succinate [Toprol XL -] 25 mg PO DAILY #30 tab.sr.24h 12/27/18 Metformin HCl [Glucophage] 1,000 mg PO BID 03/11/19 Furosemide [Lasix] 40 mg PO BID #60 tablet 03/23/19 Ondansetron [Zofran *Odt*] 8 mg SL TID PRN #15 od.tablet 03/29/19 Omeprazole 40 mg PO DAILY 04/03/19 Ranitidine [Zantac -] 150 mg PO DAILY 04/03/19 Anemia: Yes Asthma: Yes Cancer: No Cardiac Disorders: Yes ([place]) CVA: No COPD: No CHF: Yes Dementia: No Diabetes: Yes GI Disorders: No Disorders: No HTN: Yes Hypercholesterolemia: Yes Liver Disease: No Seizures: No Thyroid Disease: No - Surgical History Abdominal Surgery: No Appendectomy: No Cardiac Surgery: No Cholecystectomy: No Lung Surgery: No Neurologic Surgery: No Orthopedic Surgery: No - Immunization History Immunization Up to Date: Yes - Suicide/Smoking/Psychosocial Hx Smoking History: Never smoked Have you smoked in the past 12 months: No Hx Alcohol Use: No Drug/Substance Use Hx: No Substance Use Type: None Hx Substance Use Treatment: No Review of Systems - Review of Systems Able to Perform ROS?: Yes Is the patient limited Bermudian proficient: No Constitutional: No: Symptoms Reported HEENTM: No: Symptoms Reported Respiratory: Yes: See HPI Cardiac (ROS): No: Symptoms Reported ABD/GI: No: Symptoms Reported : No: Symptoms Reported Musculoskeletal: Yes: See HPI Integumentary: Yes: See HPI Neurological: No: Symptoms reported All Other Systems: Reviewed and Negative *Physical Exam - Vital Signs Last Vital Signs Temp Pulse Resp BP Pulse Ox 98.1 F 83 20 104/53 L 99 04/03/19 11:02 04/03/19 11:02 04/03/19 11:02 04/03/19 11:02 04/03/19 11:02 - Physical Exam General Appearance: Yes: Nourished, Appropriately Dressed, Mild Distress HEENT: positive: EOMI, JEANETTE, Normal ENT Inspection Respiratory/Chest: positive: Crackles (diffusely). negative: Chest Tender Cardiovascular: positive: Regular Rhythm, Regular Rate, S1, S2 Gastrointestinal/Abdominal: positive: Normal Bowel Sounds, Flat, Soft. negative : Tender Musculoskeletal: positive: Normal Inspection. negative: CVA Tenderness Extremity: positive: Pedal Edema (Pitting 4+, tender b/l), Swelling Integumentary: positive: Normal Color, Dry, Warm Neurologic: positive: Fully Oriented, Alert, Normal Mood/Affect, Normal Response ED Treatment Course - LABORATORY CBC & Chemistry Diagram: 04/03/19 12:24 04/03/19 12:24 Medical Decision Making - Medical Decision Making 04/03/19 12:08 69f with pmh of mi and chf presents with two days of bilateral leg swelling and pian with sob and lung crackles. This is likely acute on chronic chf exacerbation. Also less likely b/l DVT, pneumonia. Will obtain labs, including bnp, ekg and trops. CXR pending. Will treat with Lasix IV. 04/03/19 12:11 EKG: Normal sinus rhtyhm. Left axis deviation, Low voltage QRS, possible anterolateral infarct, age undertermined. 04/03/19 12:14 CXR: Single AP view of the chest has been submitted. Since the prior study of 03/21/2019, there is a slightly better inspiration with large heart, normal aorta, slightly prominent niurka and no sign of an acute chest process. There may be a linear scar or minimal plate-like atelectasis by the left heart border. There is no sign of infiltrate or failure. The angles are sharp. The bones and soft tissues are intact. Correlation recommended. *DC/Admit/Observation/Transfer Diagnosis at time of Disposition: CHF exacerbation - Discharge Dispostion Decision to Admit order: Yes - Referrals Referrals: ON STAFF,NOT [Primary Care Provider] - - Patient Instructions - Post Discharge Activity
--- NOTE | 2019-04-03 11:36 | PDOC ---
Attending Attestation - Resident Resident Name: Vincent Ayala - ED Attending Attestation I have performed the following: I have examined & evaluated the patient, The case was reviewed & discussed with the resident, I agree w/resident's findings & plan, Exceptions are as noted - HPI HPI: 69 yo F history DM, CHF, HTN, CAD s/p prior DC presents with worsening BLE edema for the past few days, now associated with SOB. Of note, she did not take her regular meds 3 days ago due to a GI illness, but has been taking them since. She was at a child's birthday alliance party yesterday and drank a lot of juice ( this may have also included salty foods). She noted shortness of breath today, which prompted her to visit the ED. SOB is worse with trying to lie flat. Denies cp. - Physicial Exam PE: GENERAL: Awake, alert, and fully oriented, in no acute distress. Obese HEAD: No signs of trauma EYES: PERRLA, EOMI, sclera anicteric, conjunctiva clear ENT: Auricles normal inspection, hearing grossly normal, nares patent, oropharynx clear without exudates. Moist mucosa NECK: Normal ROM, supple, no lymphadenopathy, JVD, or masses LUNGS: Breath sounds equal, +crackles at bases B/L HEART: Regular rate and rhythm, normal S1 and S2, no murmurs, rubs or gallops ABDOMEN: Soft, nontender, normoactive bowel sounds. No guarding, no rebound. No masses EXTREMITIES: Normal range of motion, 2+ pitting edema to knees B/L. No clubbing or cyanosis. No cords, erythema, or tenderness NEUROLOGICAL: Cranial nerves II through XII grossly intact. Normal speech. Motor and sensation intact SKIN: Warm, dry, normal turgor, no rashes or lesions noted. - Medical Decision Making 04/03/19 11:54 Pt p/w suspected CHF exacerbation likely due to dietary indiscretion and missed meds 3 days ago. Will give IV lasix. Will send labs and obtain CXR. Likely admission.
[2019-04-03] MEDS ORDERED: FUROSEMIDE 40 MG/4 ML INJECTABLE VIAL IVPUSH ONE (11:40)
[2019-04-03] MEDS ORDERED: FUROSEMIDE 40 MG/4 ML INJECTABLE VIAL ONE (12:15)
[2019-04-03 12:36] LABS: BASO % 2.2 % (0-2.0); EOS % 0.6 % (0-4.5); HEMATOCRIT 26.8 % (32.4-45.2); HEMOGLOBIN 8.8 GM/dL (10.7-15.3); LYMPH % 16.5 % (8-40); MCH 23.6 pg (25.7-33.7); MCHC 32.8 g/dl (32.0-36.0); MEAN PLT VOLUME 8.1 fl (7.5-11.1); MONO % 6.9 % (3.8-10.2); NEUT % 73.8 % (42.8-82.8); PLATELET COUNT 295 K/MM3 (134-434); RBC 3.72 M/mm3 (3.60-5.2); RDW 18.7 % (11.6-15.6); WHITE BLOOD COUNT 6.2 K/mm3 (4.0-10.0)
[2019-04-03 13:06] LABS: BLOOD UREA NITROGEN 39.2 mg/dL (7-18); CALCIUM 8.3 mg/dL (8.5-10.1); CREATININE 1.2 mg/dL (0.55-1.3); POTASSIUM 5.9 mmol/L (3.5-5.1); TOT PROT 6.8 g/dl (6.4-8.2)
[2019-04-03 13:22] LABS: URINE APPEARANCE Clear; URINE BILIRUBIN Negative (NEGATIVE); URINE COLOR Yellow; URINE GLUCOSE (UA) Negative (NEGATIVE); URINE KETONE Negative (NEGATIVE); URINE LEUK ESTERASE Negative (NEGATIVE); URINE NITRITE Negative (NEGATIVE); URINE PROTEIN Negative (NEGATIVE); URINE UROBILINOGEN 0.2 mg/dL (0.2-1.0)
--- NOTE | 2019-04-03 14:56 | HP ---
CHIEF COMPLAINT: Leg swelling for few days PCP:dr Diaz on [facility] HISTORY OF PRESENT ILLNESS: 69 yo F history DM, CHF, HTN, CAD s/p prior PR presents with worsening BLE edema for the past few days, now associated with SOB. Of note, she did not take her regular meds 3 days ago due to a GI illness, but has been taking them since. She was at a child's birthday [place] yesterday and drank a lot of juice ( this may have also included salty foods). She noted shortness of breath today, which prompted her to visit the ED. SOB is worse with trying to lie flat. Denies chest pains, palpitations and syncope and has no fever or chills. ER course was notable for: (1)h/o anemia on iron (2)no chest pains (3)severe leg edema Recent Travel:none PAST MEDICAL HISTORY: 69 yo F history DM, CHF, HTN, CAD but no stents PAST SURGICAL HISTORY: None Social History: Smoking:none Alcohol:none Drugs: non Family History:she has history of dm with mother but no h/o cad in family. Allergies No Known Allergies Allergy (Verified 04/03/19 11:02) HOME MEDICATIONS: Home Medications Medication Instructions Recorded Aspirin 81 mg PO DAILY 10/15/18 Atorvastatin Ca [Lipitor] 80 mg PO HS 11/08/18 Clopidogrel Bisulfate [Plavix -] 75 mg PO DAILY 30 Days #30 tablet 11/11/18 Ferrous Sulfate [Feosol] 325 mg PO DAILY 30 Days #30 ud 11/11/18 Lisinopril [Prinivil] 10 mg PO DAILY 30 Days #30 tablet 11/11/18 Metoprolol Succinate [Toprol XL -] 25 mg PO DAILY #30 tab.sr.24h 12/27/18 Metformin HCl [Glucophage] 1,000 mg PO BID 03/11/19 Furosemide [Lasix] 40 mg PO BID #60 tablet 03/23/19 Ondansetron [Zofran *Odt*] 8 mg SL TID PRN #15 od.tablet 03/29/19 Omeprazole 40 mg PO DAILY 04/03/19 Ranitidine [Zantac -] 150 mg PO DAILY 04/03/19 REVIEW OF SYSTEMS CONSTITUTIONAL: Absent: fever, chills, diaphoresis, generalized weakness, malaise, loss of appetite, weight change HEENT: Absent: rhinorrhea, nasal congestion, throat pain, throat swelling, difficulty swallowing, mouth swelling, ear pain, eye pain, visual changes CARDIOVASCULAR: Absent: chest pain, syncope, palpitations, irregular heart rate, lightheadedness , but present peripheral edema RESPIRATORY: present shortness of breath, dyspnea with exertion, orthopnea, but denies wheezing, stridor, hemoptysis GASTROINTESTINAL: Absent: abdominal pain, abdominal distension, nausea, vomiting, diarrhea, constipation, melena, hematochezia GENITOURINARY: Absent: dysuria, frequency, urgency, hesitancy, hematuria, flank pain, genital pain MUSCULOSKELETAL: Absent: myalgia, arthralgia, joint swelling, back pain, neck pain SKIN: Absent: rash, itching, pallor HEMATOLOGIC/IMMUNOLOGIC: Absent: easy bleeding, easy bruising, lymphadenopathy, frequent infections ENDOCRINE: Absent: unexplained weight gain, unexplained weight loss, heat intolerance, cold intolerance NEUROLOGIC: Absent: headache, focal weakness or paresthesias, dizziness, unsteady gait, seizure, mental status changes, bladder or bowel incontinence PSYCHIATRIC: Absent: anxiety, depression, suicidal or homicidal ideation, hallucinations. PHYSICAL EXAMINATION Vital Signs - 24 hr 04/03/19 04/03/19 04/03/19 11:02 11:51 11:58 Temperature 98.1 F Pulse Rate 83 Respiratory 20 Rate Blood Pressure 104/53 L O2 Sat by Pulse 99 100 100 Oximetry (%) GENERAL: Awake, alert, and fully oriented, mild sob HEAD: Normal with no signs of trauma. EYES: Pupils equal, round and reactive to light, extraocular movements intact, sclera anicteric, conjunctiva clear. No lid lag. EARS, NOSE, THROAT: Ears normal, nares patent, oropharynx clear without exudates. Moist mucous membranes. NECK: Normal range of motion, supple without lymphadenopathy, JVD, or masses. LUNGS: bilateral basal rales HEART: Regular rate and rhythm, normal S1 and S2 gallop present ABDOMEN: Soft, nontender, not distended, normoactive bowel sounds, no guarding, no rebound, no masses. No hepatomegaly or splenomegaly. MUSCULOSKELETAL: Normal range of motion at all joints. No bony deformities or tenderness. No CVA tenderness. UPPER EXTREMITIES: 2+ pulses, warm, well-perfused. No cyanosis. No clubbing. No peripheral edema. LOWER EXTREMITIES: she has plus 2 edema on both legs symmetrical NEUROLOGICAL: Cranial nerves II-XII intact. Normal speech. Normal gait. PSYCHIATRIC: Cooperative. Good eye contact. Appropriate mood and affect. SKIN: Warm, dry, normal turgor, no rashes or lesions noted, normal capillary refill. Laboratory Results - last 24 hr 04/03/19 04/03/19 04/03/19 12:24 12:24 12:24 WBC 6.2 RBC 3.72 Hgb 8.8 L Hct 26.8 L MCV 72.0 L MCH 23.6 L MCHC 32.8 RDW 18.7 H Plt Count 295 MPV 8.1 Absolute Neuts (auto) 4.6 Neutrophils % 73.8 Lymphocytes % 16.5 Monocytes % 6.9 Eosinophils % 0.6 D Basophils % 2.2 H Nucleated RBC % 0 Sodium 134 L Potassium 5.9 H Chloride 100 Carbon Dioxide 26 Anion Gap 8 BUN 39.2 H Creatinine 1.2 Est GFR (CKD-EPI)AfAm 53.40 Est GFR (CKD-EPI)NonAf 46.07 Random Glucose 229 H Calcium 8.3 L Total Bilirubin 1.0 AST 138 H ALT 191 H Alkaline Phosphatase 120 H Troponin I B-Natriuretic Peptide 20772.4 H Total Protein 6.8 Albumin 3.0 L Urine Color Urine Appearance Urine pH Ur Specific [place] Urine Protein Urine Glucose (UA) Urine Ketones Urine Blood Urine Nitrite Urine Bilirubin Urine Urobilinogen Ur Leukocyte Esterase 04/03/19 04/03/19 12:24 13:14 WBC RBC Hgb Hct MCV MCH MCHC RDW Plt Count MPV Absolute Neuts (auto) Neutrophils % Lymphocytes % Monocytes % Eosinophils % Basophils % Nucleated RBC % Sodium Potassium Chloride Carbon Dioxide Anion Gap BUN Creatinine Est GFR (CKD-EPI)AfAm Est GFR (CKD-EPI)NonAf Random Glucose Calcium Total Bilirubin AST ALT Alkaline Phosphatase Troponin I 0.02 B-Natriuretic Peptide Total Protein Albumin Urine Color Yellow Urine Appearance Clear Urine pH 6.0 Ur Specific [place] 1.010 Urine Protein Negative Urine Glucose (UA) Negative Urine Ketones Negative Urine Blood Negative Urine Nitrite Negative Urine Bilirubin Negative Urine Urobilinogen 0.2 Ur Leukocyte Esterase Negative ASSESSMENT/PLAN: congestive heart failure - will start her on iv lasix 40 mg bid and start on danyell inhibitors - will repeat labs in am for checking on potasium and cratinine on higher dose of lasix - repeat troponin am cad - she has no chest pains and will continue aspirin and toporol high lipids - start on lipitor elevated liver enzymes - cuase is unknwon will do liver sonogram and hepatitis profile anemia -she has h/o and she said her doctor is familer and she is taking iron for that. diabetes type 2 - she is on metformin in home and will continue that and will start on bgm ac and hs gerd - will start her on protonox bc she takes home omeprazole prevention no need for dvt prophylaxis due to the fact she is ambulatory. she probably will be discharged home in 2-3 days. Visit type - Emergency Visit Emergency Visit: Yes ED Registration Date: 04/03/19 Care time: The patient presented to the Emergency Department on the above date and was hospitalized for further evaluation of their emergent condition. - New Patient This patient is new to me today: Yes Date on this admission: 04/03/19 - Critical Care Critical Care patient: No
[2019-04-03] MEDS ORDERED: ASPIRIN 81 MG CHEWABLE TABLETS ONE (14:59)
[2019-04-03] MEDS ORDERED: LISINOPRIL 5 MG TABLET (FP) ONE (15:00)
[2019-04-03] MEDS: ASPIRIN 81 MG CHEWABLE TABLETS PO SCH (15:04)
[2019-04-03] MEDS: metoPROLOL SUCCINATE 25 MG TAB.SR.24H (FP) PO SCH (15:04)
[2019-04-03] MEDS: LISINOPRIL 10 MG TABLET (FP) PO SCH (15:04)
[2019-04-03] MEDS: metFORMIN HCL 500 MG TABLET (FP) PO SCH (18:18)
[2019-04-03] MEDS ORDERED: ATORVASTATIN CA 80 MG TABLET (FP) ONE (22:27)
[2019-04-03] MEDS: ATORVASTATIN CA 80 MG TABLET (FP) PO SCH (22:42)
[2019-04-04] MEDS: FUROSEMIDE 40 MG/4 ML INJECTABLE VIAL IVPUSH SCH ×2 (06:20→14:23)
--- NOTE | 2019-04-04 06:45 | EKG ---
Test Reason : Blood Pressure : / mmHG Vent. Rate : 077 BPM Atrial Rate : 077 BPM P-R Int : 180 ms QRS Dur : 088 ms QT Int : 432 ms P-R-T Axes : 053 -35 027 degrees QTc Int : 488 ms NORMAL SINUS RHYTHM LEFT AXIS DEVIATION LOW VOLTAGE QRS POSSIBLE ANTEROLATERAL INFARCT (CITED ON OR BEFORE 24-DEC-2018) ABNORMAL ECG WHEN COMPARED WITH ECG OF 28-MAR-2019 21:04, NO SIGNIFICANT CHANGE WAS FOUND Confirmed by MAYANK THAKKAR MD ([id number]) on 04/04/2019 6:45:24 AM Referred By: Confirmed By:MAYANK THAKKAR MD
[2019-04-04] MEDS ORDERED: metFORMIN HCL 500 MG TABLET (FP) ONE (07:07)
[2019-04-04] MEDS: metFORMIN HCL 500 MG TABLET (FP) PO SCH ×2 (07:09→17:16)
[2019-04-04 07:30] LABS: ALBUMIN 2.9 g/dl (3.4-5.0); BILIRUBIN,TOTAL 1.1 mg/dL (0.2-1); BLOOD UREA NITROGEN 34.5 mg/dL (7-18); CALCIUM 8.6 mg/dL (8.5-10.1); CREATININE 1.1 mg/dL (0.55-1.3); POTASSIUM 4.7 mmol/L (3.5-5.1); TOT PROT 6.4 g/dl (6.4-8.2)
--- NOTE | 2019-04-04 08:19 | PN ---
Progress Note, Physician Chief Complaint: worsening leg swelling History of Present Illness: 69 yo F history DM, CHF, HTN, CAD s/p prior [place] presents with worsening BLE edema for the past few days, now associated with SOB. Of note, she did not take her regular meds 3 days ago due to a GI illness, but has been taking them since. She was at a child's birthday green party yesterday and drank a lot of juice ( this may have also included salty foods). She noted shortness of breath today, which prompted her to visit the ED. SOB is worse with trying to lie flat. Denies chest pains, palpitations and syncope and has no fever or chills. - Current Medication List Current Medications: Active Medications Aspirin (Asa -) 81 mg PO DAILY [facility] Last Admin: 04/03/19 15:04 Dose: 81 mg Atorvastatin Calcium (Lipitor -) 80 mg PO HS [facility] Last Admin: 04/03/19 22:42 Dose: 80 mg Clopidogrel Bisulfate (Plavix -) 75 mg PO DAILY [facility] Ferrous Sulfate (Feosol -) 325 mg PO DAILY [facility] Furosemide (Lasix Injection -) 40 mg IVPUSH BID@0600,1400 [facility] Last Admin: 04/04/19 06:20 Dose: 40 mg Lisinopril (Prinivil) 10 mg PO DAILY [facility] Last Admin: 04/03/19 15:04 Dose: 10 mg Metformin HCl (Glucophage -) 1,000 mg PO BIDAC [facility] Last Admin: 04/04/19 07:09 Dose: 1,000 mg Metoprolol Succinate (Toprol Xl -) 25 mg PO DAILY [facility] Last Admin: 04/03/19 15:04 Dose: 25 mg Pantoprazole Sodium (Protonix -) 20 mg PO DAILY [facility] - Objective Vital Signs: Vital Signs Temperature 98.5 F 04/03/19 23:14 Pulse Rate 70 04/04/19 06:20 Respiratory Rate 18 04/04/19 06:20 Blood Pressure 100/62 04/04/19 06:20 O2 Sat by Pulse Oximetry (%) 98 04/04/19 06:20 Constitutional: Yes: Well Nourished, No Distress, Calm Eyes: Yes: WNL, Conjunctiva Clear, EOM Intact HENT: Yes: WNL, Atraumatic, Normocephalic Neck: Yes: WNL, Supple, Trachea Midline Cardiovascular: Yes: WNL, Regular Rate and Rhythm Respiratory: Yes: WNL, Regular, CTA Bilaterally Gastrointestinal: Yes: WNL, Normal Bowel Sounds, Soft ...Rectal Exam: Yes: Deferred Genitourinary: Yes: WNL Breast(s): Yes: WNL Musculoskeletal: Yes: WNL Extremities: Yes: WNL Edema: Yes Edema: LLE: 2+, RLE: 2+ Peripheral Pulses WNL: Yes Integumentary: Yes: WNL Neurological: Yes: WNL, Alert, Oriented ...Motor Strength: WNL Psychiatric: Yes: WNL, Alert, Oriented Labs: CBC, BMP 04/03/19 12:24 04/04/19 06:25 Problem List - Problems (1) GERD (gastroesophageal reflux disease) Assessment/Plan: c/w PPI, protonix on omeprazole at home Code(s): K21.9 - GASTRO-ESOPHAGEAL REFLUX DISEASE WITHOUT ESOPHAGITIS (2) Acute exacerbation of CHF (congestive heart failure) Assessment/Plan: lasix changed to IV and will continue and reasses in am (pt states edema is much improved overnight) monitor electrolytres c/w lisinipril Code(s): I50.9 - HEART FAILURE, UNSPECIFIED Qualifiers: (3) Anemia Assessment/Plan: monitor cbc c/w with home iron and will start folate Code(s): D64.9 - ANEMIA, UNSPECIFIED (4) CAD (coronary artery disease) Assessment/Plan: no ischemic changes on ekg c/w plavix, metoprolol, statin Code(s): I25.10 - ATHSCL HEART DISEASE OF [place] CORONARY ARTERY W/O ANG PCTRS (5) HLD (hyperlipidemia) Assessment/Plan: c/w atorvastatin Code(s): E78.5 - HYPERLIPIDEMIA, UNSPECIFIED (6) HTN (hypertension) Assessment/Plan: nromotensive c/e lisinipril & metoprolol Code(s): I10 - ESSENTIAL (PRIMARY) HYPERTENSION (7) Prophylactic measure Assessment/Plan: FEN no need for addition IVF on dieuretic therapy monitor electrolytes, Cr cardiac diet DVT on asa & plavix Dispo mainatin as inpatient full code dc planning Code(s): Z29.9 - ENCOUNTER FOR PROPHYLACTIC MEASURES, UNSPECIFIED (8) LFTs abnormal Assessment/Plan: elevated lfts liver Us consistent with fatty liver vs HCD counseld patient on no ingestion of ETOH & low fat diet can follow up with GI upron discharge montior LFTs while in patient hepatatis serologies pending Code(s): R94.5 - ABNORMAL RESULTS OF LIVER FUNCTION STUDIES Visit type - Emergency Visit Emergency Visit: Yes ED Registration Date: 04/03/19 Care time: The patient presented to the Emergency Department on the above date and was hospitalized for further evaluation of their emergent condition. - New Patient This patient is new to me today: Yes Date on this admission: 04/04/19 - Critical Care Critical Care patient: No - Discharge Referral Referred to [facility] Med P.C.: No
[2019-04-04] MEDS ORDERED: ASPIRIN 81 MG CHEWABLE TABLETS ONE (09:29)
[2019-04-04] MEDS ORDERED: LISINOPRIL 5 MG TABLET (FP) ONE (09:29)
[2019-04-04] MEDS ORDERED: PANTOPRAZOLE 40 MG TABLET (FP) ONE (09:29)
[2019-04-04] MEDS ORDERED: FERROUS SO4 325 MG TABLET (FP) ONE (09:30)
[2019-04-04] MEDS ORDERED: CLOPIDOGREL BISULFATE 75 MG TABLET (FP) ONE (09:30)
[2019-04-04] MEDS: ASPIRIN 81 MG CHEWABLE TABLETS PO SCH (10:05)
[2019-04-04] MEDS: CLOPIDOGREL BISULFATE 75 MG TABLET (FP) PO SCH (10:05)
[2019-04-04] MEDS: PANTOPRAZOLE 20 MG TABLET (FP) PO SCH (10:05)
[2019-04-04] MEDS: LISINOPRIL 10 MG TABLET (FP) PO SCH (10:05)
[2019-04-04] MEDS: FERROUS SO4 325 MG TABLET (FP) PO SCH (10:05)
[2019-04-04] MEDS: metoPROLOL SUCCINATE 25 MG TAB.SR.24H (FP) PO SCH (10:05)
--- NOTE | 2019-04-04 11:59 | PN ---
Progress Note (short form) - Note Progress Note: as per alexander prior recent admit notes: pt sees dr morrow for cardio, of [facility]. she is seen in the hospital here by dr [facility] in [place] (prior cardio tx at [facility]). d/w'd dr richards--they will see her today
[2019-04-04 12:26] LABS: N-TERMINAL BNP 15862.9 pg/ml (5-125)
[2019-04-04 14:05] VITALS: BMI 31.2
--- NOTE | 2019-04-04 16:55 | CON.CARD ---
Consult Consult Specialty:: Cardiology Reason for Consultation:: IRAHE[place] - History of Present Illness Chief Complaint: Ankle edema. [place] History of Present Illness: This is a 69 year old female with a PMH of HTN, DM-2, HLD, asthma, CAD (S/P PCI with [facility] of Mid LAD on 10/15/18), systolic CHF secondary to an ischemic cardiomyopathy with an EF of 35% (echo 10/20/18). Had an STEMI involving the lateral wall 10/15/18 cath a [facility] showed a 99% stenosis of the Mid LAD, PCI was done to the mLAD. Now presents with worsening bilateral LE edema for the past few days associated with SOB. She did skip one day of meds and had recent salty foods. - Past Medical History Cardio/Vascular: Yes: CAD, CHF, HTN, AK, Hyperlipdemia, Other Pulmonary: Yes: Asthma - Past Surgical History Past Surgical History: Yes: Stent (coronary) - Alcohol/Substance Use Hx Alcohol Use: No - Smoking History Smoking history: Never smoked Have you smoked in the past 12 months: No - Social History History of Recent Travel: No Home Medications - Allergies Allergies/Adverse Reactions: Allergies Allergy/AdvReac Type Severity Reaction Status Date / Time No Known Allergies Allergy Verified 04/03/19 11:02 - Home Medications Home Medications: Ambulatory Orders Aspirin 81 mg PO DAILY 10/15/18 Atorvastatin Ca [Lipitor] 80 mg PO HS 11/08/18 Clopidogrel Bisulfate [Plavix -] 75 mg PO DAILY 30 Days #30 tablet 11/11/18 Ferrous Sulfate [Feosol] 325 mg PO DAILY 30 Days #30 ud 11/11/18 Lisinopril [Prinivil] 10 mg PO DAILY 30 Days #30 tablet 11/11/18 Metoprolol Succinate [Toprol XL -] 25 mg PO DAILY #30 tab.sr.24h 12/27/18 Metformin HCl [Glucophage] 1,000 mg PO BID 03/11/19 Furosemide [Lasix] 40 mg PO BID #60 tablet 03/23/19 Ondansetron [Zofran *Odt*] 8 mg SL TID PRN #15 od.tablet 03/29/19 Omeprazole 40 mg PO DAILY 04/03/19 Ranitidine [Zantac -] 150 mg PO DAILY 04/03/19 Vital Signs: Vital Signs Temperature 98.1 F 04/04/19 13:53 Pulse Rate 78 04/04/19 13:53 Respiratory Rate 18 04/04/19 13:53 Blood Pressure 110/70 04/04/19 13:53 O2 Sat by Pulse Oximetry (%) 98 04/04/19 13:53 Constitutional: Yes: Mild Distress HENT: Yes: WNL Neck: Yes: WNL Respiratory: Yes: Rales (Bibasilar rales) Gastrointestinal: Yes: Normal Bowel Sounds, Soft Cardiovascular: Yes: Regular Rate and Rhythm Heart Sounds: Yes: S1, S2 Edema: LLE: Trace, RLE: Trace Neurological: Yes: Alert, Oriented - Other Data Labs, Other Data: CBC, BMP 04/03/19 12:24 04/04/19 06:25 Troponin, BNP 04/04/19 04/04/19 06:25 06:25 Troponin I 0.02 B-Natriuretic Peptide 99473.9 H Troponin, BNP 04/04/19 04/04/19 06:25 06:25 Troponin I 0.02 B-Natriuretic Peptide 60869.9 H Assessment/Plan 69 year old female with a PMH of HTN, DM-2, HLD, asthma, CAD (S/P PCI with [facility] of Mid LAD on 10/15/18), systolic CHF secondary to an ischemic cardiomyopathy with an EF of 35% (echo 10/20/18). [facility] Mid LAD, PCI was done to the mLAD. Now presents with worsening bilateral LE edema for the past few days associated with SOB. She did skip one day of meds and had recent salty foods. CHF Systolic acute on chronic Lasix 40 mg IVSS BID Dialy I's/O's/Wt's/lytes Continue metoprolol XL 25 mg PO daily Continue lisinopril 10 mg po daily CAD Continue Plavix 75 mg daily ASA 81 mg PO daily Lipitor 80 mg PO daily
[2019-04-04] MEDS: ATORVASTATIN CA 80 MG TABLET (FP) PO SCH (22:08)
[2019-04-05] MEDS: FUROSEMIDE 40 MG/4 ML INJECTABLE VIAL IVPUSH SCH ×2 (06:42→13:52)
[2019-04-05] MEDS: metFORMIN HCL 500 MG TABLET (FP) PO SCH ×2 (06:43→17:19)
[2019-04-05 08:42] LABS: BASO % 0.8 % (0-2.0); EOS % 1.7 % (0-4.5); HEMATOCRIT 29.2 % (32.4-45.2); HEMOGLOBIN 9.4 GM/dL (10.7-15.3); LYMPH % 24.4 % (8-40); MCH 23.6 pg (25.7-33.7); MCHC 32.3 g/dl (32.0-36.0); MEAN PLT VOLUME 8.2 fl (7.5-11.1); MONO % 5.6 % (3.8-10.2); NEUT % 67.5 % (42.8-82.8); PLATELET COUNT 309 K/MM3 (134-434); RDW 18.6 % (11.6-15.6); WHITE BLOOD COUNT 7.4 K/mm3 (4.0-10.0)
[2019-04-05 08:53] LABS: INR 1.25 (0.83-1.09); PROTHROMBIN TIME (PATIENT) 14.8 SEC (9.7-13.0)
[2019-04-05 09:01] LABS: BILIRUBIN,TOTAL 1.6 mg/dL (0.2-1); BLOOD UREA NITROGEN 34.7 mg/dL (7-18); CALCIUM 8.7 mg/dL (8.5-10.1); CREATININE 1.1 mg/dL (0.55-1.3); MAGNESIUM 1.9 mg/dL (1.8-2.4); POTASSIUM 5.3 mmol/L (3.5-5.1); TOT PROT 6.7 g/dl (6.4-8.2)
[2019-04-05] MEDS: ASPIRIN 81 MG CHEWABLE TABLETS PO SCH (10:05)
[2019-04-05] MEDS: LISINOPRIL 10 MG TABLET (FP) PO SCH (10:06)
[2019-04-05] MEDS: PANTOPRAZOLE 20 MG TABLET (FP) PO SCH (10:06)
[2019-04-05] MEDS: FOLIC ACID 1 MG TABLET (FP) PO SCH (10:06)
[2019-04-05] MEDS: FERROUS SO4 325 MG TABLET (FP) PO SCH (10:06)
[2019-04-05] MEDS: metoPROLOL SUCCINATE 25 MG TAB.SR.24H (FP) PO SCH (10:06)
[2019-04-05] MEDS: CLOPIDOGREL BISULFATE 75 MG TABLET (FP) PO SCH (10:06)
[2019-04-05] MEDS ORDERED: POLYETHYLENE GLYCOL 3350 119 GM BTL PO ONE (10:17)
--- NOTE | 2019-04-05 10:20 | PN ---
Progress Note, Physician Chief Complaint: shortness of breath History of Present Illness: Patient is a 69 year old female with a past medical history of hypertension, diabetes type 2, HLD, asthma, CAD (S/P PCI with [facility] of Mid LAD on 10/15/18), systolic CHF secondary to an ischemic cardiomyopathy with an EF of 35% (echo 10/20), STEMI involving the lateral wall 10/15/18 cath a [facility] showed a 99% stenosis of the Mid LAD. She presents to the ED on 04/03/2019 with worsening bilateral LE edema for the past few days associated with SOB after skipping one day of her lasix (takes 40 bid) and had increase in salt intake. - Current Medication List Current Medications: Active Medications Aspirin (Asa -) 81 mg PO DAILY [facility] Last Admin: 04/05/19 10:05 Dose: 81 mg Atorvastatin Calcium (Lipitor -) 80 mg PO HS [facility] Last Admin: 04/04/19 22:08 Dose: 80 mg Clopidogrel Bisulfate (Plavix -) 75 mg PO DAILY [facility] Last Admin: 04/05/19 10:06 Dose: 75 mg Ferrous Sulfate (Feosol -) 325 mg PO DAILY [facility] Last Admin: 04/05/19 10:06 Dose: 325 mg Folic Acid (Folic Acid -) 1 mg PO DAILY [facility] Last Admin: 04/05/19 10:06 Dose: 1 mg Furosemide (Lasix Injection -) 40 mg IVPUSH BID@0600,1400 [facility] Last Admin: 04/05/19 06:42 Dose: 40 mg Lisinopril (Prinivil) 10 mg PO DAILY [facility] Last Admin: 04/05/19 10:06 Dose: 10 mg Metformin HCl (Glucophage -) 1,000 mg PO BIDAC [facility] Last Admin: 04/05/19 06:43 Dose: 1,000 mg Metoprolol Succinate (Toprol Xl -) 25 mg PO DAILY [facility] Last Admin: 04/05/19 10:06 Dose: 25 mg Pantoprazole Sodium (Protonix -) 20 mg PO DAILY [facility] Last Admin: 04/05/19 10:06 Dose: 20 mg - Objective Vital Signs: Vital Signs Temperature 98.2 F 04/05/19 07:43 Pulse Rate 81 04/05/19 07:43 Respiratory Rate 16 04/05/19 07:43 Blood Pressure 102/70 04/05/19 07:43 O2 Sat by Pulse Oximetry (%) 98 04/05/19 05:00 Constitutional: Yes: No Distress, Calm Eyes: Yes: WNL HENT: Yes: Atraumatic Neck: Yes: Supple Cardiovascular: Yes: Regular Rate and Rhythm Respiratory: Yes: Rales (crackles auscultated on bilateral lower lobes) Gastrointestinal: Yes: Normal Bowel Sounds, Soft Edema: LLE: 1+, RLE: 1+ Integumentary: Yes: WNL Neurological: Yes: Alert, Oriented, Weakness Psychiatric: Yes: Alert, Oriented Labs: CBC, BMP 04/05/19 07:10 04/05/19 07:10 INR, PTT INR 1.25 (0.83-1.09) H 04/05/19 07:10 - ....Imaging Chest X-ray: Report Reviewed Problem List - Problems (1) Acute exacerbation of CHF (congestive heart failure) Assessment/Plan: on lasix IV bid, daily weights with monitoring of intake and output cardiology following echo EF 35% monitor electrolytes c/w lisinopril Code(s): I50.9 - HEART FAILURE, UNSPECIFIED (2) LFTs abnormal Code(s): R94.5 - ABNORMAL RESULTS OF LIVER FUNCTION STUDIES (3) MARCELLA (acute kidney injury) Code(s): N17.9 - ACUTE KIDNEY FAILURE, UNSPECIFIED (4) Acute respiratory failure with hypoxia Code(s): J96.01 - ACUTE RESPIRATORY FAILURE WITH HYPOXIA (5) Prophylactic measure Assessment/Plan: FEN no need for addition IVF on dieuretic therapy monitor electrolytes, Cr cardiac diet DVT on asa & plavix Dispo mainatin as inpatient full code dc planning Code(s): Z29.9 - ENCOUNTER FOR PROPHYLACTIC MEASURES, UNSPECIFIED Visit type - Emergency Visit Emergency Visit: Yes ED Registration Date: 04/03/19 Care time: The patient presented to the Emergency Department on the above date and was hospitalized for further evaluation of their emergent condition. - New Patient This patient is new to me today: Yes Date on this admission: 04/05/19 - Critical Care Critical Care patient: No - Discharge Referral Referred to [facility] Med P.C.: No
--- NOTE | 2019-04-05 11:45 | PN ---
Progress Note, Physician History of Present Illness: seen and examined today in [place]. walked with physical therapy. states she feels the same, still sob with exertion and b/l le edema - Current Medication List Current Medications: Active Medications Aspirin (Asa -) 81 mg PO DAILY [facility] Last Admin: 04/05/19 10:05 Dose: 81 mg Atorvastatin Calcium (Lipitor -) 80 mg PO HS [facility] Last Admin: 04/04/19 22:08 Dose: 80 mg Clopidogrel Bisulfate (Plavix -) 75 mg PO DAILY [facility] Last Admin: 04/05/19 10:06 Dose: 75 mg Ferrous Sulfate (Feosol -) 325 mg PO DAILY [facility] Last Admin: 04/05/19 10:06 Dose: 325 mg Folic Acid (Folic Acid -) 1 mg PO DAILY [facility] Last Admin: 04/05/19 10:06 Dose: 1 mg Furosemide (Lasix Injection -) 40 mg IVPUSH BID@0600,1400 [facility] Last Admin: 04/05/19 06:42 Dose: 40 mg Lisinopril (Prinivil) 10 mg PO DAILY [facility] Last Admin: 04/05/19 10:06 Dose: 10 mg Metformin HCl (Glucophage -) 1,000 mg PO BIDAC [facility] Last Admin: 04/05/19 06:43 Dose: 1,000 mg Metoprolol Succinate (Toprol Xl -) 25 mg PO DAILY [facility] Last Admin: 04/05/19 10:06 Dose: 25 mg Pantoprazole Sodium (Protonix -) 20 mg PO DAILY [facility] Last Admin: 04/05/19 10:06 Dose: 20 mg - Objective Vital Signs: Vital Signs Temperature 98.2 F 04/05/19 07:43 Pulse Rate 94 H 04/05/19 11:01 Respiratory Rate 16 04/05/19 07:43 Blood Pressure 102/70 04/05/19 07:43 O2 Sat by Pulse Oximetry (%) 98 04/05/19 11:01 Constitutional: Yes: No Distress, Calm Eyes: Yes: Conjunctiva Clear, EOM Intact HENT: Yes: Atraumatic, Normocephalic Neck: Yes: Supple, Trachea Midline Cardiovascular: Yes: S1, S2. No: Bradycardia, Tachycardia, Pulse Irregular, Bruit, JVD, Gallop, Murmur, Rub, S3, S4, Varicosities Respiratory: Yes: Regular, Rales, SOB, SOB on Exertion. No: Rhonchi Gastrointestinal: Yes: Normal Bowel Sounds, Soft. No: Distention, Tenderness Musculoskeletal: Yes: WNL Extremities: Yes: WNL Edema: No Peripheral Pulses WNL: Yes Neurological: Yes: Alert, Oriented Psychiatric: Yes: Alert, Oriented Labs: CBC, BMP 04/05/19 07:10 04/05/19 07:10 INR, PTT INR 1.25 (0.83-1.09) H 04/05/19 07:10 - ....Imaging Chest X-ray: Report Reviewed, Image Reviewed EKG: Report Reviewed, Image Reviewed Other: Report Reviewed, Image Reviewed Assessment/Plan 69 year old female with a PMH of HTN, DM-2, HLD, asthma, CAD (S/P PCI with [facility] of Mid LAD on 10/15/18), systolic CHF secondary to an ischemic cardiomyopathy with an EF of 35% (echo 10/20/18). Had an STEMI involving the lateral wall 10/15/18 cath a [facility] showed a 99% stenosis of the Mid LAD, PCI was done to the mLAD. Now presents with worsening bilateral LE edema for the past few days associated with SOB. She did skip one day of meds and had recent salty foods. CHF Systolic acute on chronic No sig changed today Cont Lasix 40 mg IVSS BID Monitor Daily I's/O's/Wt's/lytes Keep I/Os negative Continue metoprolol XL 25 mg PO daily Continue lisinopril 10 mg po daily CAD Continue Plavix 75 mg daily ASA 81 mg PO daily Lipitor 80 mg PO daily Fup with her primary classics teacher Dr. Power on discharge.
[2019-04-05] MEDS: ATORVASTATIN CA 80 MG TABLET (FP) PO SCH (21:38)
[2019-04-06] MEDS: FUROSEMIDE 40 MG/4 ML INJECTABLE VIAL IVPUSH SCH ×2 (06:48→15:06)
[2019-04-06] MEDS: metFORMIN HCL 500 MG TABLET (FP) PO SCH ×2 (06:48→17:00)
[2019-04-06] MEDS ORDERED: PT OWN MED DRAWER 7, Y5N ONE (08:59)
[2019-04-06] MEDS: PANTOPRAZOLE 20 MG TABLET (FP) PO SCH (09:08)
[2019-04-06] MEDS: CLOPIDOGREL BISULFATE 75 MG TABLET (FP) PO SCH (09:08)
[2019-04-06] MEDS: ASPIRIN 81 MG CHEWABLE TABLETS PO SCH (09:08)
[2019-04-06] MEDS: FERROUS SO4 325 MG TABLET (FP) PO SCH (09:08)
[2019-04-06] MEDS: FOLIC ACID 1 MG TABLET (FP) PO SCH (09:08)
[2019-04-06 09:18] LABS: BASO % 1.3 % (0-2.0); HEMATOCRIT 30.2 % (32.4-45.2); HEMOGLOBIN 9.7 GM/dL (10.7-15.3); LYMPH % 17.8 % (8-40); MCH 23.3 pg (25.7-33.7); MEAN CELL VOLUME 72.9 fl (80-96); MEAN PLT VOLUME 8.1 fl (7.5-11.1); MONO % 5.5 % (3.8-10.2); NEUT % 72.4 % (42.8-82.8); PLATELET COUNT 298 K/MM3 (134-434); RBC 4.14 M/mm3 (3.60-5.2); RDW 19.1 % (11.6-15.6); WHITE BLOOD COUNT 6.7 K/mm3 (4.0-10.0)
[2019-04-06 09:38] LABS: BILIRUBIN,TOTAL 1.3 mg/dL (0.2-1); BLOOD UREA NITROGEN 31.9 mg/dL (7-18); CALCIUM 8.8 mg/dL (8.5-10.1); MAGNESIUM 1.8 mg/dL (1.8-2.4); POTASSIUM 4.1 mmol/L (3.5-5.1); TOT PROT 6.7 g/dl (6.4-8.2)
[2019-04-06 09:45] LABS: INR 1.22 (0.83-1.09); PROTHROMBIN TIME (PATIENT) 14.4 SEC (9.7-13.0)
[2019-04-06] MEDS: LISINOPRIL 10 MG TABLET (FP) PO SCH (11:39)
[2019-04-06] MEDS: metoPROLOL SUCCINATE 25 MG TAB.SR.24H (FP) PO SCH (11:39)
--- NOTE | 2019-04-06 14:39 | PN ---
Progress Note, Physician Chief Complaint: denies shortness of breath History of Present Illness: Patient is a 69 year old female with a past medical history of hypertension, diabetes type 2, HLD, asthma, CAD (S/P PCI with [facility] of Mid LAD on 10/15/18), systolic CHF secondary to an ischemic cardiomyopathy with an EF of 35% (echo 10/20), STEMI involving the lateral wall 10/15/18 cath a [facility] showed a 99% stenosis of the Mid LAD. She presents to the ED on 04/03/2019 with worsening bilateral LE edema for the past few days associated with SOB after skipping one day of her lasix (takes 40 bid) and had increase in salt intake. - Current Medication List Current Medications: Active Medications Aspirin (Asa -) 81 mg PO DAILY [facility] Last Admin: 04/06/19 09:08 Dose: 81 mg Atorvastatin Calcium (Lipitor -) 80 mg PO HS [facility] Last Admin: 04/05/19 21:38 Dose: 80 mg Clopidogrel Bisulfate (Plavix -) 75 mg PO DAILY [facility] Last Admin: 04/06/19 09:08 Dose: 75 mg Ferrous Sulfate (Feosol -) 325 mg PO DAILY [facility] Last Admin: 04/06/19 09:08 Dose: 325 mg Folic Acid (Folic Acid -) 1 mg PO DAILY [facility] Last Admin: 04/06/19 09:08 Dose: 1 mg Furosemide (Lasix Injection -) 40 mg IVPUSH BID@0600,1400 [facility] Last Admin: 04/06/19 06:48 Dose: 40 mg Lisinopril (Prinivil) 10 mg PO DAILY [facility] Last Admin: 04/06/19 11:39 Dose: Not Given Metformin HCl (Glucophage -) 1,000 mg PO BIDAC [facility] Last Admin: 04/06/19 06:48 Dose: 1,000 mg Metoprolol Succinate (Toprol Xl -) 25 mg PO DAILY [facility] Last Admin: 04/06/19 11:39 Dose: Not Given Pantoprazole Sodium (Protonix -) 20 mg PO DAILY [facility] Last Admin: 04/06/19 09:08 Dose: 20 mg - Objective Vital Signs: Vital Signs Temperature 97.8 F 04/06/19 10:00 Pulse Rate 77 04/06/19 10:00 Respiratory Rate 18 04/06/19 10:00 Blood Pressure 97/62 04/06/19 10:00 O2 Sat by Pulse Oximetry (%) 98 04/06/19 09:00 Constitutional: Yes: Well Nourished, No Distress HENT: Yes: Atraumatic Neck: Yes: Supple Cardiovascular: Yes: Regular Rate and Rhythm Respiratory: Yes: Rales (lower lobe mild / fine rales) Gastrointestinal: Yes: Normal Bowel Sounds, Soft Labs: CBC, BMP 04/06/19 08:14 04/06/19 08:14 INR, PTT INR 1.22 (0.83-1.09) H 04/06/19 08:14 Problem List - Problems (1) Acute exacerbation of CHF (congestive heart failure) Assessment/Plan: on lasix IV bid, daily weights with monitoring of intake and output cardiology following echo EF 35% monitor electrolytes c/w lisinopril Code(s): I50.9 - HEART FAILURE, UNSPECIFIED (2) LFTs abnormal Assessment/Plan: continue to trend, improving Code(s): R94.5 - ABNORMAL RESULTS OF LIVER FUNCTION STUDIES (3) MARCELLA (acute kidney injury) Assessment/Plan: monitor daily Code(s): N17.9 - ACUTE KIDNEY FAILURE, UNSPECIFIED (4) Acute respiratory failure with hypoxia Assessment/Plan: resolved Code(s): J96.01 - ACUTE RESPIRATORY FAILURE WITH HYPOXIA (5) Prophylactic measure Assessment/Plan: FEN no need for addition IVF on diuretic therapy monitor electrolytes, Cr cardiac diet DVT on asa & plavix Dispo maintain as inpatient full code dc planning Code(s): Z29.9 - ENCOUNTER FOR PROPHYLACTIC MEASURES, UNSPECIFIED Visit type - Emergency Visit Emergency Visit: Yes ED Registration Date: 04/03/19 Care time: The patient presented to the Emergency Department on the above date and was hospitalized for further evaluation of their emergent condition. - New Patient This patient is new to me today: No - Critical Care Critical Care patient: No - Discharge Referral Referred to [facility] No
--- NOTE | 2019-04-06 17:43 | PN ---
Progress Note, Physician Chief Complaint: The patient appears comfortable at the time of exam. She has improved SOB and leg edema. No chest pain, palpitation or dizziness. History of Present Illness: 69 year old female with a PMHx of HTN, DM-2, HLD, asthma, CAD (S/P PCI with [facility] of Mid LAD on 10/15/18), systolic CHF secondary to an ischemic cardiomyopathy with an EF of 35% (echo 10/20/18). Had an STEMI involving the lateral wall 10/15/18 cath a [facility] showed a 99% stenosis of the Mid LAD, PCI was done to the mLAD admitted with worsening bilateral LE edema for the past few days associated with SOB. She did skip one day of meds and had recent salty foods. - Current Medication List Current Medications: Active Medications Aspirin (Asa -) 81 mg PO DAILY [facility] Last Admin: 04/06/19 09:08 Dose: 81 mg Atorvastatin Calcium (Lipitor -) 80 mg PO HS [facility] Last Admin: 04/05/19 21:38 Dose: 80 mg Clopidogrel Bisulfate (Plavix -) 75 mg PO DAILY [facility] Last Admin: 04/06/19 09:08 Dose: 75 mg Ferrous Sulfate (Feosol -) 325 mg PO DAILY [facility] Last Admin: 04/06/19 09:08 Dose: 325 mg Folic Acid (Folic Acid -) 1 mg PO DAILY [facility] Last Admin: 04/06/19 09:08 Dose: 1 mg Furosemide (Lasix Injection -) 40 mg IVPUSH BID@0600,1400 [facility] Last Admin: 04/06/19 15:06 Dose: 40 mg Lisinopril (Prinivil) 10 mg PO DAILY [facility] Last Admin: 04/06/19 11:39 Dose: Not Given Metformin HCl (Glucophage -) 1,000 mg PO BIDAC [facility] Last Admin: 04/06/19 17:00 Dose: 1,000 mg Metoprolol Succinate (Toprol Xl -) 25 mg PO DAILY [facility] Last Admin: 04/06/19 11:39 Dose: Not Given Pantoprazole Sodium (Protonix -) 20 mg PO DAILY [facility] Last Admin: 04/06/19 09:08 Dose: 20 mg - Objective Vital Signs: Vital Signs Temperature 97.7 F 04/06/19 15:00 Pulse Rate 68 04/06/19 15:00 Respiratory Rate 18 04/06/19 15:00 Blood Pressure 106/68 04/06/19 15:00 O2 Sat by Pulse Oximetry (%) 98 04/06/19 09:00 General: Well developed. Obese. No acute distress. Head: Normocephalic. Atraumatic, Eyes: PERRLA, EOMI. Sclerae anicteric. Conjunctivae clear. Neck: Supple. No JVD. No bruits. Heart: Normal S1, S2: Regular rhythm and rate. No murmur. No gallop or rub. Lungs: Symmetrical air entry. Bibasilar crackles. No wheezing or rhonchi. Abdomen: Soft. Bowel sound positive. Non tender. No masses. Extremities: 1+ edema. No clubbing or cyanosis. PD 2+, equal bilaterally. Neuro: Intact, no focal findings. AAO X3. Labs: CBC, BMP 04/06/19 08:14 04/06/19 08:14 INR, PTT INR 1.22 (0.83-1.09) H 04/06/19 08:14 Assessment/Plan 69 year old female with a PMH of HTN, DM-2, HLD, asthma, CAD (S/P PCI with [facility] of [facility] LAD on 10/15/18), systolic CHF secondary to an ischemic cardiomyopathy with an EF of 35% (echo 10/20/18). Had an STEMI involving the lateral wall 10/15/18 cath a [facility] showed a 99% stenosis of the Mid LAD, PCI was done to the mLAD admitted with worsening bilateral LE edema for the past few days associated with SOB. She did skip one day of meds and had recent salty foods. 1) Acute on chronic systolic CHF: Improved with IV diuretics. May change Lasix to PO 40 mg BID Continue metoprolol XL 25 mg PO daily Continue lisinopril 10 mg po daily 2) CAD: STEMI involving the lateral wall 10/15/18 cath a [facility] showed a 99% stenosis of the Mid LAD, PCI with [facility] was done to the mLAD Continue aspirin 81 mg daily and Plavix 75 mg daily Continue metoprolol and atorvastatin. Fup with her primary affiliate marketing coordinator Dr. Power on discharge. Please do not hesitate to call us for reconsult at any time if any further questions or additional issue arises regarding this patient.
[2019-04-06] MEDS: ATORVASTATIN CA 80 MG TABLET (FP) PO SCH (21:10)
[2019-04-07] MEDS: metFORMIN HCL 500 MG TABLET (FP) PO SCH ×2 (06:52→15:17)
[2019-04-07] MEDS: FUROSEMIDE 40 MG/4 ML INJECTABLE VIAL IVPUSH SCH ×2 (07:12→14:07)
[2019-04-07] MEDS: PANTOPRAZOLE 20 MG TABLET (FP) PO SCH (09:20)
[2019-04-07] MEDS: ASPIRIN 81 MG CHEWABLE TABLETS PO SCH (09:20)
[2019-04-07] MEDS: FOLIC ACID 1 MG TABLET (FP) PO SCH (09:20)
[2019-04-07] MEDS: CLOPIDOGREL BISULFATE 75 MG TABLET (FP) PO SCH (09:20)
[2019-04-07] MEDS: FERROUS SO4 325 MG TABLET (FP) PO SCH (09:20)
[2019-04-07] MEDS: LISINOPRIL 10 MG TABLET (FP) PO SCH (09:20)
[2019-04-07] MEDS: metoPROLOL SUCCINATE 25 MG TAB.SR.24H (FP) PO SCH (09:20)
[2019-04-07 13:11] LABS: BASO % 1.2 % (0-2.0); EOS % 2.1 % (0-4.5); HEMATOCRIT 29.5 % (32.4-45.2); HEMOGLOBIN 9.6 GM/dL (10.7-15.3); LYMPH % 19.7 % (8-40); MCH 23.5 pg (25.7-33.7); MCHC 32.5 g/dl (32.0-36.0); MEAN CELL VOLUME 72.3 fl (80-96); MEAN PLT VOLUME 7.7 fl (7.5-11.1); MONO % 6.2 % (3.8-10.2); NEUT % 70.8 % (42.8-82.8); PLATELET COUNT 322 K/MM3 (134-434); RBC 4.08 M/mm3 (3.60-5.2); RDW 18.6 % (11.6-15.6); WHITE BLOOD COUNT 6.5 K/mm3 (4.0-10.0)
[2019-04-07 14:13] LABS: BILIRUBIN,TOTAL 1.1 mg/dL (0.2-1); CALCIUM 8.8 mg/dL (8.5-10.1); CREATININE 1.1 mg/dL (0.55-1.3); MAGNESIUM 1.6 mg/dL (1.8-2.4); POTASSIUM 4.9 mmol/L (3.5-5.1); TOT PROT 6.9 g/dl (6.4-8.2)
[2019-04-07 14:19] VITALS: BP 103/66; PULSE 92; TEMP 98.2
[2019-04-07] MEDS ORDERED: MAGNESIUM OXIDE 400 MG TABLET (FP) PO ONE (15:04)
--- NOTE | 2019-04-07 15:16 | DS ---
Physical Exam: SUBJECTIVE: Patient seen and examined OBJECTIVE: Vital Signs Period Temp Pulse Resp BP Sys/Rae Pulse Ox Last 24 Hr 98.2 F-99.6 F 79-100 18-19 103-118/66-75 97-98 PHYSICAL EXAM GENERAL: The patient is awake, alert, and fully oriented, in no acute distress. HEAD: Normal with no signs of trauma. EYES: PERRL, extraocular movements intact, sclera anicteric, conjunctiva clear. ENT: Ears normal, nares patent, oropharynx clear without exudates, moist mucous membranes. NECK: Trachea midline, full range of motion, supple. LUNGS: Breath sounds equal, clear to auscultation bilaterally, no wheezes, no crackles, no accessory muscle use. HEART: Regular rate and rhythm, S1, S2 without murmur, rub or gallop. ABDOMEN: Soft, nontender, nondistended, normoactive bowel sounds, no guarding, no rebound, no hepatosplenomegaly, no masses. EXTREMITIES: 2+ pulses, warm, well-perfused, no edema. NEUROLOGICAL: Cranial nerves II through XII grossly intact. Normal speech, gait not observed. PSYCH: Normal mood, normal affect. SKIN: Warm, dry, normal turgor, no rashes or lesions noted. LABS Laboratory Results - last 24 hr 04/06/19 04/06/19 04/07/19 16:59 21:11 05:17 WBC RBC Hgb Hct MCV MCH MCHC RDW Plt Count MPV Absolute Neuts (auto) Neutrophils % Lymphocytes % Monocytes % Eosinophils % Basophils % Nucleated RBC % Sodium Potassium Chloride Carbon Dioxide Anion Gap BUN Creatinine Est GFR (CKD-EPI)AfAm Est GFR (CKD-EPI)NonAf POC Glucometer 173 164 130 Random Glucose Calcium Magnesium Total Bilirubin AST ALT Alkaline Phosphatase Total Protein Albumin 04/07/19 04/07/19 12:00 12:00 WBC 6.5 RBC 4.08 Hgb 9.6 L Hct 29.5 L MCV 72.3 L MCH 23.5 L MCHC 32.5 RDW 18.6 H Plt Count 322 MPV 7.7 Absolute Neuts (auto) 4.6 Neutrophils % 70.8 Lymphocytes % 19.7 Monocytes % 6.2 Eosinophils % 2.1 Basophils % 1.2 Nucleated RBC % 0 Sodium 138 Potassium 4.9 Chloride 96 L Carbon Dioxide 32 Anion Gap 9 BUN 29.0 H Creatinine 1.1 Est GFR (CKD-EPI)AfAm 59.32 Est GFR (CKD-EPI)NonAf 51.18 POC Glucometer Random Glucose 165 H Calcium 8.8 Magnesium 1.6 L Total Bilirubin 1.1 H AST 39 H ALT 90 H Alkaline Phosphatase 119 H Total Protein 6.9 Albumin 3.0 L HOSPITAL COURSE: Date of Admission:04/03/19 Date of Discharge: 04/07/19 Discharge Summary Reason For Visit: ACUTE CHRONIC CONGESTIVE HEART FAILURE/SOB/DM/ Current Active Problems Acute exacerbation of CHF (congestive heart failure) (Acute) GERD (gastroesophageal reflux disease) (Acute) LFTs abnormal (Acute) Prophylactic measure (Acute) Condition: Improved - Instructions Diet, Activity, Other Instructions: Mrs Silverman: You were admitted for acute exacerbation of heart failure. You will be discharged home today. Please continue your Lasix 40mg TWICE per day. Please call your population health manager to make an appointment for follow up. Please bring your discharge paperwork with your. We made an appointment for you to see Dr. Brown. We did an ultrasound of your liver, take this study with you on your appointment. NEW MEDICATIONS: Protonix 40mg once per day - TAKE 1 HOUR BEFORE BREAKFAST OR TWO HOURS ON AN EMPTY STOMACH. TAKE ALL YOUR MEDICATIONS AT HOME WITH FOOD. TRY AN ENSURE IN THE MORNING WITH YOUR BREAKFAST. FOLLOW UPS: PLEASE SEE DR BROWN (GASTROENTROLOGIST) WE HAVE MADE AN APPOINTMENT FOR YOU: ADDRESS: [address] [place] [address] - office address You have an appointment with Dr. Brown on April 22 at 12:45 - LOCATED [facility] PLEASE FOLLOW UP WITH YOUR UMBRELLA REPAIRER. Thank you for allowing us to care for you. Referrals: Melony Brown DO [Staff Physician] - ([address] [place] [address] - office address You have an appointment with Dr. Brown on April 22 at 12:45 - [facility] ) Disposition: HOME - Home Medications Comprehensive Discharge Medication List: Ambulatory Orders Aspirin 81 mg PO DAILY 10/15/18 Atorvastatin Ca [Lipitor] 80 mg PO HS 11/08/18 Clopidogrel Bisulfate [Plavix -] 75 mg PO DAILY 30 Days #30 tablet 11/11/18 Ferrous Sulfate [Feosol] 325 mg PO DAILY 30 Days #30 ud 11/11/18 Metoprolol Succinate [Toprol XL -] 25 mg PO DAILY #30 tab.sr.24h 12/27/18 Metformin HCl [Glucophage] 1,000 mg PO BID 03/11/19 Furosemide [Lasix] 40 mg PO BID #60 tablet 03/23/19 Ondansetron [Zofran *Odt*] 8 mg SL TID PRN #15 od.tablet 03/29/19 Omeprazole 40 mg PO DAILY 04/03/19 Folic Acid - 1 mg PO DAILY tablet 04/07/19 Lisinopril [Prinivil] 10 mg PO DAILY tablet 04/07/19 Pantoprazole Sodium [Protonix] 40 mg PO DAILY #90 tablet. 04/07/19 Problem List - Problems (1) Acute exacerbation of CHF (congestive heart failure) Code(s): I50.9 - HEART FAILURE, UNSPECIFIED (2) LFTs abnormal Code(s): R94.5 - ABNORMAL RESULTS OF LIVER FUNCTION STUDIES (3) MARCELLA (acute kidney injury) Code(s): N17.9 - ACUTE KIDNEY FAILURE, UNSPECIFIED (4) Acute respiratory failure with hypoxia Code(s): J96.01 - ACUTE RESPIRATORY FAILURE WITH HYPOXIA (5) Prophylactic measure Code(s): Z29.9 - ENCOUNTER FOR PROPHYLACTIC MEASURES, UNSPECIFIED - Discharge Referral Referred to [facility] Med P.C.: No
--- NOTE | 2019-04-07 15:16 | DS ---
Physical Exam: SUBJECTIVE: Patient seen and examined OBJECTIVE: Vital Signs Period Temp Pulse Resp BP Sys/Rae Pulse Ox Last 24 Hr 98.2 F-99.6 F 79-100 18-19 103-118/66-75 97-98 PHYSICAL EXAM GENERAL: The patient is awake, alert, and fully oriented, in no acute distress. HEAD: Normal with no signs of trauma. EYES: PERRL, extraocular movements intact, sclera anicteric, conjunctiva clear. ENT: Ears normal, nares patent, oropharynx clear without exudates, moist mucous membranes. NECK: Trachea midline, full range of motion, supple. LUNGS: Breath sounds equal, clear to auscultation bilaterally, no wheezes, no crackles, no accessory muscle use. HEART: Regular rate and rhythm, S1, S2 without murmur, rub or gallop. ABDOMEN: Soft, nontender, nondistended, normoactive bowel sounds, no guarding, no rebound, no hepatosplenomegaly, no masses. EXTREMITIES: 2+ pulses, warm, well-perfused, no edema. NEUROLOGICAL: Cranial nerves II through XII grossly intact. Normal speech, gait not observed. PSYCH: Normal mood, normal affect. SKIN: Warm, dry, normal turgor, no rashes or lesions noted. LABS Laboratory Results - last 24 hr 04/06/19 04/06/19 04/07/19 16:59 21:11 05:17 WBC RBC Hgb Hct MCV MCH MCHC RDW Plt Count MPV Absolute Neuts (auto) Neutrophils % Lymphocytes % Monocytes % Eosinophils % Basophils % Nucleated RBC % Sodium Potassium Chloride Carbon Dioxide Anion Gap BUN Creatinine Est GFR (CKD-EPI)AfAm Est GFR (CKD-EPI)NonAf POC Glucometer 173 164 130 Random Glucose Calcium Magnesium Total Bilirubin AST ALT Alkaline Phosphatase Total Protein Albumin 04/07/19 04/07/19 12:00 12:00 WBC 6.5 RBC 4.08 Hgb 9.6 L Hct 29.5 L MCV 72.3 L MCH 23.5 L MCHC 32.5 RDW 18.6 H Plt Count 322 MPV 7.7 Absolute Neuts (auto) 4.6 Neutrophils % 70.8 Lymphocytes % 19.7 Monocytes % 6.2 Eosinophils % 2.1 Basophils % 1.2 Nucleated RBC % 0 Sodium 138 Potassium 4.9 Chloride 96 L Carbon Dioxide 32 Anion Gap 9 BUN 29.0 H Creatinine 1.1 Est GFR (CKD-EPI)AfAm 59.32 Est GFR (CKD-EPI)NonAf 51.18 POC Glucometer Random Glucose 165 H Calcium 8.8 Magnesium 1.6 L Total Bilirubin 1.1 H AST 39 H ALT 90 H Alkaline Phosphatase 119 H Total Protein 6.9 Albumin 3.0 L HOSPITAL COURSE: Date of Admission:04/03/19 Date of Discharge: 04/07/19 Discharge Summary Reason For Visit: ACUTE CHRONIC CONGESTIVE HEART FAILURE/SOB/DM/ Current Active Problems Acute exacerbation of CHF (congestive heart failure) (Acute) GERD (gastroesophageal reflux disease) (Acute) LFTs abnormal (Acute) Prophylactic measure (Acute) Condition: Improved - Instructions Diet, Activity, Other Instructions: Mrs Silverman: You were admitted for acute exacerbation of heart failure. You will be discharged home today. Please continue your Lasix 40mg TWICE per day. Please call your hospital recruiter to make an appointment for follow up. Please bring your discharge paperwork with your. We made an appointment for you to see Dr. Brown. We did an ultrasound of your liver, take this study with you on your appointment. NEW MEDICATIONS: Protonix 40mg once per day - TAKE 1 HOUR BEFORE BREAKFAST OR TWO HOURS ON AN EMPTY STOMACH. TAKE ALL YOUR MEDICATIONS AT HOME WITH FOOD. TRY AN ENSURE IN THE MORNING WITH YOUR BREAKFAST. FOLLOW UPS: PLEASE SEE DR BROWN (GASTROENTROLOGIST) WE HAVE MADE AN APPOINTMENT FOR YOU: ADDRESS: [address] [place] [address] - office address You have an appointment with Dr. Brown on April 22 at 12:45 - LOCATED [facility] PLEASE FOLLOW UP WITH YOUR CAR STARTER. Thank you for allowing us to care for you. Referrals: Melony Brown DO [Staff Physician] - ([address] [place] [address] - office address You have an appointment with Dr. Brown on April 22 at 12:45 - [facility] ) Disposition: HOME - Home Medications Comprehensive Discharge Medication List: Ambulatory Orders Aspirin 81 mg PO DAILY 10/15/18 Atorvastatin Ca [Lipitor] 80 mg PO HS 11/08/18 Clopidogrel Bisulfate [Plavix -] 75 mg PO DAILY 30 Days #30 tablet 11/11/18 Ferrous Sulfate [Feosol] 325 mg PO DAILY 30 Days #30 ud 11/11/18 Metoprolol Succinate [Toprol XL -] 25 mg PO DAILY #30 tab.sr.24h 12/27/18 Metformin HCl [Glucophage] 1,000 mg PO BID 03/11/19 Furosemide [Lasix] 40 mg PO BID #60 tablet 03/23/19 Ondansetron [Zofran *Odt*] 8 mg SL TID PRN #15 od.tablet 03/29/19 Omeprazole 40 mg PO DAILY 04/03/19 Folic Acid - 1 mg PO DAILY tablet 04/07/19 Lisinopril [Prinivil] 10 mg PO DAILY tablet 04/07/19 Pantoprazole Sodium [Protonix] 40 mg PO DAILY #90 tablet. 04/07/19 Problem List - Problems (1) Acute exacerbation of CHF (congestive heart failure) Code(s): I50.9 - HEART FAILURE, UNSPECIFIED (2) LFTs abnormal Code(s): R94.5 - ABNORMAL RESULTS OF LIVER FUNCTION STUDIES (3) MARCELLA (acute kidney injury) Code(s): N17.9 - ACUTE KIDNEY FAILURE, UNSPECIFIED (4) Acute respiratory failure with hypoxia Code(s): J96.01 - ACUTE RESPIRATORY FAILURE WITH HYPOXIA (5) Prophylactic measure Code(s): Z29.9 - ENCOUNTER FOR PROPHYLACTIC MEASURES, UNSPECIFIED - Discharge Referral Referred to [facility] Med [facility].C.: No
== END 2019-04-07 17:01 | disposition home health service (06) | DRG 293 ==
LOC: JER 11:00 → JERBED 13:35 → J6S 04-04 14:17
PROVIDERS: ADMIT Internal Medicine; ATTEND Nurse Practitioner Family
DX: I11.0 Hypertensive heart disease with heart failure (principal); I50.23 Acute on chronic systolic (congestive) heart failure; I25.10 Atherosclerotic heart disease of native coronary artery without angina pectoris; K21.9 Gastro-esophageal reflux disease without esophagitis; D64.9 Anemia, unspecified; E78.5 Hyperlipidemia, unspecified; K76.0 Fatty (change of) liver, not elsewhere classified; R94.5 Abnormal results of liver function studies; J45.909 Unspecified asthma, uncomplicated; E66.9 Obesity, unspecified; Z68.30 Body mass index [BMI] 30.0-30.9, adult; I25.2 Old myocardial infarction; Z95.5 Presence of coronary angioplasty implant and graft; Z79.84 Long term (current) use of oral hypoglycemic drugs; E11.9 Type 2 diabetes mellitus without complications; I25.5 Ischemic cardiomyopathy; Z91.11 Patient's noncompliance with dietary regimen
CPT/HCPCS: 36415; 71045-TC-FY; 76705-TC; 80053; 80074; 81003; 82962; 83735; 83880; 84132; 84484; 85025; 85610; 87086; 93005; 93010; 94761; 97116-GP; 97161-GP; 99285-25

== ENCOUNTER 2019-04-20 01:01 | Inpatient (IN) | payer OTHER ==
--- NOTE | 2019-04-20 04:49 | PDOC ---
History of Present Illness - General Chief Complaint: Shortness of Breath Stated Complaint: DIFFICULTY BREATHING, WEIGHT GAINPRIV Time Seen by Provider: 04/20/19 04:49 Past History - Past Medical History Allergies/Adverse Reactions: Allergies Allergy/AdvReac Type Severity Reaction Status Date / Time No Known Allergies Allergy Verified 04/20/19 03:00 Home Medications: Ambulatory Orders Aspirin 81 mg PO DAILY 10/15/18 Atorvastatin Ca [Lipitor] 80 mg PO HS 11/08/18 Clopidogrel Bisulfate [Plavix -] 75 mg PO DAILY 30 Days #30 tablet 11/11/18 Ferrous Sulfate [Feosol] 325 mg PO DAILY 30 Days #30 ud 11/11/18 Metoprolol Succinate [Toprol XL -] 25 mg PO DAILY #30 tab.sr.24h 12/27/18 Metformin HCl [Glucophage] 1,000 mg PO BID 03/11/19 Furosemide [Lasix] 40 mg PO BID #60 tablet 03/23/19 Folic Acid - 1 mg PO DAILY tablet 04/07/19 Lisinopril [Prinivil] 10 mg PO DAILY tablet 04/07/19 Anemia: Yes Asthma: Yes Cancer: No Cardiac Disorders: Yes (MD) CVA: No COPD: No CHF: Yes Dementia: No Diabetes: Yes GI Disorders: No Disorders: No HTN: Yes Hypercholesterolemia: Yes Liver Disease: No Seizures: No Thyroid Disease: No - Surgical History Abdominal Surgery: No Appendectomy: No Cardiac Surgery: No Cholecystectomy: No Lung Surgery: No Neurologic Surgery: No Orthopedic Surgery: No - Immunization History Immunization Up to Date: Yes - Suicide/Smoking/Psychosocial Hx Smoking History: Never smoked Have you smoked in the past 12 months: No Hx Alcohol Use: No Drug/Substance Use Hx: No Substance Use Type: None Hx Substance Use Treatment: No *Physical Exam - Vital Signs Last Vital Signs Temp Pulse Resp BP Pulse Ox 97.5 F L 82 15 104/56 L 100 04/20/19 01:02 04/20/19 01:02 04/20/19 01:02 04/20/19 01:02 04/20/19 01:02 ED Treatment Course - LABORATORY CBC & Chemistry Diagram: 04/22/19 10:30 04/22/19 10:30 Medical Decision Making - Medical Decision Making HPI: 69yo F with PMH of CHF (on 80mg lasix daily), GERD, MD s/p stent and cath in October 2018, HTN, HLD, DM presenting with shortness of breath. Patient believes she is having a CHF exacerbation. She reports medication compliance and has not been drinking too much water, but states she has had about an 8lb weight gain over the past two days. Notes worsening upper and lower extremity swelling. Cannot walk beyond her kitchen without feeling short of breath. Presents to our ED late tonight because she could not sleep. Uses three pillows. Has a nonproductive cough. Denies fever, chills, chest pain, or abdominal pain. PCP: Dr. Sagastume Cardio: Dr. Hicks ROS: Constitutional: no fever, no chills HEENT: no throat pain, no dysphagia Cardiovascular: no chest pain, no palpitations Respiratory: +cough, +shortness of breath Gastrointestinal: no abdominal pain, no nausea Genitourinary: no dysuria, no hematuria Musculoskeletal: +leg swelling, +arm swelling Skin: no rash, no itching Neurologic: no headache, no weakness PE: General: Awake, alert, and fully oriented, in no acute distress Head: No signs of trauma Eyes: EOMI, sclera anicteric ENT: Moist mucus membranes Neck: Normal ROM, supple Lungs: Crackles present diffusely Cardio: Regular rhythm, S1 and S2 present Abdomen: Soft, nontender Extremities: Normal range of motion, Distal pulses present, 3+ pitting edema in lower extremities SKIN: Warm, Dry, normal turgor Neurologic: Cranial nerves II through XII grossly intact. Normal speech ED Course/MDM: DDX including but not limited to CHF exacerbation, COPD, asthma, PNA, ACS, anemia, metabolic derangement Labs, EKG, CXR 04/20/19 04:49 EKG: rate 80, !Tc 507, sinus with PVCs No leukocytosis Hgb 9.2, at patient's baseline Electrolytes unremarkable Cr 1.4 BNP 34470 Tpn 0.04 CXR as ready by radiology: "2 views of the chest again reveals a large heart with unfolded aorta and there is some atelectasis in the region of the lingula. Atelectasis is new since 04/03/2019. The remainder of the study is unchanged.. Correlation recommended. " Plan for admission for CHF exacerbation Patient signed out to Dr. Thomas and day team *DC/Admit/Observation/Transfer Diagnosis at time of Disposition: Acute exacerbation of CHF (congestive heart failure) Qualifiers: Heart failure type: unspecified Qualified Code(s): I50.9 - Heart failure, unspecified - Discharge Dispostion Condition at time of disposition: Guarded Decision to Admit order: Yes - Referrals - Patient Instructions - Post Discharge Activity
--- NOTE | 2019-04-20 04:56 | PDOC ---
Attending Attestation - Resident Resident Name: Rosaura Ceballos - ED Attending Attestation I have performed the following: I have examined & evaluated the patient, The case was reviewed & discussed with the resident, I agree w/resident's findings & plan - HPI HPI: 04/20/19 21:04 see resident hpi - Physicial Exam PE: 04/20/19 21:04 agree with resident exam - Medical Decision Making 04/20/19 21:04 69 yo female with leg swelling and sob labs and exam suggest chf exacerbation lasix given iv in ED admit to hospitalist service
[2019-04-20 06:36] VITALS: BMI 30.2
[2019-04-20 06:39] LABS: INR 1.28 (0.83-1.09); PROTHROMBIN TIME (PATIENT) 15.2 SEC (9.7-13.0)
[2019-04-20 06:41] LABS: BASO % 1.1 % (0-2.0); EOS % 2.4 % (0-4.5); HEMATOCRIT 28.6 % (32.4-45.2); HEMOGLOBIN 9.2 GM/dL (10.7-15.3); LYMPH % 27.1 % (8-40); MCH 23.1 pg (25.7-33.7); MCHC 32.2 g/dl (32.0-36.0); MEAN CELL VOLUME 71.9 fl (80-96); MEAN PLT VOLUME 8.7 fl (7.5-11.1); MONO % 6.3 % (3.8-10.2); NEUT % 63.1 % (42.8-82.8); PLATELET COUNT 260 K/MM3 (134-434); RBC 3.97 M/mm3 (3.60-5.2); RDW 17.9 % (11.6-15.6)
[2019-04-20 07:05] LABS: ALBUMIN 3.4 g/dl (3.4-5.0); BILIRUBIN,TOTAL 0.7 mg/dL (0.2-1); CALCIUM 8.9 mg/dL (8.5-10.1); CREATININE 1.4 mg/dL (0.55-1.3); POTASSIUM 5.1 mmol/L (3.5-5.1); TOT PROT 7.3 g/dl (6.4-8.2)
[2019-04-20] MEDS ORDERED: FUROSEMIDE 40 MG/4 ML INJECTABLE VIAL IVPUSH ONE (07:11)
[2019-04-20] MEDS ORDERED: FUROSEMIDE 40 MG/4 ML INJECTABLE VIAL ONE (07:36)
--- NOTE | 2019-04-20 09:47 | HP ---
Admitting History and Physical - Admission Chief Complaint: shortness of breath History of Present Illness: Patient is a 69 year old female with a past medical history of hypertension, diabetes type 2, HLD, asthma, CAD (S/P PCI with [facility] of Mid LAD on 10/15/18), systolic CHF secondary to an ischemic cardiomyopathy with an EF of 35% (echo 10/20), STEMI involving the lateral wall 10/15/18 cath a [facility] showed a 99% stenosis of the Mid LAD. She presents to the ED with c/o of worsening leg edema , orthpnea and shortness of breath with physical exertion. She reports weight gain at home from 172 to 179 lbs in 2 days. She was most recently admitted with similar presentation on 04/03/2019-04/07/2019. She reports compliance with home Lasix. Patient believes she is having a CHF exacerbation. She reports medication compliance and has not been drinking too much water. She notes worsening upper and lower extremity swelling. Cannot walk beyond her kitchen without feeling short of breath. Uses three pillows. Has a nonproductive cough. Denies fever, chills, chest pain, or abdominal pain. History Source: Patient Limitations to Obtaining History: No Limitations - Past Medical History Cardiovascular: Yes: CAD, CHF, HTN, [place], Hyperlipdemia, Other Pulmonary: Yes: Asthma ...: No Heme/Onc: Yes: Anemia - Past Surgical History Past Surgical History: Yes: Stent (coronary) - Smoking History Smoking history: Never smoked Have you smoked in the past 12 months: No - Alcohol/Substance Use Hx Alcohol Use: No History of Substance Use: reports: None - Social History Usual Living Arrangement: Yes: With Spouse ADL: Family Assistance History of Recent Travel: No Home Medications - Allergies Allergies/Adverse Reactions: Allergies Allergy/AdvReac Type Severity Reaction Status Date / Time No Known Allergies Allergy Verified 04/20/19 03:00 - Home Medications Home Medications: Ambulatory Orders Aspirin 81 mg PO DAILY 10/15/18 Atorvastatin Ca [Lipitor] 80 mg PO HS 11/08/18 Clopidogrel Bisulfate [Plavix -] 75 mg PO DAILY 30 Days #30 tablet 11/11/18 Ferrous Sulfate [Feosol] 325 mg PO DAILY 30 Days #30 ud 11/11/18 Metoprolol Succinate [Toprol XL -] 25 mg PO DAILY #30 tab.sr.24h 12/27/18 Metformin HCl [Glucophage] 1,000 mg PO BID 03/11/19 Furosemide [Lasix] 40 mg PO BID #60 tablet 03/23/19 Folic Acid - 1 mg PO DAILY tablet 04/07/19 Lisinopril [Prinivil] 10 mg PO DAILY tablet 04/07/19 Family Disease History - Family Disease History Family History: Denies Review of Systems - Review of Systems Constitutional: reports: Weakness Eyes: reports: No Symptoms HENT: reports: No Symptoms Neck: reports: No Symptoms Cardiovascular: reports: Edema, Shortness of Breath Respiratory: reports: Orthopnea Gastrointestinal: reports: No Symptoms Genitourinary: reports: No Symptoms Breasts: reports: No Symptoms Reported Musculoskeletal: reports: No Symptoms Integumentary: reports: No Symptoms Neurological: reports: No Symptoms Endocrine: reports: No Symptoms Hematology/Lymphatic: reports: No Symptoms Psychiatric: reports: No Symptoms Physical Examination Vital Signs: Vital Signs Temperature 97.1 F L 04/20/19 08:48 Pulse Rate 86 04/20/19 08:48 Respiratory Rate 19 04/20/19 08:48 Blood Pressure 108/71 04/20/19 08:48 O2 Sat by Pulse Oximetry (%) 99 04/20/19 09:20 Constitutional: Yes: Calm HENT: Yes: Atraumatic Neck: Yes: Supple Cardiovascular: Yes: Regular Rate and Rhythm Respiratory: Yes: Rales (bilateral lower lobe crackles) Gastrointestinal: Yes: Normal Bowel Sounds, Soft ...Rectal Exam: Yes: Deferred Edema: LLE: 1+, RLE: 1+ Integumentary: Yes: WNL Neurological: Yes: WNL, Alert, Oriented Labs: CBC, BMP 04/20/19 06:18 04/20/19 06:18 Imaging - Results Chest X-ray: Report Reviewed Problem List - Problems (1) Acute exacerbation of CHF (congestive heart failure) Assessment/Plan: started back on lasix IV bid, daily weights with monitoring of intake and output. patient reports compliance with po lasix 40mg bid, but states she does not feel it hs been working for her. she reports compliance. cardiology following echo EF 35% monitor electrolytes, Monitor I/O's, daily weight c/w lisinopril Code(s): I50.9 - HEART FAILURE, UNSPECIFIED (2) MARCELLA (acute kidney injury) Assessment/Plan: monitor daily with labs Code(s): N17.9 - ACUTE KIDNEY FAILURE, UNSPECIFIED (3) Acute respiratory failure with hypoxia Assessment/Plan: tolerating room air crackles at the bases, unchanged from previous Code(s): J96.01 - ACUTE RESPIRATORY FAILURE WITH HYPOXIA (4) Diabetes Code(s): E11.9 - TYPE 2 DIABETES MELLITUS WITHOUT COMPLICATIONS (5) LFTs abnormal Code(s): R94.5 - ABNORMAL RESULTS OF LIVER FUNCTION STUDIES (6) Prophylactic measure Assessment/Plan: fen tolerating po no ivf, monitor electrolytes low salt diet full code Code(s): Z29.9 - ENCOUNTER FOR PROPHYLACTIC MEASURES, UNSPECIFIED Visit type - Emergency Visit Emergency Visit: Yes ED Registration Date: 04/20/19 Care time: The patient presented to the Emergency Department on the above date and was hospitalized for further evaluation of their emergent condition. - New Patient This patient is new to me today: Yes Date on this admission: 04/20/19 - Critical Care Critical Care patient: No
[2019-04-20] MEDS: LISINOPRIL 10 MG TABLET (FP) PO SCH (11:00)
[2019-04-20] MEDS: FERROUS SO4 325 MG TABLET (FP) PO SCH (11:00)
[2019-04-20] MEDS: CLOPIDOGREL BISULFATE 75 MG TABLET (FP) PO SCH (11:00)
[2019-04-20] MEDS: metoPROLOL SUCCINATE 25 MG TAB.SR.24H (FP) PO SCH (11:00)
[2019-04-20] MEDS: FOLIC ACID 1 MG TABLET (FP) PO SCH (11:00)
[2019-04-20] MEDS: ASPIRIN 81 MG CHEWABLE TABLETS PO SCH (11:00)
[2019-04-20] MEDS: INSULIN SLIDING SCALE (NOVOLOG) 1 VIAL SQ SCH ×3 (11:41→23:19)
--- NOTE | 2019-04-20 15:06 | CON.CARD ---
Consult Consult Specialty:: Cardiology Referred by:: Yair Nicholson Reason for Consultation:: CHF - History of Present Illness Chief Complaint: sob History of Present Illness: 69 year old female with a pmhx of CAD s/p STEMI s/p [facility] to mLAD 10/15/18, htn, dm , hld, asthma, and chronic systolic chf due to ICM here with recent weight gain and sob. No chest pain or palpitations. +orthopnea. - History Source History Provided By: Patient, Medical Record - Past Medical History Cardio/Vascular: Yes: CAD, CHF, HTN, [place], Hyperlipdemia, Other Pulmonary: Yes: Asthma - Past Surgical History Past Surgical History: Yes: Stent (coronary) - Alcohol/Substance Use Hx Alcohol Use: No - Smoking History Smoking history: Never smoked Have you smoked in the past 12 months: No - Social History History of Recent Travel: No Home Medications - Allergies Allergies/Adverse Reactions: Allergies Allergy/AdvReac Type Severity Reaction Status Date / Time No Known Allergies Allergy Verified 04/20/19 03:00 - Home Medications Home Medications: Ambulatory Orders Aspirin 81 mg PO DAILY 10/15/18 Atorvastatin Ca [Lipitor] 80 mg PO HS 11/08/18 Clopidogrel Bisulfate [Plavix -] 75 mg PO DAILY 30 Days #30 tablet 11/11/18 Ferrous Sulfate [Feosol] 325 mg PO DAILY 30 Days #30 ud 11/11/18 Metoprolol Succinate [Toprol XL -] 25 mg PO DAILY #30 tab.sr.24h 12/27/18 Metformin HCl [Glucophage] 1,000 mg PO BID 03/11/19 Furosemide [Lasix] 40 mg PO BID #60 tablet 03/23/19 Folic Acid - 1 mg PO DAILY tablet 04/07/19 Lisinopril [Prinivil] 10 mg PO DAILY tablet 04/07/19 Vital Signs: Vital Signs Temperature 97.1 F L 04/20/19 08:48 Pulse Rate 93 H 04/20/19 12:33 Respiratory Rate 17 04/20/19 12:33 Blood Pressure 100/64 04/20/19 12:33 O2 Sat by Pulse Oximetry (%) 99 04/20/19 12:33 Constitutional: Yes: No Distress Neck: Yes: Supple Respiratory: Yes: Rales Gastrointestinal: Yes: Soft Cardiovascular: Yes: Regular Rate and Rhythm JVD: Yes Carotid Bruit: No PMI: Non-Displaced Heart Sounds: Yes: S1, S2 Murmur: No: Systolic Murmur Edema: LLE: Trace, RLE: Trace - Other Data Labs, Other Data: CBC, BMP 04/20/19 06:18 04/20/19 06:18 INR, PTT INR 1.28 (0.83-1.09) H 04/20/19 06:18 Troponin, BNP 04/20/19 04/20/19 04/20/19 06:18 06:18 12:08 Troponin I 0.04 0.03 B-Natriuretic Peptide 56750.0 H Troponin, BNP 04/20/19 04/20/19 04/20/19 06:18 06:18 12:08 Troponin I 0.04 0.03 B-Natriuretic Peptide 99329.0 H Imaging - Results Chest X-ray: Report Reviewed Problem List - Problems (1) Acute exacerbation of CHF (congestive heart failure) Code(s): I50.9 - HEART FAILURE, UNSPECIFIED Assessment/Plan 69 year old female with a pmhx of CAD s/p STEMI s/p [facility] to mLAD 10/15/18, htn, dm , hld, asthma, and chronic systolic chf due to ICM here with recent weight gain and sob. No chest pain or palpitations. +orthopnea. 1) Acute on chronic systolic chf exacerbation -Home chf meds metoprolol xl and lisinopril -Fluid restriction Low salt diet Furosemide 40mg IV bid Monitor I/O's, daily weight, and lytes -F/u Dr. Persaud as outpatient for monitoring of LVEF and need for ICD or not. 2) CAD -Continue aspirin/plavix/statin/metoprolol Will continue to follow with you EKG please
--- NOTE | 2019-04-20 21:18 | EKG ---
Test Reason : Blood Pressure : / mmHG Vent. Rate : 080 BPM Atrial Rate : 080 BPM P-R Int : 188 ms QRS Dur : 092 ms QT Int : 440 ms P-R-T Axes : 051 -38 065 degrees QTc Int : 507 ms SINUS RHYTHM WITH OCCASIONAL PREMATURE VENTRICULAR COMPLEXES POSSIBLE LEFT ATRIAL ENLARGEMENT LEFT AXIS DEVIATION ANTEROLATERAL INFARCT (CITED ON OR BEFORE 24-DEC-2018) ABNORMAL ECG WHEN COMPARED WITH ECG OF 03-APR-2019 11:38, PREMATURE VENTRICULAR COMPLEXES ARE NOW PRESENT Confirmed by ALAN PEPE, PRAFUL ([id number]) on 04/20/2019 9:18:14 PM Referred By: Confirmed By:PRAFUL PHILLIPS MD
[2019-04-20] MEDS: ATORVASTATIN CA 80 MG TABLET (FP) PO SCH (23:19)
[2019-04-21] MEDS: FUROSEMIDE 40 MG/4 ML INJECTABLE VIAL IVPUSH SCH ×2 (06:22→14:34)
[2019-04-21] MEDS: INSULIN SLIDING SCALE (NOVOLOG) 1 VIAL SQ SCH ×4 (06:39→21:43)
[2019-04-21 07:13] LABS: BASO % 1.1 % (0-2.0); EOS % 1.5 % (0-4.5); HEMATOCRIT 27.7 % (32.4-45.2); HEMOGLOBIN 9.1 GM/dL (10.7-15.3); LYMPH % 22.3 % (8-40); MCH 23.1 pg (25.7-33.7); MCHC 32.8 g/dl (32.0-36.0); MEAN CELL VOLUME 70.5 fl (80-96); MEAN PLT VOLUME 8.4 fl (7.5-11.1); MONO % 8.1 % (3.8-10.2); PLATELET COUNT 257 K/MM3 (134-434); RBC 3.93 M/mm3 (3.60-5.2); RDW 17.7 % (11.6-15.6); WHITE BLOOD COUNT 5.9 K/mm3 (4.0-10.0)
[2019-04-21 08:11] LABS: ALBUMIN 3.1 g/dl (3.4-5.0); BILIRUBIN,TOTAL 0.9 mg/dL (0.2-1); BLOOD UREA NITROGEN 54.4 mg/dL (7-18); CALCIUM 8.8 mg/dL (8.5-10.1); CREATININE 1.2 mg/dL (0.55-1.3); MAGNESIUM 1.9 mg/dL (1.8-2.4); POTASSIUM 4.6 mmol/L (3.5-5.1); TOT PROT 6.7 g/dl (6.4-8.2)
[2019-04-21] MEDS: LISINOPRIL 10 MG TABLET (FP) PO SCH (10:28)
[2019-04-21] MEDS: FOLIC ACID 1 MG TABLET (FP) PO SCH (10:28)
[2019-04-21] MEDS: ASPIRIN 81 MG CHEWABLE TABLETS PO SCH (10:28)
[2019-04-21] MEDS: CLOPIDOGREL BISULFATE 75 MG TABLET (FP) PO SCH (10:28)
[2019-04-21] MEDS: metoPROLOL SUCCINATE 25 MG TAB.SR.24H (FP) PO SCH (10:28)
[2019-04-21] MEDS: FERROUS SO4 325 MG TABLET (FP) PO SCH (10:28)
--- NOTE | 2019-04-21 16:08 | PN ---
Progress Note, Physician Chief Complaint: Diuresing Sinus on tele with pvc's History of Present Illness: 69 year old female with a pmhx of CAD s/p STEMI s/p [facility] to [facility]AD 10/15/18, htn, dm , hld, asthma, and chronic systolic chf due to ICM here with recent weight gain and sob. No chest pain or palpitations. +orthopnea. - Current Medication List Current Medications: Active Medications Aspirin (Asa -) 81 mg PO DAILY [facility] Last Admin: 04/21/19 10:28 Dose: 81 mg Atorvastatin Calcium (Lipitor -) 80 mg PO HS [facility] Last Admin: 04/20/19 23:19 Dose: 80 mg Clopidogrel Bisulfate (Plavix -) 75 mg PO DAILY [facility] Last Admin: 04/21/19 10:28 Dose: 75 mg Ferrous Sulfate (Feosol -) 325 mg PO DAILY [facility] Last Admin: 04/21/19 10:28 Dose: 325 mg Folic Acid (Folic Acid -) 1 mg PO DAILY [facility] Last Admin: 04/21/19 10:28 Dose: 1 mg Furosemide (Lasix Injection -) 40 mg IVPUSH BID@0600,1400 [facility] Last Admin: 04/21/19 14:34 Dose: 40 mg Insulin Aspart (Novolog Vial Sliding Scale -) 1 vial SQ ACHS [facility]; Protocol Last Admin: 04/21/19 12:54 Dose: 4 units Lisinopril (Prinivil) 10 mg PO DAILY [facility] Last Admin: 04/21/19 10:28 Dose: 10 mg Metoprolol Succinate (Toprol Xl -) 25 mg PO DAILY [facility] Last Admin: 04/21/19 10:28 Dose: 25 mg - Objective Vital Signs: Vital Signs Temperature 97.9 F 04/21/19 14:15 Pulse Rate 82 04/21/19 14:15 Respiratory Rate 18 04/21/19 14:15 Blood Pressure 96/58 L 04/21/19 14:15 O2 Sat by Pulse Oximetry (%) 98 04/21/19 09:00 Constitutional: Yes: No Distress Neck: Yes: Supple Cardiovascular: Yes: Regular Rate and Rhythm, JVD, S1, S2. No: Murmur Respiratory: Yes: Rales Gastrointestinal: Yes: Soft Edema: No Labs: CBC, BMP 04/21/19 06:01 04/21/19 06:01 INR, PTT INR 1.28 (0.83-1.09) H 04/20/19 06:18 Problem List - Problems (1) Acute exacerbation of CHF (congestive heart failure) Code(s): I50.9 - HEART FAILURE, UNSPECIFIED Assessment/Plan 69 year old female with a pmhx of CAD s/p STEMI s/p [facility] to [facility]AD 10/15/18, htn, dm , hld, asthma, and chronic systolic chf due to ICM here with recent weight gain and sob. No chest pain or palpitations. +orthopnea. 1) Acute on chronic systolic chf exacerbation -Home chf meds metoprolol xl and lisinopril -Fluid restriction Low salt diet Furosemide 40mg IV bid Monitor I/O's, daily weight, and lytes -F/u Dr. Persaud as outpatient for monitoring of LVEF and need for ICD or not. 2) CAD -Continue aspirin/plavix/statin/metoprolol Will continue to follow with you
--- NOTE | 2019-04-21 18:41 | PN ---
Progress Note, Physician History of Present Illness: Patient is a 69 year old female with a past medical history of hypertension, diabetes type 2, HLD, asthma, CAD (S/P PCI with [facility] of [facility] on 10/15/18), systolic CHF secondary to an ischemic cardiomyopathy with an EF of 35% (echo 10/20), STEMI involving the lateral wall 10/15/18 cath a [facility] showed a 99% stenosis of the Mid LAD. She presents to the ED with c/o of worsening leg edema , orthpnea and shortness of breath with physical exertion. She reports weight gain at home from 172 to 179 lbs in 2 days. She was most recently admitted with similar presentation on 04/03/2019-04/07/2019. She reports compliance with home Lasix. Patient believes she is having a CHF exacerbation. She reports medication compliance and has not been drinking too much water. She notes worsening upper and lower extremity swelling. Cannot walk beyond her kitchen without feeling short of breath. Uses three pillows. Has a nonproductive cough. Denies fever, chills, chest pain, or abdominal pain. - Current Medication List Current Medications: Active Medications Aspirin (Asa -) 81 mg PO DAILY [facility] Last Admin: 04/21/19 10:28 Dose: 81 mg Atorvastatin Calcium (Lipitor -) 80 mg PO HS [facility] Last Admin: 04/20/19 23:19 Dose: 80 mg Clopidogrel Bisulfate (Plavix -) 75 mg PO DAILY [facility] Last Admin: 04/21/19 10:28 Dose: 75 mg Ferrous Sulfate (Feosol -) 325 mg PO DAILY [facility] Last Admin: 04/21/19 10:28 Dose: 325 mg Folic Acid (Folic Acid -) 1 mg PO DAILY [facility] Last Admin: 04/21/19 10:28 Dose: 1 mg Furosemide (Lasix Injection -) 40 mg IVPUSH BID@0600,1400 [facility] Last Admin: 04/21/19 14:34 Dose: 40 mg Insulin Aspart (Novolog Vial Sliding Scale -) 1 vial SQ ACHS [facility]; Protocol Last Admin: 04/21/19 18:05 Dose: Not Given Lisinopril (Prinivil) 10 mg PO DAILY [facility] Last Admin: 04/21/19 10:28 Dose: 10 mg Metoprolol Succinate (Toprol Xl -) 25 mg PO DAILY [facility] Last Admin: 04/21/19 10:28 Dose: 25 mg - Objective Vital Signs: Vital Signs Temperature 97.9 F 04/21/19 14:15 Pulse Rate 82 04/21/19 14:15 Respiratory Rate 18 04/21/19 14:15 Blood Pressure 96/58 L 04/21/19 14:15 O2 Sat by Pulse Oximetry (%) 98 04/21/19 09:00 Constitutional: Yes: No Distress Eyes: Yes: Conjunctiva Clear HENT: Yes: Atraumatic Neck: Yes: WNL Cardiovascular: Yes: Regular Rate and Rhythm Respiratory: Yes: Rales (crackles at the bases), SOB on Exertion ...Rectal Exam: Yes: Deferred Genitourinary: Yes: WNL Musculoskeletal: Yes: WNL Extremities: Yes: WNL Edema: LLE: 1+, RLE: 1+ ...Motor Strength: WNL Psychiatric: Yes: Alert, Oriented Labs: CBC, BMP 04/21/19 06:01 04/21/19 06:01 INR, PTT INR 1.28 (0.83-1.09) H 04/20/19 06:18 Problem List - Problems (1) Acute exacerbation of CHF (congestive heart failure) Assessment/Plan: started back on lasix IV bid, daily weights with monitoring of intake and output. patient reports compliance with po lasix 40mg bid, but states she does not feel it hs been working for her. she reports compliance at home. cardiology following echo EF 35% monitor electrolytes, Monitor I/O's, daily weight c/w lisinopril Code(s): I50.9 - HEART FAILURE, UNSPECIFIED (2) MARCELLA (acute kidney injury) Assessment/Plan: monitor daily with labs Code(s): N17.9 - ACUTE KIDNEY FAILURE, UNSPECIFIED (3) Acute respiratory failure with hypoxia Assessment/Plan: tolerating room air crackles at the bases, unchanged from previous Code(s): J96.01 - ACUTE RESPIRATORY FAILURE WITH HYPOXIA (4) Diabetes Assessment/Plan: monitor with sliding scale Code(s): E11.9 - TYPE 2 DIABETES MELLITUS WITHOUT COMPLICATIONS (5) LFTs abnormal Code(s): R94.5 - ABNORMAL RESULTS OF LIVER FUNCTION STUDIES (6) Prophylactic measure Assessment/Plan: fen tolerating po no ivf, monitor electrolytes low salt diet full code Code(s): Z29.9 - ENCOUNTER FOR PROPHYLACTIC MEASURES, UNSPECIFIED Visit type - Emergency Visit Emergency Visit: Yes ED Registration Date: 04/21/19 Care time: The patient presented to the Emergency Department on the above date and was hospitalized for further evaluation of their emergent condition. - New Patient This patient is new to me today: No - Critical Care Critical Care patient: No - Discharge Referral Referred to [facility] Med P.C.: No
[2019-04-21] MEDS: ATORVASTATIN CA 80 MG TABLET (FP) PO SCH (21:43)
[2019-04-22] MEDS: FUROSEMIDE 40 MG/4 ML INJECTABLE VIAL IVPUSH SCH ×2 (06:29→14:07)
[2019-04-22] MEDS: INSULIN SLIDING SCALE (NOVOLOG) 1 VIAL SQ SCH ×4 (06:31→21:38)
[2019-04-22] MEDS: FOLIC ACID 1 MG TABLET (FP) PO SCH (09:51)
[2019-04-22] MEDS: ASPIRIN 81 MG CHEWABLE TABLETS PO SCH (09:51)
[2019-04-22] MEDS: metoPROLOL SUCCINATE 25 MG TAB.SR.24H (FP) PO SCH (09:51)
[2019-04-22] MEDS: FERROUS SO4 325 MG TABLET (FP) PO SCH (09:51)
[2019-04-22] MEDS: CLOPIDOGREL BISULFATE 75 MG TABLET (FP) PO SCH (09:51)
[2019-04-22] MEDS: LISINOPRIL 10 MG TABLET (FP) PO SCH (09:53)
[2019-04-22 11:12] LABS: BASO % 1.2 % (0-2.0); EOS % 1.2 % (0-4.5); HEMATOCRIT 29.5 % (32.4-45.2); HEMOGLOBIN 9.5 GM/dL (10.7-15.3); LYMPH % 24.2 % (8-40); MCH 22.9 pg (25.7-33.7); MCHC 32.1 g/dl (32.0-36.0); MEAN CELL VOLUME 71.4 fl (80-96); MEAN PLT VOLUME 8.4 fl (7.5-11.1); MONO % 6.6 % (3.8-10.2); NEUT % 66.8 % (42.8-82.8); PLATELET COUNT 278 K/MM3 (134-434); RBC 4.14 M/mm3 (3.60-5.2); RDW 18.4 % (11.6-15.6); WHITE BLOOD COUNT 5.8 K/mm3 (4.0-10.0)
[2019-04-22 11:40] LABS: ALBUMIN 3.2 g/dl (3.4-5.0); BILIRUBIN,TOTAL 1.1 mg/dL (0.2-1); BLOOD UREA NITROGEN 48.4 mg/dL (7-18); CALCIUM 9.3 mg/dL (8.5-10.1); CREATININE 1.4 mg/dL (0.55-1.3); MAGNESIUM 2.1 mg/dL (1.8-2.4); POTASSIUM 4.4 mmol/L (3.5-5.1); TOT PROT 7.2 g/dl (6.4-8.2)
--- NOTE | 2019-04-22 12:54 | PN ---
Progress Note, Physician Chief Complaint: Feels much better Tele: sinus with occasional pvc's History of Present Illness: 69 year old female with a pmhx of CAD s/p STEMI s/p [facility] to mLAD 10/15/18, htn, dm , hld, asthma, and chronic systolic chf due to ICM here with recent weight gain and sob. No chest pain or palpitations. +orthopnea. - Current Medication List Current Medications: Active Medications Aspirin (Asa -) 81 mg PO DAILY [facility] Last Admin: 04/22/19 09:51 Dose: 81 mg Atorvastatin Calcium (Lipitor -) 80 mg PO HS [facility] Last Admin: 04/21/19 21:43 Dose: 80 mg Clopidogrel Bisulfate (Plavix -) 75 mg PO DAILY [facility] Last Admin: 04/22/19 09:51 Dose: 75 mg Ferrous Sulfate (Feosol -) 325 mg PO DAILY [facility] Last Admin: 04/22/19 09:51 Dose: 325 mg Folic Acid (Folic Acid -) 1 mg PO DAILY [facility] Last Admin: 04/22/19 09:51 Dose: 1 mg Furosemide (Lasix Injection -) 40 mg IVPUSH BID@0600,1400 [facility] Last Admin: 04/22/19 06:29 Dose: 40 mg Insulin Aspart (Novolog Vial Sliding Scale -) 1 vial SQ ACHS [facility]; Protocol Last Admin: 04/22/19 11:12 Dose: 4 units Lisinopril (Prinivil) 10 mg PO DAILY [facility] Last Admin: 04/22/19 09:53 Dose: 10 mg Metoprolol Succinate (Toprol Xl -) 25 mg PO DAILY [facility] Last Admin: 04/22/19 09:51 Dose: 25 mg - Objective Vital Signs: Vital Signs Temperature 97.9 F 04/22/19 10:00 Pulse Rate 98 H 04/22/19 10:05 Respiratory Rate 18 04/22/19 10:00 Blood Pressure 94/63 04/22/19 10:00 O2 Sat by Pulse Oximetry (%) 98 04/22/19 10:05 Constitutional: Yes: No Distress Neck: Yes: Supple Cardiovascular: Yes: Regular Rate and Rhythm, S1, S2. No: JVD, Murmur Respiratory: Yes: Rales (minimal basilar rales) Gastrointestinal: Yes: Soft Edema: No Labs: CBC, BMP 04/22/19 10:30 04/22/19 10:30 INR, PTT INR 1.28 (0.83-1.09) H 04/20/19 06:18 Problem List - Problems (1) Acute exacerbation of CHF (congestive heart failure) Code(s): I50.9 - HEART FAILURE, UNSPECIFIED Assessment/Plan 69 year old female with a pmhx of CAD s/p STEMI s/p [facility] to mLAD 10/15/18, htn, dm , hld, asthma, and chronic systolic chf due to ICM here with recent weight gain and sob. No chest pain or palpitations. +orthopnea. 1) Acute on chronic systolic chf exacerbation -Home chf meds metoprolol xl and lisinopril -Fluid restriction Low salt diet Furosemide 40mg IV bid with much improvement Would change to torsemide 50mg daily tomorrow and DC on this opposed to furosemide Monitor I/O's, daily weight, and lytes -F/u Dr. Persaud as outpatient for monitoring of LVEF and need for ICD or not. 2) CAD -Continue aspirin/plavix/statin/metoprolol Change to PO diuretic Will sign off.
--- NOTE | 2019-04-22 13:07 | PN ---
Progress Note, Physician History of Present Illness: Patient is a 69 year old female with a past medical history of hypertension, diabetes type 2, HLD, asthma, CAD (S/P PCI with [facility] of [facility] on 10/15/18), systolic CHF secondary to an ischemic cardiomyopathy with an EF of 35% (echo 10/20), STEMI involving the lateral wall 10/15/18 cath a [facility] showed a 99% stenosis of the Mid LAD. She presents to the ED with c/o of worsening leg edema , orthpnea and shortness of breath with physical exertion. She reports weight gain at home from 172 to 179 lbs in 2 days. She was most recently admitted with similar presentation on 04/03/2019-04/07/2019. She reports compliance with home Lasix. Patient believes she is having a CHF exacerbation. She reports medication compliance and has not been drinking too much water. She notes worsening upper and lower extremity swelling. Cannot walk beyond her kitchen without feeling short of breath. Uses three pillows. Has a nonproductive cough. Denies fever, chills, chest pain, or abdominal pain. - Current Medication List Current Medications: Active Medications Aspirin (Asa -) 81 mg PO DAILY [facility] Last Admin: 04/22/19 09:51 Dose: 81 mg Atorvastatin Calcium (Lipitor -) 80 mg PO HS [facility] Last Admin: 04/21/19 21:43 Dose: 80 mg Clopidogrel Bisulfate (Plavix -) 75 mg PO DAILY [facility] Last Admin: 04/22/19 09:51 Dose: 75 mg Ferrous Sulfate (Feosol -) 325 mg PO DAILY [facility] Last Admin: 04/22/19 09:51 Dose: 325 mg Folic Acid (Folic Acid -) 1 mg PO DAILY [facility] Last Admin: 04/22/19 09:51 Dose: 1 mg Furosemide (Lasix Injection -) 40 mg IVPUSH BID@0600,1400 [facility] Last Admin: 04/22/19 06:29 Dose: 40 mg Insulin Aspart (Novolog Vial Sliding Scale -) 1 vial SQ ACHS [facility]; Protocol Last Admin: 04/22/19 11:12 Dose: 4 units Lisinopril (Prinivil) 10 mg PO DAILY [facility] Last Admin: 04/22/19 09:53 Dose: 10 mg Metoprolol Succinate (Toprol Xl -) 25 mg PO DAILY [facility] Last Admin: 04/22/19 09:51 Dose: 25 mg - Objective Vital Signs: Vital Signs Temperature 97.9 F 04/22/19 10:00 Pulse Rate 98 H 04/22/19 10:05 Respiratory Rate 18 04/22/19 10:00 Blood Pressure 94/63 04/22/19 10:00 O2 Sat by Pulse Oximetry (%) 98 04/22/19 10:05 Constitutional: Yes: Well Nourished, No Distress Eyes: Yes: WNL HENT: Yes: Atraumatic Neck: Yes: Supple Cardiovascular: Yes: Regular Rate and Rhythm Respiratory: Yes: Regular Gastrointestinal: Yes: Normal Bowel Sounds, Soft ...Rectal Exam: Yes: Deferred Genitourinary: Yes: WNL Edema: LLE: Trace, RLE: Trace Integumentary: Yes: WNL Labs: CBC, BMP 04/22/19 10:30 04/22/19 10:30 INR, PTT INR 1.28 (0.83-1.09) H 04/20/19 06:18 Problem List - Problems (1) Acute exacerbation of CHF (congestive heart failure) Assessment/Plan: on lasix IV bid,. then start on toresemide tomorrow, discharge home after. daily weights with monitoring of intake and output. patient reports compliance with po lasix 40mg bid, but states she does not feel it has been working for her. she reports compliance at home. cardiology following echo EF 35% monitor electrolytes, Monitor I/O's, daily weight c/w lisinopril Code(s): I50.9 - HEART FAILURE, UNSPECIFIED (2) MARCELLA (acute kidney injury) Assessment/Plan: monitor daily with labs Code(s): N17.9 - ACUTE KIDNEY FAILURE, UNSPECIFIED (3) Acute respiratory failure with hypoxia Assessment/Plan: tolerating room air crackles at the bases, unchanged from previous Code(s): J96.01 - ACUTE RESPIRATORY FAILURE WITH HYPOXIA (4) Diabetes Assessment/Plan: monitor with sliding scale Code(s): E11.9 - TYPE 2 DIABETES MELLITUS WITHOUT COMPLICATIONS (5) LFTs abnormal Code(s): R94.5 - ABNORMAL RESULTS OF LIVER FUNCTION STUDIES (6) Prophylactic measure Assessment/Plan: fen tolerating po no ivf, monitor electrolytes low salt diet full code Code(s): Z29.9 - ENCOUNTER FOR PROPHYLACTIC MEASURES, UNSPECIFIED Visit type - Emergency Visit Emergency Visit: Yes ED Registration Date: 04/21/19 Care time: The patient presented to the Emergency Department on the above date and was hospitalized for further evaluation of their emergent condition. - New Patient This patient is new to me today: No - Critical Care Critical Care patient: No - Discharge Referral Referred to [facility] Med P.C.: No
[2019-04-22] MEDS: ATORVASTATIN CA 80 MG TABLET (FP) PO SCH (21:39)
[2019-04-23] MEDS: INSULIN SLIDING SCALE (NOVOLOG) 1 VIAL SQ SCH ×4 (06:39→21:43)
[2019-04-23] MEDS: ASPIRIN 81 MG CHEWABLE TABLETS PO SCH (09:47)
[2019-04-23] MEDS: CLOPIDOGREL BISULFATE 75 MG TABLET (FP) PO SCH (09:47)
[2019-04-23] MEDS: FOLIC ACID 1 MG TABLET (FP) PO SCH (09:48)
[2019-04-23] MEDS: FERROUS SO4 325 MG TABLET (FP) PO SCH (09:49)
[2019-04-23] MEDS: metoPROLOL SUCCINATE 25 MG TAB.SR.24H (FP) PO SCH (09:50)
[2019-04-23] MEDS: LISINOPRIL 10 MG TABLET (FP) PO SCH (09:50)
[2019-04-23] MEDS ORDERED: TORSEMIDE 100 MG TABLET PO SCH (10:00)
--- NOTE | 2019-04-23 20:30 | PN ---
Progress Note, Physician Chief Complaint: in no acute distress. History of Present Illness: Patient is a 69 year old female with a past medical history of hypertension, diabetes type 2, HLD, asthma, CAD (S/P PCI with [facility] of Mid LAD on 10/15/18), systolic CHF secondary to an ischemic cardiomyopathy with an EF of 35% (echo 10/20), STEMI involving the lateral wall 10/15/18 cath a [facility] showed a 99% stenosis of the Mid LAD. She presents to the ED with c/o of worsening leg edema , orthpnea and shortness of breath with physical exertion. She reports weight gain at home from 172 to 179 lbs in 2 days. She was most recently admitted with similar presentation on 04/03/2019-04/07/2019. She reports compliance with home Lasix. Hypotensive today, asymptomatic. Not orthostatic. Monitor and discharge once BP is more stable. - Current Medication List Current Medications: Active Medications Aspirin (Asa -) 81 mg PO DAILY [facility] Last Admin: 04/23/19 09:47 Dose: 81 mg Atorvastatin Calcium (Lipitor -) 80 mg PO HS [facility] Last Admin: 04/22/19 21:39 Dose: 80 mg Clopidogrel Bisulfate (Plavix -) 75 mg PO DAILY [facility] Last Admin: 04/23/19 09:47 Dose: 75 mg Ferrous Sulfate (Feosol -) 325 mg PO DAILY [facility] Last Admin: 04/23/19 09:49 Dose: 325 mg Folic Acid (Folic Acid -) 1 mg PO DAILY [facility] Last Admin: 04/23/19 09:48 Dose: 1 mg Insulin Aspart (Novolog Vial Sliding Scale -) 1 vial SQ [facility]; Protocol Last Admin: 04/23/19 17:23 Dose: Not Given Lisinopril (Prinivil) 10 mg PO DAILY [facility] Last Admin: 04/23/19 09:50 Dose: Not Given Metoprolol Succinate (Toprol Xl -) 25 mg PO DAILY [facility] Last Admin: 04/23/19 09:50 Dose: Not Given Torsemide (Demadex -) 50 mg PO DAILY [facility] Last Admin: 04/23/19 09:49 Dose: 50 mg - Objective Vital Signs: Vital Signs Temperature 98.3 F 04/23/19 17:00 Pulse Rate 83 04/23/19 17:00 Respiratory Rate 20 04/23/19 17:00 Blood Pressure 90/62 04/23/19 17:00 O2 Sat by Pulse Oximetry (%) 98 04/23/19 08:37 Constitutional: Yes: Well Nourished, No Distress Eyes: Yes: Conjunctiva Clear HENT: Yes: Atraumatic Neck: Yes: Trachea Midline Cardiovascular: Yes: Regular Rate and Rhythm Respiratory: Yes: CTA Bilaterally Gastrointestinal: Yes: Normal Bowel Sounds ...Rectal Exam: Yes: Deferred Genitourinary: Yes: WNL Musculoskeletal: Yes: WNL Edema: LLE: Trace, RLE: Trace Integumentary: Yes: WNL Neurological: Yes: Alert, Oriented ...Motor Strength: WNL Psychiatric: Yes: Alert, Oriented Labs: CBC, BMP 04/22/19 10:30 04/22/19 10:30 INR, PTT INR 1.28 (0.83-1.09) H 04/20/19 06:18 Problem List - Problems (1) Acute exacerbation of CHF (congestive heart failure) Assessment/Plan: started on Toresemide 50mg daily by cardiology. daily weights with monitoring of intake and output. She will need close cardiology follow up at home echo EF 35% monitor electrolytes, Monitor I/O's, daily weight on lisinopril and metoprolol Code(s): I50.9 - HEART FAILURE, UNSPECIFIED Qualifiers: Heart failure type: unspecified Qualified Code(s): I50.9 - Heart failure, unspecified (2) MARCELLA (acute kidney injury) Assessment/Plan: monitor daily with labs Code(s): N17.9 - ACUTE KIDNEY FAILURE, UNSPECIFIED (3) Acute respiratory failure with hypoxia Assessment/Plan: tolerating room air crackles at the bases, improved from previous Code(s): J96.01 - ACUTE RESPIRATORY FAILURE WITH HYPOXIA (4) Diabetes Assessment/Plan: monitor with sliding scale Code(s): E11.9 - TYPE 2 DIABETES MELLITUS WITHOUT COMPLICATIONS (5) LFTs abnormal Code(s): R94.5 - ABNORMAL RESULTS OF LIVER FUNCTION STUDIES (6) Prophylactic measure Assessment/Plan: fen tolerating po no ivf, monitor electrolytes low salt diet full code Code(s): Z29.9 - ENCOUNTER FOR PROPHYLACTIC MEASURES, UNSPECIFIED Visit type - Emergency Visit Emergency Visit: Yes ED Registration Date: 04/21/19 Care time: The patient presented to the Emergency Department on the above date and was hospitalized for further evaluation of their emergent condition. - New Patient This patient is new to me today: No - Critical Care Critical Care patient: No - Discharge Referral Referred to [facility] No
[2019-04-23] MEDS: ATORVASTATIN CA 80 MG TABLET (FP) PO SCH (21:43)
[2019-04-24] MEDS: INSULIN SLIDING SCALE (NOVOLOG) 1 VIAL SQ SCH ×4 (06:03→21:24)
[2019-04-24 07:18] LABS: BILIRUBIN,TOTAL 0.9 mg/dL (0.2-1); BLOOD UREA NITROGEN 51.9 mg/dL (7-18); CALCIUM 8.9 mg/dL (8.5-10.1); CREATININE 1.2 mg/dL (0.55-1.3); POTASSIUM 4.3 mmol/L (3.5-5.1); TOT PROT 6.5 g/dl (6.4-8.2)
[2019-04-24 07:35] LABS: EOS % 2.4 % (0-4.5); HEMATOCRIT 28.9 % (32.4-45.2); HEMOGLOBIN 9.3 GM/dL (10.7-15.3); LYMPH % 23.6 % (8-40); MCH 22.9 pg (25.7-33.7); MCHC 32.1 g/dl (32.0-36.0); MEAN CELL VOLUME 71.4 fl (80-96); MEAN PLT VOLUME 8.3 fl (7.5-11.1); MONO % 6.6 % (3.8-10.2); NEUT % 66.4 % (42.8-82.8); PLATELET COUNT 269 K/MM3 (134-434); RBC 4.04 M/mm3 (3.60-5.2); RDW 18.3 % (11.6-15.6); WHITE BLOOD COUNT 6.4 K/mm3 (4.0-10.0)
[2019-04-24] MEDS: FERROUS SO4 325 MG TABLET (FP) PO SCH (10:12)
[2019-04-24] MEDS: CLOPIDOGREL BISULFATE 75 MG TABLET (FP) PO SCH (10:12)
[2019-04-24] MEDS: LISINOPRIL 10 MG TABLET (FP) PO SCH (10:12)
[2019-04-24] MEDS: FOLIC ACID 1 MG TABLET (FP) PO SCH (10:12)
[2019-04-24] MEDS: ASPIRIN 81 MG CHEWABLE TABLETS PO SCH (10:12)
[2019-04-24] MEDS: metoPROLOL SUCCINATE 25 MG TAB.SR.24H (FP) PO SCH (10:12)
--- NOTE | 2019-04-24 14:14 | PN ---
Progress Note, Physician Chief Complaint: in no acute distress. ambulating in room without dyspnea or shortness of breath History of Present Illness: Patient is a 69 year old female with a past medical history of hypertension, diabetes type 2, HLD, asthma, CAD (S/P PCI with [facility] of [facility] L[facility] on 10/15/18), systolic CHF secondary to an ischemic cardiomyopathy with an EF of 35% (echo 10/20), STEMI involving the lateral wall 10/15/18 cath a [facility] showed a 99% stenosis of the Mid LAD. She presents to the ED with c/o of worsening leg edema , orthpnea and shortness of breath with physical exertion. She reports weight gain at home from 172 to 179 lbs in 2 days. She was most recently admitted with similar presentation on 04/03/2019-04/07/2019. She reports compliance with home Lasix. Hypotensive. Not orthostatic. marcella worse today. will hold toresemide as patient is euvolemic. Left message for her dance professor as patient will need close follow up. Her CMP will need to repeated within 3-5 days after discharge. - Current Medication List Current Medications: Active Medications Aspirin (Asa -) 81 mg PO DAILY [facility] Last Admin: 04/24/19 10:12 Dose: 81 mg Atorvastatin Calcium (Lipitor -) 80 mg PO HS [facility] Last Admin: 04/23/19 21:43 Dose: 80 mg Clopidogrel Bisulfate (Plavix -) 75 mg PO DAILY [facility] Last Admin: 04/24/19 10:12 Dose: 75 mg Ferrous Sulfate (Feosol -) 325 mg PO DAILY [facility] Last Admin: 04/24/19 10:12 Dose: 325 mg Folic Acid (Folic Acid -) 1 mg PO DAILY [facility] Last Admin: 04/24/19 10:12 Dose: 1 mg Insulin Aspart (Novolog Vial Sliding Scale -) 1 vial SQ [facility]; Protocol Last Admin: 04/24/19 12:12 Dose: 2 units Lisinopril (Prinivil) 10 mg PO DAILY [facility] Last Admin: 04/24/19 10:12 Dose: 10 mg Metoprolol Succinate (Toprol Xl -) 25 mg PO DAILY [facility] Last Admin: 04/24/19 10:12 Dose: 25 mg Torsemide (Demadex -) 50 mg PO DAILY [facility] Last Admin: 04/23/19 09:49 Dose: 50 mg - Objective Vital Signs: Vital Signs Temperature 97.5 F L 04/24/19 10:00 Pulse Rate 81 04/24/19 10:00 Respiratory Rate 20 04/24/19 10:00 Blood Pressure 92/65 04/24/19 10:00 O2 Sat by Pulse Oximetry (%) 99 04/24/19 09:00 Constitutional: Yes: No Distress, Calm Eyes: Yes: WNL HENT: Yes: Atraumatic Neck: Yes: Supple Cardiovascular: Yes: Regular Rate and Rhythm Respiratory: Yes: Rales (crackles at the bases.) Gastrointestinal: Yes: Normal Bowel Sounds ...Rectal Exam: Yes: Deferred Genitourinary: Yes: WNL Edema: LLE: 1+, RLE: 1+ Integumentary: Yes: WNL Neurological: Yes: WNL, Alert, Oriented Labs: CBC, BMP 04/24/19 05:45 04/24/19 05:45 INR, PTT INR 1.28 (0.83-1.09) H 04/20/19 06:18 Problem List - Problems (1) Acute exacerbation of CHF (congestive heart failure) Assessment/Plan: started on Toresemide 50mg daily by cardiology. Torsemide was given on 04/23 but held today for worsening MARCELLA and hypotension. She is euvolemic on exam and without any dyspnea. Left message for her dance professor Dr. Power for follow up. daily weights with monitoring of intake and output. echo EF 35% monitor electrolytes, Monitor I/O's, daily weight on lisinopril and metoprolol Code(s): I50.9 - HEART FAILURE, UNSPECIFIED Qualifiers: Heart failure type: unspecified Qualified Code(s): I50.9 - Heart failure, unspecified (2) MARCELLA (acute kidney injury) Assessment/Plan: monitor daily with labs Code(s): N17.9 - ACUTE KIDNEY FAILURE, UNSPECIFIED (3) Acute respiratory failure with hypoxia Assessment/Plan: tolerating room air crackles at the bases, improved from previous Code(s): J96.01 - ACUTE RESPIRATORY FAILURE WITH HYPOXIA (4) Diabetes Assessment/Plan: monitor with sliding scale Code(s): E11.9 - TYPE 2 DIABETES MELLITUS WITHOUT COMPLICATIONS (5) LFTs abnormal Code(s): R94.5 - ABNORMAL RESULTS OF LIVER FUNCTION STUDIES (6) Prophylactic measure Assessment/Plan: fen tolerating po no ivf, monitor electrolytes low salt diet full code Code(s): Z29.9 - ENCOUNTER FOR PROPHYLACTIC MEASURES, UNSPECIFIED Visit type - Emergency Visit Emergency Visit: Yes ED Registration Date: 04/21/19 Care time: The patient presented to the Emergency Department on the above date and was hospitalized for further evaluation of their emergent condition. - New Patient This patient is new to me today: No - Critical Care Critical Care patient: No - Discharge Referral Referred to [facility] No
[2019-04-24] MEDS: ATORVASTATIN CA 80 MG TABLET (FP) PO SCH (21:24)
[2019-04-25 05:38] VITALS: TEMP 98.2
[2019-04-25] MEDS: INSULIN SLIDING SCALE (NOVOLOG) 1 VIAL SQ SCH (06:00)
[2019-04-25 06:51] LABS: BASO % 0.7 % (0-2.0); EOS % 2.5 % (0-4.5); HEMATOCRIT 28.6 % (32.4-45.2); HEMOGLOBIN 9.4 GM/dL (10.7-15.3); LYMPH % 20.3 % (8-40); MCH 23.4 pg (25.7-33.7); MCHC 32.9 g/dl (32.0-36.0); MEAN CELL VOLUME 71.3 fl (80-96); MEAN PLT VOLUME 8.2 fl (7.5-11.1); MONO % 6.7 % (3.8-10.2); NEUT % 69.8 % (42.8-82.8); PLATELET COUNT 271 K/MM3 (134-434); RBC 4.01 M/mm3 (3.60-5.2); RDW 18.4 % (11.6-15.6); WHITE BLOOD COUNT 7.3 K/mm3 (4.0-10.0)
[2019-04-25 06:56] LABS: BILIRUBIN,TOTAL 0.9 mg/dL (0.2-1); BLOOD UREA NITROGEN 53.2 mg/dL (7-18); CALCIUM 8.9 mg/dL (8.5-10.1); CREATININE 1.1 mg/dL (0.55-1.3); MAGNESIUM 2.1 mg/dL (1.8-2.4); POTASSIUM 4.8 mmol/L (3.5-5.1); TOT PROT 6.6 g/dl (6.4-8.2)
[2019-04-25 09:17] VITALS: BP 92/54; PULSE 85
[2019-04-25] MEDS: CLOPIDOGREL BISULFATE 75 MG TABLET (FP) PO SCH (09:58)
[2019-04-25] MEDS: ASPIRIN 81 MG CHEWABLE TABLETS PO SCH (09:58)
[2019-04-25] MEDS: FERROUS SO4 325 MG TABLET (FP) PO SCH (09:58)
[2019-04-25] MEDS: FOLIC ACID 1 MG TABLET (FP) PO SCH (09:59)
[2019-04-25] MEDS: LISINOPRIL 10 MG TABLET (FP) PO SCH (09:59)
[2019-04-25] MEDS: metoPROLOL SUCCINATE 25 MG TAB.SR.24H (FP) PO SCH (09:59)
--- NOTE | 2019-04-25 10:21 | DS ---
Physical Exam: SUBJECTIVE: Patient seen and examined at the bedside. she is in agreement to go to [facility] cardiace service under Dr. Power. OBJECTIVE: Spoke to Dr. Power and to patient's son. plan is for transfer to her purse framer for possible ICD and monitoring of LVEF MARCELLA persists, toresemide on hold. further plans per Dr. Persaud. Vital Signs Period Temp Pulse Resp BP Sys/Rae Pulse Ox Last 24 Hr 98 F-98.4 F 84-92 20-20 83-92/48-60 99-99 PHYSICAL EXAM GENERAL: The patient is awake, alert, and fully oriented, in no acute distress. HEAD: Normal with no signs of trauma. EYES: PERRL, extraocular movements intact, sclera anicteric, conjunctiva clear. ENT: Ears normal, nares patent, oropharynx clear without exudates, moist mucous membranes. NECK: Trachea midline, full range of motion, supple. LUNGS: crackles at the bases HEART: Regular rate and rhythm ABDOMEN: Soft, nontender, nondistended, normoactive bowel sounds, no guarding, no rebound, no hepatosplenomegaly, no masses. EXTREMITIES: +1 edema on lower ext bilaterally NEUROLOGICAL: Normal speech, gait not observed. PSYCH: Normal mood, normal affect. SKIN: Warm, dry, normal turgor, no rashes or lesions noted. LABS Laboratory Results - last 24 hr 04/24/19 04/24/19 04/24/19 11:58 17:07 21:23 WBC RBC Hgb Hct MCV MCH MCHC RDW Plt Count MPV Absolute Neuts (auto) Neutrophils % Lymphocytes % Monocytes % Eosinophils % Basophils % Nucleated RBC % Sodium Potassium Chloride Carbon Dioxide Anion Gap BUN Creatinine Est GFR (CKD-EPI)AfAm Est GFR (CKD-EPI)NonAf POC Glucometer 189 217 175 Random Glucose Calcium Magnesium Total Bilirubin AST ALT Alkaline Phosphatase Total Protein Albumin 04/25/19 04/25/19 04/25/19 05:45 05:45 05:58 WBC 7.3 RBC 4.01 Hgb 9.4 L Hct 28.6 L MCV 71.3 L MCH 23.4 L MCHC 32.9 RDW 18.4 H Plt Count 271 MPV 8.2 Absolute Neuts (auto) 5.1 Neutrophils % 69.8 Lymphocytes % 20.3 Monocytes % 6.7 Eosinophils % 2.5 Basophils % 0.7 Nucleated RBC % 0 Sodium 136 Potassium 4.8 Chloride 100 Carbon Dioxide 30 Anion Gap 6 L BUN 53.2 H Creatinine 1.1 Est GFR (CKD-EPI)AfAm 59.32 Est GFR (CKD-EPI)NonAf 51.18 POC Glucometer 137 Random Glucose 142 H Calcium 8.9 Magnesium 2.1 Total Bilirubin 0.9 AST 26 ALT 28 Alkaline Phosphatase 135 H Total Protein 6.6 Albumin 3.0 L HOSPITAL COURSE: Date of Admission:04/21/19 Date of Discharge: 04/25/19 Minutes to complete discharge: 60 Discharge Summary Reason For Visit: ACUTE ON CHRONIC CONGESTIVE HEART FAILURE Current Active Problems Acute exacerbation of CHF (congestive heart failure) (Acute) Condition: Guarded - Instructions Diet, Activity, Other Instructions: TRANSFER TO [facility] CARDIAC SERVICE Disposition: TRANSFER ACUTE CARE/OTHER HOSP - Home Medications Comprehensive Discharge Medication List: Ambulatory Orders Aspirin 81 mg PO DAILY 10/15/18 Atorvastatin Ca [Lipitor] 80 mg PO HS 11/08/18 Clopidogrel Bisulfate [Plavix -] 75 mg PO DAILY 30 Days #30 tablet 11/11/18 Ferrous Sulfate [Feosol] 325 mg PO DAILY 30 Days #30 ud 11/11/18 Metoprolol Succinate [Toprol XL -] 25 mg PO DAILY #30 tab.sr.24h 12/27/18 Folic Acid - 1 mg PO DAILY tablet 04/07/19 Lisinopril [Prinivil] 10 mg PO DAILY tablet 04/07/19 Insulin Sliding Scale [Novolog Vial Sliding Scale -] 1 vial SQ [facility] units 04/25 Torsemide [Demadex -] 50 mg PO DAILY tablet 04/25/19 Problem List - Problems (1) Acute exacerbation of CHF (congestive heart failure) Assessment/Plan: started on Toresemide 50mg daily by cardiology. Torsemide was given on 04/23 but has been on hold for worsening MARCELLA and hypotension. She is euvolemic on exam and without any dyspnea. Patient to be transferred to [facility] today for further workup/plans per her primary purse framer. daily weights with monitoring of intake and output, +2 lbs since yesterday echo EF 35% monitor electrolytes, Monitor I/O's, daily weight on lisinopril and metoprolol Code(s): I50.9 - HEART FAILURE, UNSPECIFIED Qualifiers: Heart failure type: unspecified Qualified Code(s): I50.9 - Heart failure, unspecified (2) MARCELLA (acute kidney injury) Assessment/Plan: monitor daily with labs Code(s): N17.9 - ACUTE KIDNEY FAILURE, UNSPECIFIED (3) Acute respiratory failure with hypoxia Assessment/Plan: tolerating room air crackles at the bases, improved from previous Code(s): J96.01 - ACUTE RESPIRATORY FAILURE WITH HYPOXIA (4) Diabetes Assessment/Plan: monitor with sliding scale Code(s): E11.9 - TYPE 2 DIABETES MELLITUS WITHOUT COMPLICATIONS (5) LFTs abnormal Code(s): R94.5 - ABNORMAL RESULTS OF LIVER FUNCTION STUDIES (6) Prophylactic measure Assessment/Plan: Code(s): Z29.9 - ENCOUNTER FOR PROPHYLACTIC MEASURES, UNSPECIFIED This patient is new to me today: No Emergency Visit: Yes ED Registration Date: 04/21/19 Care time: The patient presented to the Emergency Department on the above date and was hospitalized for further evaluation of their emergent condition. Critical Care patient: No - Discharge Referral Referred to [facility] Med [facility] No
== END 2019-04-25 11:13 | disposition short-term general hospital (02) | DRG 302 ==
LOC: JER 01:01 → JERBED 07:40 → J4W 22:30 → OBSVTOIN 04-21 12:04
PROVIDERS: ADMIT Internal Medicine; ATTEND Nurse Practitioner Family
DX: I25.5 Ischemic cardiomyopathy (principal); J96.01 Acute respiratory failure with hypoxia; I50.23 Acute on chronic systolic (congestive) heart failure; N17.9 Acute kidney failure, unspecified; I11.0 Hypertensive heart disease with heart failure; K21.9 Gastro-esophageal reflux disease without esophagitis; I25.2 Old myocardial infarction; E78.5 Hyperlipidemia, unspecified; E11.9 Type 2 diabetes mellitus without complications; Z79.84 Long term (current) use of oral hypoglycemic drugs; I25.10 Atherosclerotic heart disease of native coronary artery without angina pectoris; Z95.5 Presence of coronary angioplasty implant and graft; Z79.4 Long term (current) use of insulin; R94.5 Abnormal results of liver function studies
CPT/HCPCS: 36415; 71045-TC-FY; 80053; 82962; 83036; 83735; 83880; 84443; 84484; 85025; 85610; 93005; 93010; 94010; 94761; 99285-25; G0378